=== PATIENT | male | born 1975 | race American Indian/Alaskan Native ===

== ENCOUNTER 2017-01-15 12:15 | Inpatient (IN) | payer MEDICARE, MEDICAID, OTHER ==
--- NOTE | 2017-01-15 12:17 | ED PDOC ---
Arrival/HPI - General Time Seen by Provider: 01/15/17 12:17 Historian: Patient, EMS - History of Present Illness Narrative History of Present Illness (Text): 01/15/17 12:17 41 y/o male, pmh including chronic brain lesion for over 10 years/seizure, nkda , psychiatric history including suicidal ideation/attempt, c/o depression with suicidal and homicidal pain Plus chest pain started 6am today. Pt. stated that he was at [place] [facility] [place] ago for the suicidal ideation which he stated that he was hospitalize for 4 days. Pt. stated that he has been feeling very depressed this week, stated that he was picking up the cup of a antifreeze and was planning to drink it, antifreeze touch the outer lips but didn't swallow or put it inside the oral cavity. Pt. stated that he woke up this morning around 6am with the chest pain, aggravated by touching the lt. sided chest region, no coughing or night sweat, no dizziness, no diarrhea, no shortness of breath, no palpitation, no other medical or psychological complaints. Past Medical History - Provider Review Nursing Documentation Reviewed: Yes Family/Social History - Physician Review Nursing Documentation Reviewed: Yes Family/Social History: Unknown Family HX Allergies/Home Meds Allergies/Adverse Reactions: Allergies No Known Allergies Allergy (Verified 01/15/17 12:37) Home Medications: Home Meds Medication Instructions Recorded Confirmed Citalopram Hydrobromide [Celexa] 20 mg PO DAILY 01/15/17 01/15/17 Divalproex [Depakote] 250 mg PO BID 01/15/17 01/15/17 traZODone [trazODONE HYDROCHLORIDE] 50 mg PO DAILY 01/15/17 01/15/17 Review of Systems - Review of Systems Constitutional: absent: Fatigue, Fevers Eyes: absent: Vision Changes ENT: absent: Hearing Changes Respiratory: absent: SOB, Cough Cardiovascular: Chest Pain Gastrointestinal: absent: Abdominal Pain, Nausea, Vomiting Skin: absent: Rash, Pruritis, Skin Lesions, Ulcer Neurological: absent: Headache, Dizziness Physical Exam Vital Signs Temp Pulse Resp BP Pulse Ox 01/15/17 19:14 99.1 F 53 L 14 98/55 L 99 01/15/17 18:15 58 L 18 100/65 98 01/15/17 17:43 64 18 110/74 100 01/15/17 16:36 97.8 F 64 18 101/56 L 99 01/15/17 15:18 60 18 100/62 99 01/15/17 14:42 97.8 F 61 17 110/68 100 01/15/17 12:25 97.8 F 64 18 100/63 100 Temperature: Afebrile Blood Pressure: Normal Pulse: Regular Respiratory Rate: Normal Appearance: Positive for: Well-Appearing, Non-Toxic, Comfortable Pain Distress: Moderate Mental Status: Positive for: Alert and Oriented X 3 - Systems Exam Head: Present: Atraumatic, Normocephalic Pupils: Present: PERRL Extroacular Muscles: Present: EOMI Conjunctiva: Present: Normal Mouth: Present: Moist Mucous Membranes, Normal Lips. No: Drooling, Trismus Pharnyx: No: ERYTHEMA, EXUDATE, TONSILS ENLARGED, Uvular Deviation, Muffled/ Hoarse Voice, Strider, Soft Palate/Uvular Edema Neck: Present: Normal Range of Motion Respiratory/Chest: Present: Clear to Auscultation, Good Air Exchange, Tender to Palpation (Chest pain is 100% reproducible by palpating on the lt. pectoralis major muscle region with no rib bony tenderness. ). No: Respiratory Distress, Accessory Muscle Use, Wheezes, Decreased Breath Sounds, Rales, Retracting, Rhonchi, Tachypneic Cardiovascular: Present: Regular Rate and Rhythm, Normal S1, S2. No: Murmurs Abdomen: Present: Normal Bowel Sounds. No: Tenderness, Distention, Peritoneal Signs, Rebound, Guarding Back: Present: Normal Inspection. No: Midline Tenderness, Paraspinal Tenderness Upper Extremity: Present: Normal Inspection. No: Cyanosis, Edema Lower Extremity: Present: Normal Inspection. No: Edema Neurological: Present: GCS=15, Speech Normal, Motor Func Grossly Intact, Gait Normal, Memory Normal Skin: Present: Warm, Dry, Normal Color. No: Rashes Psychiatric: Present: Alert, Oriented x 3, Normal Insight, Normal Concentration Medical Decision Making ED Course and Treatment: 01/15/17 12:35 -labs/ua/uds -ekg -cxr -IVF/toradol -Poison control -one to one -HEART score is LOW with score is 3. -observe and reassess 01/15/17 13:03 -Poison control notified: impression is this is not consider as ingestion, suggest to ensure the blood PH is within normal limit. ABG ordered. 01/15/17 14:19 -EKG: NSR @ 60 BPM, early repolarizations noted on the anterior lateral leads from V3-V6, no T wave inversion, no previous ekg available for comparison. -Chest xray show: no active disease -Labs are non-significant -ABG PH: 7.42 (within normal limit) -1st set of the troponin is negative. Will repeat the 2nd troponin 16:00 01/15/17 14:29 -Poison control called back and no further testing or emergent indicated. -IVF ordered for the patient. 01/15/17 18:03 -2nd set of the troponin is negative. -Pt. is medically clear and stable for the psychiatric evaluation at this moment. -UA show no UTI -UDS show no acute findings. -NATALIE Abrams contacted and awared. -Chest pain resolved with the IV toradol, pt. is sleeping well and had sandwich in the ER. -Case discussed with Dr. Dominguez, he agreed that the patient can be medically clear and evaluated by the PES. 01/15/17 19:46 -NATALIE Abrams evaluated the patient, request to admit the patient for major depression. - Lab Interpretations Lab Results: 01/15/17 13:30 01/15/17 13:30 Lab Results 01/15/17 17:30: Urine Opiates Screen Negative, Urine Methadone Screen Negative, Ur Barbiturates Screen Negative, Ur Phencyclidine Scrn Negative, Ur Amphetamines Screen Negative, U Benzodiazepines Scrn Negative, U Oth Cocaine Metabols Positive H, U Cannabinoids Screen Negative 01/15/17 17:30: Urine Color Yellow, Urine Appearance Clear, Urine pH 6.5, Ur Specific [place] 1.025, Urine Protein 30 H, Urine Glucose (UA) Negative, Urine Ketones Negative, Urine Blood Negative, Urine Nitrate Negative, Urine Bilirubin Negative, Urine Urobilinogen 1.0 H, Ur Leukocyte Esterase Negative, Urine RBC 0 - 2, Urine WBC 0 - 2, Ur Epithelial Cells 0 - 2, Urine Bacteria Few 01/15/17 16:28: Lactate Dehydrogenase 262 L, Total Creatine Kinase 76, Troponin I < 0.01 01/15/17 14:05: pCO2 46 H, pO2 96.0, HCO3 29.8 H, ABG pH 7.42, ABG Total CO2 31.2 H, ABG O2 Saturation 98.9 H, ABG Base Excess 4.5 H, ABG Potassium 3.5 L, Glucose 131 H, Lactate 0.6 L, FiO2 21.0, Sodium 138.0, Chloride 106.0, Arterial Blood Potassium 3.5 L 01/15/17 13:30: WBC 4.6, RBC 4.62, Hgb 15.4, Hct 42.9, MCV 92.9, MCH 33.3, MCHC 35.9, RDW 13.3, Plt Count 188, MPV 9.9, Gran % 30.3 L, Lymph % (Auto) 51.4 H, [place] % (Auto) 11.5 H, Eos % (Auto) 6.1 H, Baso % (Auto) 0.7, Gran # 1.40, Lymph # 2.4, [place] # 0.5, Eos # 0.3, Baso # 0.03 01/15/17 13:30: Alcohol, Quantitative < 10 01/15/17 13:30: Salicylates < 1 L, Acetaminophen < 10.0 L 01/15/17 13:30: Sodium 142, Potassium 4.2, Chloride 103, Carbon Dioxide 30, Anion Gap 13, BUN 12, Creatinine 0.9, Est GFR ( Amer) > 60, Est GFR (Non- Af Amer) > 60, Random Glucose 92, Calcium 9.4, Total Bilirubin 1.0, AST 24, ALT 28, Alkaline Phosphatase 70, Lactate Dehydrogenase 289 L, Total Creatine Kinase 91, Troponin I < 0.01, Total Protein 7.2, Albumin 4.2, Globulin 3.0, Albumin/ Globulin Ratio 1.4 I have reviewed the lab results: Yes Interpretation: Abnormal lab values (+cocaine) - RAD Interpretation Radiology Orders: 01/15/17 12:39 CHEST PORTABLE [RAD] Stat Chest x-ray: HISTORY: medical clearance COMPARISON: No prior. FINDINGS: LUNGS: No active pulmonary disease. PLEURA: No significant pleural effusion identified, no pneumothorax apparent. CARDIOVASCULAR: Normal. OSSEOUS STRUCTURES: No significant abnormalities. VISUALIZED UPPER ABDOMEN: Normal. OTHER FINDINGS: None. IMPRESSION: No active disease. Assistant In Nursing: Radiologist - Medication Orders Current Medication Orders: Sodium Chloride (Sodium Chloride 0.9%) 1,000 mls @ 250 mls/hr IV .Q4H HUGO Last Admin: 01/15/17 16:02 Dose: 250 mls/hr eMAR Start Stop Document 01/15/17 16:02 IT (Rec: 01/15/17 16:02 IT [facility] [id number]) Intravenous Solution Start Date 01/15/17 Start Time 16:02 End Date 01/15/17 End time 17:02 Total Infusion Time 60 Discontinued Medications Sodium Chloride (Sodium Chloride 0.9%) 1,000 mls @ 999 mls/hr IV .Q1H1M STA Stop: 01/15/17 15:28 Last Admin: 01/15/17 14:45 Dose: 999 mls/hr eMAR Start Stop Document 01/15/17 14:45 IT (Rec: 01/15/17 14:45 IT [id number] Intravenous Solution Start Date 01/15/17 Start Time 14:45 End Date 01/15/17 End time 15:45 Total Infusion Time 60 Ketorolac Tromethamine (Toradol) 30 mg IVP STAT STA Stop: 01/15/17 12:40 Last Admin: 01/15/17 13:21 Dose: 30 mg MAR Pain Assessment Document 01/15/17 13:21 IT (Rec: 01/15/17 13:25 IT [facility] [id number]) Pain Reassessment Is this a pain reassessment? No Sleep Is patient sleeping during reassessment? No Presence of Pain Presence of Pain Yes Pain Scale Used Pain Scale Used Numeric Location Left, Right or Bilateral Left Pain Location Body Site Chest IVP Administration Document 01/15/17 13:21 IT (Rec: 01/15/17 13:25 IT [facility] [id number]) Charges for Administration # of IVP Administrations 1 Re-Assess: MAR Pain Assessment Document 01/15/17 14:21 IT (Rec: 01/15/17 14:46 IT [facility] [id number]) Pain Reassessment Is this a pain reassessment? Yes Sleep Is patient sleeping during reassessment? No Presence of Pain Presence of Pain No - PA / BUSINESS LIBRARIAN / Resident Statement MD/DO has reviewed & agrees with the documentation as recorded. Disposition/Present on Arrival - Present on Arrival Any Indicators Present on Arrival: No History of DVT/PE: No History of Uncontrolled Diabetes: No Urinary Catheter: No History of Decub. Ulcer: No - Disposition Have Diagnosis and Disposition been Completed?: Yes Diagnosis: Suicide attempt, Chest pain, Drug abuse, Major depression Disposition: HOSPITALIZED Disposition Time: 18:29 Patient Plan: Admission Patient Problems: Current Active Problems Problem Status Onset Suicide attempt Acute Chest pain Acute Drug abuse Acute Condition: STABLE Discharge Instructions (ExitCare): Chest Pain (ED)
[2017-01-15 12:37] VITALS: BMI 16.2
--- NOTE | 2017-01-15 13:15 | RAD ---
HISTORY: medical clearance COMPARISON: No prior. FINDINGS: LUNGS: No active pulmonary disease. PLEURA: No significant pleural effusion identified, no pneumothorax apparent. CARDIOVASCULAR: Normal. OSSEOUS STRUCTURES: No significant abnormalities. VISUALIZED UPPER ABDOMEN: Normal. OTHER FINDINGS: None. IMPRESSION: No active disease.
[2017-01-15 13:42] LABS: BASO # 0.03 K/mm3 (0.0-2.0); BASO % 0.7 % (0.0-3.0); EOS # 0.3 (0.0-0.7); EOS % 6.1 % (1.5-5.0); GRAN # 1.4 (1.4-6.5); GRAN % 30.3 % (50.0-68.0); HEMATOCRIT 42.9 % (42.0-52.0); LYMPH # 2.4 (1.2-3.4); LYMPH % 51.4 % (22.0-35.0); MEAN CELL VOLUME 92.9 fl (80.0-105.0); MEAN CORPUSCULAR HEMOGLOBIN 33.3 pg (25.0-35.0); MEAN CORPUSCULAR HGB CONC 35.9 g/dl (31.0-37.0); MEAN PLATELET VOLUME 9.9 fl (7.0-11.0); MONO # 0.5 (0.1-0.6); MONO % 11.5 % (1.0-6.0); RED CELL DISTRIBUTION WIDTH 13.3 % (11.5-14.5); WHITE BLOOD COUNT 4.6 10^3/ul (4.5-11.0)
[2017-01-15 13:50] LABS: ALB/GLOB RATIO 1.4 (1.1-1.8); ALKALINE PHOSPHATASE 70 U/L (38-126); ALT/SGPT 28 U/L (7-56); AST/SGOT 24 U/L (17-59); BLOOD UREA NITROGEN 12 mg/dL (7-21); CALCIUM 9.4 mg/dL (8.4-10.5); CARBON DIOXIDE 30 mmol/L (21-33); CHLORIDE 103 mmol/L (98-107); GFR AFRICAN-AMERICAN > 60; GLUCOSE,RANDOM 92 mg/dL (70-110); POTASSIUM 4.2 mmol/L (3.6-5.0); SODIUM 142 mmol/L (132-148); TOTAL PROTEIN 7.2 g/dL (5.8-8.3)
[2017-01-15 14:11] LABS: ARTERIAL BLOOD GAS HCO3 29.8 mmol/L (21-28); ARTERIAL BLOOD GAS PH 7.42 (7.35-7.45)
[2017-01-15 14:13] LABS: TROPONIN I < 0.01 ng/mL
[2017-01-15] MEDS ORDERED: Sodium Chloride 0.9% 1,000 ML IV STA (14:28)
--- NOTE | 2017-01-15 14:51 | CARD ---
APPROVED REPORT EKG Measurement Heart [id number] <Conclusion> Normal sinus rhythm Early repolarization Normal ECG
[2017-01-15] MEDS: Sodium Chloride 0.9% 1,000 ML IV SCH (16:02)
[2017-01-15 17:26] LABS: TROPONIN I < 0.01 ng/mL
[2017-01-15 17:49] LABS: PH,URINE 6.5 (4.7-8.0); URINE BILIRUBIN NEGATIVE (NEGATIVE); URINE BLOOD NEGATIVE (NEGATIVE); URINE GLUCOSE (UA) NEGATIVE (NEGATIVE); URINE KETONE NEGATIVE (NEGATIVE); URINE LEUKOCYTE ESTERASE NEGATIVE Leu/uL (NEGATIVE); URINE PROTEIN 30 mg/dL (<30 mg/dL)
[2017-01-15 18:09] LABS: URINE APPEARANCE CLEAR (CLEAR); URINE COLOR YELLOW (YELLOW)
[2017-01-15 18:26] LABS: URINE BACTERIA FEW (NEG); URINE EPITHELIAL CELLS 0 - 2 /hpf (0-5); URINE RBC 0 - 2 /hpf (0-2); URINE WBC 0 - 2 /hpf (0-6)
[2017-01-15 19:14] VITALS: O2SAT 99
[2017-01-15] MEDS ORDERED: Divalproex 250 mg DR (BID formulation) PO SCH (22:00)
[2017-01-15] MEDS ORDERED: Magnesium Hydroxide Susp 30 ml UD PO PRN (23:14)
[2017-01-15] MEDS ORDERED: Alum-Mag Hydrox-Simethicone Susp (30 mL) PO PRN (23:14)
--- NOTE | 2017-01-16 01:51 | PCM.BM ---
<Re Nava - Last Filed: 01/16/17 01:48> Treatment Plan Problems - Problems identified on initial assessmt Depression Date Initiated: 01/15/17 Time Initiated: 20:35 Assessment reference: NA Status: Active medication non-compliance Date Initiated: 01/15/17 Time Initiated: 20:35 Assessment reference: NA Status: Active suicidal ideation Date Initiated: 01/15/17 Time Initiated: 20:35 Assessment reference: NA Status: Referred Treatment assets and liabiliti Patient Assests: self-reliant, ADL independent, negotiates basic needs Patient Liabilities: financial problems, poor support system, relationship conflicts, substance abuse - Milieu Protocol Maintain good personal hygiene: daily Encourage regular showers, daily Remind patient to perform daily oral care, daily Assist patient to perform ADL's Conduct patient checks and document Observation sheet: Q15 minutes Maintain personal safety: every shift Educate patient to report safety concerns to staff, every shift Monitor environment for contraband/sharps Medication safety: Monitor for expected outcome, potential side effects: every shift, Assess barriers to learning: every shift, Assess readiness for medication education: every shift Discharge/Continuing Care - Education Needs Education Needs: Patient Medication, Patient Diagnosis/Disease Process, Patient Coping Skills, Patient Anger Management skills, Patient Community resources, Patient Health Practices/Safety - Discharge Discharge Criteria: Tolerates medication w/o severe side effects, Free of Suicidal thoughts, Free of Homicidal thoughts, Free of agitation <Hafsa Swift - Last Filed: 01/16/17 14:42> - Diagnosis (1) Bipolar disorder Status: Acute Interventions: 01/16/17 14:42 Psychoeducation Psychopharmacology/adjustment of medications as needed/ monitoring possible side effects Monitor blood level of mood stabilizers Evaluate pt on daily basis Compliance with medications and follow up appointments Suicide and homicide risk assessment and prevention, coping strategies, safety plan Relapse prevention Reduction of symptoms Improve functional status Family involvement As outpatient: cognitive behavioral therapy (2) Cocaine abuse Status: Acute Interventions: 01/16/17 14:42 Maintaining sobriety Relapse prevention Possible rehabilitation Motivational interviewing 12-step programs: AA meetings <Angel Shukla - Last Filed: 01/17/17 11:13> Treatment assets and liabiliti Patient Liabilities: other (angry, non compliant) - Milieu Protocol Maintain good personal hygiene: daily Encourage regular showers, daily Remind patient to perform daily oral care, daily Assist patient to perform ADL's Maintain personal safety: daily Educate patient to report safety concerns to staff, daily Monitor environment for contraband/sharps Medication safety: Monitor for expected outcome, potential side effects: daily, Assess barriers to learning: daily, Assess readiness for medication education: daily Discharge/Continuing Care - Education Needs Education Needs: Patient Medication, Patient Diagnosis/Disease Process, Patient Coping Skills, Patient Anger Management skills, Patient Placement options, Patient Community resources, Patient Activities of Daily Living, Patient Uses of Medical Equipment, Patient Health Practices/Safety, Patient Personal Hygiene/ Grooming, Patient Aftercare Safety Plan <Yary Atwood - Last Filed: 01/17/17 14:48>
[2017-01-16 07:57] LABS: CHOLESTEROL 113 mg/dL (130-200); GLUCOSE,FASTING 92 mg/dL (65-110)
[2017-01-16] MEDS: Sodium Chloride 0.9% 1,000 ML IV SCH (09:22)
[2017-01-16] MEDS ORDERED: Divalproex 250 mg DR (BID formulation) PO SCH (10:00)
--- NOTE | 2017-01-16 13:21 | CP.PCM.CON ---
<Sejal Hunter - Last Filed: 01/16/17 13:41> History of Present Illness - History of Present Illness History of Present Illness: Neurology Consult Note for Som Mejia PGY2 Reason for consult: Seizures This is a 41Y AA M with PMH substance abuse, depression, brain tumor and possible seizures who was admitted to [facility] for suicidal ideation. Neurology was consulted for history of seizures. Upon interview, patient reports he has never had a seizure before but does take Depakote. He denies having any recent seizure activity such as tongue biting, sudden loss of bowel/bladder incontinence, tonic-clonic movements, or lip smacking. Patient does state he has a brain tumor which was evaluated in [place]. He reports that is was growing a size and was supposed to have it removed "through his nose", but did not follow up with the neurosurgeon. He did have a biopsy and does not remember the results. Today he denies having any vision changes or weakness, but does complain of intermittent headaches and neck pain. The headaches are no associated with aura. He denies CP, SOB, n/v/d, fever or chills. PMH: substance abuse, depression, brain tumor, seizure? PSH: Denies Home meds: As per MAR All: NKDA SH: + snort cocaine, drinks alcohol "socially", + tobacco abuse FH: Mom- seizures, Sister- lung cancer Review of Systems - Review of Systems All systems: reviewed and no additional remarkable complaints except Review of Systems: + headache, neck pain Past Patient History - Infectious Disease Hx of Infectious Diseases: None - Past Social History Smoking Status: Current Some Days Smoker - CARDIAC Hx Cardiac Disorders: No Hx Hypertension: No - PULMONARY Hx Tuberculosis: No - NEUROLOGICAL HX Cerebrovascular Accident: No Hx Seizures: No - HEMATOLOGICAL/ONCOLOGICAL Hx Cancer: No Hx Human Immunodeficiency Virus (HIV): No - GENITOURINARY/GYNECOLOGICAL Hx Sexually Transmitted Disorders: No - PSYCHIATRIC Hx Depression: Yes Hx Substance Use: Yes - ANESTHESIA Hx Anesthesia Reactions: No Meds Allergies/Adverse Reactions: Allergies Allergy/AdvReac Type Severity Reaction Status Date / Time No Known Allergies Allergy Verified 01/16/17 00:19 - Medications Medications: Current Medications Acetaminophen (Tylenol 325mg Tab) 650 mg PO Q4 PRN PRN Reason: Pain, moderate (4-7) Al Hydrox/Mg Hydrox/Simethicone (Maalox Plus 30 Ml) 30 ml PO DAILY PRN PRN Reason: Upset Stomach Bupropion HCl (Wellbutrin) 75 mg PO BID [facility] Divalproex Sodium (Depakote Dr (*Bid*)) 250 mg PO TID [facility] PRN Reason: Protocol Magnesium Hydroxide (Milk Of Magnesia) 30 ml PO DAILY PRN PRN Reason: Constipation Trazodone HCl (Desyrel) 50 mg PO HS [facility] Physical Exam - Constitutional Appears: No Acute Distress - Head Exam Head Exam: ATRAUMATIC, NORMAL INSPECTION, NORMOCEPHALIC - Eye Exam Eye Exam: Normal appearance, PERRL Pupil Exam: NORMAL ACCOMODATION - ENT Exam ENT Exam: Mucous Membranes Moist - Respiratory Exam Respiratory Exam: Clear to Auscultation Bilateral, NORMAL BREATHING PATTERN. absent: Rales, Rhonchi - Cardiovascular Exam Cardiovascular Exam: REGULAR RHYTHM, +S1, +S2. absent: Gallop, Rubs, Systolic Murmur - GI/Abdominal Exam GI & Abdominal Exam: Normal Bowel Sounds, Soft. absent: Rebound, Rigid, Tenderness - Extremities Exam Extremities exam: Positive for: normal inspection. Negative for: calf tenderness, pedal edema - Neurological Exam Neurological exam: Alert, CN II-XII Intact, Normal Gait, Oriented x3 - Psychiatric Exam Psychiatric exam: Normal Affect, Normal Mood - Skin Skin Exam: Dry, Intact, Normal Color, Warm Results - Vital Signs Recent Vital Signs: Last Vital Signs Temp 98.3 F 01/16/17 06:58 Pulse 49 L 01/16/17 06:58 Resp 18 01/16/17 06:58 BP 85/54 L 01/16/17 06:58 Pulse Ox 99 01/15/17 20:35 - Labs Result Diagrams: 01/15/17 13:30 01/15/17 13:30 Labs: Laboratory Results - last 24 hr 01/16/17 01/16/17 01/16/17 07:30 07:36 07:36 Fasting Glucose 92 Triglycerides 63 Cholesterol 113 L LDL Cholesterol Direct 49 HDL Cholesterol 48 Free T4 0.88 TSH 3rd Generation 0.25 L Assessment & Plan - Assessment and Plan (Free Text) Assessment: This is a 41Y AA M with PMH substance abuse, depression, chronic brain tumor and possible seizures who was admitted to psych for suicidal ideation. Patient denies any seizure like activity or vision changes. 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 Will sign off. Thank you for this consultation. Please re-consult if needed. Case seen, discussed and reviewed with Dr. Huang. Som Hunter PGY2 - Date & Time Date: 01/16/17 Time: 13:45 <Lito Huang - Last Filed: 01/16/17 16:16> Meds - Medications Medications: Current Medications Acetaminophen (Tylenol 325mg Tab) 650 mg PO Q4 PRN PRN Reason: Pain, moderate (4-7) Al Hydrox/Mg Hydrox/Simethicone (Maalox Plus 30 Ml) 30 ml PO DAILY PRN PRN Reason: Upset Stomach Bupropion HCl (Wellbutrin) 75 mg PO BID [facility] Last Admin: 01/16/17 15:33 Dose: 75 mg Divalproex Sodium (Depakote Dr (*Bid*)) 250 mg PO TID HUGO PRN Reason: Protocol Last Admin: 01/16/17 15:32 Dose: 250 mg Magnesium Hydroxide (Milk Of Magnesia) 30 ml PO DAILY PRN PRN Reason: Constipation Nicotine (Nicoderm Cq) 1 patch TD DAILY [facility] Last Admin: 01/16/17 15:32 Dose: 1 patch Zaleplon (Sonata) 5 mg PO HS PRN PRN Reason: Insomnia Results - Vital Signs Recent Vital Signs: Last Vital Signs Temp 98.3 F 01/16/17 06:58 Pulse 49 L 01/16/17 06:58 Resp 18 01/16/17 06:58 BP 85/54 L 01/16/17 06:58 Pulse Ox 99 01/15/17 20:35 - Labs Result Diagrams: 01/15/17 13:30 01/15/17 13:30 Labs: Laboratory Results - last 24 hr 01/16/17 01/16/17 01/16/17 07:30 07:36 07:36 Fasting Glucose 92 Triglycerides 63 Cholesterol 113 L LDL Cholesterol Direct 49 HDL Cholesterol 48 Free T4 0.88 TSH 3rd Generation 0.25 L Attending/Attestation - Attestation I have personally seen and examined this patient.: Yes I have fully participated in the care of the patient.: Yes I have reviewed all pertinent clinical information: Yes
--- NOTE | 2017-01-16 14:34 | CP.PCM.CON ---
<Abiodun Brand - Last Filed: 01/16/17 14:40> History of Present Illness - History of Present Illness History of Present Illness: Medicine Note 41M with pmhx substance abuse, depression, brain tumor and possible seizures who was admitted to psych for suicidal ideation. Upon admission patient stated he was having chest pain. Cardiac Enzymes were taken during that time. During encounter pt states no chest pain, and he never had seizures before but has a brain mass that was evaluated in [place]. States that he has headaches however not currently. He was prescribed Depakote and stated he did not take his medicine frequently. Denies having recent seizure activity such as tongue biting, sudden loss of bowel/bladder incontinence, tonic-clonic movements, or lip smacking. Denies Fevers, chills, chest pain, SOB, nausea, vomiting, diarrhea. complaining of intermittent OWUSU w/ no aura. PMH: substance abuse + cocaine, depression, brain tumor, seizure? PSH: none All: NKDA SocialHx: + snort cocaine, drinks alcohol "socially", + tobacco abuse FH: Mom- seizures, Sister- lung cancer Review of Systems - Review of Systems All systems: reviewed and no additional remarkable complaints except - Constitutional Constitutional: As Per HPI Past Patient History - Infectious Disease Hx of Infectious Diseases: None - Past Social History Smoking Status: Current Some Days Smoker - CARDIAC Hx Cardiac Disorders: No Hx Hypertension: No - PULMONARY Hx Tuberculosis: No - NEUROLOGICAL HX Cerebrovascular Accident: No Hx Seizures: No - HEMATOLOGICAL/ONCOLOGICAL Hx Cancer: No Hx Human Immunodeficiency Virus (HIV): No - GENITOURINARY/GYNECOLOGICAL Hx Sexually Transmitted Disorders: No - PSYCHIATRIC Hx Depression: Yes Hx Substance Use: Yes - ANESTHESIA Hx Anesthesia Reactions: No Meds Allergies/Adverse Reactions: Allergies Allergy/AdvReac Type Severity Reaction Status Date / Time No Known Allergies Allergy Verified 01/16/17 00:19 - Medications Medications: Current Medications Acetaminophen (Tylenol 325mg Tab) 650 mg PO Q4 PRN PRN Reason: Pain, moderate (4-7) Al Hydrox/Mg Hydrox/Simethicone (Maalox Plus 30 Ml) 30 ml PO DAILY PRN PRN Reason: Upset Stomach Bupropion HCl (Wellbutrin) 75 mg PO BID HUGO Divalproex Sodium (Depakote Dr (*Bid*)) 250 mg PO TID [facility] PRN Reason: Protocol Magnesium Hydroxide (Milk Of Magnesia) 30 ml PO DAILY PRN PRN Reason: Constipation Trazodone HCl (Desyrel) 50 mg PO HS [facility] Physical Exam - Constitutional Appears: Non-toxic, No Acute Distress - Head Exam Head Exam: ATRAUMATIC - Eye Exam Eye Exam: EOMI. absent: Nystagmus - ENT Exam ENT Exam: Mucous Membranes Moist - Respiratory Exam Respiratory Exam: NORMAL BREATHING PATTERN. absent: Accessory Muscle Use, Respiratory Distress - Cardiovascular Exam Cardiovascular Exam: +S1, +S2. absent: Bradycardia, Tachycardia - GI/Abdominal Exam GI & Abdominal Exam: Normal Bowel Sounds, Soft. absent: Tenderness - Extremities Exam Extremities exam: Positive for: normal inspection. Negative for: calf tenderness - Back Exam Back exam: absent: CVA tenderness (L), CVA tenderness (R) - Neurological Exam Neurological exam: Alert, Oriented x3 - Skin Skin Exam: Normal Color, Warm Results - Vital Signs Recent Vital Signs: Last Vital Signs Temp 98.3 F 01/16/17 06:58 Pulse 49 L 01/16/17 06:58 Resp 18 01/16/17 06:58 BP 85/54 L 01/16/17 06:58 Pulse Ox 99 01/15/17 20:35 - Labs Result Diagrams: 01/15/17 13:30 01/15/17 13:30 Labs: Laboratory Results - last 24 hr 01/16/17 01/16/17 01/16/17 07:30 07:36 07:36 Fasting Glucose 92 Triglycerides 63 Cholesterol 113 L LDL Cholesterol Direct 49 HDL Cholesterol 48 Free T4 0.88 TSH 3rd Generation 0.25 L Assessment & Plan - Assessment and Plan (Free Text) Assessment: 41M w/ pmh substance abuse, depression, chronic brain tumor and possible seizures admitted for suicidal ideation. Pt initally complaining of chest pain, however Asx Chest Pain Cardiac enzymes negative x2. Pending 3rd enzyme level Hyperthyroidism based on TSH Low TSH, Normal T4 No additional Management at this time Depression Management per Primary Psych team H/O Brain Mass Neurology on board. CT head to evaluate mass Will follow for now. Abiodun Brand PGY1 <Francine Villeda - Last Filed: 01/16/17 16:00> Meds - Medications Medications: Current Medications Acetaminophen (Tylenol 325mg Tab) 650 mg PO Q4 PRN PRN Reason: Pain, moderate (4-7) Al Hydrox/Mg Hydrox/Simethicone (Maalox Plus 30 Ml) 30 ml PO DAILY PRN PRN Reason: Upset Stomach Bupropion HCl (Wellbutrin) 75 mg PO BID [facility] Last Admin: 01/16/17 15:33 Dose: 75 mg Divalproex Sodium (Depakote Dr (*Bid*)) 250 mg PO TID HUGO PRN Reason: Protocol Last Admin: 01/16/17 15:32 Dose: 250 mg Magnesium Hydroxide (Milk Of Magnesia) 30 ml PO DAILY PRN PRN Reason: Constipation Nicotine (Nicoderm Cq) 1 patch TD DAILY HUGO Last Admin: 01/16/17 15:32 Dose: 1 patch Zaleplon (Sonata) 5 mg PO HS PRN PRN Reason: Insomnia Results - Vital Signs Recent Vital Signs: Last Vital Signs Temp 98.3 F 01/16/17 06:58 Pulse 49 L 01/16/17 06:58 Resp 18 01/16/17 06:58 BP 85/54 L 01/16/17 06:58 Pulse Ox 99 01/15/17 20:35 - Labs Result Diagrams: 01/15/17 13:30 01/15/17 13:30 Labs: Laboratory Results - last 24 hr 01/16/17 01/16/17 01/16/17 07:30 07:36 07:36 Fasting Glucose 92 Triglycerides 63 Cholesterol 113 L LDL Cholesterol Direct 49 HDL Cholesterol 48 Free T4 0.88 TSH 3rd Generation 0.25 L Attending/Attestation - Attestation I have personally seen and examined this patient.: Yes I have fully participated in the care of the patient.: Yes I have reviewed all pertinent clinical information: Yes Notes (Text): 01/16/17 15:56 MEDICAL CONSULTATION 41 year old male with past medical history of depression, substance abuse, ? brain tumor/lesion and possible seizure disorder who presented with depressed mood and suicidal ideation. Continue with management as per psychiatrist. He initially complained of chest pain which has resolved. Cardiac enzymes x2 were negative with 3rd enzyme pending today. EKG showed NSR with early repolarization. Urine drug screen was positive for cocaine. He was counselled on risks of continued substance abuse. Neurology evaluation was appreciated for ?brain tumor/lesion and possible seizure disorder as per history. CT head was ordered. Low TSH with normal Free T4 noted. Recommended to repeat TFTs in 6-8 weeks. Francine Villeda MD Hospitalist.
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
[2017-01-16] MEDS: Divalproex 250 mg DR (BID formulation) PO SCH ×2 (15:32→21:22)
--- NOTE | 2017-01-16 16:33 | CT ---
PROCEDURE: CT HEAD WITHOUT CONTRAST. HISTORY: hx of brain tumor COMPARISON: None available. TECHNIQUE: Axial computed tomography images were obtained through the head/brain without intravenous contrast. Radiation dose: Total exam DLP = 736.81 MGy-cm. This CT exam was performed using one or more of the following dose reduction techniques: Automated exposure control, adjustment of the mA and/or kV according to patient size, and/or use of iterative reconstruction technique. FINDINGS: HEMORRHAGE: No intracranial hemorrhage. BRAIN: There is a 2.1 x 2.1 cm isodense mass at the left skullbase involving the left clivus and petrous apex in close proximity to the left carotid canal. There is no territorial infarction or extra-axial fluid collection. VENTRICLES: The ventricles are normal in size, shape and configuration. CALVARIUM: The calvarium is normal. PARANASAL SINUSES: There are aerosolized secretions in the left maxillary sinus. The remaining included paranasal sinuses are clear. MASTOID AIR CELLS: Predominantly clear. OTHER FINDINGS: None. IMPRESSION: 2.1 x 2.1 cm mass in the left skullbase in the region of the clivus and left petrous apex in close proximity to the left carotid canal. A dedicated MRI of the brain with skullbase protocol without and with intravenous contrast is recommended for further characterization.
--- NOTE | 2017-01-17 10:21 | CP.PCM.PCO ---
<Sejal Hunter - Last Filed: 01/17/17 10:20> Physician Communication Note - Physician Communication Note Physician Communication Note: ct head reviewed. Neuro surg eval. C/w meds. <Lito Huang - Last Filed: 01/17/17 12:31> Attending/Attestation - Attestation I have personally seen and examined this patient.: Yes I have fully participated in the care of the patient.: Yes I have reviewed all pertinent clinical information: Yes
[2017-01-17] MEDS: Divalproex 250 mg DR (BID formulation) PO SCH ×2 (11:18→21:15)
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
--- NOTE | 2017-01-17 14:01 | CP.PCM.PN ---
<Jd Matias - Last Filed: 01/17/17 13:54> Subjective - Date & Time of Evaluation Date of Evaluation: 01/17/17 Time of Evaluation: 13:54 - Subjective Subjective: Pt seen and examined. Pt with no acute events overnight. Pt states he is stressed out because he cannot speak with his daughter. Denies CP, SOB, N/V/D, fever, chills, changes in vision. Objective - Vital Signs/Intake and Output Vital Signs (last 24 hours): Temp Pulse Resp BP Pulse Ox 97.7 F 53 L 20 100/60 99 01/17/17 07:19 01/17/17 07:19 01/17/17 07:19 01/17/17 07:19 01/15/17 20:35 - Medications Medications: Current Medications Acetaminophen (Tylenol 325mg Tab) 650 mg PO Q4 PRN PRN Reason: Pain, moderate (4-7) Al Hydrox/Mg Hydrox/Simethicone (Maalox Plus 30 Ml) 30 ml PO DAILY PRN PRN Reason: Upset Stomach Bupropion HCl (Wellbutrin) 75 mg PO BID [facility] Last Admin: 01/17/17 11:19 Dose: Not Given Divalproex Sodium (Depakote Dr (*Bid*)) 250 mg PO TID [facility] PRN Reason: Protocol Last Admin: 01/17/17 11:18 Dose: Not Given Lorazepam (Ativan) 2 mg IM Q6H PRN; Protocol PRN Reason: agitation/anxiety Magnesium Hydroxide (Milk Of Magnesia) 30 ml PO DAILY PRN PRN Reason: Constipation Nicotine (Nicoderm Cq) 1 patch TD DAILY [facility] Last Admin: 01/17/17 11:18 Dose: Not Given Zaleplon (Sonata) 5 mg PO HS PRN PRN Reason: Insomnia Last Admin: 01/16/17 21:20 Dose: 5 mg Ziprasidone (Geodon Inj) 20 mg IM Q6H PRN; Protocol PRN Reason: Agitation - Constitutional Appears: Non-toxic, No Acute Distress - Head Exam Head Exam: ATRAUMATIC, NORMAL INSPECTION, NORMOCEPHALIC - Respiratory Exam Respiratory Exam: Clear to Ausculation Bilateral, NORMAL BREATHING PATTERN - Cardiovascular Exam Cardiovascular Exam: RRR, +S1, +S2 - GI/Abdominal Exam GI & Abdominal Exam: Soft, Normal Bowel Sounds. absent: Tenderness - Extremities Exam Extremities Exam: Normal Inspection. absent: Calf Tenderness, Pedal Edema - Neurological Exam Neurological Exam: Alert, Awake, Oriented x3 - Psychiatric Exam Psychiatric exam: Normal Affect, Normal Mood - Skin Skin Exam: Intact, Normal Color, Warm Assessment and Plan - Assessment and Plan (Free Text) Plan: 41 y/o M with PMH of substance abuse, depression,chronic brain tumor and possible seizures initially admitted for Suciadal ideation. Pt stable in psychiatry unit. CT head demonstrates 2.1 cm x 2.1 cm mass at left skull base. Neurosurgery will be consulted for further recs. Neurology recommends continuation of antiseizure medications. 1. Depression/SI Management as per psych 2. Brain mass Head CT shows 2.1 cm x 2.1 cm mass at left skull base (Please see full report) Neurosurgery consulted, Dr. Harris Neurology signed off, continue antiseizure meds 3. Subclinical hyperthyroidism Recheck TSH in 4-6 weeks 4. PPX No DVT prophylaxis needed, pt is ambulatory Polly, PGY-2 <Francine Villeda - Last Filed: 01/17/17 15:26> Objective - Vital Signs/Intake and Output Vital Signs (last 24 hours): Temp Pulse Resp BP Pulse Ox 97.7 F 53 L 20 100/60 99 01/17/17 07:19 01/17/17 07:19 01/17/17 07:19 01/17/17 07:19 01/15/17 20:35 - Medications Medications: Current Medications Acetaminophen (Tylenol 325mg Tab) 650 mg PO Q4 PRN PRN Reason: Pain, moderate (4-7) Al Hydrox/Mg Hydrox/Simethicone (Maalox Plus 30 Ml) 30 ml PO DAILY PRN PRN Reason: Upset Stomach Bupropion HCl (Wellbutrin) 75 mg PO BID [facility] Last Admin: 01/17/17 11:19 Dose: Not Given Divalproex Sodium (Depakote Dr (*Bid*)) 250 mg PO TID [facility] PRN Reason: Protocol Last Admin: 01/17/17 11:18 Dose: Not Given Lorazepam (Ativan) 2 mg IM Q6H PRN; Protocol PRN Reason: agitation/anxiety Magnesium Hydroxide (Milk Of Magnesia) 30 ml PO DAILY PRN PRN Reason: Constipation Nicotine (Nicoderm Cq) 1 patch TD DAILY [facility] Last Admin: 01/17/17 11:18 Dose: Not Given Zaleplon (Sonata) 5 mg PO HS PRN PRN Reason: Insomnia Last Admin: 01/16/17 21:20 Dose: 5 mg Ziprasidone (Geodon Inj) 20 mg IM Q6H PRN; Protocol PRN Reason: Agitation Attending/Attestation - Attestation I have personally seen and examined this patient.: Yes I have fully participated in the care of the patient.: Yes I have reviewed all pertinent clinical information, including history, physical exam and plan: Yes Notes (Text): 01/17/17 15:16 41 year old male with past medical history of depression, substance abuse, brain tumor/lesion and possible seizure disorder who presented with depressed mood and suicidal ideation. Continue with management as per psychiatry. CT head was reviewed as above. Case was discussed with neurology who recommended MRI brain and neurosurgery evaluation. His chest pain has resolved. Serial cardiac enzymes were negative. He was counselled on risks of continued substance abuse. Recommended to repeat TFTs in 6-8 weeks for low TSH / normal free T4 levels. Francine Villeda MD Hospitalist.
[2017-01-17] MEDS ORDERED: Gadodiamide 287 MG/ML VIAL (15ML) IV ONE (18:08)
--- NOTE | 2017-01-17 19:41 | MRI ---
PROCEDURE: MRI BRAIN WITH AND WITHOUT CONTRAST HISTORY: Brain mass COMPARISON: Head CT without contrast 01/16/2017. TECHNIQUE: Multiplanar, multisequence MR images of the brain were obtained with and without intravenous contrast enhancement. FINDINGS: HEMORRHAGE: None DWI: No evidence of an acute or early subacute infarction. BRAIN PARENCHYMA: Intrinsic signal throughout the phillips and white matter structures above below the tentorium includes appears within normal limits including the brainstem. There is no mass effect, parenchymal edema or loss of the corticomedullary differentiation. Midline brain anatomy appears within normal limits including the corpus callosum, brainstem and craniocervical junction. There is no suspicious extra-axial fluid collection identified. ENHANCEMENT: No abnormal intracranial enhancement. VENTRICLES: Unremarkable. No hydrocephalus. CRANIUM: The calvarium is diffusely unremarkable in overall signal however there is a left skull base mass, corresponding to the finding on prior CT 01/16/2017, which measures 3.4 x 1.7 x 2.6 cm (transverse by anteroposterior by superoinferior dimensions). It appears well-circumscribed and is inhomogeneous in signal but is predominantly increased in signal in all 3 sequences. Portions of the lesion suppresses on FLAIR imaging suggesting some water containing components. No definitive enhancing components are appreciated following gadolinium. The lesion is abutted laterally by the left carotid canal and trigeminal ganglion, anteriorly by the bilateral sphenoid sinus posterior urbina and the clivus, medially by the clivus and posteriorly by the medial Tai wrist ridge. It has somewhat of a polylobular shape. Consider possible cholesterol granuloma, mucous retention cyst, or possibly schwannoma with metastasis not completely excluded. Thrombosed aneurysm related to the left ICA is possible if thrombosis has occurred of subacute basis. A primary bone tumor is not excluded though most would be isointense on T1 or hypo intense rather than hyperintense. ORBITS: Grossly unremarkable. PARANASAL SINUSES/MASTOIDS: Clear VASCULAR SYSTEM: Skull base flow voids intact. OTHER FINDINGS: None . IMPRESSION: A 3.4 cm lesion bright on all sequences with no apparent enhancement is seen at the left skullbase medially potentially representing a cholesterol granuloma and other etiologies as discussed above. Please see differential diagnosis listed in cranium section above. The remainder of the examination is unremarkable.
--- NOTE | 2017-01-18 10:13 | CP.PCM.CON ---
History of Present Illness - History of Present Illness History of Present Illness: suicidal [id number] y o b male adm to psych Had routine CT of head which showed mass on left base of skull MRI with contrast done showing a bright on all sequences no enhancing mass on Left at base of skull medial to carotid aetery Could be cholesteoma, or less likly thromboses giant aneurysm amoung others Pt is awake alert neuro intact no EOM findings no visual findings Past Patient History - Infectious Disease Hx of Infectious Diseases: None - Past Social History Smoking Status: Current Some Days Smoker - CARDIAC Hx Cardiac Disorders: No Hx Hypertension: No - PULMONARY Hx Tuberculosis: No - NEUROLOGICAL HX Cerebrovascular Accident: No Hx Seizures: No - HEMATOLOGICAL/ONCOLOGICAL Hx Cancer: No Hx Human Immunodeficiency Virus (HIV): No - GENITOURINARY/GYNECOLOGICAL Hx Sexually Transmitted Disorders: No - PSYCHIATRIC Hx Depression: Yes Hx Substance Use: Yes - ANESTHESIA Hx Anesthesia Reactions: No Meds Allergies/Adverse Reactions: Allergies Allergy/AdvReac Type Severity Reaction Status Date / Time No Known Allergies Allergy Verified 01/16/17 00:19 - Medications Medications: Current Medications Acetaminophen (Tylenol 325mg Tab) 650 mg PO Q4 PRN PRN Reason: Pain, moderate (4-7) Al Hydrox/Mg Hydrox/Simethicone (Maalox Plus 30 Ml) 30 ml PO DAILY PRN PRN Reason: Upset Stomach Bupropion HCl (Wellbutrin) 75 mg PO BID [facility] Last Admin: 01/17/17 11:19 Dose: Not Given Divalproex Sodium (Depakote Dr (*Bid*)) 250 mg PO TID [facility] PRN Reason: Protocol Last Admin: 01/17/17 21:15 Dose: 250 mg Lorazepam (Ativan) 2 mg IM Q6H PRN; Protocol PRN Reason: agitation/anxiety Magnesium Hydroxide (Milk Of Magnesia) 30 ml PO DAILY PRN PRN Reason: Constipation Nicotine (Nicoderm Cq) 1 patch TD DAILY [facility] Last Admin: 01/17/17 11:18 Dose: Not Given Zaleplon (Sonata) 5 mg PO HS PRN PRN Reason: Insomnia Last Admin: 01/17/17 21:15 Dose: 5 mg Ziprasidone (Geodon Inj) 20 mg IM Q6H PRN; Protocol PRN Reason: Agitation Results - Vital Signs Recent Vital Signs: Last Vital Signs Temp 98.4 F 01/18/17 07:29 Pulse 57 L 01/18/17 07:29 Resp 21 01/18/17 07:29 BP 102/77 01/18/17 07:29 Pulse Ox 99 01/15/17 20:35 - Labs Result Diagrams: 01/15/17 13:30 01/15/17 13:30 Labs: Laboratory Results - last 24 hr 01/17/17 21:51 POC Glucose (mg/dL) 110 Assessment & Plan - Assessment and Plan (Free Text) Assessment: This is most likly benign mass There is no indication it is not the cause of his psychiatric illness He can be transfered to non-voluntary psych unit Suggest REpeat MRI in 6 months and have follow up with base of skull neurosurgeon
--- NOTE | 2017-01-18 10:44 | CP.PCM.PCO ---
<Sejal Hunter - Last Filed: 01/18/17 10:44> Physician Communication Note - Physician Communication Note Physician Communication Note: Patient is cleared as per Neurology <Lito Huang - Last Filed: 01/18/17 11:16> Attending/Attestation - Attestation I have personally seen and examined this patient.: Yes I have fully participated in the care of the patient.: Yes I have reviewed all pertinent clinical information: Yes
--- NOTE | 2017-01-18 11:12 | CARD ---
APPROVED REPORT EKG Measurement Heart [id number] <Conclusion> Sinus bradycardia Early repolarization Otherwise normal ECG
[2017-01-18] MEDS: Divalproex 250 mg DR (BID formulation) PO SCH ×4 (13:02→17:34)
--- NOTE | 2017-01-18 14:02 | CP.PCM.PN ---
<Jd Matias - Last Filed: 01/18/17 13:58> Subjective - Date & Time of Evaluation Date of Evaluation: 01/18/17 Time of Evaluation: 13:58 - Subjective Subjective: Pt seen and examined at bedside. Pt agitated last night and complained of chest pain. EKG at that time showed sinus bradycardia, same as previous EKG. Denies CP , SOB, N/V/D. Objective - Vital Signs/Intake and Output Vital Signs (last 24 hours): Temp Pulse Resp BP Pulse Ox 98.4 F 57 L 21 102/77 99 01/18/17 07:29 01/18/17 07:29 01/18/17 07:29 01/18/17 07:29 01/15/17 20:35 - Medications Medications: Current Medications Acetaminophen (Tylenol 325mg Tab) 650 mg PO Q4 PRN PRN Reason: Pain, moderate (4-7) Al Hydrox/Mg Hydrox/Simethicone (Maalox Plus 30 Ml) 30 ml PO DAILY PRN PRN Reason: Upset Stomach Bupropion HCl (Wellbutrin) 75 mg PO BID [facility] Last Admin: 01/18/17 13:02 Dose: 75 mg Divalproex Sodium (Depakote Dr (*Bid*)) 250 mg PO TID [facility] PRN Reason: Protocol Last Admin: 01/18/17 13:35 Dose: 250 mg Lorazepam (Ativan) 2 mg IM Q6H PRN; Protocol PRN Reason: agitation/anxiety Magnesium Hydroxide (Milk Of Magnesia) 30 ml PO DAILY PRN PRN Reason: Constipation Nicotine (Nicoderm Cq) 1 patch TD DAILY [facility] Last Admin: 01/18/17 13:02 Dose: 1 patch Zaleplon (Sonata) 5 mg PO HS PRN PRN Reason: Insomnia Last Admin: 01/17/17 21:15 Dose: 5 mg Ziprasidone (Geodon Inj) 20 mg IM Q6H PRN; Protocol PRN Reason: Agitation - Constitutional Appears: Non-toxic, No Acute Distress - Head Exam Head Exam: ATRAUMATIC, NORMAL INSPECTION, NORMOCEPHALIC - ENT Exam ENT Exam: Mucous Membranes Moist - Respiratory Exam Respiratory Exam: Clear to Ausculation Bilateral, NORMAL BREATHING PATTERN. absent: Rales, Rhonchi, Wheezes - Cardiovascular Exam Cardiovascular Exam: RRR, +S1, +S2 - GI/Abdominal Exam GI & Abdominal Exam: Soft, Normal Bowel Sounds. absent: Tenderness - Extremities Exam Extremities Exam: Normal Inspection. absent: Calf Tenderness, Pedal Edema - Neurological Exam Neurological Exam: Alert, Awake, Oriented x3 - Psychiatric Exam Psychiatric exam: Normal Affect, Normal Mood - Skin Skin Exam: Intact, Normal Color, Warm Assessment and Plan - Assessment and Plan (Free Text) Plan: 41 y/o M with PMH of substance abuse, depression,chronic brain tumor and possible seizures initially admitted for Suciadal ideation. Pt stable in psychiatry unit. CT head demonstrates 2.1 cm x 2.1 cm mass at left skull base. Follow up Brain MRI displayed a 3.4 cm lesion at left skull base. Neurosurgery states pt is stable and should follow up with skull base neurosurgeon and have repeat brain MRI in 6 months. Neurology has also cleared pt. 1. Depression/SI Management as per psych 2. Brain mass Head CT shows 2.1 cm x 2.1 cm mass at left skull base (Please see full report) Brain MRI shows 3.4 cm lesion at left skull base Repeat Brain MRI in 6 months Follow up with skull base neurosurgeon 3. Subclinical hyperthyroidism Recheck TSH in 4-6 weeks 4. PPX No DVT prophylaxis needed, pt is ambulatory Polly, PGY-2 <Francine Villeda - Last Filed: 01/18/17 15:49> Objective - Vital Signs/Intake and Output Vital Signs (last 24 hours): Temp Pulse Resp BP Pulse Ox 98.4 F 57 L 21 102/77 99 01/18/17 07:29 01/18/17 07:29 01/18/17 07:29 01/18/17 07:29 01/15/17 20:35 - Medications Medications: Current Medications Acetaminophen (Tylenol 325mg Tab) 650 mg PO Q4 PRN PRN Reason: Pain, moderate (4-7) Al Hydrox/Mg Hydrox/Simethicone (Maalox Plus 30 Ml) 30 ml PO DAILY PRN PRN Reason: Upset Stomach Bupropion HCl (Wellbutrin) 75 mg PO BID [facility] Last Admin: 01/18/17 13:02 Dose: 75 mg Divalproex Sodium (Depakote Dr (*Bid*)) 250 mg PO TID [facility] PRN Reason: Protocol Last Admin: 01/18/17 13:35 Dose: 250 mg Lorazepam (Ativan) 2 mg IM Q6H PRN; Protocol PRN Reason: agitation/anxiety Magnesium Hydroxide (Milk Of Magnesia) 30 ml PO DAILY PRN PRN Reason: Constipation Nicotine (Nicoderm Cq) 1 patch TD DAILY [facility] Last Admin: 01/18/17 13:02 Dose: 1 patch Zaleplon (Sonata) 5 mg PO HS PRN PRN Reason: Insomnia Last Admin: 01/17/17 21:15 Dose: 5 mg Ziprasidone (Geodon Inj) 20 mg IM Q6H PRN; Protocol PRN Reason: Agitation Attending/Attestation - Attestation I have personally seen and examined this patient.: Yes I have fully participated in the care of the patient.: Yes I have reviewed all pertinent clinical information, including history, physical exam and plan: Yes Notes (Text): 01/18/17 15:47 41 year old male with past medical history of depression, substance abuse, brain tumor/lesion and possible seizure disorder who presented with depressed mood and suicidal ideation. Continue with management as per psychiatry. CT head and MRI brain were reviewed as above. Neurology and neurosurgery evaluations were appreciated; recommended close outpatient follow up and repeat MRI in 6 months. He denies any chest pain today. Serial cardiac enzymes were negative. Repeat EKG as well showed no acute changes. He was counselled on risks of continued substance abuse. Recommended to repeat TFTs in 6-8 weeks for low TSH / normal free T4 levels. Francine Villeda MD Hospitalist.
--- NOTE | 2017-01-18 16:27 | PCM.PYCHPN ---
Psychiatric Progress Note - Psychiatric Progress Note Patient seen today, length of contact: 30min Patient Chief Complaint: "I need to go, I am fine, if I said I am fine, you need to let me go..." Medical Problems: brain tumor (chronic) DSM 5 Symptoms Update: shortly patient is 41 year old -Surinamese male, self reported history of bipolar disorder, (correction to my previous note, instead of "more than 20 psychiatric hospitalizations" should be ore than 20 hospitalizations in to the psychiatric inpatient unit, history of suicidal attempts, history of chronic noncompliance with the medications and follow-up appointments, history of cocaine medication as well as alcohol abuse, was brought in by ambulance for evaluation and stabilization of angry feelings, depressive symptoms, suicidal and homicidal ideation. Pt had suicidal ideation with the plan to overdose on antifreeze, and angry feelings towards of his ex-girlfriend and possible homicidal ideation, pt also said he hears his daughter's voices. Due to the severity of patients symptoms and aggressive/disorganized behavior, pt could not be maintained as outpatient setting, needed further evaluation and stabilization in acute psychiatric unit. patient was seen and examined today in his room, superficially cooperative. pt has episodes of aggressive, agitated behavior, was threatening to harm people on the floor. yesterday pt submitted 48 hr notice yesterday, "I'm done, i'm non-compliant...I want to get out of here. I know what I need to do." "I'm not the ordinary patient in this [facility]...y'all will call the lathe set up person. I will get stupid. That 's why I stay in my room. I don't care if it's male or female. I'm good...just let me go!" Pt presented angry, irritable, impulses unpredictable. Patient reported that he was stressed out with his ex-girlfriend who will not allow patient to see his daughter. Is the emergency room patient said that he wanted to overdose on antifreeze, also patient verbalized thoughts of killing his ex-girlfriend, ex-girlfriend was contacted by PES worker. Review of Systems: see Medical consult, pt was seen by neurology and neurosurgery. MSE: Pt deemed to be unreliable historian, poor personal hygiene, poor ADLs, patient is very thin build, looks stated age, psychomotor agitation alternating with superficial compliance, speech was overproductive, loud, pressured, eye contact intermittent, mood described " I am fine, I will hurt anyone in this unit, I don 't care, let me go", affect was labile, thought process circumstantial and tangential, thought content patient denied thoughts of harming himself or others denied intent or plans, patient denied visual or distorted tactile hallucinations during the interview but in the emergency room reported hearing voices, denied being paranoid, patient to be irrational, disorganized, insight and judgment poor, impulses are unpredictable. Impression: as per history patient have bipolar disorder type I Rule out substance induced disorder Cocaine abuse As per history ADHD As per history learning disabilities and neurocognitive deficit Treatment plan: pt submitted 48 hr notice pt in in acute distress pt will be screened by [facility] Milieu/structure/supportive therapy Medical consult appreciated, see medical team note for more detailed info SW consultation for discharge plan and social issues Med management Wellbutrin will be started for depression as well as ADHD Depakote will be increased to 250mg po 3 times a day for mood stabilization and headaches sonata 5mg po hs prn for insomnia medical consult neurology consult h/o brain tumor, appreciated neurosurgery consult appreciated pt was cleared by medical/neurology/neurosurgery Family involvement Follow up on labs Will monitor closely evaluation for d/c planning Pt was educated about risk/benefits and alternatives of medications, coping strategies (safety plan, suicide prevention), relapse prevention, importance of follow up with psychiatrist and therapist, stay away from drugs/alcohol/smoking Medication Change: Yes Medical Record Reviewed: Yes Consults ordered or reviewed: medical consult appreciated neurology consult appreciated neurosurgery consult appreciated pt is medically and neurologically stable Goal/Treatment Plan - Goal/Treatment Plan Need for Continued Stay: Remain at risks for inpatient hospitalization, Severe depression anxiety, Discharge may exacerbated symptoms, Severe functional impairment
[2017-01-19 07:10] VITALS: BP 91/62; PULSE 55; RESP 20; TEMP 97.8
[2017-01-19] MEDS: Divalproex 250 mg DR (BID formulation) PO SCH (09:33)
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
== END 2017-01-19 13:21 | disposition left against medical advice (07) | DRG 885 ==
LOC: ED 12:15 → ERH 19:45 → PSYC 20:46
PROVIDERS: ADMIT Psychiatry & Neurology Psychiatry; ATTEND Psychiatry & Neurology Psychiatry
DX: F31.9 Bipolar disorder, unspecified (principal); F14.10 Cocaine abuse, uncomplicated; D49.6 Neoplasm of unspecified behavior of brain; G40.909 Epilepsy, unspecified, not intractable, without status epilepticus; R07.9 Chest pain, unspecified; F17.210 Nicotine dependence, cigarettes, uncomplicated; F90.9 Attention-deficit hyperactivity disorder, unspecified type; E05.90 Thyrotoxicosis, unspecified without thyrotoxic crisis or storm; F10.10 Alcohol abuse, uncomplicated; Y90.0 Blood alcohol level of less than 20 mg/100 ml; Z91.19 Patient's noncompliance with other medical treatment and regimen; Z91.14 Patient's other noncompliance with medication regimen

== ENCOUNTER 2017-03-09 07:16 | Inpatient (IN) | payer MEDICARE, MEDICAID, OTHER ==
[2017-03-09 07:17] VITALS: BMI 16.2
--- NOTE | 2017-03-09 07:54 | ED PDOC ---
Arrival/HPI - History of Present Illness Time/Duration: Prior to Arrival Symptom Onset: Gradual Symptom Course: Unchanged <Antonio Aguilar - Last Filed: 03/09/17 10:19> - General Historian: Patient <Brijesh Dominguez - Last Filed: 03/09/17 12:12> - General Chief Complaint: Psychiatric Evaluation Time Seen by Provider: 03/09/17 07:18 - History of Present Illness Narrative History of Present Illness (Text): Patient is a 41 year old male with PMHx of depression w/ suicidal ideation and coccaine abuse who presents to the E.R with complaints of depression w/ suicidal ideation. Patient stated that due recent life stressors, he got depressed which led him to hold a cup of antifreeze and consider drinking it. Patient does admit to taking about $30 worth of cocaine last night. He complains of mild sharp non-radiating reproducible chest pain, headache, and generalized weakness. He denies any blurry vision, dizziness, SOB, abdominal pain, n/v/d, constipation, or any urinary symptoms. ROS POSITIVES: Depression, mild reproducible chest pain, headache, NEGATIVES: blurry vision, dizziness, SOB, abdominal pain, n/v/d, constipation , or any urinary symptoms. PMHx: Depression, cocaine abuse PSHx: None. Patient mentioned he was supposed to have surgery of brain lesion Allergies: NKDA Social: 1PPD for 18 years. Denies Alcohol Abuse. Admits to Cocaine Abuse FamHx: Denies Meds: Denies 03/09/17 07:41 (Antonio Aguilar) Past Medical History - Provider Review Nursing Documentation Reviewed: Yes - Infectious Disease Hx of Infectious Diseases: None - Cardiac Hx Cardiac Disorders: No - Pulmonary Hx Respiratory Disorders: No - Neurological Hx Neurological Disorder: No Hx Seizures: No - HEENT Hx HEENT Disorder: No - Renal Hx Renal Disorder: No - Endocrine/Metabolic Hx Endocrine Disorders: No - Hematological/Oncological Hx Blood Disorders: No - Integumentary Hx Dermatological Disorder: No - Musculoskeletal/Rheumatological Hx Musculoskeletal Disorders: No - Gastrointestinal Hx Gastrointestinal Disorders: No - Genitourinary/Gynecological Hx Genitourinary Disorders: No - Psychiatric Hx Depression: Yes Hx Substance Use: Yes - Anesthesia Hx Anesthesia Reactions: No <Antonio Aguilar - Last Filed: 03/09/17 10:19> Family/Social History - Physician Review Nursing Documentation Reviewed: Yes Family/Social History: No Known Family HX Smoking Status: Heavy Smoker > 10 Cigarettes Daily Hx Alcohol Use: Yes Frequency of alcohol use: Few days per week Hx Substance Use: Yes Substance used: Cocaine <Antonio Aguilar - Last Filed: 03/09/17 10:19> Allergies/Home Meds <Antonio Aguilar - Last Filed: 03/09/17 10:19> <Brijesh Dominguez - Last Filed: 03/09/17 12:12> Allergies/Adverse Reactions: Allergies No Known Allergies Allergy (Verified 03/09/17 07:31) Home Medications: Home Meds Medication Instructions Recorded Confirmed Citalopram Hydrobromide [Celexa] 30 mg PO BID 03/09/17 03/09/17 Divalproex [Depakote ER] 250 mg PO AMHS 03/09/17 03/09/17 Review of Systems - Physician Review All systems were reviewed & negative as marked: Yes (ROS as per HPI) - Review of Systems Respiratory: Normal. absent: SOB Cardiovascular: Chest Pain Gastrointestinal: Normal. absent: Abdominal Pain <Antonio Aguilar - Last Filed: 03/09/17 10:19> Physical Exam Vital Signs Reviewed: Yes Temperature: Afebrile Blood Pressure: Normal Pulse: Regular Respiratory Rate: Normal Appearance: Positive for: Uncomfortable Pain Distress: Mild - Systems Exam Head: Present: Atraumatic, Normocephalic Extroacular Muscles: Present: EOMI Conjunctiva: Present: Normal Mouth: Present: Moist Mucous Membranes Respiratory/Chest: Present: Clear to Auscultation, Tender to Palpation (Left Ant. Chest Wall.). No: Wheezes, Rhonchi Cardiovascular: Present: Regular Rate and Rhythm, Normal S1, S2. No: Murmurs Abdomen: Present: Normal Bowel Sounds. No: Tenderness, Distention, Rebound, Guarding Upper Extremity: Present: Capillary Refill < 2s Lower Extremity: No: Edema Neurological: Present: GCS=15, Speech Normal, Motor Func Grossly Intact Psychiatric: Present: Alert, Oriented x 3, Depressed Mood <SteveAntonio fernandes - Last Filed: 03/09/17 10:19> Vital Signs Temp Pulse Resp BP Pulse Ox 03/09/17 09:06 75 16 114/73 98 03/09/17 08:00 98.3 F 90 18 115/81 98 Medical Decision Making <Antonio Aguilar - Last Filed: 03/09/17 10:19> - Lab Interpretations I have reviewed the lab results: Yes - EKG Interpretation Interpreted by ED Physician: Yes Type: 12 lead EKG <Brijesh Dominguez - Last Filed: 03/09/17 12:12> ED Course and Treatment: 41 year old male with PMHx of Depression and cocaine abuse presents with depression w/ suicidal ideation and mild reproducible chest pain. --Acetaminophen level --Serum Alcohol Level --Cardiac Enzymes --CMP/CBC --UDS --Serum Osmalility --Salicylate lvl --VBG --Portable CXR --UA --Reassess and disposition. Reassesment --EKG: NSR, and negative for any ST or T wave changes --Troponin - NEGATIVE --CXR NEGATIVE for any active pulmonary disease --Patient is not acedemic --Salicylates and Acetaminophen levls NEGATIVE --Patient medically stable for inpatient psych admission for evaluation and treatment of BiPolar disorder. 03/09/17 10:23 (Antonio Aguilar) 03/09/17 11:57 Mahamed Dewey is a 41 year old male who presents to the with a complaint of depression, suicidal ideation, and chest pain. In agreement with resident note, which includes further HPI details. Patient was seen and evaluated with resident , came up with plan and treatment together. (Brijesh Dominguez) - Lab Interpretations Lab Results: 03/09/17 08:00 03/09/17 08:00 Lab Results 03/09/17 10:00: Valproic Acid < 10 L 03/09/17 09:35: Urine Opiates Screen Negative, Urine Methadone Screen Negative, Ur Barbiturates Screen Negative, Ur Phencyclidine Scrn Negative, Ur Amphetamines Screen Negative, U Benzodiazepines Scrn Negative, U Oth Cocaine Metabols Positive H, U Cannabinoids Screen Negative 03/09/17 09:35: Urine Color Yellow, Urine Appearance Sl cloudy, Urine pH 7.0, Ur Specific [place] 1.010, Urine Protein 30 H, Urine Glucose (UA) Negative, Urine Ketones Negative, Urine Blood Negative, Urine Nitrate Negative, Urine Bilirubin Negative, Urine Urobilinogen 0.2, Ur Leukocyte Esterase Negative, Urine RBC Negative, Urine WBC Negative, Amorphous Sediment Many 03/09/17 08:00: pO2 143 H, VBG pH 7.43, VBG pCO2 43.0, VBG HCO3 28.5 H, VBG O2 Sat (Calc) 99.1 H, VBG Base Excess 3.7 H 03/09/17 08:00: Serum Osmolality Pending, Alcohol, Quantitative < 10 03/09/17 08:00: Salicylates < 1 L, Acetaminophen < 10.0 L 03/09/17 08:00: Sodium 140, Potassium 3.6, Chloride 104, Carbon Dioxide 29, Anion Gap 11, BUN 11, Creatinine 0.8, Est GFR ( Amer) > 60, Est GFR (Non- Af Amer) > 60, Random Glucose 96, Calcium 9.1, Total Bilirubin 0.7, AST 28, ALT 27, Alkaline Phosphatase 71, Lactate Dehydrogenase 321 L, Total Creatine Kinase 124, Troponin I < 0.01, Total Protein 7.4, Albumin 4.3, Globulin 3.2, Albumin/ Globulin Ratio 1.4 03/09/17 08:00: WBC 6.6 D, RBC 4.37, Hgb 14.2, Hct 40.5 L, MCV 92.7, MCH 32.5, MCHC 35.1, RDW 13.9, Plt Count 196, MPV 9.5, Gran % 61.8, Lymph % (Auto) 29.2, [place] % (Auto) 7.9 H, Eos % (Auto) 0.6 L, Baso % (Auto) 0.5, Gran # 4.08, Lymph # 1.9, [place] # 0.5, Eos # 0.0, Baso # 0.03 - RAD Interpretation Radiology Orders: 03/09/17 07:42 CHEST PORTABLE [RAD] Stat Wells Criteria for PE - Wells Criteria for Pulmonary Embolism Clinical Signs and Symptoms of DVT: No P.E is #1 Diagnosis, or Equally Likely: No Heart Rate >100: No Immobilization at least 3 days;Surgery previous 4 weeks: No Previous, objectively diagnosed PE or DVT: No Hemoptysis: No Malignancy w/treatment within 6 months, or palliative: Yes (Brain Tumor ( Unknown if Malignant or Benign() Total Score: 1 <Antonio Aguilar - Last Filed: 03/09/17 10:19> Disposition/Present on Arrival - Present on Arrival Any Indicators Present on Arrival: No History of DVT/PE: No History of Uncontrolled Diabetes: No Urinary Catheter: No History of Decub. Ulcer: No History Surgical Site Infection Following: None - Disposition Have Diagnosis and Disposition been Completed?: Yes Disposition Time: 10:20 <Antonio Aguilar - Last Filed: 03/09/17 10:19> <Brijesh Dominguez - Last Filed: 03/09/17 12:12> - Disposition Diagnosis: Bipolar 1 disorder Disposition: HOSPITALIZED Patient Problems: Current Active Problems Problem Status Onset Bipolar 1 disorder Acute Condition: STABLE
[2017-03-09 08:02] VITALS: O2SAT 98
[2017-03-09 08:12] LABS: BASO # 0.03 K/mm3 (0.0-2.0); BASO % 0.5 % (0.0-3.0); EOS % 0.6 % (1.5-5.0); GRAN # 4.08 (1.4-6.5); GRAN % 61.8 % (50.0-68.0); HEMATOCRIT 40.5 % (42.0-52.0); LYMPH # 1.9 (1.2-3.4); LYMPH % 29.2 % (22.0-35.0); MEAN CELL VOLUME 92.7 fl (80.0-105.0); MEAN CORPUSCULAR HEMOGLOBIN 32.5 pg (25.0-35.0); MEAN CORPUSCULAR HGB CONC 35.1 g/dl (31.0-37.0); MEAN PLATELET VOLUME 9.5 fl (7.0-11.0); MONO # 0.5 (0.1-0.6); MONO % 7.9 % (1.0-6.0); RED CELL DISTRIBUTION WIDTH 13.9 % (11.5-14.5); WHITE BLOOD COUNT 6.6 10^3/ul (4.5-11.0)
[2017-03-09 08:27] LABS: ALCOHOL SERUM < 10 mg/dL (0-10)
[2017-03-09 08:29] LABS: ALB/GLOB RATIO 1.4 (1.1-1.8); ALKALINE PHOSPHATASE 71 U/L (38-126); ALT/SGPT 27 U/L (7-56); AST/SGOT 28 U/L (17-59); BILIRUBIN,TOTAL 0.7 mg/dL (0.2-1.3); BLOOD UREA NITROGEN 11 mg/dL (7-21); CALCIUM 9.1 mg/dL (8.4-10.5); CARBON DIOXIDE 29 mmol/L (21-33); CHLORIDE 104 mmol/L (98-107); GFR AFRICAN-AMERICAN > 60; GLUCOSE,RANDOM 96 mg/dL (70-110); POTASSIUM 3.6 mmol/L (3.6-5.0); SODIUM 140 mmol/L (132-148); TOTAL PROTEIN 7.4 g/dL (5.8-8.3)
[2017-03-09 08:32] LABS: VENOUS BLOOD GAS BASE EXCESS 3.7 mmol/L (0.0-2.0); VENOUS BLOOD PH 7.43 (7.32-7.43)
[2017-03-09 08:40] LABS: TROPONIN I < 0.01 ng/mL
--- NOTE | 2017-03-09 09:05 | RAD ---
HISTORY: pysch COMPARISON: 01/15/2017 FINDINGS: LUNGS: The lungs are hyperinflated and there is peribronchial thickening with chronic changes in both lungs. No focal consolidation. PLEURA: No significant pleural effusion identified, no pneumothorax apparent. CARDIOVASCULAR: Normal. OSSEOUS STRUCTURES: No significant abnormalities. VISUALIZED UPPER ABDOMEN: Normal. OTHER FINDINGS: None. IMPRESSION: No active pulmonary disease. COPD.
[2017-03-09 09:48] LABS: URINE BILIRUBIN NEGATIVE (NEGATIVE); URINE BLOOD NEGATIVE (NEGATIVE); URINE GLUCOSE (UA) NEGATIVE (NEGATIVE); URINE KETONE NEGATIVE (NEGATIVE); URINE LEUKOCYTE ESTERASE NEGATIVE Leu/uL (NEGATIVE); URINE PROTEIN 30 mg/dL (<30 mg/dL); URINE UROBILINOGEN 0.2 E.U./dL (<1 E.U./dL)
[2017-03-09 09:54] LABS: URINE APPEARANCE SL CLOUDY (CLEAR); URINE COLOR YELLOW (YELLOW)
[2017-03-09 10:05] LABS: URINE AMORPHOUS SEDIMENT MANY; URINE RBC NEGATIVE /hpf (0-2); URINE WBC NEGATIVE /hpf (0-6)
[2017-03-09 12:31] LABS: OSMOLALITY,SERUM 283 mosm/kg (272-300)
[2017-03-09] MEDS ORDERED: Alum-Mag Hydrox-Simethicone Susp (30 mL) PO PRN (13:57)
[2017-03-09] MEDS ORDERED: Magnesium Hydroxide Susp 30 ml UD PO PRN (13:58)
--- NOTE | 2017-03-09 16:06 | PCM.BM ---
<Angel Shukla - Last Filed: 03/09/17 16:03> Treatment Plan Problems - Problems identified on initial assessmt medication nonadherence Date Initiated: 03/09/17 Time Initiated: 16:03 Assessment reference: NA Status: Active social isolation Date Initiated: 03/09/17 Time Initiated: 16:07 Assessment reference: HP, NA ineffective coping Date Initiated: 03/09/17 Time Initiated: 16:19 Assessment reference: HP, NA Treatment assets and liabiliti Patient Assests: adapts well, self-reliant, ADL independent, negotiates basic needs Patient Liabilities: substance abuse, medical problems - Milieu Protocol Maintain good personal hygiene: daily Encourage regular showers, daily Remind patient to perform daily oral care, daily Assist patient to perform ADL's Maintain personal safety: daily Educate patient to report safety concerns to staff, daily Monitor environment for contraband/sharps Medication safety: Monitor for expected outcome, potential side effects: daily, Assess barriers to learning: daily, Assess readiness for medication education: daily Discharge/Continuing Care - Education Needs Education Needs: Patient Medication, Patient Diagnosis/Disease Process, Patient Coping Skills, Patient Anger Management skills, Patient Placement options, Patient Community resources, Patient Uses of Medical Equipment, Patient Health Practices/Safety, Patient Personal Hygiene/Grooming, Patient Aftercare Safety Plan - Discharge Discharge Criteria: Tolerates medication w/o severe side effects, Free of Suicidal thoughts, Free of Homicidal thoughts, Normal sleep pattern, Reduction of target symptoms <Hafsa Swift - Last Filed: 03/12/17 14:56> - Diagnosis (1) Antisocial personality disorder Status: Acute Interventions: 03/12/17 10:44 Psychoeducation Psychopharmacology/adjustment of medications as needed/ monitoring possible side effects Compliance with medications and follow up appointments Suicide and homicide risk assessment and prevention, coping strategies, safety plan Relapse prevention Family involvement As outpatient: Transference-focused psychotherapy/dialectical behavioral therapy /schema therapy Mindfulness skills 03/12/17 14:54 (2) Polysubstance abuse Status: Acute Interventions: 03/12/17 10:44 pt relapsed on cocaine Maintaining sobriety Relapse prevention Possible rehabilitation, pt expressed no interest to go to rehab, but wants to go to [facility] program Motivational interviewing 12-step programs: AA meetings 03/12/17 14:55 (3) Bipolar 1 disorder Status: Acute Interventions: 03/12/17 10:45 Psychoeducation Psychopharmacology/adjustment of medications as needed/ monitoring possible side effects Monitor blood level of mood stabilizers Evaluate pt on daily basis Compliance with medications and follow up appointments, discussed Suicide and homicide risk assessment and prevention, coping strategies, safety plan Relapse prevention Reduction of symptoms Improve functional status Family involvement As outpatient: cognitive behavioral therapy 03/12/17 14:55
[2017-03-09] MEDS: Divalproex 500 mg DR(BID formulation) PO SCH (17:00)
--- NOTE | 2017-03-09 17:35 | CARD ---
APPROVED REPORT EKG Measurement Heart [id number] <Conclusion> Normal sinus rhythm Minimal voltage criteria for LVH, may be normal variant Borderline ECG
[2017-03-10 07:53] LABS: CHOLESTEROL 152 mg/dL (130-200); GLUCOSE,FASTING 87 mg/dL (65-110)
[2017-03-10 08:10] LABS: FREE T4 1.15 ng/dL (0.78-2.19)
[2017-03-10 08:23] LABS: THYROID STIMULATING HORMONE 0.33 mIU/mL (0.46-4.68)
[2017-03-10] MEDS: Divalproex 500 mg DR(BID formulation) PO SCH ×2 (08:40→16:30)
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
--- NOTE | 2017-03-10 23:24 | CON ---
DATE: HISTORY OF PRESENT ILLNESS: I saw Mahamed in the Psychiatric floor. I was consulted to see him. He is resting in bed. He does not want to be bother too much. He is a 41-year-old man, who comes in with depression, suicidal ideation, cocaine abuse. He is demanding a dietary consult and multivitamin, he wants more food, he got depressed. He had a cup of antifreeze and he was thinking about drinking it. He took $30 worth of cocaine the night before. He had reproducible chest pain also, headaches, weakness, and he was put up in the psychiatric floor for suicidal ideation and depression. He is not feeling well, does feel out of thoughts. PAST MEDICAL HISTORY: He has a history of depression and cocaine abuse, some kind of surgery on his brain, he was supposed to have, but he would not elaborate. SOCIAL HISTORY: He smoked cigarettes. No alcohol. Admits to cocaine. ALLERGIES: NO KNOWN DRUG ALLERGIES. FAMILY HISTORY: Does not know about family history. MEDICATIONS: He does not take any medications. REVIEW OF SYSTEMS: No acute vision or hearing changes. He does have headache. There is chest pain, which is reproducible. No shortness of breath. No abdominal pain. Very little appetite. No leg pains. Now, he tells me does drink some alcohol few times a week. Now, he tells me that he is on Celexa and Depakote. PHYSICAL EXAMINATION VITAL SIGNS: He has 98.3 temperature, 90 pulse, 18 respiratory rate, 115/81 blood pressure, and 90% O2 sat on room air. HEENT: Head is atraumatic and normocephalic. Extraocular muscles intact. Pupils equally reactive to light. Throat is moist. NECK: Supple. HEART: Regular rate. Normal S1 and S2. LUNGS: Decreased breath sounds, poor inspiration, but clear to auscultation. ABDOMEN: Soft and nontender. Positive bowel sounds. No guarding. No rebound. No CVA tenderness. He does have left chest anterior wall tender to palpation reproducible. EXTREMITIES: Have no edema. NEUROLOGIC: GCS is 15. Normal speech. Sticks out his tongue midline. He could smile, close his eyes tight. He raises his arm above his head. He is alert and oriented x3. He has strange depressed mood. He had lots of tests. LYMPH NODE: Thyroid midline. No palpable appreciable lymphadenopathy. LABORATORY DATA: He has a urine drug screen positive for cocaine. Urine is negative. Sodium 140, potassium is 3.6, BUN 11, creatinine 0.8, GFR is greater than 60, sugars 96, calcium 9.1, total bilirubin is 0.7, AST is 28, ALT is 27, alkaline phosphatase 71, lactate dehydrogenase is 321, troponin is less than 0.01, total protein is 7.4, albumin is 4.3, triglycerides 41, cholesterol is 152, LDL is 67, TSH is 0.33, I will repeat it tomorrow could be reactionary. He has a 6.6 white count, 14.2 hemoglobin, 40.5 hematocrit, and 196 platelets. He has a chest x-ray, which shows no acute active pulmonary disease. EKG showed normal sinus rhythm, possible LVH. We will check his labs tomorrow. Encouragement to take the medications. He had a dietary consult and multivitamins he requested. I ordered some iron studies. ASSESSMENT: Continue with aggressive treatment and care. He is here for suicidal ideation, cocaine abuse, depression, questionable anemia, thin and frail, and poor appetite. Thank you very much for letting me to participate in the care. I will see him tomorrow. Roman Banks DO
[2017-03-11 07:24] VITALS: RESP 20
[2017-03-11 07:34] LABS: HEMATOCRIT 43.1 % (42.0-52.0); MEAN CELL VOLUME 93.9 fl (80.0-105.0); MEAN CORPUSCULAR HEMOGLOBIN 31.8 pg (25.0-35.0); MEAN CORPUSCULAR HGB CONC 33.9 g/dl (31.0-37.0); MEAN PLATELET VOLUME 9.5 fl (7.0-11.0); WHITE BLOOD COUNT 4.1 10^3/ul (4.5-11.0)
[2017-03-11 07:50] LABS: ALB/GLOB RATIO 1.2 (1.1-1.8); ALKALINE PHOSPHATASE 67 U/L (38-126); ALT/SGPT 24 U/L (7-56); AST/SGOT 23 U/L (17-59); BILIRUBIN,TOTAL 0.9 mg/dL (0.2-1.3); BLOOD UREA NITROGEN 15 mg/dL (7-21); CARBON DIOXIDE 28 mmol/L (21-33); CHLORIDE 105 mmol/L (98-107); GFR AFRICAN-AMERICAN > 60; GLUCOSE,RANDOM 89 mg/dL (70-110); POTASSIUM 4.2 mmol/L (3.6-5.0); SODIUM 142 mmol/L (132-148); TOTAL PROTEIN 7.2 g/dL (5.8-8.3)
[2017-03-11] MEDS: Multivitamin With Minerals Tab PO SCH (09:07)
[2017-03-11] MEDS: Divalproex 500 mg DR(BID formulation) PO SCH ×2 (09:07→17:03)
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
[2017-03-11 10:44] LABS: IRON 70 ug/dL (45-180)
--- NOTE | 2017-03-11 15:15 | PN ---
DATE: SUBJECTIVE: I saw Mahamed after he ate breakfast. He is back in bed, taking a little rest. He tells me he feels well, he signed a 48 and he will be going home tomorrow. He is on Ativan, Depakote, Geodon, Maalox, milk of magnesia, NicoDerm, Sonata, Thera-Tabs vitamin, Tylenol, Wellbutrin and he also did speak to the account executive key accounts to go over his diet. He had multiple questions about his labs. PHYSICAL EXAMINATION: VITAL SIGNS: He has 97.5 temperature, 65 pulse, 99/78 blood pressure and 80/50 blood pressure, 20 respiratory rate, 97% O2 sat on room air. He is not lightheaded. He He is not a short of breath or chest pain. LABORATORY DATA: He has 4.1 white count, 14.6 hemoglobin, 43.1 hematocrit with 191 platelets. He had 7.43 pH. He has 142 sodium, potassium 4.2, BUN is 15, creatinine is 0.9, GFR is greater than 60, sugar is 89, calcium is 9, total bilirubin is 0.9, AST is 23, ALT is 24, alkaline phosphatase is 67, and total protein is 7.2. His troponin I was less than 0.01. His TSH was still low at 0.44 but got better than 0.33. He has a cholesterol of 152. His urine with many amorphous sediment, otherwise, no infection. He had positive cocaine. Negative RPR. Chest x-ray, no active pulmonary disease. ASSESSMENT AND PLAN: I did order iron and iron binding studies, they are not back yet. I am also going to consult with Endocrinology for his hyperthyroid with two labs in a row with very low TSH. We will continue with aggressive treatment and care while we can, while he is in the hospital. Mahamed Dewey, who has bipolar and anemia, but he is not anemic, anxiety. He is a smoker, cocaine abuse. It appears he is hyperthyroid at this time. Roman Banks DO LUL[facility]
--- NOTE | 2017-03-12 02:10 | CON ---
DATE: ENDOCRINOLOGY CONSULTATION LOCATION: In room 516 Psychiatry. HISTORY OF PRESENT ILLNESS: This is a 41-year-old male with a known history of chronic schizoaffective disorder and major depression, presenting here with suicidal ideation and is now undergoing closer psychiatric evaluation and management and is also being referred now for endocrine evaluation and management. PAST MEDICAL HISTORY: As mentioned above. He has had multiple admissions for major depression, polysubstance abuse especially cocaine abuse was noted. He has some kind of craniotomies for a brain lesion, the exact etiology not known at this time. FAMILY HISTORY: Positive for hypertension and heart disease. SOCIAL HISTORY: Admits to chronic cocaine abuse with nicotine dependence as noted. REVIEW OF SYSTEMS: Admits to generalized body weakness with easy fatigability and tiredness and suboptimal energy level. Also, admits to dizziness and lightheadedness with bifrontal headaches as noted. Also, admits to precordial chest pain and occasional shortness of breath especially on exertion. His oral intake is variable with nausea, dyspepsia, and chronic constipation. PHYSICAL EXAMINATION: GENERAL: This is an average-built male, in no apparent distress. VITAL SIGNS: Blood pressure 140/85; pulse of 70 beats per minute, regular; temperature 98, and respirations 20. Height is 5 feet 4 inches, weight is 130 pounds. HEENT: Head normocephalic. Eyes anicteric with pink conjunctivae. Funduscopy not possible at this time. Ears, nose, and throat otherwise normal. NECK: Supple. Thyroid gland is normal in size. No carotid bruits or cervical adenopathy. CARDIOPULMONARY: Has an adynamic precordium. S1, S2 is rapid and regular. LUNGS: Clear to auscultation. ABDOMEN: Flat, soft with positive bowel sounds. EXTREMITIES: No peripheral edema. Pulses are +2 bilaterally. LABORATORY DATA: His thyroid study showed a TSH of 0.33 initially and a repeat level of 0.44, and free T4 of 1.15. His chemistry showed a BUN of 15, sodium 142, potassium 4.2, chloride 105, CO2 28, glucose 89, and creatinine 0.9. ASSESSMENT: This is a 41-year-old male admitted with major depression and associated with suicidal ideation and currently undergoing psychiatric evaluation and management, and is now being referred for evaluation of abnormal thyroid studies, which is most likely related to the so called acute sick euthyroid syndrome, and he remains clinically and biochemically euthyroid at this time. There is no overt thyromegaly or palpable thyroid nodules noted at this time. PLAN OF MANAGEMENT: We will repeat comprehensive thyroid hormonal profile with total and free T4 and TSH with a thyroid stimulating immunoglobulin to confirm and/or indicate the presence of underlying thyroid autoimmunity. We will also obtain a serum cortisol level especially in the light of major depression as noted. There is no indication at this time for any kind of thyroid pharmacotherapy. We will follow and advise accordingly. Jacqueline Smith MD
[2017-03-12 07:42] LABS: T4 6.6 ug/dL (5.5-11.0)
[2017-03-12 07:52] VITALS: BP 90/60; PULSE 59; TEMP 98
[2017-03-12 07:56] LABS: THYROID STIMULATING HORMONE 0.38 mIU/mL (0.46-4.68)
[2017-03-12] MEDS: Divalproex 500 mg DR(BID formulation) PO SCH (08:40)
[2017-03-12] MEDS: Multivitamin With Minerals Tab PO SCH (08:40)
--- NOTE | 2017-03-12 10:25 | PN ---
DATE: SUBJECTIVE: I seen him on the Psychiatric floor, resting comfortably in bed. He tells me he slept well and he is going home today, he signed a 48-hour. Today this 48 hours are up, and he planned to going home, he states he feels better. I have discussed with him, no more cocaine, marijuana and to take his medications correctly to stay out of hospital bipolar, anemia, anxiety, he is a smoker cocaine and marijuana abuse and now hyperthyroidism. PHYSICAL EXAMINATION: VITAL SIGNS: 97.5 temperature, 65 pulse, 99/70 blood pressure, 20 respiratory rate, and 97% O2 saturation on room air. HEENT: Head is atraumatic and normocephalic. HEART: Regular rate. LUNGS: Decreased breath sounds, but clear. ABDOMEN: Soft. EXTREMITIES: No edema. LABORATORY DATA: He has a 4.1 white count, 14.6 hemoglobin, 42.1 hematocrit, and 191 platelets. Sodium is 142, potassium is 4.2, BUN is 16, and creatinine is 0.9. GFR is greater than 60, sugar is 89, and calcium is 9. Iron is 70 and total iron binding capacity to 71% and saturation 26%. Total bilirubin is 0.9, AST is 23, ALT is 24, and alkaline phosphatase is 57. His TSH was low at 0.33 and repeat it was low at 0.44. Urine; for the most part was clear. It was positive for cocaine. His RPR was negative. IMPRESSION AND PLAN: There was a consult with Jacqueline Smith, the general merchandise salesperson for his hyperthyroid picture. More laboratory tests were ordered on him by Endocrinology. Does not want to give many medications for his change in thyroid numbers. He might be leaving today, I asked him to please quit to cocaine, take his medications correctly and follow up on the outpatient. Roman Banks DO [facility]
--- NOTE | 2017-03-12 14:49 | PN ---
DATE: ENDOCRINOLOGY FOLLOWUP NOTE LOCATION: In room 516, Psychiatry. SUBJECTIVE: This is a 41-year-old male admitted with major depression and suicidal ideation and is now being referred for evaluation of abnormal thyroid function studies with slightly suppressed TSH values as noted. He remains clinically euthyroid at this time. LABORATORY STUDIES: The repeat chemistry showed a BUN of 15, sodium 142, potassium 4.2, chloride 105, CO2 of 28, glucose 89, and creatinine 0.9. His thyroid studies showed a T4 of 6.6 mcg/dL with TSH of 0.38 indicative of . He remains clinically and biochemically euthyroid otherwise. There is no indication at this time to any kind of thyroid pharmacotherapy. We are awaiting the results of thyroid antibodies, which will confirm an presence of thyroid . Jacqueline Smith MD
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
== END 2017-03-12 16:30 | disposition left against medical advice (07) | DRG 885 ==
LOC: ED 07:16 → ERH 10:14 → PSYC 11:33
PROVIDERS: ADMIT Psychiatry & Neurology Psychiatry; ATTEND Psychiatry & Neurology Psychiatry
DX: F31.9 Bipolar disorder, unspecified (principal); R45.851 Suicidal ideations; F60.2 Antisocial personality disorder; F14.10 Cocaine abuse, uncomplicated; F10.10 Alcohol abuse, uncomplicated; F17.210 Nicotine dependence, cigarettes, uncomplicated; D64.9 Anemia, unspecified; E05.90 Thyrotoxicosis, unspecified without thyrotoxic crisis or storm; Y90.0 Blood alcohol level of less than 20 mg/100 ml; Z91.14 Patient's other noncompliance with medication regimen

== ENCOUNTER 2017-05-19 16:11 | Emergency (ER) | payer MEDICARE, OTHER ==
[2017-05-19 16:13] VITALS: BMI 16.2
[2017-05-19] MEDS ORDERED: Sodium Chloride 0.9% 1,000 ML IV STA (16:33)
[2017-05-19] MEDS ORDERED: Famotidine 20mg/50ml 20 MG/50 ML BAG IVPB STA (16:33)
--- NOTE | 2017-05-19 16:37 | ED PDOC ---
Arrival/HPI - General Time Seen by Provider: 05/19/17 16:23 Historian: Patient - History of Present Illness Narrative History of Present Illness (Text): 05/19/17 16:34 41 yo male h/o Depression, Cocaine/Substance Abuse, presents to the ED c/o nausea, vomiting, nasal congestion, cough and bodyaches x 2 days. Patient states the cough is phelgmy with posttussive chest pain. No shortness of breathe. Epigastric burning sensation. He vomited x 2 with no blood or bilious. No diarrhea. His whole bodyaches and he thinks he has a fever. His urine feels very warm. No drug or alcohol use today or yesterday. He states he doesn't drink daily. PMD: None Past Medical History - Provider Review Nursing Documentation Reviewed: Yes - Infectious Disease Hx of Infectious Diseases: None - Cardiac Hx Cardiac Disorders: No - Pulmonary Hx Respiratory Disorders: No - Neurological Hx Neurological Disorder: No Hx Seizures: No - HEENT Hx HEENT Disorder: No - Renal Hx Renal Disorder: No - Endocrine/Metabolic Hx Endocrine Disorders: No - Hematological/Oncological Hx Blood Disorders: No - Integumentary Hx Dermatological Disorder: No - Musculoskeletal/Rheumatological Hx Musculoskeletal Disorders: No - Gastrointestinal Hx Gastrointestinal Disorders: No - Genitourinary/Gynecological Hx Genitourinary Disorders: No - Psychiatric Hx Bipolar Disorder: Yes Hx Depression: Yes Hx Emotional Abuse: No Hx Physical Abuse: No Hx Sexual Abuse: No Hx Substance Use: Yes (cocain) - Anesthesia Hx Anesthesia Reactions: No Family/Social History - Physician Review Nursing Documentation Reviewed: Yes Family/Social History: No Known Family HX Smoking Status: Heavy Smoker > 10 Cigarettes Daily Hx Alcohol Use: No Hx Substance Use: Yes (cocain) Substance used: Cocaine Allergies/Home Meds Allergies/Adverse Reactions: Allergies mushroom Allergy (Verified 03/10/17 12:42) SHORTNESS OF BREATH Review of Systems - Review of Systems Constitutional: Fatigue, Fevers Eyes: Normal. absent: Vision Changes, Photophobia ENT: Normal Respiratory: Cough, Sputum. absent: Wheezing Cardiovascular: Chest Pain (posttussive) Gastrointestinal: Nausea, Vomiting. absent: Abdominal Pain, Constipation, Diarrhea Genitourinary Male: Normal Musculoskeletal: Myalgias Skin: Normal Neurological: Normal Endocrine: Normal Hemo/Lymphatic: Normal Psychiatric: Normal Physical Exam Vital Signs Reviewed: Yes Vital Signs Temp Pulse Resp BP Pulse Ox 05/19/17 16:30 102.5 F H 92 H 26 H 100/66 98 Temperature: Afebrile Blood Pressure: Normal Pulse: Regular Respiratory Rate: Normal Appearance: Positive for: Non-Toxic, Ill-Appearing, Uncomfortable Pain Distress: None Mental Status: Positive for: Alert and Oriented X 3 - Systems Exam Head: Present: Atraumatic, Normocephalic Pupils: Present: PERRL Extroacular Muscles: Present: EOMI Conjunctiva: Present: Normal Mouth: Present: Dry Pharnyx: Present: Normal. No: ERYTHEMA, EXUDATE Nose (Internal): Present: Normal Inspection Neck: Present: Normal Range of Motion Respiratory/Chest: Present: Clear to Auscultation, Good Air Exchange. No: Respiratory Distress, Accessory Muscle Use Cardiovascular: Present: Regular Rate and Rhythm, Normal S1, S2. No: Murmurs Abdomen: Present: Normal Bowel Sounds. No: Tenderness, Distention, Peritoneal Signs Back: Present: Normal Inspection Upper Extremity: Present: Normal Inspection. No: Cyanosis, Edema Lower Extremity: Present: Normal Inspection. No: Edema Neurological: Present: GCS=15, CN II-XII Intact, Speech Normal Skin: Present: Warm, Dry, Normal Color. No: Rashes Psychiatric: Present: Alert, Oriented x 3, Normal Insight, Normal Concentration Medical Decision Making ED Course and Treatment: 05/19/17 16:38 41 yo male with nasal congestion, cough, bodyaches fever r/o Influenza vs PNA with dehydration -- Labs -- IVF -- CXR -- Pepcid IV, Zofran 05/19/17 17:57 Patient signed out to Dr. Contreras to follow up labs, CXR, reevaluate and disposition. - RAD Interpretation Radiology Orders: 05/19/17 16:34 CXR [CHEST TWO VIEWS (PA/LAT)] [RAD] Stat - Medication Orders Current Medication Orders: Acetaminophen (Tylenol 325mg Tab) 975 mg PO STAT STA Stop: 05/19/17 17:58 Discontinued Medications Famotidine (Pepcid 20mg/50ml Premix) 20 mg in 50 mls @ 100 mls/hr IVPB STAT STA Stop: 05/19/17 17:02 Sodium Chloride (Sodium Chloride 0.9%) 1,000 mls @ 999 mls/hr IV .Q1H1M STA Stop: 05/19/17 17:33 Ondansetron HCl (Zofran Inj) 4 mg IVP STAT STA Stop: 05/19/17 16:34 Disposition/Present on Arrival - Present on Arrival Any Indicators Present on Arrival: No History of DVT/PE: No History of Uncontrolled Diabetes: No Urinary Catheter: No History Surgical Site Infection Following: None - Disposition Have Diagnosis and Disposition been Completed?: No Diagnosis: Viral syndrome Disposition Time: 17:58 Condition: FAIR
[2017-05-19 18:49] LABS: BASO # 0.02 K/mm3 (0.0-2.0); BASO % 0.4 % (0.0-3.0); EOS % 0.4 % (1.5-5.0); GRAN # 3.41 (1.4-6.5); GRAN % 63.3 % (50.0-68.0); HEMOGLOBIN 15.1 g/dL (14.0-18.0); LYMPH # 1.2 (1.2-3.4); LYMPH % 22.7 % (22.0-35.0); MEAN CELL VOLUME 94.8 fl (80.0-105.0); MEAN CORPUSCULAR HEMOGLOBIN 32.6 pg (25.0-35.0); MEAN CORPUSCULAR HGB CONC 34.4 g/dl (31.0-37.0); MEAN PLATELET VOLUME 9.9 fl (7.0-11.0); MONO # 0.7 (0.1-0.6); MONO % 13.2 % (1.0-6.0); RBC 4.63 10^6/uL (3.5-6.1); RED CELL DISTRIBUTION WIDTH 13.6 % (11.5-14.5); WHITE BLOOD COUNT 5.4 10^3/ul (4.5-11.0)
[2017-05-19 18:55] LABS: ALB/GLOB RATIO 1.2 (1.1-1.8); ALBUMIN 4.2 g/dL (3.0-4.8); ALT/SGPT 25 U/L (7-56); AST/SGOT 31 U/L (17-59); BLOOD UREA NITROGEN 12 mg/dL (7-21); CALCIUM 9.3 mg/dL (8.4-10.5); GFR AFRICAN-AMERICAN > 60; GFR NON-AFRICAN AMERICAN > 60; LIPASE 36 U/L (23-300)
[2017-05-20 01:23] VITALS: RESP 18
--- NOTE | 2017-05-20 02:43 | ED PDOC ---
Physical Exam - Physical Exam Narrative Physical Exam (Text): you were treated in the ED today for phlegm type cough with discomfort after the coughing, with fever/bodyaches, and you were otherwise without any nausea/ vomiting/headache/dizziness/difficulty breathing/chest pain/abdomen pain/ numbness/tingling/loss of limb function/thoughts to harm yourself or others or hallucinations. 05/20/17 03:21 Vital Signs Reviewed: Yes Vital Signs Temp Pulse Resp BP Pulse Ox 05/20/17 03:30 97.6 F 63 18 93/66 L 99 05/20/17 01:21 59 L 18 99/64 L 97 05/19/17 23:24 67 16 103/67 96 05/19/17 19:10 68 12 110/70 95 05/19/17 16:30 102.5 F H 92 H 26 H 100/66 98 Temperature: Febrile Blood Pressure: Normal Pulse: Tachycardic Respiratory Rate: Tachypneic Appearance: Positive for: Well-Appearing, Non-Toxic, Comfortable Pain Distress: None Mental Status: Positive for: Alert and Oriented X 3 - Systems Exam Head: Present: Atraumatic, Normocephalic Pupils: Present: PERRL Extroacular Muscles: Present: EOMI Conjunctiva: Present: Normal Ears: Present: Normal Mouth: Present: Moist Mucous Membranes Pharnyx: Present: Normal Nose (External): Present: Atraumatic Nose (Internal): Present: Boggy Neck: Present: Normal Range of Motion Respiratory/Chest: Present: Clear to Auscultation, Good Air Exchange Cardiovascular: Present: Regular Rate and Rhythm Abdomen: No: Tenderness, Distention, Normal Bowel Sounds, Peritoneal Signs, Rebound, Guarding, McBurney's Point Tender, Rovsing's Sign Present, Hernias, Feeding Tubes, Ostomy Tubes, Mass/Organomegaly, Scars, Other Back: Present: Normal Inspection Upper Extremity: Present: Normal Inspection Lower Extremity: Present: Normal Inspection Neurological: Present: GCS=15, CN II-XII Intact, Speech Normal, Motor Func Grossly Intact Skin: Present: Warm, Normal Color Psychiatric: Present: Alert, Oriented x 3, Normal Insight, Normal Concentration Medical Decision Making ED Course and Treatment: 05/20/17 02:42 Patient signed out to me by Dr. Contreras. Pending chest xray. 05/20/17 03:23 you were treated in the ED today for phlegm type cough with discomfort after the coughing, with fever/bodyaches, and you were otherwise without any nausea/ vomiting/headache/dizziness/difficulty breathing/chest pain/abdomen pain/ numbness/tingling/loss of limb function/thoughts to harm yourself or others or hallucinations/denies recent drug or alcohol use. you were sitting up, comfortable, alert/oriented, good strength/sensation, no abdomen tenderness, pink skin, mild fever temp 102.5 and repeat 97.6, stable heart rate 59, stable breathing rate 18, excellent oxygen level 97% room air, stable blood pressure 99 /64, no infection count on blood tests 5.4, stable blood levels hemaglobin/ platelet 15/184, stable chemistry, radiology chest xray initial mild markings/ bronchitis, tylenol, food/hydration/observation done in the ED with improvement , counselled to drink lots of fluids, and discharged home. 1. recommend followup primary care 1-2 days to determine further care. 2. if persistent cough 24-48hrs then start azithromycin as directed for infection control. 3. if any worsening pain, fever, chills, nausea, vomiting, any medical condition then return to the ED. 05/20/17 03:26 05/20/17 03:51 Reassessment Condition: Improved - Lab Interpretations Lab Results: 05/19/17 18:00 05/19/17 18:00 Lab Results 05/19/17 18:00: Sodium 137, Potassium 3.9, Chloride 101, Carbon Dioxide 25, Anion Gap 15, BUN 12, Creatinine 1.1, Est GFR ( Amer) > 60, Est GFR (Non- Af Amer) > 60, Random Glucose 114 H, Calcium 9.3, Total Bilirubin 0.7, AST 31, ALT 25, Alkaline Phosphatase 78, Total Protein 7.7, Albumin 4.2, Globulin 3.4, Albumin/Globulin Ratio 1.2, Lipase 36 05/19/17 18:00: Influenza Typ A,B (EIA) Negative for flu a/b 05/19/17 18:00: WBC 5.4 D, RBC 4.63, Hgb 15.1, Hct 43.9, MCV 94.8, MCH 32.6, MCHC 34.4, RDW 13.6, Plt Count 184, MPV 9.9, Gran % 63.3, Lymph % (Auto) 22.7, [place] % (Auto) 13.2 H, Eos % (Auto) 0.4 L, Baso % (Auto) 0.4, Gran # 3.41, Lymph # (Auto) 1.2, [place] # (Auto) 0.7 H, Eos # (Auto) 0.0, Baso # (Auto) 0.02 I have reviewed the lab results: Yes - RAD Interpretation Radiology Orders: 05/19/17 16:34 CXR [CHEST TWO VIEWS (PA/LAT)] [RAD] Stat Hospice Administrator: ED Physician (cxr mild vascular markings) - Medication Orders Current Medication Orders: Discontinued Medications Acetaminophen (Tylenol 325mg Tab) 975 mg PO STAT STA Stop: 05/19/17 17:58 Last Admin: 05/19/17 18:23 Dose: 975 mg Famotidine (Pepcid 20mg/50ml Premix) 20 mg in 50 mls @ 100 mls/hr IVPB STAT STA Stop: 05/19/17 17:02 Last Admin: 05/19/17 18:24 Dose: 100 mls/hr eMAR Start Stop Document 05/19/17 18:24 EWO (Rec: 05/19/17 18:25 EWO [id number]) Intravenous Solution Start Date 05/19/17 Start Time 18:24 End Date 05/19/17 End time 18:54 Total Infusion Time 30 Sodium Chloride (Sodium Chloride 0.9%) 1,000 mls @ 999 mls/hr IV .Q1H1M STA Stop: 05/19/17 17:33 Last Admin: 05/19/17 18:24 Dose: 999 mls/hr eMAR Start Stop Document 05/19/17 18:24 EWO (Rec: 05/19/17 18:24 EWO [id number]) Intravenous Solution Start Date 05/19/17 Start Time 18:24 End Date 05/19/17 End time 19:24 Total Infusion Time 60 Ketorolac Tromethamine (Toradol) 60 mg IM STAT STA Stop: 05/19/17 20:16 Last Admin: 05/19/17 22:15 Dose: 60 mg MAR Pain Assessment Document 05/19/17 22:15 CNR (Rec: 05/19/17 22:15 CNR [id number]) Pain Reassessment Is this a pain reassessment? Yes Location Upper or Lower Lower Pain Location Body Site Back IM Administration Charges Document 05/19/17 22:15 CNR (Rec: 05/19/17 22:15 CNR [id number]) Charges for Administration # of IM Administrations 1 Ondansetron HCl (Zofran Inj) 4 mg IVP STAT STA Stop: 05/19/17 16:34 Last Admin: 05/19/17 18:25 Dose: 4 mg IVP Administration Document 05/19/17 18:25 EWO (Rec: 05/19/17 18:25 EWO [id number]) Charges for Administration # of IVP Administrations 1 - Scribe Statement The provider has reviewed the documentation as recorded by the Kelsey Isidro Provider Scribe Attestation: All medical record entries made by the Scribe were at my direction and personally dictated by me. I have reviewed the chart and agree that the record accurately reflects my personal performance of the history, physical exam, medical decision making, and the department course for this patient. I have also personally directed, reviewed, and agree with the discharge instructions and disposition. Disposition/Present on Arrival - Present on Arrival Any Indicators Present on Arrival: No History of DVT/PE: No History of Uncontrolled Diabetes: No Urinary Catheter: No History of Decub. Ulcer: No History Surgical Site Infection Following: None - Disposition Have Diagnosis and Disposition been Completed?: Yes Diagnosis: Viral syndrome, Bronchitis Disposition: HOME/ ROUTINE Disposition Time: 03:52 Patient Plan: Discharge Patient Problems: Current Active Problems Problem Status Onset Viral syndrome Acute Condition: IMPROVED Additional Instructions: you were treated in the ED today for phlegm type cough with discomfort after the coughing, with fever/bodyaches, and you were otherwise without any nausea/ vomiting/headache/dizziness/difficulty breathing/chest pain/abdomen pain/ numbness/tingling/loss of limb function/thoughts to harm yourself or others or hallucinations/denies recent drug or alcohol use. you were sitting up, comfortable, alert/oriented, good strength/sensation, no abdomen tenderness, pink skin, mild fever temp 102.5 and repeat 97.6, stable heart rate 59, stable breathing rate 18, excellent oxygen level 97% room air, stable blood pressure 99 /64, no infection count on blood tests 5.4, stable blood levels hemaglobin/ platelet 15/184, stable chemistry, radiology chest xray initial mild markings/ bronchitis, tylenol, food/hydration/observation done in the ED with improvement , counselled to drink lots of fluids, and discharged home. 1. recommend followup primary care 1-2 days to determine further care. 2. if persistent cough 24-48hrs then start azithromycin as directed for infection control. 3. if any worsening pain, fever, chills, nausea, vomiting, any medical condition then return to the ED. Prescriptions: Azithromycin [Z-Fly] 250 mg PO DAILY 5 Days #6 tab Forms: [employer] (Greek)
[2017-05-20 03:31] VITALS: BP 93/66; PULSE 63; TEMP 97.6; O2SAT 99
--- NOTE | 2017-05-20 10:23 | RAD ---
HISTORY: cough r/o pna COMPARISON: 03/09/2017 TECHNIQUE: Chest PA and lateral FINDINGS: LUNGS: Hyperinflation, manifestations of COPD. No active pulmonary disease. PLEURA: No significant pleural effusion identified. No pneumothorax apparent. CARDIOVASCULAR: No radiographic findings to suggest acute or significant cardiovascular disease. OSSEOUS STRUCTURES: No significant abnormalities. VISUALIZED UPPER ABDOMEN: Normal. OTHER FINDINGS: None. IMPRESSION: No active disease. No significant interval change compared to the prior examination(s).
== END 2017-05-20 07:21 | disposition home or self-care (01) ==
LOC: ED 16:11
DX: B34.9 Viral infection, unspecified (principal)
CPT/HCPCS: 71046; 80053; 83690; 85025; 87804; 96365; 96372; 96375; 99285; J1885; J2405; J7040

== ENCOUNTER 2017-07-28 05:34 | Emergency (ER) | payer MEDICARE, OTHER ==
[2017-07-28 05:41] VITALS: BMI 17.6
[2017-07-28 06:22] VITALS: TEMP 98.2
--- NOTE | 2017-07-28 07:17 | ED PDOC ---
Physical Exam Vital Signs Reviewed: Yes Vital Signs Temp Pulse Resp BP Pulse Ox 07/28/17 05:50 98.2 F 74 18 109/56 L 100 Temperature: Afebrile Blood Pressure: Hypotensive Pulse: Regular Respiratory Rate: Normal Appearance: Positive for: Well-Appearing, Non-Toxic, Comfortable Pain Distress: None Mental Status: Positive for: Alert and Oriented X 3 Medical Decision Making ED Course and Treatment: 07/28/17 07:00 The patient is endorsed over to me by Dr. Winters. Patient is currently on psych hold waiting for crisis [place] [facility]. Patient will be disposition accordingly. - Scribe Statement The provider has reviewed the documentation as recorded by the Scribe Gilda Travis Provider Scribe Attestation: All medical record entries made by the Scribe were at my direction and personally dictated by me. I have reviewed the chart and agree that the record accurately reflects my personal performance of the history, physical exam, medical decision making, and the department course for this patient. I have also personally directed, reviewed, and agree with the discharge instructions and disposition. Disposition/Present on Arrival - Present on Arrival History of DVT/PE: No History of Uncontrolled Diabetes: No Urinary Catheter: No History of Decub. Ulcer: No History Surgical Site Infection Following: None - Disposition Referrals: Barbara Toro, [Primary Care Provider] - Follow up with primary
--- NOTE | 2017-07-28 07:39 | ED PDOC ---
Arrival/HPI - General Chief Complaint: Psychiatric Evaluation Time Seen by Provider: 07/28/17 07:11 Historian: Patient - History of Present Illness Narrative History of Present Illness (Text): 07/28/17 07:30 A 41 year old male, questionably homeless, whose past medical history includes prior left sided brain tumor, suicide attempt, drug abuse, depression, bipolar disorder, and antisocial personality disorder, presents to the emergency department for severe depression. The patient reports last night, he and his sister in law got into a verbal altercation about keeping his daughters belongings. The patient contemplated drinking anti-freeze in order to kill himself. The patient notes that he was seen 1 year ago in [facility] for a suicidal attempt, drinking anti-freeze. The patient began to feel concerned and decided to be further evaluated in the emergency department. He states that he gets care for his left sided brain tumor in [place], [place], but he admits to not keeping up with his medical recommendations. The patient states he has not been taking his medications for a couple of months. He admits to snorting cocaine and his last use was a "night or two ago." The patient denies any complaints of new homicidal ideation, hallucinations-auditory/visual/tactile, headaches, LOC, chest pain, shortness of breath, vision changes, urinary/bowel changes, nausea, vomiting, diarrhea, fevers, or any other complaints at this time. pt is here for further eval PCP is none. Time/Duration: 24 hours Symptom Course: Unchanged Quality: Other Severity Level: Mild Activities at Onset: Emotional Upset Context: Home Past Medical History - Provider Review Nursing Documentation Reviewed: Yes - Travel History Have you recently traveled outside [place] w/in the past 3 mons?: No - Past History Past History: No Previous - Infectious Disease Hx of Infectious Diseases: None - Cardiac Hx Cardiac Disorders: No - Pulmonary Hx Respiratory Disorders: No - Neurological Hx Neurological Disorder: No Hx Seizures: No - HEENT Hx HEENT Disorder: No - Renal Hx Renal Disorder: No - Endocrine/Metabolic Hx Endocrine Disorders: No - Hematological/Oncological Hx Blood Disorders: No - Integumentary Hx Dermatological Disorder: No - Musculoskeletal/Rheumatological Hx Musculoskeletal Disorders: No - Gastrointestinal Hx Gastrointestinal Disorders: No - Genitourinary/Gynecological Hx Genitourinary Disorders: No - Psychiatric Hx Bipolar Disorder: Yes Hx Depression: Yes Hx Emotional Abuse: No Hx Physical Abuse: No Hx Sexual Abuse: No Hx Substance Use: Yes (cocain) - Anesthesia Hx Anesthesia Reactions: No Family/Social History - Physician Review Nursing Documentation Reviewed: Yes Family/Social History: No Known Family HX Smoking Status: Heavy Smoker > 10 Cigarettes Daily Hx Alcohol Use: No Hx Substance Use: Yes (cocain) Substance used: Cocaine Route: Other (Snorting) Allergies/Home Meds Allergies/Adverse Reactions: Allergies mushroom Allergy (Verified 05/19/17 19:21) SHORTNESS OF BREATH Review of Systems - Physician Review All systems were reviewed & negative as marked: Yes - Review of Systems Constitutional: absent: Fevers Eyes: absent: Vision Changes ENT: absent: Hearing Changes Respiratory: absent: SOB Cardiovascular: absent: Chest Pain Gastrointestinal: absent: Stool Changes, Diarrhea, Nausea, Vomiting Genitourinary Male: absent: Dysuria, Urinary Output Changes Musculoskeletal: Normal Skin: Normal Neurological: Headache (chronic). absent: Dizziness Endocrine: Normal Hemo/Lymphatic: Normal Psychiatric: Depression, Suicidal Ideation Physical Exam Vital Signs Reviewed: Yes Vital Signs Temp Pulse Resp BP Pulse Ox 07/28/17 05:50 98.2 F 74 18 109/56 L 100 Temperature: Afebrile Blood Pressure: Normal Pulse: Regular Respiratory Rate: Normal Appearance: Positive for: Non-Toxic, Comfortable, Cachectic, Other (Frail, resting in bed, cooperative, NAD, alert/awake, GCS = 15, oriented x 3) Pain Distress: None Mental Status: Positive for: Alert and Oriented X 3, other (flat affect ) - Systems Exam Head: Present: Atraumatic, Normocephalic, Other (mild bi-temporal wasting) Pupils: Present: PERRL, Other (no nystagmus, no photophobia, sclera anicteric, visual field intact b/l) Extroacular Muscles: Present: EOMI Conjunctiva: Present: Normal Ears: Present: Normal Mouth: Present: Moist Mucous Membranes, Other (fair dentitions, no drooling/ stridor, no exudate/lesions) Pharnyx: Present: Normal Nose (External): Present: Atraumatic Nose (Internal): Present: Normal Inspection Neck: Present: Normal Range of Motion, Trachea Midline. No: Meningeal Signs, MIDLINE TENDERNESS Respiratory/Chest: Present: Clear to Auscultation, Good Air Exchange, Other ( CTA b/l, no w/r/r, no accessory muscle use, no tachypenia). No: Respiratory Distress, Accessory Muscle Use Cardiovascular: Present: Regular Rate and Rhythm, Normal S1, S2. No: Murmurs Abdomen: Present: Normal Bowel Sounds, Other (thin male, no focal tenderness, no cruz's sign, no mcburney's point tenderness, no masses/rebound/guarding/ rigidity). No: Tenderness, Distention, Peritoneal Signs Back: Present: Normal Inspection. No: CVA Tenderness, Midline Tenderness Upper Extremity: Present: Normal Inspection, Normal ROM, NORMAL PULSES, Neurovascularly Intact. No: Cyanosis, Edema Lower Extremity: Present: Normal Inspection, NORMAL PULSES, Normal ROM, Neurovascularly Intact. No: Edema Neurological: Present: GCS=15, CN II-XII Intact, Speech Normal Skin: Present: Warm, Dry, Normal Color. No: Rashes Psychiatric: Present: Alert, Oriented x 3, Normal Insight, Normal Concentration , Other (cooperative; FLAT AFFECT). No: Normal Affect Medical Decision Making ED Course and Treatment: 07/28/17 07:47 Impression: A 41 year old male with depression, contemplating suicide Differential Diagnosis included but are not limited to: suicidal ideation; severe depression, drug use Plan: -- Head CT -- EKG -- Labs -- Chest X-ray -- AES Crisis Evaluation -- Urinalysis -- Reassess and disposition Progress Notes: 07/28/17 09:09 pt is currently comfortable, resting in bed, awaiting lab results and PES evaluation 1030 pt is medically cleared for psych eval PES/crisis counselor is at bedside, evaluated patient, pt is cleared from psych , and patient can be released home 07/28/17 11:55 pt remained comfortable pt denied other complaints pt is made aware of his medical results pt is encouraged to take his medications pt is encouraged not to smoke, no drug use, no alcohol pt will f/u as directed pt will be discharged home Re-evaluation Time: 11:45 Reassessment Condition: Unchanged - Lab Interpretations Lab Results: 07/28/17 06:50 07/28/17 06:50 Lab Results 07/28/17 06:50: Alcohol, Quantitative < 10 07/28/17 06:50: Salicylates < 1 L, Acetaminophen < 10.0 L 07/28/17 06:50: Sodium 137, Potassium 3.3 L, Chloride 99, Carbon Dioxide 29, Anion Gap 12, BUN 8, Creatinine 0.6 L, Est GFR ( Amer) > 60, Est GFR (Non -Af Amer) > 60, Random Glucose 101, Calcium 9.0, Total Bilirubin 0.5, AST 24, ALT 25, Alkaline Phosphatase 67, Total Protein 7.1, Albumin 4.0, Globulin 3.1, Albumin/Globulin Ratio 1.3 07/28/17 06:50: WBC 6.7 D, RBC 4.51, Hgb 14.5, Hct 41.3 L, MCV 91.6 D, MCH 32.2, MCHC 35.1, RDW 13.2, Plt Count 237, MPV 9.4, Gran % 62.8, Lymph % (Auto) 26.3, [place] % (Auto) 9.9 H, Eos % (Auto) 0.6 L, Baso % (Auto) 0.4, Gran # 4.20, Lymph # (Auto) 1.8, [place] # (Auto) 0.7 H, Eos # (Auto) 0.0, Baso # (Auto) 0.03 I have reviewed the lab results: Yes Interpretation: All labs normal - RAD Interpretation Narrative RAD Interpretations (Text): 07/28/17 11:49 PROCEDURE: CT HEAD WITHOUT CONTRAST. HISTORY: History of left brain lesion, r/o new pathology COMPARISON: Comparison made with prior CT scan an MRI of the brain dated 01/16/2017 and 02/2017 respectively. TECHNIQUE: Axial computed tomography images were obtained through the head/brain without intravenous contrast. Radiation dose: Total exam DLP = 779.66 mGy-cm. This CT exam was performed using one or more of the following dose reduction techniques: Automated exposure control, adjustment of the mA and/or kV according to patient size, and/or use of iterative reconstruction technique. FINDINGS: HEMORRHAGE: No acute parenchymal, subarachnoid or extra-axial hemorrhage. 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 The lesion appears appears to involve the left Kim cavernous canal with anterior displacement of the left proximal cavernous carotid artery. This lesion is of uncertain etiology though demonstrate no discernible contrast enhancement on prior MRI. 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 Findings are not felt to represent schwannoma or paraganglioma due to the lack of enhancement. . Clinical correlation recommended. No evidence of large acute infarct so far as can be seen. VENTRICLES: No obstructive hydrocephalus. CALVARIUM: As above. No acute calvarial fractures. PARANASAL SINUSES: Mild to moderate mucosal thickening floor left maxillary sinus Mild mucosal thickening noted within the ethmoid air complex extending slightly into the inferior margin of the frontal sinus. Minor mucosal thickening right chamber sphenoid sinus MASTOID AIR CELLS: Unremarkable as visualized. No inflammatory changes. OTHER FINDINGS: None. IMPRESSION: No acute intracranial hemorrhage. Stable appearing large heterogeneous lesion, epicenter of which appears to be located in the left anterolateral margin of the clivus and left petrous apex with surrounding expansile changes an mass- effect. Rule out cholesterol granuloma. Findings are not felt to represent schwannoma or paraganglioma due to the lack of lack of enhancement. HISTORY: depression COMPARISON: No prior. FINDINGS: LUNGS: Lungs appear hyperinflated. Mild biapical pleural thickening. No acute infiltrates. PLEURA: As above. No significant pleural effusion identified, no pneumothorax apparent. CARDIOVASCULAR: Heart size normal. OSSEOUS STRUCTURES: No significant abnormalities. VISUALIZED UPPER ABDOMEN: Normal. OTHER FINDINGS: None. IMPRESSION: Mild hyperinflation. No acute infiltrates. Radiology Orders: 07/28/17 07:31 CHEST PORTABLE [RAD] Stat 07/28/17 08:43 HEAD W/O CONTRAST [CT] Stat Business Editor: Radiologist - EKG Interpretation EKG Interpretation (Text): 07/28/17 09:10 NSR at 70 bpm, normal axis, no ectopy, early repolarization, no st-t changes, NORMAL EKG; no gross changes compare with old ekg 03/2017 Interpreted by ED Physician: Yes Type: 12 lead EKG Comparison: Similar to previous EKG - Medication Orders Current Medication Orders: Discontinued Medications Potassium Chloride (K-Dur 20 Meq Er Tab) 20 meq PO STAT STA Stop: 07/28/17 09:14 - Scribe Statement The provider has reviewed the documentation as recorded by the Kelsey Travis Provider Scribe Attestation: All medical record entries made by the Scribe were at my direction and personally dictated by me. I have reviewed the chart and agree that the record accurately reflects my personal performance of the history, physical exam, medical decision making, and the department course for this patient. I have also personally directed, reviewed, and agree with the discharge instructions and disposition. Disposition/Present on Arrival - Present on Arrival Any Indicators Present on Arrival: No History of DVT/PE: No History of Uncontrolled Diabetes: No Urinary Catheter: No History of Decub. Ulcer: No History Surgical Site Infection Following: None - Disposition Have Diagnosis and Disposition been Completed?: Yes Diagnosis: Depression, Drug abuse Disposition: HOME/ ROUTINE Disposition Time: 11:49 Patient Plan: Discharge Patient Problems: Current Active Problems Problem Status Onset Depression Acute Drug abuse Acute Condition: STABLE Discharge Instructions (ExitCare): Depression, Drug Abuse and Drug Addiction ( [place]), Drug Abuse Treatment, Suicide Prevention Print Language: [place] Additional Instructions: Make sure to see your doctor in 1-2 days DRINK PLENTY OF FLUIDS take your medications as prescribed DONT DO DRUGS; DONT SMOKE; dont drink alcohol RETURN TO ED IF worse pain, cant breath, persistent vomiting, high fever >101- 102 for hours, altered behavior, suicidal/homicidal thoughts, hallucinations, slurr speech, facial changes, focal weakness (arm/leg or both), unable to urinate, heavy/persistent bleeding, passing out, chest pain, or other medical emergencies Referrals: Xooker Traci Revianney, [Primary Care Provider] - Follow up with primary [facility] [Outside] - Follow up with primary [facility] [Outside] - Follow up with primary Forms: [employer] (Ghanaian)
[2017-07-28 08:12] LABS: BASO # 0.03 K/mm3 (0.0-2.0); BASO % 0.4 % (0.0-3.0); EOS % 0.6 % (1.5-5.0); GRAN # 4.2 (1.4-6.5); GRAN % 62.8 % (50.0-68.0); HEMOGLOBIN 14.5 g/dL (14.0-18.0); LYMPH # 1.8 (1.2-3.4); LYMPH % 26.3 % (22.0-35.0); MEAN CELL VOLUME 91.6 fl (80.0-105.0); MEAN CORPUSCULAR HEMOGLOBIN 32.2 pg (25.0-35.0); MEAN CORPUSCULAR HGB CONC 35.1 g/dl (31.0-37.0); MEAN PLATELET VOLUME 9.4 fl (7.0-11.0); MONO # 0.7 (0.1-0.6); MONO % 9.9 % (1.0-6.0); RBC 4.51 10^6/uL (3.5-6.1); RED CELL DISTRIBUTION WIDTH 13.2 % (11.5-14.5); WHITE BLOOD COUNT 6.7 10^3/ul (4.5-11.0)
[2017-07-28 08:15] LABS: ACETAMINOPHEN < 10.0 ug/ml (10.0-20.0); SALICYLATE < 1 mg/dL (2.0-20.0)
[2017-07-28 08:16] LABS: ALB/GLOB RATIO 1.3 (1.1-1.8); ALT/SGPT 25 U/L (7-56); AST/SGOT 24 U/L (17-59); BLOOD UREA NITROGEN 8 mg/dL (7-21); GFR AFRICAN-AMERICAN > 60; GFR NON-AFRICAN AMERICAN > 60
[2017-07-28] MEDS ORDERED: Potassium Chloride 20 mEq ER Tab PO STA (09:13)
--- NOTE | 2017-07-28 09:56 | RAD ---
HISTORY: depression COMPARISON: No prior. FINDINGS: LUNGS: Lungs appear hyperinflated. Mild biapical pleural thickening. No acute infiltrates. PLEURA: As above. No significant pleural effusion identified, no pneumothorax apparent. CARDIOVASCULAR: Heart size normal. OSSEOUS STRUCTURES: No significant abnormalities. VISUALIZED UPPER ABDOMEN: Normal. OTHER FINDINGS: None. IMPRESSION: Mild hyperinflation. No acute infiltrates.
--- NOTE | 2017-07-28 10:22 | CT ---
PROCEDURE: CT HEAD WITHOUT CONTRAST. HISTORY: History of left brain lesion, r/o new pathology COMPARISON: Comparison made with prior CT scan an MRI of the brain dated 01/16/2017 and 01/17/2017 respectively. TECHNIQUE: Axial computed tomography images were obtained through the head/brain without intravenous contrast. Radiation dose: Total exam DLP = 779.66 mGy-cm. This CT exam was performed using one or more of the following dose reduction techniques: Automated exposure control, adjustment of the mA and/or kV according to patient size, and/or use of iterative reconstruction technique. FINDINGS: HEMORRHAGE: No acute parenchymal, subarachnoid or extra-axial hemorrhage. 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 The lesion appears appears to involve the left Kim cavernous canal with anterior displacement of the left proximal cavernous carotid artery. This lesion is of uncertain etiology though demonstrate no discernible contrast enhancement on prior MRI. 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 Findings are not felt to represent schwannoma or paraganglioma due to the lack of enhancement. . Clinical correlation recommended. No evidence of large acute infarct so far as can be seen. VENTRICLES: No obstructive hydrocephalus. CALVARIUM: As above. No acute calvarial fractures. PARANASAL SINUSES: Mild to moderate mucosal thickening floor left maxillary sinus Mild mucosal thickening noted within the ethmoid air complex extending slightly into the inferior margin of the frontal sinus. Minor mucosal thickening right chamber sphenoid sinus MASTOID AIR CELLS: Unremarkable as visualized. No inflammatory changes. OTHER FINDINGS: None. IMPRESSION: No acute intracranial hemorrhage. Stable appearing large heterogeneous lesion, epicenter of which appears to be located in the left anterolateral margin of the clivus and left petrous apex with surrounding expansile changes an mass-effect. Rule out cholesterol granuloma. Findings are not felt to represent schwannoma or paraganglioma due to the lack of lack of enhancement.
[2017-07-28 12:13] VITALS: O2SAT 99
[2017-07-28 12:14] VITALS: BP 118/76; PULSE 80; RESP 18
--- NOTE | 2017-07-28 23:43 | CARD ---
APPROVED REPORT EKG Measurement Heart [id number] <Conclusion> Normal sinus rhythm Early repolarization Normal ECG
== END 2017-07-28 12:14 | disposition home or self-care (01) ==
LOC: ED 05:34
DX: F32.9 Major depressive disorder, single episode, unspecified (principal); F19.10 Other psychoactive substance abuse, uncomplicated
CPT/HCPCS: 70450; 71045; 80053; 85025; 90791; 93005; 99284; G0480

== ENCOUNTER 2017-11-24 09:14 | Inpatient (IN) | payer MEDICARE, OTHER ==
--- NOTE | 2017-11-24 09:25 | ED PDOC ---
Arrival/HPI - General Time Seen by Provider: 11/24/17 09:16 Historian: Patient, EMS - History of Present Illness Narrative History of Present Illness (Text): 11/24/17 09:27 42 year old male, pmh including left sided brain tumor (following by specialist in [place]), psychiatric history including depression/bipolar/drug abuse, nkda, biba complaining of chest pain x 3 hours. Pt. stated that he has on and off lt. sided chest pain radiating down to the left arm causing numbness started about 6 days ago, started again this morning while walking on the street , admits using cocaine about 2 days ago and none for the past 24 hours, admits had 2 cans of beer around 2am today, no slurred speech, no vision changes, no difficulty walking, no palpitation, no other medical or psychological complaints. Past Medical History - Provider Review Nursing Documentation Reviewed: Yes - Past History Past History: No Previous - Infectious Disease Hx of Infectious Diseases: None - Cardiac Hx Cardiac Disorders: No - Pulmonary Hx Respiratory Disorders: No - Neurological Hx Neurological Disorder: No Hx Seizures: No - HEENT Hx HEENT Disorder: No - Renal Hx Renal Disorder: No - Endocrine/Metabolic Hx Endocrine Disorders: No - Hematological/Oncological Hx Blood Disorders: No - Integumentary Hx Dermatological Disorder: No - Musculoskeletal/Rheumatological Hx Musculoskeletal Disorders: No - Gastrointestinal Hx Gastrointestinal Disorders: No - Genitourinary/Gynecological Hx Genitourinary Disorders: No - Psychiatric Hx Bipolar Disorder: Yes Hx Depression: Yes Hx Emotional Abuse: No Hx Physical Abuse: No Hx Sexual Abuse: No Hx Substance Use: Yes (cocain) - Anesthesia Hx Anesthesia Reactions: No Family/Social History - Physician Review Nursing Documentation Reviewed: Yes Family/Social History: Unknown Family HX Smoking Status: Heavy Smoker > 10 Cigarettes Daily Hx Alcohol Use: No Hx Substance Use: Yes (cocain) Substance used: Cocaine Allergies/Home Meds Allergies/Adverse Reactions: Allergies mushroom Allergy (Verified 11/24/17 09:22) SHORTNESS OF BREATH Home Medications: Home Meds Medication Instructions Recorded Confirmed Aspirin [Aspirin Chewable] 81 mg PO DAILY 11/24/17 11/24/17 Citalopram [celEXA] 20 mg PO DAILY 11/24/17 11/24/17 traZODone [Desyrel] 50 mg PO HS 11/24/17 11/24/17 Review of Systems - Review of Systems Constitutional: absent: Fatigue, Fevers Eyes: absent: Vision Changes ENT: absent: Hearing Changes Respiratory: absent: SOB, Cough Cardiovascular: Chest Pain Gastrointestinal: absent: Abdominal Pain, Nausea, Vomiting Musculoskeletal: absent: Arthralgias, Back Pain Skin: absent: Rash, Pruritis Neurological: Other (lt. arm numbness). absent: Headache, Dizziness Psychiatric: absent: Anxiety, Depression, Suicidal Ideation Physical Exam Vital Signs Reviewed: Yes Vital Signs Temp Pulse Resp BP Pulse Ox 11/24/17 12:17 98 F 61 19 119/59 L 100 11/24/17 11:09 119/56 L 11/24/17 10:14 87 19 100/49 L 100 11/24/17 09:24 98.5 F 79 18 109/70 96 11/24/17 09:23 98.5 F 79 18 109/70 96 Temperature: Afebrile Blood Pressure: Normal Pulse: Regular Respiratory Rate: Normal Appearance: Positive for: Well-Appearing, Non-Toxic, Comfortable Pain Distress: Moderate Mental Status: Positive for: Alert and Oriented X 3 - Systems Exam Head: Present: Atraumatic, Normocephalic Pupils: Present: PERRL Extroacular Muscles: Present: EOMI Conjunctiva: Present: Normal Mouth: Present: Moist Mucous Membranes Neck: Present: Normal Range of Motion Respiratory/Chest: Present: Clear to Auscultation, Good Air Exchange. No: Respiratory Distress, Accessory Muscle Use Cardiovascular: Present: Regular Rate and Rhythm, Normal S1, S2. No: Murmurs Abdomen: No: Tenderness, Distention, Peritoneal Signs Back: Present: Normal Inspection Upper Extremity: Present: Normal Inspection, Normal ROM, NORMAL PULSES, Neurovascularly Intact, Capillary Refill < 2s. No: Cyanosis, Edema, Deformity Lower Extremity: Present: Normal Inspection, NORMAL PULSES, Normal ROM, Neurovascularly Intact, Capillary Refill < 2 s. No: Edema, Tenderness, Swelling , Deformity Neurological: Present: GCS=15, CN II-XII Intact, Speech Normal, Motor Func Grossly Intact, Gait Normal, Memory Normal, Other (no drift, bilateral upper and lower extremities full sensation intact, motor 5/5. ) Skin: Present: Warm, Dry, Normal Color. No: Rashes Psychiatric: Present: Alert, Oriented x 3, Normal Insight, Normal Concentration Medical Decision Making ED Course and Treatment: 11/24/17 09:35 Differential: ACS vs. Rhabdomylosis vs. CVA vs. Dehydration vs. Electrolyte imbalance -Labs/troponin/bnp/uds -EKG -Chest X-Ray -IVF/morphine/aspirin (will order when the CT head resulted) -cardiac monitor -Observe and reassess 11/24/17 12:05 -NIHSS is zero -HEART SCORE: 4 -EKG: NSR @ 79 BPM, chronic V2-V5 early repolarization on the ST waves, no acute ST or T wave changes, compared with previous ekg. -CT head: No acute intracranial hemorrhage. 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 No evidence of large acute infarct so far as can be seen. -Chest xray show no active disease -Labs show no acute findings -BNP is negative -Troponin is negative -UDS show +opiate and +cocaine -Aspirin 325mg po ordered -All labs/radiology results discussed with the patient, clinically concerning about all differential including r/o ACS, agreed to be admitted. -Paging medicine transportation security screener, Dr. Castillo 11/24/17 12:22 -I spoke to Dr. Castillo, discussed about the case/labs/radiology result, agreed to admit to her service and she will call for the consult, request admission as the patient will need cardiac and psychiatric work up including his brain tumor history. - Lab Interpretations Lab Results: 11/24/17 09:30 11/24/17 09:30 Lab Results 11/24/17 11:00: Urine Opiates Screen Positive H, Urine Methadone Screen Negative , Ur Barbiturates Screen Negative, Ur Phencyclidine Scrn Negative, Ur Amphetamines Screen Negative, U Benzodiazepines Scrn Negative, U Oth Cocaine Metabols Positive H, U Cannabinoids Screen Negative 11/24/17 09:30: Sodium 141, Potassium 3.8, Chloride 104, Carbon Dioxide 26, Anion Gap 15, BUN 13, Creatinine 0.8, Est GFR ( Amer) > 60, Est GFR (Non- Af Amer) > 60, Random Glucose 100, Calcium 9.0, Magnesium 2.0, Total Bilirubin 1.0, AST 31, ALT 23, Alkaline Phosphatase 81, Lactate Dehydrogenase 348, Total Creatine Kinase 163, Troponin I < 0.01, NT-Pro-B Natriuret Pep 34.3, Total Protein 7.6, Albumin 4.4, Globulin 3.3, Albumin/Globulin Ratio 1.4 11/24/17 09:30: WBC 7.6, RBC 4.49, Hgb 14.5, Hct 40.7 L, MCV 90.6, MCH 32.3, MCHC 35.6, RDW 13.6, Plt Count 223, MPV 9.5, Gran % 62.2, Lymph % (Auto) 27.8, [place] % (Auto) 8.8 H, Eos % (Auto) 0.7 L, Baso % (Auto) 0.5, Gran # 4.73, Lymph # (Auto) 2.1, [place] # (Auto) 0.7 H, Eos # (Auto) 0.1, Baso # (Auto) 0.04 - RAD Interpretation Radiology Orders: 11/24/17 09:29 CHEST PORTABLE [RAD] Stat 11/24/17 09:33 HEAD W/O CONTRAST [CT] Stat Chest xray: CT Head: 11/24/2017 PROCEDURE: CT HEAD WITHOUT CONTRAST. HISTORY: arm numbness x 1 week COMPARISON: Comparison made with prior CT scan brain 07/28/2017 and MRI of the brain dated 01/17/2017. TECHNIQUE: Axial computed tomography images were obtained through the head/brain without intravenous contrast. Radiation dose: Total exam DLP = 954.76 mGy-cm. This CT exam was performed using one or more of the following dose reduction techniques: Automated exposure control, adjustment of the mA and/or kV according to patient size, and/or use of iterative reconstruction technique. FINDINGS: HEMORRHAGE: No acute parenchymal, subarachnoid nor extra-axial hemorrhage. BRAIN: Re- demonstrated is a relatively large expansile heterogeneous skullbase lesion appears to involve the left clivus and left petrous apex. The surrounding bone is exhibits containing an gross of/expansile changes . 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 Note that this lesion not is seen to much better advantage on prior MRI. No evidence of large acute infarct. VENTRICLES: No obstructive hydrocephalus. CALVARIUM: Remaining calvarium otherwise intact PARANASAL SINUSES: Unremarkable as visualized. No significant inflammatory changes. MASTOID AIR CELLS: Unremarkable as visualized. No inflammatory changes. OTHER FINDINGS: None. IMPRESSION: No acute intracranial hemorrhage. 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 No evidence of large acute infarct so far as can be seen. Shank Taper: Radiologist - Medication Orders Current Medication Orders: Sodium Chloride (Sodium Chloride 0.9%) 1,000 mls @ 100 mls/hr IV .Q10H HUGO Discontinued Medications Aspirin (Aspirin) 325 mg PO STAT STA Stop: 11/24/17 11:51 Morphine Sulfate (Morphine) 2 mg IVP STAT STA Stop: 11/24/17 09:31 Last Admin: 11/24/17 09:41 Dose: 2 mg [facility] Pain Assessment Document 11/24/17 09:41 GMI (Rec: 11/24/17 09:42 GMI [id number]) Pain Reassessment Is this a pain reassessment? Yes Sleep Is patient sleeping during reassessment? No Presence of Pain Presence of Pain Yes Pain Scale Used Pain Scale Used Numeric Location Left, Right or Bilateral Left Pain Location Body Site Chest Description Description Pressure Intensity of Pain at present 9 Pain Behavior Facial Grimacing Alleviating Factors/Management Position Change Techniques Relaxation Techniques Alleviating Factors Medication IVP Administration Document 11/24/17 09:41 GMI (Rec: 11/24/17 09:42 GMI [id number]) Charges for Administration # of IVP Administrations 1 Re-Assess: [facility] Pain Assessment Document 11/24/17 10:41 GMI (Rec: 11/24/17 12:20 GMI [id number]) Pain Reassessment Is this a pain reassessment? Yes Sleep Is patient sleeping during reassessment? Yes NIHSS Scale ([place]) Time Performed: 09:37 - How Severe is the Stoke Baseline Level of Consciousness: 0=Alert LOC to Questions: 0=Both comments correct LOC to commands: 0=Obeys both correctly Best Gaze: 0=Normal Visual: 0=No visual loss Facial: 0=Normal Motor Arm - Left: 0=No drift Motor Arm - Right: 0=No drift Motor Leg - Left: 0=No drift Motor Leg - Right: 0=No drift Limb Ataxia: 0=Absent Sensory: 0=Normal Best Language: 0=No aphasia Dysarthia: 0=Normal articulation Extinction & Inattention (Neglect): 0=Normal, no object Score: 0 Risk Level: No Stroke Risk - PA / WORKERS COMPENSATION MANAGER / Resident Statement MD/DO has reviewed & agrees with the documentation as recorded. Disposition/Present on Arrival - Present on Arrival Any Indicators Present on Arrival: No History of DVT/PE: No History of Uncontrolled Diabetes: No Urinary Catheter: No History of Decub. Ulcer: No History Surgical Site Infection Following: None - Disposition Have Diagnosis and Disposition been Completed?: Yes Diagnosis: Chest pain, Drug abuse Disposition: HOSPITALIZED Disposition Time: 12:11 Patient Plan: Admission, Observation, Telemetry Patient Problems: Current Active Problems Problem Status Onset Chest pain Acute Drug abuse Acute Condition: STABLE Discharge Instructions (ExitCare): Chest Pain (ED)
[2017-11-24] MEDS ORDERED: Morphine 2 mg/ml ISec IVP STA (09:30)
[2017-11-24 09:58] LABS: BASO # 0.04 K/mm3 (0.0-2.0); BASO % 0.5 % (0.0-3.0); EOS # 0.1 (0.0-0.7); EOS % 0.7 % (1.5-5.0); GRAN # 4.73 (1.4-6.5); GRAN % 62.2 % (50.0-68.0); HEMOGLOBIN 14.5 g/dL (14.0-18.0); LYMPH # 2.1 (1.2-3.4); LYMPH % 27.8 % (22.0-35.0); MEAN CELL VOLUME 90.6 fl (80.0-105.0); MEAN CORPUSCULAR HEMOGLOBIN 32.3 pg (25.0-35.0); MEAN CORPUSCULAR HGB CONC 35.6 g/dl (31.0-37.0); MEAN PLATELET VOLUME 9.5 fl (7.0-11.0); MONO # 0.7 (0.1-0.6); MONO % 8.8 % (1.0-6.0); RBC 4.49 10^6/uL (3.5-6.1); RED CELL DISTRIBUTION WIDTH 13.6 % (11.5-14.5); WHITE BLOOD COUNT 7.6 10^3/ul (4.5-11.0)
[2017-11-24 10:09] LABS: ALB/GLOB RATIO 1.4 (1.1-1.8); ALBUMIN 4.4 g/dL (3.0-4.8); ALT/SGPT 23 U/L (7-56); AST/SGOT 31 U/L (17-59); BLOOD UREA NITROGEN 13 mg/dL (7-21); GFR AFRICAN-AMERICAN > 60; GFR NON-AFRICAN AMERICAN > 60
[2017-11-24 10:21] LABS: B-TYPE NATRIURETIC PEPTIDE 34.3 pg/mL (0-450); TROPONIN I < 0.01 ng/mL
--- NOTE | 2017-11-24 11:43 | CT ---
Date of service: 11/24/2017 PROCEDURE: CT HEAD WITHOUT CONTRAST. HISTORY: arm numbness x 1 week COMPARISON: Comparison made with prior CT scan brain 07/28/2017 and MRI of the brain dated 01/17/2017. TECHNIQUE: Axial computed tomography images were obtained through the head/brain without intravenous contrast. Radiation dose: Total exam DLP = 954.76 mGy-cm. This CT exam was performed using one or more of the following dose reduction techniques: Automated exposure control, adjustment of the mA and/or kV according to patient size, and/or use of iterative reconstruction technique. FINDINGS: HEMORRHAGE: No acute parenchymal, subarachnoid nor extra-axial hemorrhage. BRAIN: Re- demonstrated is a relatively large expansile heterogeneous skullbase lesion appears to involve the left clivus and left petrous apex. The surrounding bone is exhibits containing an gross of/expansile changes . 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 Note that this lesion not is seen to much better advantage on prior MRI. No evidence of large acute infarct. VENTRICLES: No obstructive hydrocephalus. CALVARIUM: Remaining calvarium otherwise intact PARANASAL SINUSES: Unremarkable as visualized. No significant inflammatory changes. MASTOID AIR CELLS: Unremarkable as visualized. No inflammatory changes. OTHER FINDINGS: None. IMPRESSION: No acute intracranial hemorrhage. 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 No evidence of large acute infarct so far as can be seen.
[2017-11-24 11:48] LABS: BARBITURATES, UR NEGATIVE (NEGATIVE)
[2017-11-24 11:53] LABS: BENZODIAZEPINES, UR NEGATIVE (NEGATIVE); OPIATES, UR POSITIVE (NEGATIVE); PHENCYCLIDINE, UR NEGATIVE (NEGATIVE)
[2017-11-24] MEDS: Sodium Chloride 0.9% 1,000 ML IV SCH ×2 (12:32→21:30)
[2017-11-24 14:25] LABS: TROPONIN I < 0.01 ng/mL
[2017-11-24] MEDS ORDERED: Pneumococcal 23-Valent Vaccine IM ONE (14:58)
[2017-11-24 14:59] VITALS: BMI 18.8
--- NOTE | 2017-11-24 15:02 | CARD ---
APPROVED REPORT Date of service: 11/24/2017 EKG Measurement Heart [id number] <Conclusion> Normal sinus rhythm ST elevation, probably due to early repolarization Borderline ECG
--- NOTE | 2017-11-24 15:31 | RAD ---
Date of service: 11/24/2017 HISTORY: chest pain COMPARISON: Comparison chest 07/28/2017 FINDINGS: LUNGS: Hyperinflation; rule out COPD or emphysema. Minor biapical pleural thickening. Minimal linear scarring left medial lung base PLEURA: As above. No significant pleural effusion identified, no pneumothorax apparent. CARDIOVASCULAR: Normal. OSSEOUS STRUCTURES: No significant abnormalities. VISUALIZED UPPER ABDOMEN: Normal. OTHER FINDINGS: None. IMPRESSION: Hyperinflation; rule out COPD or emphysema. No focal consolidation. Minimal linear scarring left medial lung base
[2017-11-24] MEDS: Divalproex 250 mg DR (BID formulation) PO SCH (17:24)
[2017-11-24 21:10] LABS: TROPONIN I < 0.01 ng/mL
--- NOTE | 2017-11-24 23:01 | CARD ---
APPROVED REPORT Date of service: 11/24/2017 EXAM: Two-dimensional and M-mode echocardiogram with Doppler and color Doppler. INDICATION CP 2D DIMENSIONS IVSd1.0 (0.7-1.1cm)LVDd4.5 (3.9-5.9cm) PWd0.9 (0.7-1.1cm)LVDs3.1 (2.5-4.0cm) FS (%) 31.1 %LVEF (%)59.0 (>50%) M-Mode DIMENSIONS Left Atrium (MM)3.30 (2.5-4.0cm)Aortic Root3.10 (2.2-3.7cm) Aortic Cusp Exc.2.20 (1.5-2.0cm) Aortic Valve AoV Peak Ybkuhmmq863.0cm/Padmini Peak GR.6mmHg Mitral Valve MV E Hfvhbica82.1cm/sMV A Cvgdhavx28.9cm/sE/A ratio1.5 TDI Lateral E' Peak V17.30cm/sMedial E' Peak V12.80cm/sE/Lateral E'4.1 E/Medial E'5.6 Tricuspid Valve TR Peak [id number]/sRAP [id number] Peak Gr.21mmHg NLYK34tzCf LEFT VENTRICLE The left ventricle is normal size. There is normal left ventricular wall thickness. The left ventricular function is normal.EF-55-60% There is normal LV segmental wall motion. The left ventricular diastolic function is normal. No left ventricle thrombus noted on this study. There is no ventricular septal defect visualized. There is no left ventricular aneurysm. There is no mass noted in the left ventricle. RIGHT VENTRICLE The right ventricle is normal size. There is normal right ventricular wall thickness. The right ventricular systolic function is normal. ATRIA The left atrium size is normal. The right atrium size is normal. The interatrial septum is intact with no evidence for an atrial septal defect. AORTIC VALVE The aortic valve is normal in structure. Trivial AR There is no aortic valvular stenosis. There is no aortic valvular vegetation. MITRAL VALVE The mitral valve is thickened but opens well. Mitral regurgitation is trace. There is no mitral valve stenosis. There is no evidence of mitral valve prolapse. TRICUSPID VALVE The tricuspid valve leaflets are thickened , but open well. There is trace to mild tricuspid regurgitation.RVSP-35 mmofHg. There is no tricuspid valve stenosis. There is no tricuspid valve prolapse or vegetation. PULMONIC VALVE The pulmonary valve is normal in structure. TrivialL PI There is no pulmonic valvular stenosis. GREAT VESSELS The aortic root is normal in size. The ascending aorta is normal in size. The pulmonary artery is normal. The IVC is normal in size and collapses >50% with inspiration. PERICARDIAL EFFUSION There is no pleural effusion. There is no pericardial effusion. <Conclusion> Normal chamber Size.EF-55-60% Trivial AR/PI Trace MR Trace to mild TR, RVSP-35 mmof Hg. There is no pericardial effusion. No vegetation or thrombus noted.
[2017-11-25] MEDS: Sodium Chloride 0.9% 1,000 ML IV SCH ×2 (07:30→18:00)
[2017-11-25] MEDS: Divalproex 250 mg DR (BID formulation) PO SCH ×2 (09:41→17:36)
--- NOTE | 2017-11-25 14:31 | PN ---
Copied To: Tatum Castillo MD Attending MD: Tatum Castillo MD DATE: 11/25/2017 SUBJECTIVE: This 42-year-old male remains hospitalized, awaiting neurological evaluation by Dr. Lito Huang from Neurology. He did present with substernal chest pain as well as left arm numbness. The patient has multiple medical problems including chronic depression, chronic bipolar psychosis, history of smoking abuse and misuse as well as admission drug screen positive for opioids and cocaine. The patient has evidence of chronic obstructive pulmonary disease on chest x-ray and a longstanding left-sided skull base lesion on CT of the head. The patient has had 3 sets of negative cardiac isoenzymes and will be scheduled for a Lexiscan stress test in the a.m. for completeness sake. He denies any active fever, chills, chest pain or shortness of breath. PHYSICAL EXAMINATION: VITAL SIGNS: On physical exam at present has a temperature of 97.8, respirations 18, pulse 52 and blood pressure 90/59 with pulse ox 96% on room air. HEENT: Head: Normocephalic, atraumatic. Eyes: No icterus. Ears: Clear. Throat: Noninjected. NECK: Supple. HEART: Regular S1, S2. No pathological rubs, murmurs or gallops. LUNGS: Clear. ABDOMEN: Soft. EXTREMITIES: No edema. SKIN: Without rash. NEUROLOGICAL: Intact. PSYCHOLOGICAL: Alert. VASCULAR: Legs warm to touch. A 2-D echocardiography was reviewed. He has no vegetation or thrombus noted. There is no pericardial effusion. He has no significant valvular pathology and the left ventricular ejection fraction is approximately 60% with normal chamber size. 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 PLAN: The plan is to await neurological evaluation. Continue medications including Ecotrin, Celexa, Depakote, Desyrel, Nitrostat sublingual p.r.n. chest pain, Pepcid, IV fluid, 0.9 saline at 100 an hour, p.r.n. Tylenol, p.r.n. Zofran. He continues on heart-healthy diet. He is ordered to have physical therapy for reconditioning and gait training and the patient will be readied for discharge when medically stable and cleared by Neurology and stress testing. Greater than 35 minutes were spent in the care and management, review of labs, orders and x-rays with the patient and nursing. All questions were answered. Tatum Castillo MD MTDD
--- NOTE | 2017-11-25 20:11 | HP ---
Copied To: Tatum Castillo MD Attending MD: Tatum Castillo MD DATE OF EXAM: 11/24/2017 SUMMARY: This 42-year-old male was examined at his bedside and his case was reviewed in detail with his nurse, Sarah Nguyen. The patient is a 42-year-old male who presented to the [facility] ER earlier this morning complaining of substernal chest pain radiating to his left shoulder and arm. He has a past medical history of bipolar psychosis, recurrent depression, cocaine misuse and abuse, chronic obstructive pulmonary disease, and a left skull base brain tumor for which he follows with a neurology specialist in the [facility]. 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 He resides in the [facility] and follows with physicians there for his medical illnesses as listed above. 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 There, he admitted to the misuse of cocaine 2 days prior, none within the past 24 hours and also drinking 2 cans of beer prior to his arrival. He also is a cigarette smoker and marijuana misuser, and denies any knowledge of chest pain or myocardial infarction in his past. HOME MEDICATIONS: Include Desyrel, Depakote, Celexa, and Ecotrin. ALLERGIES: HE STATES HE HAS ALLERGIES ONLY TO MUSHROOMS. FAMILY HISTORY: Noncontributory. SOCIAL HISTORY: He does smoke, does drink, and does have history of cocaine misuse and abuse as well as marijuana. REVIEW OF SYSTEMS: CONSTITUTIONAL: Denied fever or chills. HEAD: Denied headache or seizure. EYES: No change in visual acuity. EARS: No hearing loss. THROAT: No swallowing difficulty. NECK: No stiffness. CARDIAC: As per HPI. No knowledge of hypertension. PULMONARY: No cough. No hemoptysis. GI: No hematemesis. No melena. : No dysuria. SKIN: No rash. VASCULAR: No claudication. PSYCHOLOGIC: He has chronic recurrent depression and bipolar psychosis. NEUROLOGIC: History of left skull base tumor longstanding. ENDOCRINOLOGIC: No knowledge of hyperlipidemia or diabetes mellitus. MUSCULOSKELETAL: Chronic degenerative arthritis. PHYSICAL EXAMINATION: VITAL SIGNS: He was in a normal sinus rhythm on the panel monitor with a temperature of 97.7, respirations 18, pulse 54, blood pressure 119/53, and pulse ox 100% room air. HEENT: Head: Normocephalic, atraumatic. Eyes: No icterus. Ears: Clear. Throat: Noninjected. NECK: Supple. HEART: Regular, S1 and S2. No pathological rubs, murmurs, or gallops. LUNGS: Clear. ABDOMEN: Soft. EXTREMITIES: No edema. SKIN: Without rash. NEUROLOGIC: Intact. VASCULAR: Legs warm to touch. PSYCHOLOGIC: Alert and oriented x3. LABORATORY DATA: White count 7600, hemoglobin 14.5, hematocrit 40.7, and platelets 223,000. Sodium 141, K 3.8, chloride 104, bicarb 26. BUN 13, creatinine 0.8. Random blood sugar 100. Calcium 9, magnesium 2. Bilirubin 1, AST 31, ALT 23, alk phos 81. CPK normal 163 with troponin less than 0.01. Drug screen was positive for opiates and cocaine. Chest x-ray was reviewed and was consistent with COPD, no obvious infiltrate, no congestive heart failure, no pneumonia, no pneumothorax. EKG was reviewed. It was consistent with normal sinus rhythm with nonspecific ST-T wave changes. Head CT was reviewed and this report was compared with the prior CT of the brain dated 07/28/2017, an MRI of the brain dated 01/17/2017. There was no acute intracranial hemorrhage. 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 No evidence of an infarct was noted at this time. IMPRESSION: A 42-year-old male with longstanding history of skull base brain tumor of unclear pathology with history of chronic recurrent depression, bipolar psychosis, longstanding smoking, alcohol, and illicit drug misuse and abuse, now presenting with substernal chest pain and left arm pain and numbness. PLAN: Continue psychotropic medications as outlined including Desyrel, Depakote, and Celexa. He continues on baby Ecotrin. I have ordered Pepcid 40 mg at bedtime, 0.9 saline at 100 mL/hour, Tylenol 650 p.o. every 6 hours p.r.n. pain or temperature greater than 101, and Zofran 4 mg IV every 6 hours p.r.n. nausea and vomiting. I have requested a 2D echocardiogram to evaluate valvular status as well as left ventricular wall motion. He will have serial CPK isoenzymes every 8 hours x3. I have placed a consultation with Dr. Lito Huang from Neurology to further evaluate his left arm numbness and skull base lesion with concerns of cervical radiculopathy. He will be placed on a heart-healthy diet and be scheduled for a Lexiscan stress test within the next 48 hours. Greater than 75 minutes was spent in the care management, review of labs, orders, x-rays, and discussion of this patient with himself and Nursing. All questions were answered. Tatum Castillo MD MTDD
[2017-11-26] MEDS: Sodium Chloride 0.9% 1,000 ML IV SCH ×2 (04:51→15:14)
--- NOTE | 2017-11-26 08:48 | CON ---
Copied To: Joe Huang MD Attending MD: Joe Huang MD DATE: 11/25/2017 HISTORY OF PRESENT ILLNESS: A 42-year-old black male with past medical history of left-sided brain tumor from last 8 months, being seen in [place] and also has a history of bipolar and drug abuse, was complaining of chest pain for 2-3 hours and radiating to the left upper extremity. Also, has been complaining of numbness for 5 days in the left upper extremity. The patient also used cocaine 2 days ago and with 2 cans of beer. Called to evaluate the patient. PAST MEDICAL HISTORY: As above. PHYSICAL EXAMINATION: VITAL SIGNS: Blood pressure 109/70. HEENT: Normocephalic, atraumatic. NECK: Supple. NEUROLOGIC: Alert, awake, orientated x3. No aphasia. Cranial nerves II through XII were tested. Pupils reactive. EOM intact. Visual field full. No facial asymmetry. Tongue midline. Motor examination: Moves all the extremities equally. Tone normal. Deep tendon reflexes 1+. Both plantars downgoing. Sensory appears intact. Cerebellar gait deferred. IMPRESSION: The patient with numbness, tingling on the left upper extremity. CAT scan of the head was done, which shows petrous bone cholesterol granuloma and called the neurosurgeon for consultation. LABORATORY DATA: WBC 11.6, hemoglobin 14.5, hematocrit 40.7, platelet 223. Sodium 141, potassium 3.8, chloride 104, CO2 of 26, glucose 100, BUN 13 and creatinine 0.8. CAT scan showed left-sided skull base lesion of the petrous apex cholesterol granuloma. Continue present management. Workup in progress. We will follow up. Joe Huang MD
[2017-11-26] MEDS: Divalproex 250 mg DR (BID formulation) PO SCH ×3 (09:10→17:15)
--- NOTE | 2017-11-26 20:32 | PN ---
Copied To: Tatum Castillo MD Attending MD: Tatum Castillo MD DATE: 11/26/2017 SUBJECTIVE: This 42-year-old man remains hospitalized on the cardiac mckeon at the [facility] where he has ruled out for acute myocardial infarction. He presented with substernal chest pressure radiating to his left shoulder and arm. He has multiple comorbidities including longstanding base of the skull, brain tumor with chronic anxiety, recurrent depression and history of degenerative arthritis, peptic ulcer disease with GERD and now evidence of orthostatic hypotension and deconditioning. He is awaiting neurological evaluation and workup by Dr. Lito Huang for findings of an abnormal mass at the base of his left skull, which he states he is aware has been present since the year 2005. He follows with a neurologist in [place], [place], but cannot identify his name or hospital location. At present, he remains in a sinus rhythm on the seo executive and orthostatic blood pressure was noted to have a supine blood pressure of 84/47, a sitting blood pressure of 85/61 and a standing blood pressure of 73/58 despite IV fluid hydration. PHYSICAL EXAMINATION: VITAL SIGNS: His temperature is 98.1, respirations 18, pulse 57 and blood pressure currently 95/60. HEENT: Head is normocephalic, atraumatic. Eyes: No icterus. Ears: Clear. Throat: Noninjected. NECK: Supple. HEART: S1 and S2. No pathological rubs, murmurs or gallops. LUNGS: Clear. ABDOMEN: Soft. EXTREMITIES: No edema. SKIN: Without rash. NEUROLOGICAL: Intact. PSYCHOLOGICAL: Alert. VASCULAR: Legs warm to touch. LABORATORY DATA: White count 7600, hemoglobin 14.5, hematocrit 40.7, platelets 223,000. Troponin was less than 0.01 x3, BUN 13, creatinine 0.8. All liver function testing within normal limits and admission labs positive for opioids and cocaine. IMPRESSION AND PLAN: The patient was seen in consultation by Dr. Joe Huang from Neurology who feels his radiographic findings are consistent with petrous bone cholesterol granuloma and he has called a neurosurgical consultation. The patient's 2-D echocardiogram was reviewed and shows no significant valvular pathology and a normal left ventricular wall motion and ejection fraction. The plan as discussed with the patient, nurse practitioner Yudelka Mobley, registered nurse will be to schedule the patient for a Lexiscan stress test for completeness sake and evaluation of his admission complaints while continuing on him on a heart-healthy diet. He has been started on ProAmatine 5 mg p.o. t.i.d. for recently noted orthostasis and continues on Celexa 20 mg p.o. daily, Depakote 250 mg p.o. b.i.d., Desyrel 50 mg p.o. at bedtime, Ecotrin 81 mg daily, Flexeril 5 mg p.o. at bedtime p.r.n. muscle spasm, Lyrica 50 mg p.o. b.i.d., nitroglycerin is ordered 0.4 mg sublingual p.r.n. chest pain, Pepcid 40 mg p.o. at bedtime, 0.9 saline at 100 mL/hour and Zofran 4 mg IV every 6 hours p.r.n. nausea and vomiting. Once stress testing is completed and the patient is cleared by Neurology and Neurosurgery, he will be readied for further intervention or discharge to home for follow up with his PMD and neurologist in the [place], [place] area. Greater than 35 minutes was spent in the care management, review of labs, orders, x-rays, outlining of medication and testing for this patient today and discussion of his case with co-consultants, nursing and case management. All questions were answered. Tatum Castillo MD : 11/26/2017 19:41:12 [facility]
[2017-11-27] MEDS: Sodium Chloride 0.9% 1,000 ML IV SCH ×2 (01:24→12:27)
[2017-11-27] MEDS: Divalproex 250 mg DR (BID formulation) PO SCH ×2 (12:04→18:24)
[2017-11-27 18:44] VITALS: BP 95/58; PULSE 69; RESP 18; TEMP 97; O2SAT 99
--- NOTE | 2017-11-27 20:45 | CARD ---
APPROVED REPORT Date of service: 11/27/2017 Protocol: LEXISCAN Test Type: Lexiscan Sestamibi Stress Test Attending Physician: Dr. Tesfaye Sanchez Referring Physician: Dr. Tatum Castillo Test Indications: Chest Pain. Height:5 ft 11 in Weight:125lbs Medications: Aspirin, Celexa, Flexeril, Depakote, Pepcid, Proamatine, Lyrica, Desyrel Medical History: 42 y/o male with chest pain, h/o cocaine use, skull tumor and psychiatric disorder. Target HR: 177 bpm Resting ECG: RSR Resting Heart Rate: 51 bpm Resting Blood Pressure: 90/66mmHg Submaximum (85%): 150 bpm PROCEDURE Pharmacologic stress testing was performed using 0.4mg per 5ml of regadenoson given intravenously over 7-10 seconds. POST EXERCISE Reason for Termination: Protocol completed Target HR: No Max HR: 78 bpm 50% of Maximum Predicted HR: 177 bpm Exercise duration: 05:17 min:sec, 0 Stage Exercise capacity: 1.0METs Max Blood Pressure: 90/66mmHg Blood Pressure response to exercise: Normal Heart Rate response to exercise: Normal Chest Pain: No, None Angina index: 0 Arrhythmia: No, None ST Change: No, None Deviation: 0 mm TEST SUMMARY [id number]/66.1. INFUSIONDOSE 101:000.00.01.064/.0.00:26 Mildred inj over 10 sec., Romel inj at 25 secs. INFUSIONDOSE 201:000.00.01.089/.0. INFUSIONDOSE 301:000.00.01.079/.0. INFUSIONDOSE 401:000.00.01.085/.0. INFUSIONDOSE 501:000.00.01.077/.0. INFUSIONDOSE 600:160.00.01.078/.0. INTERPRETATION Stress EKG Conclusion: Lexiscan nuclear stress test which was negative for chest pain, ischemia and arrhythmia. Nuclear scans pending. Signed by Tesfaye Sanchez Electronically Approved: 11/27/2017 11:36:26 EXAM: Myocardial Perfusion REST/STRESS Stress Test Type: Pharmacologic Imaging Protocol Rest Spect myocardial perfusion imaging was performed in supine position 45 minutes following the injection of 10.3 mCi of Tc-99 Myoview. At peak stress, the patient was injected intravenously with 30.2mCi of Tc-99 tetrofosmin after an infusion time of 0 minutes and 10 seconds. Gated Stress Spect was performed 65 minutes after intravenous Tc-99 Myoview injection. The images were gated to evaluate regional wall motion and calculate ventricular ejection fraction.Images were reconstructed using backfilter projection method in short horizontal and verticle long axis. Spect slices were generated. LV Perfusion The quality of the study is good. The left ventricle is mildly enlarged in size. The right ventricle is unremarkable. The lung uptake is normal. The distribution of tracer reveals mildly and diffusely decreased perfusion in the inferior wall on the stress study. The remainder of the LV myocardium is unremarkable. The rest myocardial perfusion study shows no significant change. Wall Motion Wall motion study shows good contractility of the left ventricle except for paradoxical septal wall motion. LVEF = 55%. Conclusion 1. Essentially normal SPECT myocardial perfusion study. 2. Fixed, inferior defect is most likely due to diaphragmatic attenuation. 3. Normal overall LV function despite paradoxical septal wall motion.
--- NOTE | 2017-11-28 08:00 | DS ---
DATE OF EVALUATION; 11/27/2017. Copied To: Tatum Castillo MD Attending MD: Tatum Castillo MD FINAL DIAGNOSES: 1. Atypical chest pain, resolved. 2. Chronic left base of the brain, brain tumor. 3. Recurrent depression. 4. Chronic anxiety. 5. Peripheral neuropathy. 6. Orthostatic hypotension. 7. Degenerative arthritis. DISPOSITION: Home. DISCHARGE MEDICATIONS: Desyrel 50 mg p.o. at bedtime, Lyrica 50 mg p.o. b.i.d., ProAmatine 5 mg p.o. t.i.d., Depakote 250 mg b.i.d., Celexa 20 mg p.o. daily, Ecotrin 81 mg daily. The patient was given instructions to follow up with his PMD in [place], [place] within 48 hours and the patient was given instructions to follow up with neurosurgeon, Dr. Harris for further evaluation of abnormal CT findings and probable referral to a [facility] division for further evaluation of possible resection of said tumor. SUMMARY: This is a 42-year-old male who currently resides in the [facility] and while ambulating to work, experienced substernal chest pressure and was admitted to [facility] for further evaluation of the above. 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 The patient was seen in consultation by Neurology and Neurosurgery and cleared for discharge with instructions to follow up with Dr. Harris's office as an outpatient for further evaluation and management of these findings. The patient did complete a myocardial stress test on the date of discharge which was unremarkable for atherosclerotic heart disease and showed a normal SPECT myocardial perfusion study with fixed inferior defect, most likely due to diaphragmatic attenuation and normal overall left ventricular function despite paradoxical septal wall motion. At the time of discharge, the patient's vital signs were temperature 97, respirations 18, pulse 69 and blood pressure 95/58 with a pulse ox of 99% on room air. His laboratory showed white count 7600, hemoglobin of 14.5, hematocrit of 40.7, platelets 223,000. Sodium 141, K 3.8, chloride 104, bicarb 26, BUN 13, creatinine 0.8, random blood sugar 100, calcium 9. Magnesium 2. Bilirubin 1, AST 31, ALT 23, alk phos 81 and his admission urine drug screen was positive for both opiates and cocaine. The patient was counseled regarding smoking, alcohol and illegal illicit drug misuse and abuse. He was instructed on the use of his medications. He was advised to follow up with his PMD within 48 hours and the neurosurgical practice of Dr. Harris as outlined. All of the above results were reviewed with him in detail and this was also discussed with nursing and nurse practitioner and Case Management. Greater than 35 minutes were spent in the care management, review of labs, orders, x-rays, outlining of medication and discussion of this patient's case with himself and neurosurgeon. All questions were answered. Tatum Castillo MD LUUL
== END 2017-11-27 22:08 | disposition home or self-care (01) | DRG 313 ==
LOC: ED 09:14 → ERH 12:21 → 2RSO 13:20
PROVIDERS: ADMIT Internal Medicine; ATTEND Internal Medicine
DX: R07.89 Other chest pain (principal); F33.9 Major depressive disorder, recurrent, unspecified; D49.6 Neoplasm of unspecified behavior of brain; G62.9 Polyneuropathy, unspecified; I95.1 Orthostatic hypotension; J44.9 Chronic obstructive pulmonary disease, unspecified; F17.210 Nicotine dependence, cigarettes, uncomplicated; F14.10 Cocaine abuse, uncomplicated; K21.9 Gastro-esophageal reflux disease without esophagitis; F41.9 Anxiety disorder, unspecified

== ENCOUNTER 2018-02-23 19:48 | Inpatient (IN) | payer MEDICARE, OTHER ==
[2018-02-22 12:02] VITALS: BMI 20.3
[2018-02-23] MEDS ORDERED: Magnesium Hydroxide Susp 30 ml UD PO PRN (20:48)
[2018-02-23] MEDS ORDERED: Alum-Mag Hydrox-Simethicone Susp (30 mL) PO PRN (20:48)
[2018-02-24 06:41] LABS: GLUCOSE,FASTING 96 mg/dL (65-110); HDL CHOLESTEROL 53 mg/dL (29-60)
--- NOTE | 2018-02-24 06:42 | PCM.BM ---
<Blaine Mueller O - Last Filed: 02/24/18 06:38> Treatment Plan Problems - Problems identified on initial assessmt Anxiety related to substance abuse Date Initiated: 02/23/18 Time Initiated: 22:30 Assessment reference: NA Status: Active Denial Date Initiated: 02/23/18 Time Initiated: 22:30 Assessment reference: NA Status: Active Ineffective coping Date Initiated: 02/23/18 Time Initiated: 22:35 Assessment reference: NA Status: Active Treatment assets and liabiliti Patient Assests: adapts well, self-reliant, ADL independent, negotiates basic needs Patient Liabilities: poor support system, dietary restrictions, substance abuse - Milieu Protocol Maintain good personal hygiene: daily Encourage regular showers, daily Remind patient to perform daily oral care, daily Assist patient to perform ADL's Maintain personal safety: daily Educate patient to report safety concerns to staff, daily Monitor environment for contraband/sharps Medication safety: Monitor for expected outcome, potential side effects: daily, Assess barriers to learning: daily, Assess readiness for medication education: daily Milieu Narrative: * group, milieu and supportive tx * Wellbutrin 75 mg po bid for depression * Depakote 500 mg po bid for mood control, VPA=39 on 03/10/17, VPA<10 on 03/09/17 * Sonata 5 mg HS prn: insomnia * Nicotine patch 21 mg/24 hour ordered * Awaiting medical consult * Vitals reviewed and noted below: Selected Entries 02/23/18 02/23/18 02/23/18 12:00 14:00 18:00 Temperature 97.5 F L 98.1 F Pulse Rate 66 76 66 Pulse Rate [ Radial] Respiratory 20 20 Rate Blood Pressure 98/63 L 103/61 02/24/18 03:29 Temperature Pulse Rate Pulse Rate [ 74 Radial] Respiratory 22 Rate Blood Pressure Please refer to results of ROS and physical exams from ER report and patient's medical admission dated 02/23/18 Family Contact Family involvement: Patient does not wish Family/SO involvement Family contact: Patient agrees to contact - Goals for Treatment Patient goals for treatment: I want to get clean and get my act together Discharge/Continuing Care - Education Needs Education Needs: Patient Medication, Patient Coping Skills, Patient Anger Management skills - Discharge Discharge Criteria: Free of agitation, No longer exhibiting s/s of withdrawal Discharge to:: Home - Treatment Team Participation Patient/Family/SO Statement: * group, milieu and supportive tx * Wellbutrin 75 mg po bid for depression * Depakote 500 mg po bid for mood control, VPA=39 on 03/10/17, VPA<10 on 03/09/17 * Sonata 5 mg HS prn: insomnia * Nicotine patch 21 mg/24 hour ordered * Awaiting medical consult * Vitals reviewed and noted below: Selected Entries 02/23/18 02/23/18 02/23/18 12:00 14:00 18:00 Temperature 97.5 F L 98.1 F Pulse Rate 66 76 66 Pulse Rate [ Radial] Respiratory 20 20 Rate Blood Pressure 98/63 L 103/61 02/24/18 03:29 Temperature Pulse Rate Pulse Rate [ 74 Radial] Respiratory 22 Rate Blood Pressure Please refer to results of ROS and physical exams from ER report and patient's medical admission dated 02/23/18 <Maximo Rubio - Last Filed: 02/24/18 11:14> - Diagnosis (1) Bipolar disorder Status: Chronic Interventions: 02/24/18 11:14 group, milieu and supportive tx * Wellbutrin 75 mg po bid for depression * Patient will not restart Depakote due to side effects. Patient is agreeable to c/w Seroquel 50 mg po HS for mood control, hx of hallucinations * Sonata 10 mg HS prn: insomnia * Nicotine patch 21 mg/24 hour for nicotine cravings (2) Cocaine abuse Status: Chronic Interventions: 02/24/18 11:14 group, milieu and supportive tx * Wellbutrin 75 mg po bid for depression * Patient will not restart Depakote due to side effects. Patient is agreeable to c/w Seroquel 50 mg po HS for mood control, hx of hallucinations * Sonata 10 mg HS prn: insomnia * Nicotine patch 21 mg/24 hour for nicotine cravings <Georgette Jarrett - Last Filed: 02/25/18 13:48> Family Contact Family involvement: Famliy/SO not involved <Yary Atwood - Last Filed: 02/26/18 12:11>
[2018-02-24 06:52] LABS: LDL CHOLESTEROL 62 mg/dL (0-129)
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
--- NOTE | 2018-02-25 01:34 | CON ---
DATE OF CONSULTATION: 02/24/2018 CHIEF COMPLAINT: Anxiety, chest pain. HISTORY OF PRESENT ILLNESS: Mr. Mahamed Dewey is a 42 years old male with past medical history of bipolar disorder; cocaine use disorder; alcohol abuse and numerous psychiatric admissions, most recently was at [facility] in 03/2017; history of suicidal attempts; history of chronic noncompliance with the medications and followup appointments. Actually, he was admitted on medical floor with chest pain, started 7 hours after cocaine use. We admitted the patient on the electronic device monitor. Cardiac consult called. [facility] cleared the patient. According to him, pain was musculoskeletal, but because of the patient's drug abuse and psych issues, we called a psych consult. The patient agrees to come on the Psych and the patient was transferred to Psych under care of psychiatrist for stabilization of the patient for depression, cocaine use, and noncompliance with the medications. PAST MEDICAL HISTORY: As above, bipolar, antisocial personality disorder, polysubstance abuse. FAMILY HISTORY: Father and mother, noncontributory. HABITS: Smoking, yes. Alcohol, yes. Substance abuse, yes, especially cocaine, actually polysubstance abuse. ALLERGIES: THE PATIENT IS ALLERGIC TO MUSHROOM. HOME MEDICATIONS: Maalox, milk of magnesia, Seroquel, Tylenol, Wellbutrin. REVIEW OF SYSTEMS: The patient was seen and examined at bedside, looking comfortable, a little bit feeling fatigue, tired, and anxious. No fever. No chills. No headache. No dizziness. No chest pain, no palpitation. No hematuria. No hematochezia. PHYSICAL EXAMINATION VITAL SIGNS: Temperature 98, pulse 55, blood pressure 97/53, respiratory rate 20, radial pulse rate 74. HEENT: Head, normocephalic, atraumatic. Eyes, PERRLA. Extraocular muscles intact. Conjunctivae clear. Nose patent. Mucous membranes moist. NECK: Supple. No carotid bruit, JVD, or thyromegaly. CHEST: Bilaterally symmetrical. HEART: S1, S2 positive. LUNGS: Clear to auscultation. ABDOMEN: Soft. Bowel sounds present. No organomegaly. EXTREMITIES: No edema. No cyanosis. NEUROLOGIC: The patient awake, alert. Moving all 4 extremities. No focal deficit. LABORATORY DATA: Fasting glucose 96, triglyceride 60, cholesterol 126, LDL 62, HDL 53. TSH 0.25. RPR nonreactive. ASSESSMENT AND PLAN: Mr. Maco Irby is a 42 years old male with history of multiple psych problems and has multiple psych admissions; history of substance abuse, especially cocaine, alcohol; bipolar; antisocial personality, came in [facility] Room with left-sided chest pain 7 hours after the use of cocaine. Cardiology consult called, seen by Dr. Gillis. According to that, the patient has musculoskeletal pain. They cleared the patient cardiology marlow. They discontinued telemetry. Because of substance abuse, we called the psych consult, the psychiatrist saw the patient, accepted, then transferred the patient to the Psych for stability of the patient's anxiety, cocaine use. Because the patient is noncompliant, he will start drinking alcohol and cocaine and will never go back to his psychiatrist or primary care physician. We will observe the patient in the hospital a couple of days, and after stabilizing, we will discharge. Psych is on the case. Out of bed, physical therapy. Gastrointestinal and deep venous thrombosis prophylaxes. We will follow up. Kait Echavarria MD <> LULU
[2018-02-25 07:09] LABS: HEMOGLOBIN 13.1 g/dL (14.0-18.0); MEAN CELL VOLUME 93.5 fl (80.0-105.0); MEAN CORPUSCULAR HEMOGLOBIN 31.5 pg (25.0-35.0); MEAN CORPUSCULAR HGB CONC 33.7 g/dl (31.0-37.0); MEAN PLATELET VOLUME 9.2 fl (7.0-11.0); RBC 4.16 10^6/uL (3.5-6.1); WHITE BLOOD COUNT 4.4 10^3/uL (4.5-11.0)
[2018-02-25 07:31] LABS: BLOOD UREA NITROGEN 16 mg/dL (7-21); CALCIUM 8.7 mg/dL (8.4-10.5); GFR NON-AFRICAN AMERICAN > 60
--- NOTE | 2018-02-25 15:15 | PCM.PYCHPN ---
Psychiatric Progress Note - Psychiatric Progress Note Patient seen today, length of contact: 30 minutes Patient Chief Complaint: "my disability needs to be renewed" Problems Identified/Issues Discussed: Suicide/ homicide prevention, past psychiatric h/o, current psychiatric symptoms, medical problems, risk/benefits and alternatives of medications, medications compliance, coping strategies, substance abuse h/o, relapse prevention, importance of follow up with psychiatrist and therapist, discharge plan. 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 Diagnostic Results: 02/25/18 06:40 02/25/18 06:40 Lab Results 02/25/18 06:40: Sodium 138, Potassium 4.0, Chloride 105, Carbon Dioxide 29, Anion Gap 8 L, BUN 16, Creatinine 0.8, Est GFR ( Amer) > 60, Est GFR (Non-Af Amer) > 60, Random Glucose 92, Calcium 8.7 02/25/18 06:40: WBC 4.4 L D, RBC 4.16, Hgb 13.1 L, Hct 38.9 L, MCV 93.5, MCH 31.5, MCHC 33.7, RDW 13.0, Plt Count 175, MPV 9.2 02/24/18 06:00: RPR Nonreactive 02/24/18 06:00: TSH 3rd Generation 0.25 L 02/24/18 06:00: Hemoglobin A1c 5.7 02/24/18 06:00: Fasting Glucose 96, Triglycerides 60, Cholesterol 126 L, LDL Cholesterol Direct 62, HDL Cholesterol 53 Vital Signs Temp Pulse Pulse Resp BP 02/25/18 07:26 97.5 F L 53 L 20 101/65 02/24/18 07:45 98.0 F 55 L 20 97/63 L 02/24/18 03:29 74 22 DSM 5 Symptoms Update: Patient is a 41 year old single male with history of bipolar disorder, cocaine use disorder, alcohol abuse, numerous psychiatric admissions-most recently at [facility] 03/2017, history of suicidal attempts, history of chronic noncompliance with the medications and follow-up appointments who was transferred from the medical floor after ruled out for myocardial infarction s/p patient presenting to our ER with left-sided chest pain in context of cocaine use x7 hours prior. consulted with patient on the medical floor on 02/23/18 and recommended transfer to the psychiatric unit for stabilization after he admitted to symptoms of depression, cocaine use and noncompliance with medications. patient is very familiar to this unit from the multiple admissions to the psychiatric inpatient unit and chronic noncompliance with the medications and follow-up appointment as well as substance abuse. Patient was seen at the treatment team meeting, patient presented with poor personal hygiene, superficial. pt said he came to the hospital for chest pain, now he feels "much better". Patient was asking this rfp writer to feel paperwork during U his disability. Patient reported that he was feeling depressed and stressed out, but denied any thoughts of harming himself or others. Patient was happy about his new medications, patient reported that Seroquel and Wellbutrin "fit well with me". patient has history of Bipolar I Disorder, Antisocial personality disorder and Polysubtance abuse. Apparently patient reported that he was officially diagnosed with bipolar disorder, ADHD, learning disabilities and neurocognitive problems. 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 History of seizure disorder, neurology consult will be called because patient was recommended to be followed up with neurosurgeon but patient was noncompliant. So far patient tolerates medications well, no side effects observed or reported, aims 0, no EPS. Impression: Bipolar I Disorder as per h/o Antisocial personality disorder polysubtance abuse. Medication Change: Yes (Seroquel, Wellbutrin were started ) Medical Record Reviewed: Yes Consults ordered or reviewed: medical consult appreciated Neurology consult will be called. Mental Status Examination - Cognitive Function Orientation: Person, Place, Situation, Time Memory: Intact Attention: Poor Concentration: Poor Association: Loose Fund of Knowledge: Poor - Mood Mood: Depressed - Affect Affect: Constricted (bbut reactive, mood congruent) - Speech Speech: Appropriate - Formal Thought Process Formal Thought Process: No Impairment - Suicidal Ideation Suicidal Ideation: No - Homicidal Ideation Homicidal Ideation: No Goal/Treatment Plan - Goal/Treatment Plan Need for Continued Stay: Remain at risks for inpatient hospitalization, Severe depression anxiety, Discharge may exacerbated symptoms, Severe functional impairment Progress Toward Problem(s) and Goals/Treatment Plan: group, milieu and supportive tx Wellbutrin 75 mg po bid for depression Patient will not restart Depakote due to side effects. Patient is agreeable to c/w Seroquel 50 mg po HS for mood control, hx of hallucinations Sonata 10 mg HS prn: insomnia Nicotine patch 21 mg/24 hour for nicotine cravings Awaiting medical consult awaiting neurology consult SW consultation for discharge plan and social issues Family involvement Follow up on labs Will monitor closely Pt was educated about risk/benefits and alternatives of medications, coping strategies (safety plan, suicide prevention), relapse prevention, importance of follow up with psychiatrist and therapist, stay away from drugs/alcohol/smoking Estimated Date of D/C: 03/01/18
--- NOTE | 2018-02-26 05:11 | PN ---
DATE: 02/25/2018 SUBJECTIVE: The patient was seen and examined at bedside on 02/25/2018. Looking comfortable. No nausea, vomiting or diarrhea. No hematuria or hematochezia. No swelling of the legs. No chest pain. No palpitation. PHYSICAL EXAMINATION: VITAL SIGNS: Temperature 97.5, pulse 67, respiratory rate 16, blood pressure 100/64. HEENT: Head, normocephalic, atraumatic. Eyes, PERRLA. Extraocular muscles intact. Conjunctivae clear. Nose patent. Mucous membrane moist. NECK: Supple. No carotid bruit, JVD or thyromegaly. CHEST: Bilaterally symmetrical. HEART: S1 and S2 positive. LUNGS: Clear to auscultation. ABDOMEN: Soft. Bowel sounds present. No organomegaly. EXTREMITIES: No edema. No cyanosis. MEDICATIONS: Maalox, milk of magnesia, Seroquel, Sonata, multivitamins, Tylenol, Wellbutrin. LABORATORY DATA: White blood cells 4.4, hemoglobin 13.1, hematocrit 38.9, platelets 175,000. Sodium 138, potassium 4, BUN 15, creatinine 0.5, TSH 0.25. ASSESSMENT AND PLAN: Mr. 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 The patient has history of bipolar, cocaine and alcohol abuse, numerous psych admissions, history of suicide attempt. Gastrointestinal and deep venous thrombosis prophylaxes given. Repeat labs. We will follow up. Kait Echavarria MD
[2018-02-26 06:57] VITALS: BP 97/52; PULSE 59; RESP 18; TEMP 98.3
[2018-02-26] MEDS ORDERED: Multivitamin Therapeutic Tab PO SCH (08:00)
--- NOTE | 2018-02-26 16:10 | PCM.PYCHDC ---
Mental Status Examination - Mental Status Examination Orientation: Person, Place, Situation, Time Memory: Intact Mood: Neutral Affect: Broad Speech: Appropriate (aand congruent) Attention: WNL Concentration: WNL Association: WNL Fund of Knowledge: WNL Formal Thought Process: No Impairment Description of patient's judgement and insight: Pt has improved insight into mental and medical illness, pt was compliant with medications and unit rules and regulations, pt was going to groups, was calm, cooperative, socially appropriate, no behavioral incidents, no agitation, no aggression. Psychotic Thoughts and Behaviors: Pt denied v/a/t hallucinations, denied paranoid ideations, pt does not appear to be psychotic, and thought process is goal directed. Suicidal Ideation: No Current Homicidal Ideation?: No Plan: pt adamantly denied thoughts of harming self or others denied intent or plan. Discharge Summary - Discharge Note Reason for Hospitalization: depression, see 's admission note for more detailed info Psychiatric History (includes Medical, Family, Personal Hx): h/o mood disorder Laboratory Data: 02/25/18 06:40 02/25/18 06:40 Lab Results 02/25/18 06:40: Sodium 138, Potassium 4.0, Chloride 105, Carbon Dioxide 29, Anion Gap 8 L, BUN 16, Creatinine 0.8, Est GFR ( Amer) > 60, Est GFR (Non-Af Amer) > 60, Random Glucose 92, Calcium 8.7 02/25/18 06:40: WBC 4.4 L D, RBC 4.16, Hgb 13.1 L, Hct 38.9 L, MCV 93.5, MCH 31.5, MCHC 33.7, RDW 13.0, Plt Count 175, MPV 9.2 02/24/18 06:00: RPR Nonreactive 02/24/18 06:00: TSH 3rd Generation 0.25 L 02/24/18 06:00: Hemoglobin A1c 5.7 02/24/18 06:00: Fasting Glucose 96, Triglycerides 60, Cholesterol 126 L, LDL Cholesterol Direct 62, HDL Cholesterol 53 Vital Signs Temp Pulse Pulse Resp BP 02/26/18 06:56 98.3 F 59 L 18 97/52 L 02/25/18 16:00 57 L 100/64 02/25/18 07:26 97.5 F L 53 L 20 101/65 02/24/18 07:45 98.0 F 55 L 20 97/63 L 02/24/18 03:29 74 22 Consultations:: List each consultation separately and include: 1. Reason for request. 2. Findings. 3. Follow-up Consultations: medical consult appreciated Neurology consult was called, discussed with pt sees pt as outpatient, last visit was November 2017 there is no acute issues, patient couldn't be seen as outpatient, phone number for Dr. González fletcher was provided to the patient patient was appreciated [phone] Summary of Hospital Course include:: 1. Description of specific treatment plan utilized for patients during their course of treatmen. 2. Summarize the time- course for resolution of acute symptoms and/or regressed behaviors. 3. Describe issues identified and worked on during hospitalization. 4. Describe medication utilized. 5. Describe medical problems identified and treated. 6. Reassessment of suicide risk Summary of Hospital Course: Patient is a 41 year old single male with history of bipolar disorder, cocaine use disorder, alcohol abuse, numerous psychiatric admissions-[place] [facility] [place], history of suicidal attempts, history of chronic noncompliance with the medications and follow-up appointments who was transferred from the medical floor after ruled out for myocardial infarction s/p patient presenting to our ER with left-sided chest pain in context of cocaine use x7 hours prior. consulted with patient on the medical floor on 02/23/18 and recommended transfer to the psychiatric unit for stabilization after he admitted to symptoms of depression, cocaine use and noncompliance with medications. patient is very familiar to this unit from the multiple admissions to the psychiatric inpatient unit and chronic noncompliance with the medications and follow-up appointment as well as substance abuse. initially patient was seen at the treatment team meeting, patient presented with poor personal hygiene, superficial. pt said he came to the hospital for chest pain, now he feels "much better". Patient was asking this speech writer to feel paperwork for his disability. Patient reported that he was feeling depressed and stressed out, but denied any thoughts of harming himself or others. Patient was happy about his new medications, patient reported that Seroquel and Wellbutrin "fit well with me". patient has history of Bipolar I Disorder, Antisocial personality disorder and Polysubtance abuse. Apparently patient reported that he was officially diagnosed with bipolar disorder, ADHD, learning disabilities and neurocognitive problems. 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 History of seizure disorder, neurology consult was called, as per , pt could be seen as outpatient, pt willing to f/u, phone number provided. So far patient tolerates medications well, no side effects observed or reported, aims 0, no EPS. pt requested to be d/c today, submitted 48hr notice, pt said he needs to be d/c because "I need to go to the place where I am staying, otherwise they will lock the door and I will be on the streets..." patient was stabilized on the following medications: Wellbutrin 75 mg po bid for depression Patient will not restart Depakote due to side effects. Patient is agreeable to c/w Seroquel 50 mg po HS for mood control, hx of hallucinations Sonata 10 mg HS prn: insomnia Nicotine patch 21 mg/24 hour for nicotine cravings patient tolerated medications well, no side effects observed or reported, aims 0, no EPS. Patient does not have any agitation or aggression, compliant with medication and treatment plan, overall pleasant and corporative. Over the course of this hospitalization pt was attending groups, pt also had medication management, had therapeutic milieu. Overall pt improved significantly, pt's affect became brighter, pt was less depressed, has realistic future oriented plans, pt also does not appear to be psychotic, or anxious, pt was socially appropriate, no behavioral issues, pts insight improved as well and soon pt deemed to be ready for discharge. At the time of the discharge pt denied been depressed, denied thoughts of harming self or others, denied psychotic symptoms, and pt does not appeared to be psychotic, denied been anxious, pt is not in imminent danger to self or others, pt was referred to dual diagnosis outpatient program, information about follow up appointment, time and address provided to the pt, it is patient responsibility to follow up with outpatient clinic, PMD as well as specialists (see SW note for more detailed information). In case pt will need to obtain results of studies pending at discharge pt was provided with contact information of Psychiatric Inpatient unit [phone] as well as Medical Record Department [phone]. Naltrexone treatment not indicated at this time, pt is not an alcoholic or opioid addict Counseling about smoking and alcohol cessation provided AA meetings as well as smoking cessation treatment program information was provided by the pt was provided with prescriptions for all of medications (please see medication reconciliation form) Pt was educated about safety plan in case of worsening of symptoms or in case of suicidal or homicidal ideation call 911 or go to the nearest ER, also was educated to take meds as prescribed and stay away from drugs, pt verbalized understanding. - Diagnosis (1) Bipolar 1 disorder Status: Chronic Priority: Medium (2) Cocaine abuse Status: Chronic Priority: Medium - Final Diagnosis (DSM 5) Condition upon Discharge: GOOD DSM 5: history of antisocial personality traits Disposition: HOME/ ROUTINE Follow-up Treatment Plan: At the time of the discharge pt denied been depressed, denied thoughts of harming self or others, denied psychotic symptoms, and pt does not appeared to be psychotic, denied been anxious, pt is not in imminent danger to self or others, pt was referred to dual diagnosis outpatient program, information about follow up appointment, time and address provided to the pt, it is patient responsibility to follow up with outpatient clinic, PMD as well as specialists (see note for more detailed information). In case pt will need to obtain results of studies pending at discharge pt was provided with contact information of Psychiatric Inpatient unit [phone] as well as Medical Record Department [phone]. Naltrexone treatment not indicated at this time, pt is not an alcoholic or opioid addict Counseling about smoking and alcohol cessation provided AA meetings as well as smoking cessation treatment program information was provided by the pt was provided with prescriptions for all of medications (please see medication reconciliation form) Pt was educated about safety plan in case of worsening of symptoms or in case of suicidal or homicidal ideation call 911 or go to the nearest ER, also was educated to take meds as prescribed and stay away from drugs, pt verbalized understanding. Prescriptions/Medication Reconciliation: buPROPion [Wellbutrin] 75 mg PO BID #30 tab Multivitamin Therapeutic Tab [Thera Tab] 1 tab PO 0800 #14 tab Quetiapine Fumarate [Seroquel] 50 mg PO 14 #14 tablet - Smoking Cessation Smoking Cessation Medication prescribed: No Reason for not providing: patient refused - Antipsychotic Medications Pt discharged on 2 or more routine antipsychotic medications: No
--- NOTE | 2018-02-27 03:56 | PN ---
DATE: 02/26/2018 SUBJECTIVE: The patient is a 42-year-old male. The patient was seen and examined early in the morning on the 5th floor, looking comfortable. No fever. No chills. No nausea, vomiting, or diarrhea. No hematuria or hematochezia. No swelling of the legs. No chest pain. No palpitation. No headache. No dizziness. PHYSICAL EXAMINATION: VITAL SIGNS: Temperature 97.5, pulse 67, respiratory rate 16, blood pressure 100/64. HEENT: Head: Normocephalic, atraumatic. Eyes: PERRLA. Extraocular muscles are intact. Conjunctivae clear. Nose patent. Mucous membranes moist. NECK: Supple. No carotid bruit. No JVD, thyromegaly. CHEST: Bilaterally symmetrical. HEART: S1 and S2 positive. LUNGS: Clear to auscultation. ABDOMEN: Soft. Bowel sounds positive. No organomegaly. EXTREMITIES: No edema. No cyanosis. NEUROLOGIC: The patient is awake and alert, moving all 4 extremities. No focal deficits. MEDICATIONS: Milk of Magnesia, Seroquel, Sonata, multivitamin, Tylenol. LABORATORY DATA: White blood cells 5.4, hemoglobin 13.1, hematocrit 38.9, platelets 175,000. Sodium 138, potassium 4, BUN 15, creatinine is 0.5. TSH 0.25. ASSESSMENT AND PLAN: Mr. Mahamed Dewey is a 42 years old male with history of hyperthyroidism, leukopenia, anemia, RPR nonreactive, was admitted in the hospital for chest pain. Electric Switch Repairer saw the patient and cleared him for chest pain. According to him, patient has musculoskeletal pain. The patient was admitted in the medical floor because of his cocaine, anxiety, and alcohol. We put Psychiatry consult, psychiatrist brought patient to the psych floor. Patient was kept, became cool and calm; promised not to drink anything habit forming. Out of bed, physical therapy. Repeat labs. The patient went home. Follow up as outpatient. Kait Echavarria MD
== END 2018-02-26 15:16 | disposition home or self-care (01) | DRG 885 ==
LOC: PSYC 19:48
PROVIDERS: ADMIT Psychiatry & Neurology Psychiatry; ATTEND Psychiatry & Neurology Psychiatry
DX: F31.9 Bipolar disorder, unspecified (principal); F14.10 Cocaine abuse, uncomplicated; F17.210 Nicotine dependence, cigarettes, uncomplicated; F41.9 Anxiety disorder, unspecified; F60.2 Antisocial personality disorder; F90.9 Attention-deficit hyperactivity disorder, unspecified type; G40.909 Epilepsy, unspecified, not intractable, without status epilepticus; Z91.14 Patient's other noncompliance with medication regimen; Z91.19 Patient's noncompliance with other medical treatment and regimen

== ENCOUNTER 2018-04-20 11:24 | Observation (INO) | payer MEDICARE, OTHER ==
[2018-04-20] MEDS ORDERED: Sodium Chloride 0.9% 1,000 ML IV STA (11:58)
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
[2018-04-20] MEDS ORDERED: WATER IV STA ×3 (12:24→12:38)
[2018-04-20] MEDS ORDERED: DEXTROSE 5% IV STA ×3 (12:24→12:38)
[2018-04-20] MEDS ORDERED: FOMEPIZOLE IV STA ×3 (12:24→12:38)
[2018-04-20 12:36] LABS: ARTERIAL BLOOD GAS HCO3 24.2 mmol/L (21-28); ARTERIAL BLOOD GAS O2 SAT 99.9 % (95-98); ARTERIAL BLOOD GAS PCO2 29 mm/Hg (35-45); ARTERIAL BLOOD GAS PH 7.53 (7.35-7.45); ARTERIAL BLOOD GAS TCO2 25.1 mmol.L (22-28)
[2018-04-20 12:48] LABS: BASO # 0.02 K/mm3 (0.0-2.0); BASO % 0.2 % (0.0-3.0); EOS % 0.1 % (1.5-5.0); GRAN # 5.55 (1.4-6.5); GRAN % 65.2 % (50.0-68.0); HEMOGLOBIN 14.6 g/dL (14.0-18.0); LYMPH # 2.1 (1.2-3.4); LYMPH % 25.1 % (22.0-35.0); MEAN CELL VOLUME 93.3 fl (80.0-105.0); MEAN CORPUSCULAR HEMOGLOBIN 32.4 pg (25.0-35.0); MEAN CORPUSCULAR HGB CONC 34.8 g/dl (31.0-37.0); MEAN PLATELET VOLUME 9.9 fl (7.0-11.0); MONO # 0.8 (0.1-0.6); MONO % 9.4 % (1.0-6.0); RBC 4.5 10^6/uL (3.5-6.1); RED CELL DISTRIBUTION WIDTH 13.6 % (11.5-14.5); WHITE BLOOD COUNT 8.5 10^3/uL (4.5-11.0)
[2018-04-20 12:51] LABS: ACETAMINOPHEN < 10.0 ug/ml (10.0-20.0); SALICYLATE < 1 mg/dL (2.0-20.0)
--- NOTE | 2018-04-20 12:55 | RAD ---
Date of service: 04/20/2018 HISTORY: chest pain/suicide COMPARISON: No prior. FINDINGS: LUNGS: No active pulmonary disease. PLEURA: No significant pleural effusion identified, no pneumothorax apparent. CARDIOVASCULAR: No atherosclerotic calcification present Normal. OSSEOUS STRUCTURES: No significant abnormalities. VISUALIZED UPPER ABDOMEN: Normal. OTHER FINDINGS: None. IMPRESSION: No active disease.
[2018-04-20 12:59] LABS: ALB/GLOB RATIO 1.4 (1.1-1.8); ALBUMIN 4.8 g/dL (3.0-4.8); ALT/SGPT 31 U/L (7-56); AST/SGOT 40 U/L (17-59); BLOOD UREA NITROGEN 15 mg/dL (7-21); CALCIUM 9.3 mg/dL (8.4-10.5); GFR NON-AFRICAN AMERICAN > 60
[2018-04-20 13:01] LABS: TROPONIN I < 0.01 ng/mL
[2018-04-20 13:12] LABS: CK-MB 2.2 ng/mL (0.0-3.6)
[2018-04-20 13:33] LABS: OSMOLALITY,SERUM 287 mosm/kg (272-300)
[2018-04-20 13:54] LABS: FREE T4 0.75 ng/dL (0.78-2.19)
[2018-04-20 19:22] VITALS: BMI 15.7
[2018-04-20] MEDS ORDERED: Influenza Vaccine 60 mcg/0.5 mL SYR (4YR UP) IM ONE (19:22)
[2018-04-20] MEDS ORDERED: Pneumococcal 23-Valent Vaccine IM ONE (19:22)
--- NOTE | 2018-04-20 20:27 | CARD ---
APPROVED REPORT Date of service: 04/20/2018 EKG Measurement Heart [id number] <Conclusion> Sinus tachycardia Otherwise normal ECG
--- NOTE | 2018-04-20 23:19 | HP ---
DATE OF EXAM: 04/20/2018 The patient is a 42-year-old male. The patient was seen and examined at the bedside on 04/20/2018. CHIEF COMPLAINT: Chest pain. HISTORY OF PRESENT ILLNESS: Mr. Mahamed Dewey is a 42-year-old male with past medical history of thyroid disease, anemia, cocaine abuse, poor historian, came with chest pain, suicidal ideation . The patient states that he used cocaine last night as he feels depressed, woke up this morning, still feeling depressed, so he took a sip of antifreeze coolant, but it taste bad, so he spit it out, complaining about burning throat pain and chest pain from the antifreeze and possibly swallowed it with nauseous. No abdominal pain. No diarrhea. No fever. No chills. No vision changes. Discussion done with ER physician. The patient is on one-to-one. PAST MEDICAL HISTORY: As above. Hypothyroidism, anemia, cocaine abuse, history of left-sided brain tumor in 2005, was under the care of specialist in [place], history of hiatal hernia, anxiety, bipolar, substance abuse, and cocaine abuse. HABITS: Heavy smoker more than 10 cigarettes per day. Alcohol, no. Substance abuse, yes, cocaine as per patient. ALLERGIES: HE IS ALLERGIC WITH MUSHROOM. REVIEW OF SYSTEMS: The patient was seen and examined at the bedside in ER. He is on one-to-one. Feeling chest pain, tightness. No headache. No dizziness. No fever. No chills. No hematuria or hematochezia. Having burning sensation in his throat. PHYSICAL EXAMINATION VITAL SIGNS: Temperature 98.1, pulse 66, blood pressure 103/50, respiratory rate is 18. HEENT: Head; normocephalic and atraumatic. Eyes; PERRLA. Extraocular muscles are intact. Conjunctivae are clear. Nose patent. Mucous membranes moist. NECK: Supple. No carotid bruits. No JVD or thyromegaly. CHEST: Bilaterally symmetrical. HEART: S1 and S2 positive. LUNGS: Clear to auscultation. ABDOMEN: Soft. Bowel sounds present. No organomegaly. EXTREMITIES: No edema. No cyanosis. NEUROLOGIC: The patient is awake and alert. Moving all 4 extremities. No focal deficits. LABORATORY DATA: White blood cells 8.5, hemoglobin 14.6, hematocrit 42, and platelets 269. Sodium 140, potassium 4.1, BUN 15, creatinine 0.8, glucose 287, creatine kinase 313. TSH 0.56. ASSESSMENT AND PLAN: Mr. Mahamed Dewey is a 42-year-old male with history of hypothyroidism, anemia, cocaine abuse, came with chest pain, suicidal ideation, took antifreeze coolant and as per patient, he spit it. Department of Poison and Drug Control was contacted by ER, history of hiatal hernia, history of antisocial ethanol abuse, smokes, polysubstance abuse, anxiety, bipolar, depression. Cardiology consult called. Troponin done. We admitted the patient for chest pain, major depression, suicide attempt, was on one-to-one. Cardiology consult called with Dr. Gillis and Psych with Dr. Hafsa Swift. Given fomepizole/Antizol with dextrose water. Aspirin was given. Normal saline given. Continue patient on one-to-one. Repeat labs. We will followup. Kait Echavarria MD
[2018-04-21] MEDS ORDERED: WATER IV STA ×2 (04:07→04:26)
[2018-04-21] MEDS ORDERED: FOMEPIZOLE IV STA ×2 (04:07→04:26)
[2018-04-21] MEDS ORDERED: DEXTROSE 5% IV STA ×2 (04:07→04:26)
[2018-04-21 07:18] LABS: HEMOGLOBIN 13.4 g/dL (14.0-18.0); MEAN CORPUSCULAR HEMOGLOBIN 31.8 pg (25.0-35.0); MEAN CORPUSCULAR HGB CONC 33.5 g/dl (31.0-37.0); MEAN PLATELET VOLUME 9.3 fl (7.0-11.0); RBC 4.21 10^6/uL (3.5-6.1); RED CELL DISTRIBUTION WIDTH 13.8 % (11.5-14.5); WHITE BLOOD COUNT 5.1 10^3/uL (4.5-11.0)
[2018-04-21 07:36] LABS: BLOOD UREA NITROGEN 16 mg/dL (7-21); CALCIUM 8.6 mg/dL (8.4-10.5); GFR NON-AFRICAN AMERICAN > 60; HDL CHOLESTEROL 52 mg/dL (29-60)
[2018-04-21 07:37] LABS: IRON 204 ug/dL (45-180)
[2018-04-21 07:47] LABS: % IRON SATURATION 81 % (20-55); LDL CHOLESTEROL 52 mg/dL (0-129); TOTAL IRON BINDING CAPACITY 253 ug/dL (261-462)
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
[2018-04-21] MEDS: Naproxen 550 mg Tab PO SCH ×2 (12:17→17:44)
[2018-04-21] MEDS: Sodium Chloride 0.9% 1,000 ML IV SCH ×2 (12:17→22:16)
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
--- NOTE | 2018-04-21 16:40 | CON ---
DATE: 04/21/2018 ADDITIONAL CONSULTATION NOTE LOCATION: The patient is in room 270, bed 1. Detailed consult has been already written by Alethea Landrum. This is an additional note. REASON FOR CONSULTATION: Chest pain. HISTORY OF PRESENT ILLNESS: The patient is a 42-year-old male, complained of sharp chest pain and throat pain after taking antifreeze coolant. He felt depressed and took cocaine a day prior to admission to make himself feel better and he woke up the following morning, still feeling depressed and he tried to take antifreeze coolant, but he did not like the taste and he spit it out and then he took cocaine again. The patient has localized tenderness on the area of the chest pain. The patient previously had a stress test on 11/27/2017 which was negative for ischemia with normal LV ejection fraction of 55%. The patient also had echo on 11/24/2017. It showed normal size LV, normal LV function with ejection fraction of 55-60%, trace mitral regurgitation, trace to mild tricuspid regurgitation, RVSP 35 mmHg. The patient also has history of thyroid disease, anemia, hiatal hernia, left-sided brain tumor in the year 2005, cocaine abuse, sniffing, anxiety, bipolar disorder, depression, antisocial, and also alcohol abuse. PHYSICAL EXAMINATION MUSCULOSKELETAL: The patient's examination is negative with subtle tenderness on the area of the pain on the chest. LABORATORY DATA: Troponin x2 is negative. DIAGNOSTIC DATA: EKG showed regular sinus rhythm. Chest x-ray, no active disease. ASSESSMENT AND PLAN: So, the patient's chest pain is musculoskeletal. So, we will discontinue the telemetry. We will give Naprosyn with Protonix for chest pain. The patient on suicidal watch, on one-on-one on the bedside, Psychiatry consult, and we will continue present medication. Garcia Gillis MD
[2018-04-21 17:42] LABS: FOLATE 13.1 ng/mL
--- NOTE | 2018-04-22 02:10 | PN ---
DATE: 04/21/2018 SUBJECTIVE: The patient is a 42-year-old male. The patient was seen and examined at bedside on 04/21/2018. Looking comfortable. Sleepy, arousable. Still complaining about headache. No fever. No chills. No hematuria. No hematochezia. No swelling of the legs. Chest pain is getting better. Reviewed server service assistant notes. REVIEW OF SYSTEM: . PHYSICAL EXAMINATION VITAL SIGNS: Temperature 97.7, pulse 62, respiratory rate 20, blood pressure 85/47, and pulse oximetry 96. HEENT: Head; normocephalic and atraumatic. Eyes; PERRLA. Extraocular muscles are intact. Conjunctivae clear. Nose patent. Mucous membranes are moist. NECK: Supple. No carotid bruits. No JVD or thyromegaly. CHEST: Bilaterally symmetrical. HEART: S1 and S2 positive. LUNGS: Clear to auscultation. ABDOMEN: Soft. Bowel sounds present. No organomegaly. EXTREMITIES: No edema. No cyanosis. NEUROLOGIC: The patient is awake, alert. Moving all 4 extremities. No focal deficits. LABORATORY DATA: White blood cells 5.1, hemoglobin 13.4, hematocrit 40, and platelets 235. Sodium 138, potassium 4, BUN 16, creatinine 0.8, glucose 92. ASSESSMENT AND PLAN: Mr. Mahamed Dewey is a 42-year-old male, has anemia, came to the emergency room with chest pain, throat pain of burning after drinking antifreeze coolant, he was feeling depressed and took cocaine prior to the admission to make himself feel better, wake up with it in the morning, still feeling depressed. No fevers. No chills. No hematuria or hematochezia. We admitted the patient for Cardiology consult, Neurology consult and Psychiatric consult. Everybody saw the patient, the patient improved. Child Welfare Social Worker actually discontinued the telemetry. Denies shortness of breath or chest pain. Started on naproxen suicidal ideation. Repeat labs and we will follow up. Kait Echavarria MD
[2018-04-22] MEDS ORDERED: Pantoprazole 20 mg EC Tab PO SCH (06:00)
--- NOTE | 2018-04-22 06:45 | CP.PCM.PN ---
Subjective - Date & Time of Evaluation Date of Evaluation: 04/22/18 Time of Evaluation: 06:15 - Subjective Subjective: Awake, no distress Reason for consultation: Cardiac evaluation of chest pain, rule out myocardial infarction, current cocaine use,thyroid disease, anemia, hiatal hernia, left sided brain tumor 2005, cocaine abuse (sniff),anxiety,bipolar disorder,depression,antisocial, alcohol abuse, Seen and examined by me and Dr. Santacruz Objective - Vital Signs/Intake and Output Vital Signs (last 24 hours): Temp Pulse Resp BP Pulse Ox 98.3 F 63 16 101/70 99 04/21/18 23:07 04/21/18 23:07 04/21/18 23:07 04/21/18 23:07 04/21/18 23:07 Intake and Output: 04/21/18 04/22/18 18:59 06:59 Intake Total 200 2100 Balance 200 2100 - Medications Medications: Current Medications Acetaminophen (Tylenol 325mg Tab) 650 mg PO Q6H PRN PRN Reason: Pain, Mild (1-3) Bupropion HCl (Wellbutrin Xl) 150 mg PO DAILY HUGO Sodium Chloride (Sodium Chloride 0.9%) 1,000 mls @ 100 mls/hr IV .Q10H HUGO Last Admin: 04/21/18 22:16 Dose: 100 mls/hr Lorazepam (Ativan) 1 mg IVP Q6H PRN; Protocol PRN Reason: Symptoms of alcohol withdrawl Naproxen (Anaprox Ds) 550 mg PO BID HUGO Stop: 04/23/18 23:59 Last Admin: 04/21/18 17:44 Dose: 550 mg Pantoprazole Sodium (Protonix Ec Tab) 20 mg PO 0600 HUGO Quetiapine Fumarate (Seroquel) 50 mg PO HS HUGO; Protocol Last Admin: 04/21/18 21:18 Dose: 50 mg Zaleplon (Sonata) 5 mg PO HS PRN PRN Reason: Insomnia Last Admin: 04/21/18 22:15 Dose: 5 mg - Labs Labs: 04/21/18 07:00 04/21/18 07:00 - Constitutional Appears: Non-toxic, No Acute Distress - Head Exam Head Exam: NORMAL INSPECTION, NORMOCEPHALIC - Eye Exam Eye Exam: Normal appearance Pupil Exam: NORMAL ACCOMODATION - ENT Exam ENT Exam: Mucous Membranes Moist, Normal Exam - Respiratory Exam Respiratory Exam: Clear to Ausculation Bilateral, NORMAL BREATHING PATTERN - Cardiovascular Exam Cardiovascular Exam: +S1, +S2 - GI/Abdominal Exam GI & Abdominal Exam: Soft, Normal Bowel Sounds - Extremities Exam Extremities Exam: Full ROM, Normal Capillary Refill - Neurological Exam Neurological Exam: Alert, Awake, Oriented x3 - Psychiatric Exam Psychiatric exam: Normal Affect, Normal Mood - Skin Skin Exam: Dry, Normal Color, Warm Assessment and Plan - Assessment and Plan (Free Text) Assessment: A 42 year old male who came in to the ER due to chest pain and throat pain after drinking antifreeze coolant. He was feeling depress and took cocaine a day prior to admission to make himself feel better. Waking up the following morning still feeling depressed and took antifreeze coolant but sput it out due to bad taste. He is complaining of throat pain maybe due to swallowed antifreeze coolant. Chest pain is localized on left chest with some tenderness. Denies falling. History of thyroid disease, anemia, hiatal hernia, left sided brain tumor 2005, cocaine abuse (sniff),anxiety,bipolar disorder,depression,antisocial, alcohol abuse. Troponin 0.01 x 3, normal troponin, EKG- normal sinus rhythm, no ischemia. Chest tender to touch and reproducible. Chest pain more on muskuloskeletal. Rule out acute coronary syndrome. 11/27/17- Normal stress test 11/24/17-Echo- LVEF 55-60%, Trivial AR/PI, Trace MR, Mild TR RVSP 35 mmHg, No vegetation or thrombus. Cardiac status stable. Off telemetry. Evaluated by Psych and off 1:1 sitter for suicidal precaution. Possible transfer to Psych unit for in patient intake. Plan: Cardiac status stable Heart rate stable Blood pressure stable No distress Denies shortness of breath, denies chest pain Psych on consult Off 1:1 sitter For possible in patient Psych admission May discharge from cardiac standpoint Continue current treatment Continue current medications Counseling on coccaine abuse Will follow up Plan and treatment discussed with Dr. Santacruz
[2018-04-22 09:03] VITALS: RESP 18
--- NOTE | 2018-04-22 09:05 | CON ---
DATE: 04/20/2018 HISTORY OF PRESENT ILLNESS: Patient is 42-year-old -[place]aced[place] male with a history of bipolar disorder, antisocial personality disorder, polysubstance abuse including cocaine who is being seen by Psychiatry while he is being treated on the medical unit after he took a sip of antifreeze, which he spit up. Patient is being evaluated for burning throat pain and chest pain from the antifreeze. I met with patient at bedside again today. Patient continues to be depressed, thought process little scattered; however, he is not hallucinating at this time, has been cooperative with staff and there has been no major behavioral issues. He is still denying any acute suicidal thoughts or thoughts to harm others at this time and he is still agrees to sign involuntarily to psychiatric unit once he is medical cleared. Of note, patient is tolerating the medications that were started for him yesterday and denies any side effects. Labs and vitals were reviewed. RELEVANT PSYCHIATRIC MEDICATIONS: Includes Wellbutrin XL 150 daily, Ativan 1 mg IV every 6 hours p.r.n., Seroquel 50 mg at bedtime, and Sonata 5 mg at bedtime p.r.n. IMPRESSION: Bipolar disorder, by history; antisocial personality disorder; polysubstance abuse including recent cocaine abuse; and substance-induced mood disorder. We will continue with current medications as prescribed. Patient to be transferred to the Psychiatric Unit once he is medically cleared. Psychiatry will continue to follow up. Maximo Rubio MD
[2018-04-22] MEDS: Naproxen 550 mg Tab PO SCH ×2 (09:38→17:54)
[2018-04-22] MEDS ORDERED: buPROPion 150 mg/24 Hours XL Tab PO SCH (10:00)
--- NOTE | 2018-04-22 12:06 | CP.PCM.PCO ---
Physician Communication Note - Physician Communication Note Physician Communication Note: Per Dr. Echavarria, pt medically cleared to transfer to if bed available
[2018-04-22 14:12] VITALS: BP 94/62; PULSE 66; TEMP 98.1; O2SAT 88
--- NOTE | 2018-04-22 19:30 | PN ---
DATE: 04/22/2018 REASON FOR CONSULTATION: Cardiac evaluation, chest pain, atypical rule out MD, history of cocaine and substance use. This is additional note in addition to dictated by the nurse practitioner, Alethea Landrum. SUBJECTIVE: The patient is lying flat in the bed. Denies any chest pain, shortness of breath, or any palpitation. The patient did an echo 11/14/2017 and 55% to 60% trivial AR, trivial PI, trace MR, mild TR, 37. No vegetation or thrombus. Cardiac stent is stable. So far no evidence of acute MD, atypical chest pain, history of substance abuse, history of alcohol abuse, anxiety disorder, bipolar disorder. RECOMMENDATION: Recommend to continue psych consult and we will discontinue telemetry. We will continue Naprosyn 500 mg p.o. twice a day. We will sign off and glad to follow p.r.n. Thank you Dr. Echavarria for providing us the opportunity in taking care of the patient, Mahamed Dewey. Garcia Santacruz MD
== END 2018-04-22 19:02 ==
LOC: ED 11:24 → ERH 14:34 → 2RSO 16:50 → 5RNO 04-21 13:48 → OBSVTOIN 04-22 09:09 → INTOOBSV 04-22 09:09
PROVIDERS: ADMIT Internal Medicine; ATTEND Internal Medicine
DX: R07.89 Other chest pain (principal); T65.92XA Toxic effect of unspecified substance, intentional self-harm, initial encounter; R07.0 Pain in throat; F31.9 Bipolar disorder, unspecified; F60.2 Antisocial personality disorder; F14.10 Cocaine abuse, uncomplicated; E03.9 Hypothyroidism, unspecified; Z91.5 Personal history of self-harm; Z91.14 Patient's other noncompliance with medication regimen; F17.210 Nicotine dependence, cigarettes, uncomplicated; D64.9 Anemia, unspecified
CPT/HCPCS: 36415; 71045; 80048; 80053; 80061; 82550; 82553; 82607; 82746; 82803; 83036; 83540; 83550; 83615; 83735; 83930; 84439; 84443; 84484; 84600; 85025; 85027; 85378; 93005; 96360; 99285; G0378; G0480; J1451; J7030

== ENCOUNTER 2018-04-22 19:01 | Inpatient (IN) | payer MEDICARE, OTHER ==
[2018-04-22] MEDS ORDERED: Magnesium Hydroxide Susp 30 ml UD PO PRN (20:14)
[2018-04-22] MEDS ORDERED: Alum-Mag Hydrox-Simethicone Susp (30 mL) PO PRN (20:14)
--- NOTE | 2018-04-22 23:36 | PCM.BM ---
<Timi Ballard - Last Filed: 04/22/18 23:33> Treatment Plan Problems - Problems identified on initial assessmt INEFFECTIVE COPING Date Initiated: 04/22/18 Time Initiated: 19:00 Assessment reference: NA Status: Active Priority: 1 SELF HARM Date Initiated: 04/22/18 Time Initiated: 19:00 Assessment reference: NA Status: Active Priority: 2 MEDICATION NON ADHERENCE Date Initiated: 04/22/18 Time Initiated: 19:00 Assessment reference: NA Status: Active Priority: 3 Treatment assets and liabiliti Patient Assests: adapts well, cooperative, educated, motivated, resourceful, self-reliant, ADL independent, negotiates basic needs, cognitively intact Patient Liabilities: live alone, substance abuse, medical problems - Milieu Protocol Maintain good personal hygiene: every other day Encourage regular showers, every shift Remind patient to perform daily oral care, every shift Assist patient to perform ADL's Maintain personal safety: every shift Educate patient to report safety concerns to staff, every shift Monitor environment for contraband/sharps Medication safety: Monitor for expected outcome, potential side effects: every shift, Assess barriers to learning: every shift, Assess readiness for medication education: every shift Family Contact Family involvement: Family/SO is involved Family contact: Patient agrees to contact Discharge/Continuing Care - Education Needs Education Needs: Patient Medication, Patient Diagnosis/Disease Process, Patient Coping Skills, Patient Anger Management skills, Patient Health Practices/Safety - Discharge Discharge Criteria: Tolerates medication w/o severe side effects, Free of Suicidal thoughts, Free of agitation, Ability to care for self <Hafsa Swift A - Last Filed: 04/23/18 14:27> - Diagnosis (1) Bipolar 1 disorder Status: Chronic Interventions: 04/23/18 14:27 Psychoeducation/psychotherapy Psychopharmacology/adjustment of medications as needed/ monitoring possible side effects Evaluate pt on daily basis Compliance with medications and follow up appointments Mood stabilizer, follow up on blood level of mood stabilizer Suicide and homicide risk assessment and prevention, coping strategies, safety plan Relapse prevention Reduction of symptoms Improve functional status Cognitive behavioral therapy Family involvement Possible social skill training as outpatient (2) Cocaine abuse Status: Chronic Interventions: Maintaining sobriety Relapse prevention Possible rehabilitation Motivational interviewing 12-step programs: AA meetings <Georgette Jarrett - Last Filed: 04/24/18 11:48> Family Contact Family involvement: Famliy/SO not involved - Goals for Treatment Patient goals for treatment: "I want to have a case conference call to get my money back." <Yary Atwood - Last Filed: 04/24/18 16:06>
[2018-04-23 08:35] LABS: GLUCOSE,FASTING 95 mg/dL (65-110); HDL CHOLESTEROL 48 mg/dL (29-60)
[2018-04-23 08:45] LABS: LDL CHOLESTEROL 58 mg/dL (0-129)
[2018-04-23] MEDS: buPROPion 150 mg/24 Hours XL Tab PO SCH (09:53)
[2018-04-23] MEDS: Multivitamin Therapeutic Tab PO SCH (09:53)
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
[2018-04-23] MEDS: Pantoprazole 20 mg EC Tab PO SCH (17:13)
[2018-04-24] MEDS: Pantoprazole 20 mg EC Tab PO SCH (06:45)
[2018-04-24 07:42] VITALS: RESP 18
--- NOTE | 2018-04-24 08:16 | CON ---
DATE: 04/23/2018 The patient was seen and examined at the bedside on 04/23/2018. CHIEF COMPLAINT: Chest pain, irritation of the throat, depression. HISTORY OF PRESENT ILLNESS: Mr. Mahamed Dewey is a 42-year-old male with history of bipolar disorder, cocaine abuse, alcohol abuse, numerous psychiatric admissions, was recently at [facility] in 02/2018 with history of suicidal attempts, history of chronic noncompliance with medications and followup appointments, who was transferred to the [facility] from the medical floor. He was admitted on the medical floor to rule out myocardial infarction. Actually, the patient was re-sent to our ER with left-sided chest pain, context of cocaine use as well as antifreeze, coolant. The patient drank to kill himself. The Drug and Poison Control Department was contacted by ER and orders were made. Now, the patient improved, seen by GI, and sent to [facility] for depression. REVIEW OF SYSTEMS: The patient was seen and examined at the bedside, looking comfortable. No fever. No chills. No hematuria or hematochezia. No headache or dizziness. No chest pain. No palpitation. Was sitting with the social workers and making some plans. PHYSICAL EXAMINATION: VITAL SIGNS: Temperature 98.5, pulse 66, blood pressure 100/64, respiratory rate 20. HEENT: Head is normocephalic, atraumatic. Eyes: PERRLA. Extraocular muscles are intact. Conjunctivae clear. Nose patent. NECK: Supple. No carotid bruit. No JVD or thyromegaly. CHEST: Bilaterally symmetrical. HEART: S1 and S2, positive. LUNGS: Clear to auscultation. ABDOMEN: Soft. Bowel sounds present. No organomegaly. EXTREMITIES: No edema. No cyanosis. NEUROLOGICAL: The patient is awake and alert. Moving all 4 extremities. No focal deficit. MEDICATIONS: Maalox, milk of magnesia, Protonix, Seroquel, Sonata, vitamins, Tylenol, Wellbutrin. LABORATORY DATA: Chemistry: Glucose 95, triglyceride 65, cholesterol 120, LDL 58, TSH 0.97, RPR negative. ASSESSMENT AND PLAN: Mr. Mahamed Dewey is a 42-year-old male, was admitted on the medical floor for suicidal attempts, so he took antifreeze. Otherwise, the patient has history of bipolar, cocaine abuse, alcohol abuse, numerous psychiatric admissions, numerous times he left from emergency room. This time, we admitted the patient under the psychiatric condition, should be seen by the psychiatrist and Dr. Hafsa Swift. Discussion done with the patient and the patient's nursing staff. Repeat labs. We will follow up. Kait Echavarria MD MTDD
[2018-04-24 08:32] LABS: HEMOGLOBIN 13.6 g/dL (14.0-18.0); MEAN CELL VOLUME 93.6 fl (80.0-105.0); MEAN CORPUSCULAR HEMOGLOBIN 32.1 pg (25.0-35.0); MEAN CORPUSCULAR HGB CONC 34.3 g/dl (31.0-37.0); MEAN PLATELET VOLUME 9.4 fl (7.0-11.0); RBC 4.24 10^6/uL (3.5-6.1); RED CELL DISTRIBUTION WIDTH 13.5 % (11.5-14.5); WHITE BLOOD COUNT 4.2 10^3/uL (4.5-11.0)
[2018-04-24] MEDS ORDERED: DiphenhydrAMINE 50 mg/ml Inj ONE (08:34)
[2018-04-24 08:40] LABS: IRON 64 ug/dL (45-180)
[2018-04-24 08:42] LABS: BLOOD UREA NITROGEN 13 mg/dL (7-21); CALCIUM 9.2 mg/dL (8.4-10.5); GFR NON-AFRICAN AMERICAN > 60
[2018-04-24] MEDS ORDERED: DiphenhydrAMINE 50 mg/ml Inj IM PRN (08:42)
[2018-04-24 08:51] LABS: % IRON SATURATION 23 % (20-55); TOTAL IRON BINDING CAPACITY 279 ug/dL (261-462)
[2018-04-24] MEDS: buPROPion 150 mg/24 Hours XL Tab PO SCH (08:54)
[2018-04-24] MEDS: Multivitamin Therapeutic Tab PO SCH (08:54)
[2018-04-24 09:00] LABS: ALB/GLOB RATIO 1.3 (1.1-1.8); ALBUMIN 3.8 g/dL (3.0-4.8); BILIRUBIN,DIRECT 0.2 mg/dL (0.0-0.4)
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
--- NOTE | 2018-04-24 11:18 | RAD ---
Date of service: 04/23/2018 PROCEDURE: Right Knee Radiographs. HISTORY: POSSIBLE FLUID COMPARISON: None. FINDINGS: BONES: Normal. No fracture. JOINTS: Normal. No osteoarthritis. JOINT EFFUSION: None. OTHER FINDINGS: None. IMPRESSION: Normal radiographs of the right knee.
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
[2018-04-25] MEDS: Pantoprazole 20 mg EC Tab PO SCH (06:35)
[2018-04-25 07:49] LABS: HEMOGLOBIN 13.8 g/dL (14.0-18.0); MEAN CELL VOLUME 94.1 fl (80.0-105.0); MEAN CORPUSCULAR HEMOGLOBIN 31.4 pg (25.0-35.0); MEAN CORPUSCULAR HGB CONC 33.3 g/dl (31.0-37.0); MEAN PLATELET VOLUME 9.5 fl (7.0-11.0); RBC 4.4 10^6/uL (3.5-6.1); RED CELL DISTRIBUTION WIDTH 13.6 % (11.5-14.5); WHITE BLOOD COUNT 4.3 10^3/uL (4.5-11.0)
[2018-04-25 08:02] LABS: BLOOD UREA NITROGEN 15 mg/dL (7-21); CALCIUM 9.1 mg/dL (8.4-10.5); GFR NON-AFRICAN AMERICAN > 60
[2018-04-25] MEDS: Multivitamin Therapeutic Tab PO SCH (09:24)
[2018-04-25] MEDS: buPROPion 150 mg/24 Hours XL Tab PO SCH (09:24)
--- NOTE | 2018-04-25 15:01 | PCM.PYCHPN ---
Psychiatric Progress Note - Psychiatric Progress Note Patient seen today, length of contact: 30 minutes Patient Chief Complaint: "I feel little better" Problems Identified/Issues Discussed: This senior writer attempted to speak to the patient about risk, benefits, alternatives of the medications, suicide prevention, compliance with the medications, but patient status post IM of Haldol/Benadryl/Ativan, deeply sleeping, please see notes for more detailed information. Medical Problems: Please see HPI Diagnostic Results: 04/24/18 08:26 04/24/18 08:26 Lab Results 04/24/18 08:26: Sodium 140, Potassium 4.2, Chloride 104, Carbon Dioxide 29, Anion Gap 11, BUN 13, Creatinine 0.7 L, Est GFR ( Amer) > 60, Est GFR (Non-Af Amer) > 60, Random Glucose 95, Calcium 9.2 04/24/18 08:26: WBC 4.2 L, RBC 4.24, Hgb 13.6 L, Hct 39.7 L, MCV 93.6, MCH 32.1, MCHC 34.3, RDW 13.5, Plt Count 210, MPV 9.4 04/24/18 08:26: Iron 64, TIBC 279, % Saturation 23 04/24/18 08:26: Total Bilirubin 0.3, Direct Bilirubin 0.2, AST 22, ALT 29, Alkaline Phosphatase 63, Total Protein 6.9, Albumin 3.8, Globulin 3.0, Albumin/Globulin Ratio 1.3, Triglycerides 99, Cholesterol 139, LDL Cholesterol Direct 60, HDL Cholesterol 53, Vitamin B12 775 04/24/18 05:00: Hemoglobin A1c 5.7 04/23/18 08:10: RPR Nonreactive 04/23/18 08:10: TSH 3rd Generation 0.97 04/23/18 08:10: Fasting Glucose 95, Triglycerides 65, Cholesterol 120 L, LDL Cholesterol Direct 58, HDL Cholesterol 48 Vital Signs Temp Pulse Resp BP 04/24/18 07:41 97.7 F 54 L 18 98/59 L 04/23/18 16:00 66 100/64 04/23/18 07:00 98.5 F 54 L 20 96/58 L 04/22/18 20:55 20 04/22/18 20:50 98.8 F 64 20 111/70 DSM 5 Symptoms Update: Patient is a 42 year old single male with history of bipolar disorder, cocaine use disorder, alcohol abuse, numerous psychiatric admissions-most recently at [facility] 02/2018, history of suicidal attempts, history of chronic noncompliance with the medications and follow-up appointments who was transferred from the medical floor after ruled out for myocardial infarction s/p patient presenting to our ER with left-sided chest pain in context of cocaine use as well as ? antifreeze coolant "sip", as well as nausea, pt was medically stable for transfer, patient was admitted to the psychiatric inpatient unit on April 22, 2018. Patient was seen next to the nursing station, pt presented much calmer, seems to be less irritable and no agitation since yesterday Code Cox. pt reported that he was annoyed and aggravated, pt seems to be apologetic. pt still has unpredictable impulses, but more pleasant today. pt had good night sleep. good appetite. So far patient tolerates medications well, no side effects observed or reported, aims 0, no EPS. Impression: Most likely patient suffered from bipolar disorder versus impulse control disorder Cocaine abuse Rule out antisocial personality disorder Medication Change: Yes Medical Record Reviewed: Yes Consults ordered or reviewed: med consult was called yesterday Mental Status Examination - Cognitive Function Orientation: Person, Place, Situation, Time Attention: Poor Concentration: Poor Association: Loose Fund of Knowledge: Poor - Mood Mood: Depressed (And irritable) - Affect Affect: Constricted, Flat - Formal Thought Process Formal Thought Process: No Impairment - Suicidal Ideation Suicidal Ideation: No - Homicidal Ideation Homicidal Ideation: No Goal/Treatment Plan - Goal/Treatment Plan Need for Continued Stay: Remain at risks for inpatient hospitalization, Severe depression anxiety, Discharge may exacerbated symptoms, Severe functional impairment Progress Toward Problem(s) and Goals/Treatment Plan: Milieu/structure/supportive therapy Medical consult was called SW consultation for discharge plan and social issues Med management Wellbutrin was resumed Seroquel was increased to 100 mg at the nighttime for mood stabilization As needed medication Haldol plus Benadryl plus Ativan PRN meds Follow up on labs Will monitor closely Pt was educated about risk/benefits and alternatives of medications, coping st rategies (safety plan, suicide prevention), relapse prevention, importance of follow up with psychiatrist and therapist, stay away from drugs/alcohol/smoking Estimated Date of D/C: 04/29/18
--- NOTE | 2018-04-25 20:24 | PN ---
DATE: 04/24/2018 SUBJECTIVE: The patient was seen and examined on 04/24/2018 at beside, looking comfortable, sleepy, arousable. Moving all four extremities. Following simple orders. No fever. No chills. No nausea. No vomiting. No diarrhea. No hematuria. No hematochezia. No swelling of the legs. No chest pain. No palpitation. No headache. No dizziness. PHYSICAL EXAMINATION VITAL SIGNS: Temperature 97.7, pulse 54, blood pressure 98/59, respiratory rate 18. HEENT: Head, normocephalic and atraumatic. Eyes, PERRLA. Extraocular muscles are intact. Conjunctivae clear. Nose patent. Mucous membranes are moist. NECK: Supple. No carotid bruits. No JVD or thyromegaly. CHEST: Bilaterally symmetrical. HEART: S1 and S2 positive. LUNGS: Clear to auscultation. ABDOMEN: Soft. Bowel sounds present. No organomegaly. EXTREMITIES: No edema. No cyanosis. NEUROLOGIC: The patient is awake and alert. Moving all four extremities. No focal deficit. MEDICATIONS: Ativan, Benadryl, Haldol, Maalox, milk of magnesia, Protonix, Seroquel, Sonata, Thera, Tylenol and Wellbutrin. LABORATORY DATA: White blood cells 4.2, hemoglobin 13.6, hematocrit 39.7, platelets 210. Sodium 140, potassium 4.2, BUN 13, creatinine 0.7, calcium 9.2. ASSESSMENT AND PLAN: Mr. Mahamed Dewey is a 42-year-old male with leukopenia and anemia, RPR nonreactive, was admitted on the medical floor after drinking antifreeze; seen by Gastroenterology, cleared, transferred to Psychiatry for depression. The patient is getting Haldol, Benadryl and Ativan, and he is sleeping most of the time. History of depression and anxiety, bipolar, cocaine abuser, alcohol abuser, numerous psychiatric admissions and the most recent was in [facility] [place]. He had suicidal attempts, chronic noncompliance with medications and followup appointments. Complaining about pain in the knee. Gastroesophageal reflux disease and dyspepsia. X-ray of the right knee was done . Maybe we will order MRI because he is complaining about pain and we will follow up. Gastrointestinal and deep venous thrombosis prophylaxis. Kait Echavarria MD [facility] # [id number] LULU
[2018-04-26] MEDS: Pantoprazole 20 mg EC Tab PO SCH (06:44)
[2018-04-26] MEDS: buPROPion 150 mg/24 Hours XL Tab PO SCH (10:12)
[2018-04-26] MEDS: Multivitamin Therapeutic Tab PO SCH (10:12)
--- NOTE | 2018-04-26 15:41 | PCM.PYCHPN ---
Psychiatric Progress Note - Psychiatric Progress Note Patient seen today, length of contact: 30 minutes Patient Chief Complaint: "I feel little better, my head is more clear, now I want to go to rehab, or if no beds I will keep working on it.." Problems Identified/Issues Discussed: This lead technical writer attempted to speak to the patient about risk, benefits, alternatives of the medications, suicide prevention, compliance with the medications, but patient status post IM of Haldol/Benadryl/Ativan, deeply sleeping, please see notes for more detailed information. Medical Problems: Please see HPI Diagnostic Results: 04/24/18 08:26 04/24/18 08:26 Lab Results 04/24/18 08:26: Sodium 140, Potassium 4.2, Chloride 104, Carbon Dioxide 29, Anion Gap 11, BUN 13, Creatinine 0.7 L, Est GFR ( Amer) > 60, Est GFR (Non-Af Amer) > 60, Random Glucose 95, Calcium 9.2 04/24/18 08:26: WBC 4.2 L, RBC 4.24, Hgb 13.6 L, Hct 39.7 L, MCV 93.6, MCH 32.1, MCHC 34.3, RDW 13.5, Plt Count 210, MPV 9.4 04/24/18 08:26: Iron 64, TIBC 279, % Saturation 23 04/24/18 08:26: Total Bilirubin 0.3, Direct Bilirubin 0.2, AST 22, ALT 29, Alkaline Phosphatase 63, Total Protein 6.9, Albumin 3.8, Globulin 3.0, Albumin/Globulin Ratio 1.3, Triglycerides 99, Cholesterol 139, LDL Cholesterol Direct 60, HDL Cholesterol 53, Vitamin B12 775 04/24/18 05:00: Hemoglobin A1c 5.7 04/23/18 08:10: RPR Nonreactive 04/23/18 08:10: TSH 3rd Generation 0.97 04/23/18 08:10: Fasting Glucose 95, Triglycerides 65, Cholesterol 120 L, LDL Cholesterol Direct 58, HDL Cholesterol 48 Vital Signs Temp Pulse Resp BP 04/24/18 07:41 97.7 F 54 L 18 98/59 L 04/23/18 16:00 66 100/64 04/23/18 07:00 98.5 F 54 L 20 96/58 L 04/22/18 20:55 20 04/22/18 20:50 98.8 F 64 20 111/70 DSM 5 Symptoms Update: Patient is a 42 year old single male with history of bipolar disorder, cocaine use disorder, alcohol abuse, numerous psychiatric admissions[place] [facility] [place], history of suicidal attempts, history of chronic noncompliance with the medications and follow-up appointments who was transferred from the medical floor after ruled out for myocardial infarction s/p patient presenting to our ER with left-sided chest pain in context of cocaine use as well as ? antifreeze coolant "sip", as well as nausea, pt was medically stable for transfer, patient was admitted to the psychiatric inpatient unit on April 22, 2018. Patient was seen at the treatment team meeting room, patient presented much calmer, seems to be less irritable and no agitation since April 24 code Cox. Patient seems to be more rational, patient was not agitated, now patient wants to go to inpatient rehab. Patient denied any thoughts of harming himself or others, denied hearing voices, denied seeing things, denied paranoid ideations. pt still has unpredictable impulses, but more pleasant today. pt had good night sleep. good appetite. So far patient tolerates medications well, no side effects observed or reported, aims 0, no EPS. Impression: Most likely patient suffered from bipolar disorder versus impulse control disorder Cocaine abuse Rule out antisocial personality disorder Medication Change: Yes (Increased April 25, 2018) Medical Record Reviewed: Yes Consults ordered or reviewed: med consult was called yesterday Mental Status Examination - Cognitive Function Orientation: Person, Place, Situation, Time Attention: Poor (Some improvement) Concentration: Poor (Some improvement) Association: Loose Fund of Knowledge: Poor - Mood Mood: Depressed ("I feel little better") - Affect Affect: Constricted (More reactive, mood congruent) - Speech Speech: Appropriate - Formal Thought Process Formal Thought Process: No Impairment - Suicidal Ideation Suicidal Ideation: No - Homicidal Ideation Homicidal Ideation: No Goal/Treatment Plan - Goal/Treatment Plan Need for Continued Stay: Remain at risks for inpatient hospitalization, Severe depression anxiety, Discharge may exacerbated symptoms, Severe functional impairment Progress Toward Problem(s) and Goals/Treatment Plan: Milieu/structure/supportive therapy Medical consult was called SW consultation for discharge plan and social issues Med management Wellbutrin was resumed Seroquel was increased to 100 mg at the nighttime for mood stabilization As needed medication Haldol plus Benadryl plus Ativan PRN meds Follow up on labs Will monitor closely Pt was educated about risk/benefits and alternatives of medications, coping strategies (safety plan, suicide prevention), relapse prevention, importance of follow up with psychiatrist and therapist, stay away from drugs/alcohol/smoking Estimated Date of D/C: 04/29/18
[2018-04-27 07:29] VITALS: TEMP 97.7
[2018-04-27] MEDS: Pantoprazole 20 mg EC Tab PO SCH (09:57)
[2018-04-27] MEDS: Multivitamin Therapeutic Tab PO SCH (09:57)
[2018-04-27] MEDS: buPROPion 150 mg/24 Hours XL Tab PO SCH (09:57)
--- NOTE | 2018-04-27 10:59 | PCM.PYCHPN ---
Psychiatric Progress Note - Psychiatric Progress Note Patient seen today, length of contact: 30 minutes Problems Identified/Issues Discussed: I reviewed assessment and met with patient at bedside. Patient is tired and a little disengaged. Mood is reported as "okay", affect is constricted. Tole rating his medications and denies any new discomfort or pain. Patient denies hallucinations or suicidal thoughts. Delusions were not elicited. Thus far he is tolerating his medications and denies discomfort or pain. Staff have noted that patient has been calmer and more predictable since sky barajas on 04/24/18. He can be friendly with patients and staff. There were no behavioral issues overnight Diagnostic Results: Most likely patient suffered from bipolar disorder versus impulse control disorder Cocaine abuse Rule out antisocial personality disorder Medication Change: Yes (Seroquel increased) Medical Record Reviewed: Yes Mental Status Examination - Cognitive Function Orientation: Person, Place, Situation, Time Attention: WNL (Some improvement) Concentration: Poor (Some improvement) Association: Loose Fund of Knowledge: Poor - Mood Mood: Depressed ("I feel little better") - Affect Affect: Constricted (More reactive, mood congruent) - Speech Speech: Appropriate - Formal Thought Process Formal Thought Process: No Impairment - Suicidal Ideation Suicidal Ideation: No - Homicidal Ideation Homicidal Ideation: No Goal/Treatment Plan - Goal/Treatment Plan Need for Continued Stay: Remain at risks for inpatient hospitalization, Severe depression anxiety, Discharge may exacerbated symptoms, Severe functional impairment Progress Toward Problem(s) and Goals/Treatment Plan: * c/w current tx and plan * Vitals reviewed and noted below: 04/27/18 04/27/18 07:28 15:43 Temperature 97.7 F Pulse Rate 62 72 Respiratory 18 Rate Blood Pressure 92/60 L 109/68 * No new lab results thus far this weekend Estimated Date of D/C: 04/29/18
--- NOTE | 2018-04-28 05:28 | PN ---
DATE: 04/27/2018 SUBJECTIVE: The patient is 42-year-old male. The patient was seen and examined at bedside on 04/27/2018, looking comfortable. No fever. No chills. No hematuria. No hematochezia. No swelling of the legs. No headache. No dizziness. According to the patient, he is feeling alright and doing better since the admission. PHYSICAL EXAMINATION: VITAL SIGNS: Temperature 97.8, pulse 54, respiratory rate 18, and blood pressure 80/47. HEENT: Head, normocephalic and atraumatic. Eyes, PERRLA. Extraocular muscles are intact. Conjunctivae clear. Nose patent. Mucous membranes are moist. NECK: Supple. No carotid bruits. No JVD or thyromegaly. CHEST: Bilaterally symmetrical. HEART: S1 and S2 positive. LUNGS: Clear to auscultation. ABDOMEN: Soft. Bowel sounds present. No organomegaly. EXTREMITIES: No edema. No cyanosis. NEUROLOGIC: The patient is awake and alert. Moving all four extremities. No focal deficit. MEDICATIONS: Ativan, Haldol, Maalox, milk of magnesia, Protonix, Seroquel, Sonata, Tylenol, Wellbutrin, and multivitamins. LABORATORY DATA: White blood cells 7.3, hemoglobin 13.8, hematocrit 41.4, and platelets 210. Sodium 138, potassium 4.2, BUN 15, creatinine 0.7, and glucose 89. ASSESSMENT AND PLAN: Mr. Mahamed Dewey is a 42-year-old male with leukopenia, anemia, RPR negative, pain in the knee, MRI done results are pending. X-ray done and reviewed by me, history of suicidal ideations and drank antifreeze, was admitted on the medical side. Cleared by Gastroenterology, no dysphagia, now getting treatment in the psychiatric department, seen by Dr. Maximo Rubio today. Repeat labs. History of drug abuse. We will follow up. Kait Echavarria MD
[2018-04-28] MEDS: Multivitamin Therapeutic Tab PO SCH (09:02)
[2018-04-28] MEDS: Pantoprazole 20 mg EC Tab PO SCH (09:02)
[2018-04-28] MEDS: buPROPion 150 mg/24 Hours XL Tab PO SCH (09:02)
--- NOTE | 2018-04-28 10:32 | PCM.PYCHPN ---
Psychiatric Progress Note - Psychiatric Progress Note Patient seen today, length of contact: 30 minutes Problems Identified/Issues Discussed: I reviewed recent notes and met with patient at bedside. Patient is more alert and engaged today. Appears more focused, forthcoming and clear with his re sponses. He reports that he is improving and feels ready to be discharged tomorrow. Affect is friendly and congruent to reported mood. Tolerating his medications though sleep was a little restless last night. He requests small increase in seroquel since this has helped in the past. Patient denies hallucinations or suicidal thoughts. Delusions were not elicited. Thus far he is tolerating his medications and denies discomfort or pain. Staff have noted that patient has been calmer and more predictable since sky barajas on 04/24/18. He can be friendly with patients and staff. There were no behavioral issues over the weekend. Diagnostic Results: Most likely patient suffered from bipolar disorder versus impulse control disorder Cocaine abuse Rule out antisocial personality disorder Medication Change: Yes (Seroquel increased) Medical Record Reviewed: Yes Mental Status Examination - Cognitive Function Orientation: Person, Place, Situation, Time Attention: WNL (Some improvement) Concentration: Poor (Some improvement) Association: Loose Fund of Knowledge: Poor - Mood Mood: Depressed ("I feel little better") - Affect Affect: Constricted (More reactive, mood congruent) - Speech Speech: Appropriate - Formal Thought Process Formal Thought Process: No Impairment - Suicidal Ideation Suicidal Ideation: No - Homicidal Ideation Homicidal Ideation: No Goal/Treatment Plan - Goal/Treatment Plan Need for Continued Stay: Remain at risks for inpatient hospitalization, Severe depression anxiety, Discharge may exacerbated symptoms, Severe functional impairment Progress Toward Problem(s) and Goals/Treatment Plan: * c/w current tx and plan * Increased Seroquel to 125 mg po HS, patient recalled that he was on a higher dose which was beneficial in the past * Appreciate f/u by Dr. Echavarria on 04/27/18~results of knee MRI pending * Vitals reviewed and noted below: 04/27/18 04/27/18 07:28 15:43 Temperature 97.7 F Pulse Rate 62 72 Respiratory 18 Rate Blood Pressure 92/60 L 109/68 * No new lab results thus far this weekend Estimated Date of D/C: 04/29/18
[2018-04-28 17:22] VITALS: BP 110/75; PULSE 77
[2018-04-29] MEDS: Pantoprazole 20 mg EC Tab PO SCH (07:21)
--- NOTE | 2018-04-29 08:45 | PN ---
DATE: 04/26/2018 SUBJECTIVE: The patient was seen and examined at the bedside on 04/26/2018, looking comfortable. No fever. No chills. No hematuria. No hematochezia. Complaining of pain in the knee. No headache. No dizziness. No shortness of breath. PHYSICAL EXAMINATION: VITAL SIGNS: Temperature 97.8, pulse 54, blood pressure 80/47, respiratory rate 18. HEENT: Head is normocephalic, atraumatic. Eyes PERRLA. Extraocular muscles intact. Conjunctivae clear. Nose patent. Mucous membrane moist. NECK: Supple. No carotid bruit. No JVD or thyromegaly. CHEST: Bilaterally symmetrical. HEART: S1 and S2 positive. LUNGS: Clear to auscultation ABDOMEN: Soft. Bowel sounds positive. No organomegaly. EXTREMITIES: No edema. No cyanosis. NEUROLOGIC: The patient is awake and alert. Moving all four extremities. No focal deficits. MEDICATIONS: Ativan, Benadryl, Haldol, Maalox, milk of magnesia, Protonix, Seroquel, Zometa, Tylenol, Wellbutrin. LABORATORY DATA: We do not have recent labs today, but reviewed old labs. White blood cells 4.3, hemoglobin 7.8, hematocrit 41.4, and platelets 210. ASSESSMENT AND PLAN: The patient is a 42-year-old male with leukopenia and anemia. Blood chemistry is within normal limits. RPR negative. He has multiple psych problems. Episode happened on 04/24/2018 noted by me. He was admitted on the medical floor after drinking antifreeze. Seen by inspector assembly. Cleared by inspector assembly and medical team. Transferred to the psych for depression, anxiety, and bipolar. Yesterday, the patient had episode of outburst of anger, was handled by me and rapid response team. After that, the patient controlled. No suicidal and homicidal ideation. The patient's x-ray is not very clear, sending for MRI. Repeat labs. We will follow up. Kait Echavarria MD [facility] # [id number]
[2018-04-29] MEDS: Multivitamin Therapeutic Tab PO SCH (09:11)
[2018-04-29] MEDS: buPROPion 150 mg/24 Hours XL Tab PO SCH (09:11)
--- NOTE | 2018-04-29 12:37 | PCM.PYCHDC ---
Mental Status Examination - Mental Status Examination Orientation: Person, Place, Situation, Time Memory: Intact Mood: Neutral Affect: Constricted (But reactive and mood congruent) Speech: Appropriate Attention: WNL Concentration: WNL Association: WNL Fund of Knowledge: WNL Formal Thought Process: No Impairment Description of patient's judgement and insight: Pt has improved insight into mental and medical illness, pt was compliant with medications and unit rules and regulations, pt was attending groups, pt had one episode of agitated behavior, but for the past 4ays pt was calm, cooperative, socially appropriate, no aggression. Psychotic Thoughts and Behaviors: Pt denied v/a/t hallucinations, denied paranoid ideations, pt does not appear to be psychotic, and thought process is goal directed. Suicidal Ideation: No Current Homicidal Ideation?: No Plan: pt adamantly denied thoughts of harming self or others denied intent or plan. Discharge Summary - Discharge Note Reason for Hospitalization: Patient was transferred from the medical side for evaluation of depressive symptoms, possible suicidal ideation, worsening of depression and anxiety. Please see admission note for more detailed information. Psychiatric History (includes Medical, Family, Personal Hx): As per HPI Laboratory Data: 04/25/18 07:30 04/25/18 07:30 Lab Results 04/25/18 07:30: TSH 3rd Generation 0.93 04/25/18 07:30: Sodium 138, Potassium 4.2, Chloride 103, Carbon Dioxide 28, Anion Gap 11, BUN 15, Creatinine 0.7 L, Est GFR ( Amer) > 60, Est GFR (Non-Af Amer) > 60, Random Glucose 89, Calcium 9.1 04/25/18 07:30: WBC 4.3 L, RBC 4.40, Hgb 13.8 L, Hct 41.4 L, MCV 94.1, MCH 31.4, MCHC 33.3, RDW 13.6, Plt Count 210, MPV 9.5 04/24/18 08:26: Sodium 140, Potassium 4.2, Chloride 104, Carbon Dioxide 29, Anion Gap 11, BUN 13, Creatinine 0.7 L, Est GFR ( Amer) > 60, Est GFR (Non-Af Amer) > 60, Random Glucose 95, Calcium 9.2 04/24/18 08:26: WBC 4.2 L, RBC 4.24, Hgb 13.6 L, Hct 39.7 L, MCV 93.6, MCH 32.1, MCHC 34.3, RDW 13.5, Plt Count 210, MPV 9.4 04/24/18 08:26: Iron 64, TIBC 279, % Saturation 23 04/24/18 08:26: Total Bilirubin 0.3, Direct Bilirubin 0.2, AST 22, ALT 29, Alkaline Phosphatase 63, Total Protein 6.9, Albumin 3.8, Globulin 3.0, Albumin/Globulin Ratio 1.3, Triglycerides 99, Cholesterol 139, LDL Cholesterol Direct 60, HDL Cholesterol 53, Vitamin B12 775 04/24/18 05:00: Hemoglobin A1c 5.7 04/23/18 08:10: RPR Nonreactive 04/23/18 08:10: TSH 3rd Generation 0.97 04/23/18 08:10: Fasting Glucose 95, Triglycerides 65, Cholesterol 120 L, LDL Cholesterol Direct 58, HDL Cholesterol 48 Vital Signs Temp Pulse Resp BP 04/28/18 16:00 77 110/75 04/27/18 15:43 72 109/68 04/27/18 07:28 97.7 F 62 18 92/60 L 04/26/18 07:21 97.8 F 54 L 18 80/47 L 04/25/18 15:00 64 98/64 L 04/25/18 07:10 98.1 F 57 L 18 89/56 L 04/24/18 16:00 64 90/57 L 04/24/18 07:41 97.7 F 54 L 18 98/59 L 04/23/18 16:00 66 100/64 04/23/18 07:00 98.5 F 54 L 20 96/58 L 04/22/18 20:55 20 04/22/18 20:50 98.8 F 64 20 111/70 Consultations:: List each consultation separately and include: 1. Reason for request. 2. Findings. 3. Follow-up Consultations: med consult appreciated, please see Dr. Echavarria's notes for more detailed information. Summary of Hospital Course include:: 1. Description of specific treatment plan utilized for patients during their course of treatmen. 2. Summarize the time- course for resolution of acute symptoms and/or regressed behaviors. 3. Describe issues identified and worked on during hospitalization. 4. Describe medication utilized. 5. Describe medical problems identified and treated. 6. Reassessment of suicide risk Summary of Hospital Course: Patient is a 42 year old single male with history of bipolar disorder, cocaine use disorder, alcohol abuse, numerous psychiatric admissions-most recently at [facility] 02/2018, history of suicidal attempts, history of chronic noncompliance with the medications and follow-up appointments who was transferred from the medical floor after ruled out for myocardial infarction s/p patient presenting to our ER with left-sided chest pain in context of cocaine use as well as ? antifreeze coolant "sip", as well as nausea, pt was medically stable for transfer, patient was admitted to the psychiatric inpatient unit on April 22, 2018. Please see admission note for more detailed information. Lab Results 04/23/18 08:10: TSH 3rd Generation 0.97 04/23/18 08:10: Fasting Glucose 95, Triglycerides 65, Cholesterol 120 L, LDL Cholesterol Direct 58, HDL Cholesterol 48 Vital Signs Temp Pulse Resp BP 04/23/18 07:00 98.5 F 54 L 20 96/58 L 04/22/18 20:55 20 04/22/18 20:50 98.8 F 64 20 111/70 Patient was stabilized on the following medications: Wellbutrin 150 mg daily for depression multivitamins daily Seroquel 100 mg at the nighttime for mood stabilization Sonata 5 mg at the nighttime for insomnia Patient tolerated medications well, no side effects observed or reported, aims 0, no EPS. Overall patient improved, patient has better impulse control, patient adamantly denied thoughts of harming himself or others, insight into his addiction to cocaine and improved, patient was willing to go to inpatient rehab, patient was accepted to [facility]. Over the course of this hospitalization pt was attending groups, pt also had medication management, had therapeutic milieu. Overall pt improved significantly, pt's affect became brighter, pt was less depressed, has realistic future oriented plans, pt also does not appear to be psychotic, or anxious, pt was socially appropriate, no behavioral issues, pts insight improved and soon pt deemed to be ready for discharge. At the time of the discharge patient pose no imminent danger to self or others, will be discharged to inpatient rehab [facility], information about follow up appointment, time and address provided to the pt, (see SW note for more detailed information). It is a patient responsibility to follow up with outpatient clinic, PMD as well as specialists In case patient will need to obtain results of studies pending at discharge, patient was provided with contact information of Psychiatric Inpatient unit [phone] as well as Medical Record Department [phone], [facility] [phone]. Nicotine patch was provided Naltrexone is not the treatment of choice for cocaine addiction Counseling about smoking and alcohol cessation provided AA meetings as well [place] [facility] [place] information was provided by the pt was provided with prescriptions for 1 month supply and no refills for all of his medications (see medication reconciliation form). Pt was educated about safety plan in case of worsening of symptoms or in case of suicidal or homicidal ideation call 911 or go to the nearest ER, also was educated to take meds as prescribed and stay away from drugs, pt verbalized understanding. - Diagnosis (1) Bipolar 1 disorder Status: Chronic Priority: Medium (2) Cocaine abuse Status: Chronic Priority: High - Final Diagnosis (DSM 5) Condition upon Discharge: IMPROVED Disposition: HOME/ ROUTINE Follow-up Treatment Plan: At the time of the discharge patient pose no imminent danger to self or others, will be discharged to inpatient rehab [facility], information about follow up appointment, time and address provided to the pt, (see note for more detailed information). It is a patient responsibility to follow up with outpatient clinic, PMD as well as specialists In case patient will need to obtain results of studies pending at discharge, patient was provided with contact information of Psychiatric Inpatient unit [phone] as well as Medical Record Department [phone], as well as [facility] [place] [phone]. Nicotine patch was provided Naltrexone is not the treatment of choice for cocaine addiction Counseling about smoking and alcohol cessation provided AA meetings as well as [facility] [place] information was provided by the pt was provided with prescriptions for 1 month supply and no refills for all of his medications (see medication reconciliation form). Pt was educated about safety plan in case of worsening of symptoms or in case of suicidal or homicidal ideation call 911 or go to the nearest ER, also was educated to take meds as prescribed and stay away from drugs, pt verbalized understanding. Prescriptions/Medication Reconciliation: buPROPion XL [Wellbutrin XL] 150 mg PO DAILY #30 t24 Multivitamin Therapeutic Tab [Thera Tab] 1 tab PO 0800 #30 tab Pantoprazole [Protonix EC Tab] 20 mg PO 0600 #30 ect QUEtiapine [Seroquel] 100 mg PO HS #30 tab Zaleplon [Sonata] 5 mg PO HS PRN #30 cap PRN Reason: Insomnia - Smoking Cessation Smoking Cessation Medication prescribed: No Reason for not providing: Patient refused - Antipsychotic Medications Pt discharged on 2 or more routine antipsychotic medications: No
--- NOTE | 2018-04-29 13:02 | MRI ---
Date of service: 04/27/2018 PROCEDURE: MRI Right Knee HISTORY: Pain. COMPARISON: None available. TECHNIQUE: Multiecho multiplanar sequences were performed through the right knee. FINDINGS: ANTERIOR CRUCIATE LIGAMENT:: Intact. POSTERIOR CRUCIATE LIGAMENT:: Intact. MEDIAL MENISCUS:: Intact. LATERAL MENISCUS:: Intact. MEDIAL COLLATERAL LIGAMENT:: Intact. LATERAL COLLATERAL LIGAMENT COMPLEX:: Intact. QUADRICEPS TENDON:: Intact. PATELLAR TENDON:: There is fluid in the prepatellar bursa. The patellar tendon is intact. CARTILAGE:: Intact. JOINT FLUID:: There is a multiloculated Whitney cyst adjacent to the lateral head of the gastrocnemius muscle. This measures 5.6 cm in length and 2.2 cm diameter. OSSEOUS STRUCTURES:: Intact. OTHER FINDINGS: None. IMPRESSION: There is a multiloculated Whitney cyst adjacent to the lateral head of the gastrocnemius muscle. This measures 5.6 cm in length and 2.2 cm diameter. There is fluid in the prepatellar bursa. The patellar tendon is intact.
== END 2018-04-29 11:52 | disposition home or self-care (01) | DRG 885 ==
LOC: PSYC 19:01
PROVIDERS: ADMIT Psychiatry & Neurology Psychiatry; ATTEND Psychiatry & Neurology Psychiatry
DX: F31.9 Bipolar disorder, unspecified (principal); F14.10 Cocaine abuse, uncomplicated; F10.10 Alcohol abuse, uncomplicated; D64.9 Anemia, unspecified; D72.819 Decreased white blood cell count, unspecified; F17.210 Nicotine dependence, cigarettes, uncomplicated; F41.9 Anxiety disorder, unspecified; F60.2 Antisocial personality disorder; F90.9 Attention-deficit hyperactivity disorder, unspecified type; K21.9 Gastro-esophageal reflux disease without esophagitis; Z91.14 Patient's other noncompliance with medication regimen; F63.9 Impulse disorder, unspecified; M25.561 Pain in right knee

== ENCOUNTER 2018-07-21 13:37 | Inpatient (IN) | payer MEDICARE, OTHER ==
--- NOTE | 2018-07-21 14:10 | ED PDOC ---
Arrival/HPI - General Chief Complaint: Chest Pain Time Seen by Provider: 07/21/18 13:42 Historian: Patient - History of Present Illness Narrative History of Present Illness (Text): 07/21/18 14:07 A 42 year old male, whose past medical history includes thyroid disease, anemia, and cocaine abuse (snorting, last time was 2 weeks ago as per patient), presents to the emergency department complaining of chest pain since yesterday afternoon. Patient reports he went to [facility] yesterday for similar complaint and was told there were no issues, so was later discharged. However patient continued to feel pain. Today, the pain has worsened, with severity of 8/10, describing pain as "someone sticking their hand into his chest and twisting it inside." States pain worsens with deep breaths. Also, patient notes experiencing dizziness, some shortness of breath and had 2 episodes of vomiting. Patient denies any other complaints at this time. Patient mentions also having catheterization performed 1.5 months ago. Denies syncope or any recent travel. PMD: Dr. Echavarria 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 [place]) Hx Seizures: No - HEENT Hx HEENT Disorder: No - Renal Hx Renal Disorder: No - Endocrine/Metabolic Hx Endocrine Disorders: No - Hematological/Oncological Hx Blood Disorders: No - Integumentary Hx Dermatological Disorder: No - Musculoskeletal/Rheumatological Hx Musculoskeletal Disorders: No Hx Falls: Yes - Gastrointestinal Hx Gastrointestinal Disorders: Yes (HIATAL HERNIA) - Genitourinary/Gynecological Hx Genitourinary Disorders: No - Psychiatric Hx Depression: Yes Hx Substance Use: Yes - Anesthesia Hx Anesthesia: No Hx Anesthesia Reactions: No Hx Malignant Hyperthermia: No Family/Social History - Physician Review Nursing Documentation Reviewed: Yes Family/Social History: No Known Family HX Smoking Status: Heavy Smoker > 10 Cigarettes Daily Hx Alcohol Use: No Hx Substance Use: Yes Substance used: Cocaine Allergies/Home Meds Allergies/Adverse Reactions: Allergies mushroom Allergy (Verified 07/21/18 13:44) SHORTNESS OF BREATH Review of Systems - Physician Review All systems were reviewed & negative as marked: Yes - Review of Systems Constitutional: absent: Fevers, Night Sweats Respiratory: SOB (slightly). absent: Cough Cardiovascular: Chest Pain (8/10 severity, describing pain as "someone sticking their hand into his chest and twisting it inside;" worsens with deep breaths.). absent: Palpitations, ALLEN, Syncope Gastrointestinal: Vomiting (2 episodes). absent: Abdominal Pain Musculoskeletal: absent: Back Pain Neurological: Dizziness Physical Exam - Physical Exam Narrative Physical Exam (Text): Gen: NAD, cooperative, well appearing, non-toxic. Head: NCAT. HEENT: EYES: PERRL, EOMI, conjunctiva clear, MOUTH: moist MM, posterior pharynx without erythema or exudate, uvula midline. CV: (+) S1S2, RRR, no M/G/R, left sternal chest wall tenderness. LUNGS: CTA B/L, No W/R/R, good air movement Abd: Soft, NTTP, no guarding, rebound or rigidity. Neuro: AAO x 3, GCS 15, CN 2-12 intact, motor and sensory grossly intact, 5/5 muscle strength B/L UE's and LE's. ext: no cyanosis or edema Vital Signs Reviewed: Yes Blood Pressure: Normal Pulse: Regular Respiratory Rate: Normal Appearance: Positive for: Well-Appearing Pain Distress: None Mental Status: Positive for: Alert and Oriented X 3 Medical Decision Making ED Course and Treatment: 07/21/18 14:10 Impression: 42 year old male with chest pain. Plan: -- EKG -- Labs -- Nitroglycerin -- Urinalysis -- Aspirin -- Reassess and disposition Progress Notes: 07/21/18 14:[address] Echavarria, who accepts patient for admission. Also, Dr. Echavarria requests Dr. Gillis for consult. 07/21/18 15:10 Patien't blood pressure currently at 79/50. Looked at past chart from 04/2018, stating he had low blood pressure at the time time. IVF ordered. 07/21/18 15:20 Patient's blood pressure at this time is 101/75 after 300 CCs. - Lab Interpretations I have reviewed the lab results: Yes - RAD Interpretation Radiology Orders: 07/21/18 14:01 CHEST TWO VIEWS (PA/LAT) [RAD] Stat - Medication Orders Current Medication Orders: Discontinued Medications Aspirin (Aspirin) 325 mg PO STAT STA Stop: 07/21/18 14:02 Nitroglycerin (Nitrostat Sl Tab) 0.4 mg SL STAT STA Stop: 07/21/18 14:02 - Scribe Statement The provider has reviewed the documentation as recorded by the Scribe Redd Pereira Provider Scribe Attestation: All medical record entries made by the Scribe were at my direction and personally dictated by me. I have reviewed the chart and agree that the record accurately reflects my personal performance of the history, physical exam, medical decision making, and the department course for this patient. I have also personally directed, reviewed, and agree with the discharge instructions and disposition. Disposition/Present on Arrival - Present on Arrival Any Indicators Present on Arrival: No History of DVT/PE: No History of Uncontrolled Diabetes: No Urinary Catheter: No History of Decub. Ulcer: No History Surgical Site Infection Following: None - Disposition Have Diagnosis and Disposition been Completed?: Yes Diagnosis: Chest pain, Cocaine abuse, Polysubstance abuse Disposition Time: 15:23 Patient Plan: Admission Patient Problems: Current Active Problems Problem Status Onset Chest pain Acute Cocaine abuse Chronic Polysubstance abuse Chronic Condition: STABLE
[2018-07-21 14:44] LABS: BASO # 0.03 K/mm3 (0.0-2.0); BASO % 0.8 % (0.0-3.0); EOS # 0.2 (0.0-0.7); EOS % 5.9 % (1.5-5.0); HEMOGLOBIN 15.2 g/dL (14.0-18.0); LYMPH % 53.4 % (22.0-35.0); MEAN CELL VOLUME 93.3 fl (80.0-105.0); MEAN CORPUSCULAR HEMOGLOBIN 31.9 pg (25.0-35.0); MEAN CORPUSCULAR HGB CONC 34.2 g/dl (31.0-37.0); MEAN PLATELET VOLUME 9.3 fl (7.0-11.0); MONO # 0.4 (0.1-0.6); MONO % 10.8 % (1.0-6.0); RBC 4.76 10^6/uL (3.5-6.1); RED CELL DISTRIBUTION WIDTH 13.8 % (11.5-14.5); WHITE BLOOD COUNT 3.7 10^3/uL (4.5-11.0)
[2018-07-21 14:50] LABS: URINE BILIRUBIN NEGATIVE (NEGATIVE); URINE BLOOD NEGATIVE (NEGATIVE); URINE GLUCOSE (UA) NEGATIVE (NEGATIVE); URINE LEUKOCYTE ESTERASE NEGATIVE Leu/uL (NEGATIVE); URINE PROTEIN TRACE mg/dL (<30 mg/dL); URINE UROBILINOGEN 0.2 E.U./dL (<1 E.U./dL)
[2018-07-21 14:51] LABS: ALB/GLOB RATIO 1.2 (1.1-1.8); ALBUMIN 4.3 g/dL (3.0-4.8); ALT/SGPT 12 U/L (7-56); AST/SGOT 22 U/L (17-59); BLOOD UREA NITROGEN 15 mg/dL (7-21); GFR NON-AFRICAN AMERICAN > 60
[2018-07-21 14:52] LABS: URINE APPEARANCE CLEAR (CLEAR); URINE COLOR YELLOW (YELLOW)
[2018-07-21 15:03] LABS: BARBITURATES, UR NEGATIVE (NEGATIVE); TROPONIN I < 0.01 ng/mL
[2018-07-21 15:04] LABS: BENZODIAZEPINES, UR NEGATIVE (NEGATIVE); OPIATES, UR POSITIVE (NEGATIVE); PHENCYCLIDINE, UR NEGATIVE (NEGATIVE)
[2018-07-21] MEDS ORDERED: Sodium Chloride 0.9% 1,000 ML IV STA ×2 (15:05→17:18)
[2018-07-21 15:25] LABS: URINE BACTERIA TRACE /hpf; URINE RBC 0 - 2 /hpf (0-2)
[2018-07-21 17:11] VITALS: BMI 20.9
--- NOTE | 2018-07-21 17:40 | RAD ---
Date of service: 07/21/2018 HISTORY: chest pain COMPARISON: Comparison chest dated 04/20/2018 TECHNIQUE: 1 view obtained. FINDINGS: LUNGS: Lung connors are slightly overinflated possibly due to exuberant inspiration however underlying COPD not excluded. PLEURA: No no significant pleural effusion identified, no pneumothorax apparent. CARDIOVASCULAR: No aortic atherosclerotic calcification present. Normal cardiac size. No pulmonary vascular congestion. OSSEOUS STRUCTURES: No significant abnormalities. VISUALIZED UPPER ABDOMEN: Normal. OTHER FINDINGS: None. IMPRESSION: Lungs appear slightly overinflated possibly due to large breath hold however underlying mild COPD not excluded. No acute consolidation.
[2018-07-21] MEDS: Sodium Chloride 0.9% 1,000 ML IV SCH (19:45)
--- NOTE | 2018-07-22 02:27 | HP ---
DATE OF EXAM: 07/21/2018 The patient was seen and examined at the bedside on 07/21/2018. CHIEF COMPLAINT: Chest pain and shortness of breath. HISTORY OF PRESENT ILLNESS: Mr. Mahamed Dewey is a 42-year-old male with past medical history of thyroid disease, anemia, cocaine abuse, snoring last time was two weeks ago as per the patient, came to the emergency department complaining of chest pain since yesterday. The patient reports he went to [facility] yesterday for a similar complaints and he was told that there was no issue, so he was later discharge; however, the patient continued to feel pain. Today, the pain was worsened with severity of 8/10 describing pain as someone sticking their hand into the chest and twisting it inside. He states the pain worsened with deep breathing, also the patient noted , dizziness with shortness of breath and 2 episodes of vomiting, and according to the patient, he was in [facility] 1 month ago, they did his stress test, told him that his stress test is positive, but never went for followup as per the patient and according to another statement, he said that he has catheterization done, but we will work on that. PAST MEDICAL HISTORY: As above, history of left-sided brain tumor in 2006, taken care by specialist in [place], history of hiatal hernia, and depression. FAMILY HISTORY: Father and mother, noncontributory. HABITS: Heavy smoker more than 10 cigarette per day. Alcohol, no; as per the patient substance abuse, yes cocaine. ALLERGIES: THE PATIENT IS ALLERGIC WITH MUSHROOM. REVIEW OF SYSTEMS: The patient was seen and examined at the bedside in the emergency room, still having chest pain and shortness of breath. He is getting someone is sticking their hands into the chest and twisting it inside, worsened with the breathing, 2 episodes of vomiting. No headache. No dizziness at this moment. No hematuria. No hematochezia. PHYSICAL EXAMINATION: VITAL SIGNS: Temperature 97.8, pulse 60, blood pressure 102/73, and respiratory rate 17. HEENT: Head; normocephalic and atraumatic. Eyes; PERRLA. Extraocular muscles are intact. Conjunctivae clear. Nose patent. Mucous membranes moist. NECK: Supple. No carotid bruit, JVD or thyromegaly. CHEST: Bilaterally symmetrical. HEART: S1 and S2 positive. LUNGS: Clear to auscultation. ABDOMEN: Soft. Bowel sounds present. No organomegaly. EXTREMITIES: No edema. No cyanosis. NEUROLOGIC: The patient is awake and alert. Moving all four extremities. No focal deficits. MEDICATIONS: Reviewed by me. LABORATORY DATA: White blood cell 3.7, hemoglobin 15.2, hematocrit 44.4, and platelet 232. Sodium 138, potassium 4.5, BUN 15, creatinine 0.9, and glucose 79. ASSESSMENT AND PLAN: Mr. Mahamed Dewey is a 42-year-old male with leukopenia, troponin x1 is negative, proteinuria, opioids positive, cocaine positive, came with chest pain with shortness of breath. Chest x-ray done. Lungs appear slightly overinflated possibly due to large breath hold, have underlying mild chronic obstructive pulmonary disease not excluded. No acute consolidation. We will call petroleum supply specialist, especially the patient has history of shortness of breath. The patient has a history of thyroid disease, as per the patient has history of anemia, as per the patient cocaine abuser, history of depression, and has history of psych admission. We will call consult with Dr. Hafsa Swift, psychiatrist and tank car loader. Repeat labs. We will follow up. Kait Echavarria MD MTDD
[2018-07-22] MEDS: Sodium Chloride 0.9% 1,000 ML IV SCH ×2 (05:54→17:27)
[2018-07-22] MEDS: Pantoprazole 20 mg EC Tab PO SCH (05:54)
[2018-07-22 06:12] VITALS: O2SAT 97
[2018-07-22 06:54] LABS: MEAN CELL VOLUME 93.5 fl (80.0-105.0); MEAN CORPUSCULAR HEMOGLOBIN 31.5 pg (25.0-35.0); MEAN CORPUSCULAR HGB CONC 33.7 g/dl (31.0-37.0); MEAN PLATELET VOLUME 9.6 fl (7.0-11.0); RBC 4.13 10^6/uL (3.5-6.1)
[2018-07-22 06:58] LABS: IRON 68 ug/dL (45-180)
[2018-07-22 07:08] LABS: % IRON SATURATION 28 % (20-55); TOTAL IRON BINDING CAPACITY 244 ug/dL (261-462)
[2018-07-22 07:44] LABS: BLOOD UREA NITROGEN 11 mg/dL (7-21); CALCIUM 8.1 mg/dL (8.4-10.5); GFR NON-AFRICAN AMERICAN > 60
[2018-07-22 07:48] LABS: TROPONIN I < 0.01 ng/mL
[2018-07-22 08:36] LABS: HDL CHOLESTEROL 45 mg/dL (29-60)
[2018-07-22 08:47] LABS: LDL CHOLESTEROL 44 mg/dL (0-129)
[2018-07-22 08:48] LABS: TROPONIN I < 0.01 ng/mL
[2018-07-22] MEDS: buPROPion 150 mg/24 Hours XL Tab PO SCH (09:45)
[2018-07-22] MEDS: Multivitamin Therapeutic Tab PO SCH (09:45)
--- NOTE | 2018-07-22 14:08 | CP.PCM.PCO ---
Physician Communication Note - Physician Communication Note Physician Communication Note: echocardiogram pending, consult with psych pending
[2018-07-22 14:25] LABS: TROPONIN I < 0.01 ng/mL
--- NOTE | 2018-07-22 17:44 | CARD ---
APPROVED REPORT Date of service: 07/21/2018 EKG Measurement Heart [id number] <Conclusion> Normal sinus rhythm Normal ECG
--- NOTE | 2018-07-22 18:29 | PN ---
DATE: 07/22/2018 This case was discussed with Dr. Echavarria. She is in agreement with the case. SUBJECTIVE: A 42-year-old male. The patient came in over the weekend with complaints of chest pain, depression, anxiety, and palpitations. The patient has a history of polysubstance abuse, cocaine, depression, and anxiety. I examined the patient today. The patient was in the bed. The patient had no acute distress noted; appeared comfortable. Did complain of some chest pain with breathing and movement which is something chronic for the patient for the past week. The patient also was reported that he has been complaints after polysubstance use due to anxiety, depression of situation. No palpitation. No shortness of breath or cough. No calf pain or abdominal pain noted. OBJECTIVE: VITAL SIGNS: Temperature is 94, pulse rate is 58, blood pressure 94/52, and O2 saturation 97% on 2 liters. When the patient was assessed, he had no oxygen on. He was on room air. JORDAN , AWAKE , ALLERT . HEAD NC . AT , EYES ROSA ISELA EOMI , NOSE PATENT , MMM, NECK SUPPLE , HEART S1S2+ , LUNGS CTA , ABDOMEN SOFT , BS + , EXT NO EDEMA LABORATORY DATA: White blood cells 5, hemoglobin 13, and hematocrit 38.6. Sodium 138, potassium 3.9, chloride 109, carbon dioxide 24, BUN 11, and his GFR remains over 60. Random glucose was 78. Hemoglobin today was 5.8. Her lactate dehydrogenase was low at 253 and cholesterol was normal. MEDICATIONS: The patient continues on Wellbutrin 150 mg p.o. daily, Protonix 20 mg p.o. daily, Seroquel 100 mg p.o. at bedtime, sodium chloride 100 mL IV x1 day, Sonata 5 mg p.o. at bedtime p.r.n. for insomnia. ASSESSMENT AND PLAN: I spoke to the patient today about stressors and coping mechanism. The patient homeless, [facility], he can go there for treatment after discharge. He was a patient there, had a relapse, used again. Has some other personal problems with employment. Plan is for the patient to be clinically, medically stable before going to psychiatric admission at [facility]. We will follow up. PT IS S/E AT BED SIDE , AGREED ALL ABOVE , MICHAEL, IS ON THE CASE , [facility]JI TRANS [facility] PT TO PSY, AFTER MEDICLE CL Pierre Holden APN Kait Echavarria MD MTDRed
[2018-07-22] MEDS: Arformoterol 15 mcg/2 ml Inh Sol IH SCH (19:45)
[2018-07-22] MEDS: Budesonide 0.5 mg/2 ml Inhal Susp UD IH SCH (19:45)
--- NOTE | 2018-07-22 20:07 | CON ---
DATE OF CONSULTATION: 07/22/2018 HISTORY OF PRESENT ILLNESS: In short, the patient is a 42-year-old -Stateless male with multiple medical issues including thyroid disease and anemia. The patient also has a history of typical chest pain. Also, the patient has a history of antisocial personality traits, rule out bipolar disorder. The patient has numerous psychiatric admissions including into this facility. The patient was discharged in 04/2018 to [facility]. The patient stayed into the psychiatric inpatient unit for seven days. At this time, the patient came to the hospital complaining of chest pain, most likely it was related to the fact that he was using cocaine. The patient reported that after he left the hospital in 04/2018, he was doing well and the patient was happy to be in [facility]. The patient reported that he left [facility] in the past in order to see his daughter. The patient reported that he came back late and he was not accepted back there. The patient reported since that time he was calling daily to [facility] in order to be accepted back there again, but the patient was rejected. The patient tried his best to find a job and do well, but the patient relapsed on cocaine about two to three weeks ago. The patient reported that he was binged using cocaine over the weekends majority of the time and as a result the patient became depressed. The patient said that he was feeling edgy and angry. The patient verbalized that he had thoughts of harming himself by using carbon monoxide and gas. The patient reported feeling of hopeless and helpless. The patient reported that he was not taking any medications because he ran shortly on the medication. The patient denied hearing voices, but the patient reported to have negative thoughts, "I screwed up, I screwed up," this is the patient's statement. VITAL SIGNS: Reviewed. Temperature 97.8, pulse is 54, blood pressure 88/55, respirations 20, and oxygen saturation is 97. MEDICATIONS: Reviewed. The patient is on Wellbutrin 150 mg daily, multivitamins, Protonix, Seroquel at the nighttime, sodium chloride, and Sonata 5 mg as needed. LABORATORY DATA: Labs reviewed. Hematology reviewed. Chemistry reviewed. Urinalysis reviewed. Toxicology was positive for opioids and cocaine. MENTAL STATUS EXAMINATION: The patient presented to be alert, oriented, pleasant and superficially cooperative. Intermittent eye contact. Mood described as depressed. Affect was constricted, but reactive and mood congruent. Thought process seems to be circumstantial. Thought Content: The patient denied visual, auditory, or tactile hallucinations, but negative thoughts. The patient said that he had suicidal ideation with a plan to poison himself with carbon monoxide. Insight and judgment seems to be fair. Impulses are well controlled at present moment. The patient contracted for safety. There is no need of one-to-one observation. IMPRESSION: As per history, the patient has bipolar disorder. Also, the patient has a history of polysubstance abuse and dependence, rule out substance-induced mood disorder, cocaine abuse, opioid abuse. PLAN: The patient wants to sign himself into the psychiatric inpatient unit for further evaluation and stabilization and medication adjustment. The patient wants to go to inpatient rehab in order to sustain his sobriety. Wellbutrin was started by medical team as well as Seroquel. We will follow up and advise accordingly. Should you have any questions, give me a call back. Thank you very much for letting me participate in the care of your patient. Most likely, the patient would need psychiatric admission. The patient is not cleared from the psychiatric standpoint. Hafsa Swift MD
--- NOTE | 2018-07-22 21:31 | CON ---
DATE: 07/22/2018 CONSULT SERVICE: Cardiology. REASON FOR CONSULTATION: Cardiac evaluation, admitted with a chest pain, shortness of breath, history of substance abuse, and history of tobacco abuse. BRIEF CLINICAL HISTORY: This is a 42-year-old male, with a past medical history significant for thyroid disease, actively smokes tobacco as well as cocaine, came into the emergency room with complaint of a chest pain and weakness with tenderness at the left side of the chest. Denies any prior dyspnea with exertion or chest pain on exertion. History of cardiac catheterization two months ago after having abnormal stress test at [facility]; they told arteries are okay. Yesterday, the patient was admitted to the [facility] with the same complaint and was discharged and was told no significant blockage in the arteries, the pain is not coming from the heart and medical treatment recommended. The patient was discharged home. So the patient came back here to the ER again with the same complaint. PAST MEDICAL HISTORY: Significant for recurrent admissions with the chest pain here and at [facility] as well, history of hiatal hernia, history of depression, history of left-sided brain tumor in 2005. FAMILY HISTORY: Noncontributory. SOCIAL HISTORY: Active tobacco use, half a pack to one pack a day. Denies any history of alcohol abuse, but uses cocaine, which is also positive on tox screen. ALLERGIES: ALLERGY TO MUSHROOM. CURRENT MEDICATIONS: The patient at home was taking Wellbutrin XL 150 mg daily, Sonata 5 mg daily, Seroquel 100 mg at bedtime, Protonix 20 mg daily, and multivitamin 1 tablet daily. REVIEW OF SYSTEMS: As per HPI. RECENT CARDIAC WORKUP: As follows; the patient had a stress test two months ago at [facility], it was positive so following that the patient had a cardiac catheterization and was told it was okay. Also the patient had an echo at [facility]. PHYSICAL EXAMINATION: As follows; GENERAL: Height of the patient 5 feet 6 inches, weight of the patient 118 pounds, and body mass index 19.1 kg/m2. VITAL SIGNS: Temperature afebrile, heart rate 50, and blood pressure 100/80. HEENT: PERRLA. Extraocular muscles intact. NECK: Supple. No carotid bruits or thyromegaly. CHEST: Clear to auscultation. HEART: S1 and S2 regular. ABDOMEN: Soft. EXTREMITIES: Clubbing and cyanosis negative. LABORATORY DATA: EKG shows normal sinus with a heart rate of 77. Telemetry shows sinus bradycardia at rate of 55. Blood workup as follows; WBC 5, hemoglobin 13.0, hematocrit 38.6, and platelet count 214. Chemistry shows sodium 138, potassium 3.9, chloride 109, carbon dioxide 24, anion gap of 9, BUN 11, and creatinine 0.8. Troponin 0.01 x3 negative. Urine toxic screen is positive for opiates and cocaine. IMPRESSION: A 42-year-old male, active tobacco abuse and active cocaine abuse, who came in with a chest pain. Echocardiogram was pretty benign so far. No evidence of acute myocardial infarction. History of cardiac catheterization after having abnormal stress test at [facility] two months ago and was told negative. Also echocardiogram done. RECOMMENDATIONS: We will get lipid profile, TSH, and hemoglobin A1c. We will get the report from [facility] and if it is negative, we will discontinue telemetry. Discussed with the patient and asked the clerk secretary to get the release of information signed to get the cath report, stress test, and echo. Further recommendations depending upon reviewing these test results at [facility]. Thank you Dr. Echavarria for providing us the opportunity in taking care of Mr. Mahamed Dewey. Garcia Santacruz MD
--- NOTE | 2018-07-22 22:21 | CON ---
DATE: 07/22/2018 PULMONARY CONSULTATION REFERRING PHYSICIAN: Kait Echavarria MD REASON FOR CONSULTATION: Chronic lung disease, substance abuse, chest pain, short of breath. HISTORY OF PRESENT ILLNESS: This is a 42 years old gentleman with a past medical history significant for brain tumor in the remote past, hiatal hernia, depression, chronic lung disease, history of anemia, thyroid disease, who is a substance abuser, usually snorts the cocaine, recently discharged from [facility], comes in with chest pain radiating to the left arm, short of breath, presently lying in the bed, overall feels better, but still has some numbness of the left lower extremity. No nausea, vomiting, diarrhea. No leg pain or leg swelling. PAST MEDICAL HISTORY: As per history of present illness. ALLERGIES: TO MUSHROOMS. SOCIAL HISTORY: Heavy smoker, denying alcohol use, but uses cocaine. FAMILY HISTORY: Not significant. Father with pulmonary disease reported. MEDICATIONS: He is on Protonix 20 mg daily, Seroquel 100 mg daily, IV fluid normal saline 100 mL per hour, Sonata 5 mg at bedtime p.r.n., multivitamins daily and Wellbutrin 150 mg daily. REVIEW OF SYSTEMS: No headache, no rhinitis. Has some chest discomfort, which is better. No nausea, no vomiting, diarrhea. No leg pain or leg swelling. PHYSICAL EXAMINATION VITAL SIGNS: Temperature 98, heart rate is 58, respiratory rate is 18, blood pressure 94/52, pulse oxymetry 97% on 2 liters per nasal canula. HEENT: Moist mucous membranes. Crowded airway. Mallampati score is 4. NECK: Supple. No JVD. LUNGS: Diffuse scattered rhonchi and wheezing. HEART: S1 and S2. ABDOMEN: Soft and nontender. No organomegaly. EXTREMITIES: There is no edema. NEUROLOGICAL: Awake, alert, follows simple commands. LABORATORY DATA: Shows hemoglobin 13.0, hematocrit 38.6, WBC 5.0, platelets 214. Sodium 138, potassium 3.9, chloride 109, bicarbonate 24, BUN 11, creatinine 0.8, calcium is 8.1. Hemoglobin A1c 5.8, iron is 68, LDH is 263. Troponin less than 0.01. Cholesterol is 102, triglyceride is 55. Drug screen positive for opiates and cocaine. IMPRESSION: 1. Chronic obstructive lung disease. 2. Substance abuse. 3. History of brain tumor in the past. 4. Anemia. 5. Thyroid disease. PLAN: I agree with Dr. Echavarria with the present management. May add Lyrica 25 mg twice a day, also inhaled bronchodilators, gastric prophylaxis, sequential compression devices to lower extremity. The patient is urged and counseled about the substance abuse. He expressed understanding. We will get echocardiogram to assess left ventricle/right ventricle function. Garcia Marroquin MD
[2018-07-23] MEDS: Pantoprazole 20 mg EC Tab PO SCH (06:40)
[2018-07-23] MEDS: Sodium Chloride 0.9% 1,000 ML IV SCH ×2 (06:40→13:09)
[2018-07-23] MEDS: Budesonide 0.5 mg/2 ml Inhal Susp UD IH SCH (07:59)
[2018-07-23] MEDS: Arformoterol 15 mcg/2 ml Inh Sol IH SCH (07:59)
[2018-07-23] MEDS: Multivitamin Therapeutic Tab PO SCH (10:17)
[2018-07-23] MEDS: buPROPion 150 mg/24 Hours XL Tab PO SCH (10:17)
--- NOTE | 2018-07-23 11:47 | CARD ---
APPROVED REPORT Date of service: 07/23/2018 EXAM: Two-dimensional and M-mode echocardiogram with Doppler and color Doppler. INDICATION Chest Pain 2D DIMENSIONS Left Atrium (2D)3.5 (1.6-4.0cm)IVSd1.1 (0.7-1.1cm) LVDd4.4 (3.9-5.9cm)PWd1.2 (0.7-1.1cm) LVDs2.8 (2.5-4.0cm)FS (%) 35.4 % LVEF (%)65.1 (>50%) M-Mode DIMENSIONS Aortic Root2.40 (2.2-3.7cm)Aortic Cusp Exc.1.80 (1.5-2.0cm) Aortic Valve AoV Peak Tjahfygh796.0cm/Padmini Peak GR.10mmHg Mitral Valve E/A ratio0.0 TDI E/Lateral E'0.0E/Medial E'0.0 Tricuspid Valve TR Peak [id number]/sRAP [id number] Peak Gr.20mmHg [id number] LEFT VENTRICLE The left ventricle is normal size. There is normal left ventricular wall thickness. The left ventricular function is normal.EF-55-60% There is normal LV segmental wall motion. The left ventricular diastolic function is normal. No left ventricle thrombus noted on this study. There is no ventricular septal defect visualized. There is no left ventricular aneurysm. There is no mass noted in the left ventricle. RIGHT VENTRICLE The right ventricle is mildly dilated. There is normal right ventricular wall thickness. Systolic function of RV is mildly reduced. ATRIA The left atrium size is normal. The right atrium size is normal. The interatrial septum is intact with no evidence for an atrial septal defect. AORTIC VALVE The aortic valve is thickened but opens well. No aortic regurgitation is present. There is no aortic valvular stenosis. There is no aortic valvular vegetation. MITRAL VALVE The mitral valve is thickened but opens well. Mitral regurgitation is trace. There is no mitral valve stenosis. There is no evidence of mitral valve prolapse. TRICUSPID VALVE The tricuspid valve leaflets are thickened , but open well. There is mild tricuspid regurgitation.RVSP_30 mmof hg. There is no tricuspid valve stenosis. There is no tricuspid valve prolapse or vegetation. PULMONIC VALVE The pulmonary valve is normal in structure. There is trace pulmonic valvular regurgitation. There is no pulmonic valvular stenosis. GREAT VESSELS The aortic root is normal in size. The ascending aorta is normal in size. The pulmonary artery is normal. The IVC is normal in size and collapses >50% with inspiration. PERICARDIAL EFFUSION There is no pleural effusion. There is no pericardial effusion. <Conclusion> The left ventricle is normal size. There is normal left ventricular wall thickness. The left ventricular function is normal.EF-55-60% The right ventricle is mildly dilated. Systolic function of RV is mildly reduced. Mitral regurgitation is trace. There is mild tricuspid regurgitation.RVSP_30 mmof hg. The IVC is normal in size and collapses >50% with inspiration. There is no pericardial effusion. No vegetation or thrombus noted.
[2018-07-23 12:06] VITALS: BP 94/57; PULSE 62; RESP 18; TEMP 98.3
--- NOTE | 2018-07-23 13:32 | PN ---
DATE: 07/23/2018 REASON FOR CONSULTATION AND FOLLOWUP: Cardiac evaluation, admitted with the chest pain and shortness of breath, history of substance abuse, history of tobacco abuse. SUBJECTIVE: The patient denies any complaint of some pain in the left shoulder and pectoral muscles. Denies any shortness of breath. PHYSICAL EXAMINATION: GENERAL: Not in apparent distress, lying flat on the bed. VITAL SIGNS: Temperature afebrile, heart rate 56, and blood pressure 102/66. HEENT: PERRLA. Extraocular muscles intact. NECK: Supple. No carotid bruits or thyromegaly. CHEST: Clear to auscultation. HEART: S1 and S2 regular. ABDOMEN: Soft. EXTREMITIES: Clubbing and cyanosis negative. LABORATORY DATA: Blood workup as follows; WBC 5, hemoglobin 13, hematocrit 38.6, and platelet count 214. Chemistry shows sodium 130, potassium 3.9, chloride 109, carbon dioxide 24, anion gap of 9, BUN 11, and creatinine 0.8. Troponin is 0.0 x3 remains negative. Toxic screen is positive for opiates and also positive for cocaine. IMPRESSION: A 42-year-old male with active tobacco abuse, active substance abuse, cocaine positive toxic screen. Electrocardiogram was okay and no evidence of acute ST-T changes, so far troponin remains negative and no evidence of acute myocardial infarction. Length of discussion done yesterday after the patient agreed to signed informed consent from [facility]. The patient was admitted in 05/2018 after having cocaine and found to be an acute coronary syndrome. The patient subsequently underwent stress test that shows inferior lateral wall ischemia, ejection fraction 57%, subsequently the patient underwent cardiac catheterization that revealed no significant coronary artery disease and medical treatment recommended and subsequently the patient discharged on 05/31/2018 on Zoloft 50 mg daily, baby aspirin and atorvastatin. We are planned to followed up with Dr. Phillips, regional administrative assistant. The patient also history of bipolar depression and history of substance abuse as mentioned above, whole chart from [facility] reviewed 40 pages fax from the [facility] has been reviewed and in summary it is transcribed as the patient admitted to [facility] on 05/29/2018 with acute coronary syndrome after having cocaine on board. Troponin remains negative, but the patient underwent stress test that reveals inferior lateral wall ischemia, ejection fraction of 57% following this patient had a cardiac catheterization on 05/30/2018. No intervention was done, no significant lesion identified in coronaries as per the report and chest pain though to be cocaine induced and musculoskeletal pain. He is planned to followed up with Dr. Phillips and discharged on aspirin, Zoloft and atorvastatin. Could not find the echo report, they are under transmission. PLAN: We ordered echo to assess LV function, RV function, valvular dysfunction, discontinue telemetry the patient complete sedation smoking and complete abstinence of cocaine which is very dangerous to life made that the patient can with arrhythmia. The complications of cocaine not limited too, but can lead to arrhythmia and cardiac . We will follow with you. We will follow the echo which is done. We will discontinue telemetry once the echo is done and found to be okay. No further cardiac workup is planned or warranted. Thank you Dr. Echavarria for providing us the opportunity in taking care of the patient Mahamed Dewey. Garcia Santacruz MD
--- NOTE | 2018-07-23 20:49 | PN ---
DATE: 07/23/2018 SUBJECTIVE: The patient is a 42-year-old male with reported history of bipolar disorder, multiple medical comorbidities. Initially the patient was admitted on the medical side for chest pain. Psych consult was called for evaluation of mood symptoms and possible suicidal ideation. The patient also was using drugs. The patient was seen initially yesterday. Please see initial consultation for more information. During the initial evaluation, the patient verbalized that he was not doing well. The patient was noncompliant with the medications as well as had suicidal ideation with a plan to use carbon monoxide to poison himself. The patient was feeling hopeless and helpless and this principal technical writer offered the patient admission to the psychiatric inpatient unit. The patient agreed with that plan. VITAL SIGNS: Today is 98.3 temperature, pulse 62, blood pressure 94/57, respirations 18. MEDICATIONS: Reviewed. The patient was on Tylenol, Brovana, Pulmicort, Wellbutrin, multivitamins, Protonix, Lyrica 25 mg twice a day, Seroquel 100 mg at the nighttime, Sonata 5 mg at the nighttime as needed. LABORATORY DATA: Reviewed. Chemistry reviewed. Toxicology was positive for cocaine as well as opioids. MENTAL STATUS EXAM: The patient presented today to be depressed, flat affect. Mood described as hopeless and depressed. Affect was flat. Thought process seems to be concrete. Thought content. The patient denied visual, auditory tactile hallucinations. The patient reported that he was feeling hopeless and helpless and still has suicidal ideation with a plan for carbon monoxide poisoning. Insight and judgment seems to be limited. Impulses are unpredictable. IMPRESSION: As per history, bipolar disorder, rule out antisocial personality disorder. The patient also has polysubstance abuse dependence, chest pain most likely is related to the fact that the patient was abusing cocaine and chest pain is much better and improving. PLAN: After medical stabilization, the patient might be required to be transferred to the psychiatric inpatient unit, medication will be resumed. The patient expressed his highest interest to go to inpatient rehab, maintaining sobriety. Meanwhile the patient needs to be on the medical side up until the clearance and the patient will be transferred to the psychiatric inpatient unit for further evaluation and stabilization. Thank you very much for letting me participate in the care of your patient. Should you have any questions give me a call back. Hafsa Swift MD [facility] # [id number]
--- NOTE | 2018-07-24 02:32 | DS ---
The patient was seen and examined at the bedside on 07/23/2018. CHIEF COMPLAINT: Chest pain and shortness of breath. HISTORY OF PRESENT ILLNESS: Mr. Mahamed Dewey is a 42-year-old male with a past medical history of left-sided brain tumor in 2005, taken care in [place]; history of hiatal hernia, depression, history of drug abuse, psychiatric history came in [facility] with a chest pain. The patient was seen in [facility] as per the patient a couple of times. Now chest pain was so bad, he came to [facility]. His cocaine was positive. Seen by the hunting sales associate, echocardiography done. Behavior Management Specialist cleared the patient. The patient is still depressed, seen by Psychiatry, Psychiatry accepted the patient via transferring the patient to the Psychiatry. PAST MEDICAL HISTORY: History of cocaine abuse, hiatal hernia, depression, and brain tumor. FAMILY HISTORY: Father and mother noncontributory. HABITS: Heavy smoker, more than 10 cigarettes per day. Alcohol no as per the patient. Substance abuse yes. ALLERGIES: THE PATIENT IS ALLERGIC WITH MUSHROOMS. REVIEW OF SYSTEMS: The patient was seen and examined at the bedside, looking comfortable. No fever. No chills. No hematuria or hematochezia. No headache or dizziness. No chest pain. No palpitation. No shortness of breath. Chest discomfort is gone. PHYSICAL EXAMINATION: VITAL SIGNS: Temperature 98.3, pulse 62, blood pressure 94/67, and respiratory rate 18. HEENT: Head; normocephalic and atraumatic. Eyes; PERRLA. Extraocular muscles are intact. Conjunctivae clear. Nose patent. Mucous membranes moist. NECK: Supple. No carotid bruit, JVD, or thyromegaly. CHEST: Bilaterally symmetrical. HEART: S1 and S2 positive. LUNGS: Clear to auscultation. ABDOMEN: Soft. Bowel sounds present. No organomegaly. EXTREMITIES: No edema. No cyanosis. NEUROLOGIC: The patient is awake and alert. Moving all four extremities. No focal deficit. MEDICATIONS: Brovana, Lyrica, Protonix, Pulmicort, Seroquel, normal saline, Sonata, and Wellbutrin. LABORATORY DATA: White blood cells 5, hemoglobin 13, and hematocrit 38.6, and platelets 214. Sodium 138, potassium 3.9, BUN 11, creatinine 0.8, and calcium 8.1. ASSESSMENT AND PLAN: Mr. Mahamed Dewey is a 42-year-old male with anemia, hyperchloremia, hypocalcemia, iron deficiency, proteinuria. Drug screen positive for opiates and cocaine metabolites. Came with chest pain, seen by Dr. Santacruz hunting sales associate, went for echocardiography. Seen by molder feeder for shortness of breath and pain with breathing, chronic obstructive lung disease, history of brain tumor in the past, thyroid disease. Dr. Marroquin added Lyrica 25 mg twice a day. Inhaled bronchodilators, gastrointestinal and deep venous thrombosis prophylaxis, sequential compression devices to lower extremities. The patient is urged and counseled about substance abuse and smoking. The patient is cleared by the hunting sales associate, discharged to Psychiatry, Dr. Hafsa Swift knows this patient. We will follow up there. Kait Echavarria MD
== END 2018-07-23 14:00 | DRG 313 ==
LOC: ED 13:37 → ERH 15:20 → 2RNO 18:20 → OBSVTOIN 07-22 23:25
PROVIDERS: ADMIT Internal Medicine; ATTEND Internal Medicine
DX: R07.89 Other chest pain (principal); F14.20 Cocaine dependence, uncomplicated; F11.20 Opioid dependence, uncomplicated; R45.851 Suicidal ideations; J44.9 Chronic obstructive pulmonary disease, unspecified; D64.9 Anemia, unspecified; F31.9 Bipolar disorder, unspecified; K44.9 Diaphragmatic hernia without obstruction or gangrene; E83.51 Hypocalcemia; E07.9 Disorder of thyroid, unspecified; F41.9 Anxiety disorder, unspecified; F17.210 Nicotine dependence, cigarettes, uncomplicated; Z91.14 Patient's other noncompliance with medication regimen; Z59.0 Homelessness

== ENCOUNTER 2018-07-23 14:00 | Inpatient (IN) | payer MEDICARE, OTHER ==
[2018-07-23 15:01] VITALS: BMI 24.4
[2018-07-23] MEDS ORDERED: Magnesium Hydroxide Susp 30 ml UD PO PRN (16:12)
[2018-07-23] MEDS ORDERED: Alum-Mag Hydrox-Simethicone Susp (30 mL) PO PRN (16:12)
--- NOTE | 2018-07-23 18:48 | PCM.BM ---
<April Nuno - Last Filed: 07/23/18 18:45> Treatment Plan Problems - Problems identified on initial assessmt ANXIETYR/T SUBSTANCE ABUSE Date Initiated: 07/23/18 Time Initiated: 19:00 Assessment reference: NA Status: Active Priority: 1 DEFENSIVE COPING SKILLS Date Initiated: 07/23/18 Time Initiated: 19:00 Assessment reference: NA Status: Active Priority: 2 MEDICATION NON ADHERENCE Date Initiated: 07/23/18 Time Initiated: 19:00 Assessment reference: NA Status: Active Priority: 3 HIGH RISK VIOLENCE Date Initiated: 07/23/18 Time Initiated: 19:00 Assessment reference: NA Status: Active Priority: 4 Treatment assets and liabiliti Patient Assests: adapts well, cooperative, educated, motivated, resourceful, self-reliant, ADL independent, negotiates basic needs, cognitively intact Patient Liabilities: live alone, financial problems, poor support system, substance abuse - Milieu Protocol Maintain good personal hygiene: daily Encourage regular showers, daily Remind patient to perform daily oral care, daily Assist patient to perform ADL's Maintain personal safety: every shift Educate patient to report safety concerns to staff, every shift Monitor environment for contraband/sharps Medication safety: Monitor for expected outcome, potential side effects: every shift, Assess barriers to learning: every shift, Assess readiness for medication education: every shift Discharge/Continuing Care - Education Needs Education Needs: Patient Medication, Patient Diagnosis/Disease Process, Patient Coping Skills, Patient Anger Management skills, Patient Community resources, Patient Activities of Daily Living, Patient Nutrition, Patient Health Practices/Safety, Patient Personal Hygiene/Grooming, Patient Aftercare Safety Plan - Discharge Discharge Criteria: Tolerates medication w/o severe side effects, Free of Suicidal thoughts, Free of agitation, Normal sleep pattern, Ability to care for self, No longer exhibiting s/s of withdrawal, Reduction of target symptoms Discharge to:: Substance Abuse Rehab <Georgette Jarrett - Last Filed: 07/24/18 10:28> Family Contact Family involvement: Famliy/SO not involved Family contact: Patient declines to allow family contact at present <Hafsa Swift - Last Filed: 07/24/18 13:16> - Diagnosis (1) Bipolar 1 disorder Status: Chronic Interventions: 07/24/18 13:13 Psychoeducation Psychopharmacology/adjustment of medications as needed/ monitoring possible side effects Monitor blood level of mood stabilizers Evaluate pt on daily basis Compliance with medications and follow up appointments Suicide and homicide risk assessment and prevention, coping strategies, safety plan Relapse prevention Reduction of symptoms Improve functional status Family involvement As outpatient: cognitive behavioral therapy (2) Polysubstance abuse Status: Chronic Interventions: 07/24/18 13:13 UDS was positive for cocaine and opioids Maintaining sobriety Relapse prevention Possible rehabilitation Motivational interviewing 12-step programs: AA meetings inpatient rehab 07/24/18 13:15 (3) Known medical problems Status: Acute Interventions: 07/24/18 13:14 Pt will be seen by medical team as well as Grounds Person/ neurologist as needed Medications confirmed and resumed Additional consultation by specialists as needed Lab work as needed (CBC, CMP, TSH, free T4, UA, Urine test for females as needed) CXR as needed EKG Physical therapy evaluation as needed
[2018-07-23] MEDS ORDERED: Arformoterol 15 mcg/2 ml Inh Sol IH SCH (20:00)
[2018-07-23] MEDS: Budesonide 0.5 mg/2 ml Inhal Susp UD IH SCH (20:20)
[2018-07-23] MEDS: Arformoterol 15 mcg/2 ml Inh Sol IH SCH (20:20)
[2018-07-24] MEDS: Pantoprazole 20 mg EC Tab PO SCH (06:15)
[2018-07-24 06:54] LABS: HDL CHOLESTEROL 50 mg/dL (29-60)
[2018-07-24 07:13] LABS: LDL CHOLESTEROL 63 mg/dL (0-129)
[2018-07-24 07:27] LABS: FREE T4 0.73 ng/dL (0.78-2.19)
[2018-07-24] MEDS: buPROPion 150 mg/24 Hours XL Tab PO SCH (09:12)
[2018-07-24] MEDS: Multivitamin With Minerals Tab PO SCH (09:12)
[2018-07-24] MEDS: Arformoterol 15 mcg/2 ml Inh Sol IH SCH ×2 (09:36→20:32)
[2018-07-24] MEDS: Budesonide 0.5 mg/2 ml Inhal Susp UD IH SCH ×2 (09:36→20:32)
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
[2018-07-25] MEDS: Arformoterol 15 mcg/2 ml Inh Sol IH SCH ×2 (09:24→20:52)
[2018-07-25] MEDS: Budesonide 0.5 mg/2 ml Inhal Susp UD IH SCH ×2 (09:24→20:53)
[2018-07-25] MEDS: buPROPion 150 mg/24 Hours XL Tab PO SCH (09:36)
[2018-07-25] MEDS: Multivitamin With Minerals Tab PO SCH (09:42)
[2018-07-25] MEDS: Pantoprazole 20 mg EC Tab PO SCH (09:48)
--- NOTE | 2018-07-25 16:57 | PCM.PYCHPN ---
Psychiatric Progress Note - Psychiatric Progress Note Patient seen today, length of contact: 30 minutes Patient Chief Complaint: "I feel little better.." Problems Identified/Issues Discussed: Medications, risk/benefits/alternatives, suicide prevention, coping strategies, aftercare plan, possible inpatient rehab transfer. Medical Problems: See HPI Diagnostic Results: Lab Results 07/24/18 06:10: Triglycerides 133, Cholesterol 127 L, LDL Cholesterol Direct 63, HDL Cholesterol 50 07/24/18 06:10: Free T4 0.73 L, TSH 3rd Generation 0.60 Vital Signs Temp Pulse Resp BP 07/25/18 16:00 67 97/60 L 07/25/18 07:16 97.7 F 65 18 92/52 L 07/24/18 16:00 69 120/73 07/24/18 07:03 97.1 F L 67 17 88/57 L 07/23/18 16:42 61 102/62 07/23/18 16:00 90 95/48 L DSM 5 Symptoms Update: Patient is a 42 year old single male with history of bipolar disorder, cocaine use disorder, alcohol abuse, numerous psychiatric admissions-most recently was discharged from [facility] [place], history of suicidal attempts, history of chronic noncompliance with the medications and follow-up appointments who was transferred from the medical floor after ruled out for myocardial infarction, patient presenting to our ER with left-sided chest pain in context of cocaine us e, this sheet writer was involved as a leadership development consultant, pt verbalized thoughts of harming self with the plan to CO poisoning, pt was medically stable for transfer, patient was admitted to the psychiatric inpatient unit for further evaluation and stabilization. Patient was seen Nursing station, hygiene is improving. Patient reported that he had a good night sleep, patient still has transient feeling of hopelessness, patient started to participate in unit activities, started to go to group therapy, but observing, not participating, no agitation, no aggression. As per nursing report, patient is compliant with medications, he is not socializing with others. Patient denied hearing voices, denied seeing things, denied paranoid ideation. So far patient tolerates medications well, no side effects observed or reported, AIMS 0, no EPS. Impression: DSM 5 Diagnosis: bipolar disorder, most recent episode mixed, severe with no psychosis polysubstance abuse r/o substance induced mood disorder Medication Change: No (resumed) Medical Record Reviewed: Yes Consults ordered or reviewed: Medical follow-up as needed Cardiology follow-up as needed Mental Status Examination - Cognitive Function Orientation: Person, Place, Situation Memory: Intact Attention: Poor Concentration: Poor Association: WNL Fund of Knowledge: WNL - Mood Mood: Depressed, Anxious - Affect Affect: Constricted - Formal Thought Process Formal Thought Process: Circumstantial - Suicidal Ideation Suicidal Ideation: No - Homicidal Ideation Homicidal Ideation: No Goal/Treatment Plan - Goal/Treatment Plan Need for Continued Stay: Remain at risks for inpatient hospitalization, Severe depression anxiety, Discharge may exacerbated symptoms, Severe functional impairment Progress Toward Problem(s) and Goals/Treatment Plan: Milieu/structure/supportive therapy Medical consult was called SW consultation for discharge plan and social issues Med management Wellbutrin was resumed Seroquel was resumed PRN meds Follow up on labs Will monitor closely Pt was educated about risk/benefits and alternatives of medications, coping strategies (safety plan, suicide prevention), relapse prevention, importance of follow up with psychiatrist and therapist, stay away from drugs/alcohol/smoking Estimated Date of D/C: 07/29/18
[2018-07-26] MEDS: Pantoprazole 20 mg EC Tab PO SCH (06:57)
[2018-07-26 07:30] VITALS: RESP 20; TEMP 97.9
[2018-07-26 07:33] VITALS: BP 102/62; PULSE 69
[2018-07-26] MEDS: Budesonide 0.5 mg/2 ml Inhal Susp UD IH SCH (08:06)
[2018-07-26] MEDS: Arformoterol 15 mcg/2 ml Inh Sol IH SCH (08:06)
--- NOTE | 2018-07-26 08:16 | CON ---
DATE: 07/25/2018 CHIEF COMPLAINT: Chest pain, shortness of breath, deconditioning. HISTORY OF PRESENT ILLNESS: Mr. Mahamed Dewey is a 42-year-old male with past medical history of left-sided brain tumor in 2005, taken care in [place], history of hiatal hernia, depression, history of drug abuse, psychiatric problem, was admitted in [facility] with chest pain and then the patient has admission to [facility] also and according to him, in [place] he got a persantine stress test and catheterization was done in the medical floor. Psychiatry saw the patient clear for cardiac point of view. The patient has a history of depression and substance abuse. I put a consult with Dr. Hafsa Swift, she accepted the patient, transferred the patient to the Psychiatry. The patient is under care of Dr. Hafsa Swift in Psychiatry. PAST MEDICAL HISTORY: Cocaine abuse, hiatal hernia, depression, brain tumor. FAMILY HISTORY: Father and mother noncontributory. HABITS: Heavy smoker more than 10 cigarettes per day. Alcohol; no as per the patient. Substance abuse; yes. ALLERGIES: MUSHROOMS. REVIEW OF SYSTEMS: The patient was seen and examined at the bedside, looking comfortable. No fever. No chills. No hematuria. No hematochezia. No headache. No dizziness. No chest pain. No palpitations. Feeling depressed and sleepy. PHYSICAL EXAMINATION VITAL SIGNS: Temperature 97.7, pulse 67, blood pressure 97/60, respiratory rate 18. HEENT: Head; normocephalic, atraumatic. Eyes; PERRLA. Extraocular muscles intact. Conjunctivae clear. Nose patent. Mucous membranes moist. NECK: Supple. No carotid bruits. No JVD. No thyromegaly. CHEST: Bilateral symmetrical. HEART: S1, S2 positive. LUNGS: Clear to auscultation. ABDOMEN: Soft. Bowel sounds present. No organomegaly. EXTREMITIES: No edema. No cyanosis. NEUROLOGIC: The patient awake and alert. Moving all four extremities. No focal deficits. MEDICATIONS: Ativan, Brovana, Geodon, Lyrica, Maalox, milk of magnesia, Protonix, Pulmicort, Seroquel, Sonata, Tylenol, Wellbutrin. LABORATORY DATA: We do not have recent labs today, but I reviewed old labs. ASSESSMENT AND PLAN: Mr. Mahamed Dewey is a 42-year-old male with RPR negative. History of chest pain, cocaine abuse, having shortness of breath, improved. As per patient, he feels better. History of smoking, history of bipolar disorder, alcohol abuse, numerous psychiatric admissions and most recent was discharged from [facility] on 04/29/2018, history of suicide attempts, history of chronic noncompliant with medication and followup appointments, who was transferred from medical floor to Psychiatry by ruling out myocardial infarction. He came with left-sided chest pain in coexistence with cocaine use and had shortness of breath, improved. Gastrointestinal and deep venous thrombosis prophylaxis. Appreciated Dr. Hafsa Swift's input. We will follow up. Kait Echavarria MD
[2018-07-26 08:45] LABS: HEMOGLOBIN 13.5 g/dL (14.0-18.0); MEAN CELL VOLUME 93.5 fl (80.0-105.0); MEAN CORPUSCULAR HEMOGLOBIN 31.3 pg (25.0-35.0); MEAN CORPUSCULAR HGB CONC 33.4 g/dl (31.0-37.0); MEAN PLATELET VOLUME 9.9 fl (7.0-11.0); RBC 4.32 10^6/uL (3.5-6.1); RED CELL DISTRIBUTION WIDTH 14.3 % (11.5-14.5); WHITE BLOOD COUNT 5.4 10^3/uL (4.5-11.0)
[2018-07-26 09:00] LABS: BLOOD UREA NITROGEN 13 mg/dL (7-21); GFR NON-AFRICAN AMERICAN > 60
[2018-07-26] MEDS: buPROPion 150 mg/24 Hours XL Tab PO SCH (09:38)
[2018-07-26] MEDS: Multivitamin With Minerals Tab PO SCH (09:38)
--- NOTE | 2018-07-26 15:08 | PCM.PYCHDC ---
Mental Status Examination - Mental Status Examination Orientation: Person, Place, Situation, Time Memory: Intact Mood: Neutral Affect: Constricted (But reactive and mood congruent) Speech: Appropriate Attention: Poor (Some improvement, baseline) Concentration: Poor (Baseline) Association: WNL Fund of Knowledge: WNL Formal Thought Process: No Impairment Description of patient's judgement and insight: Patient has improved insight into his mental illness, substance abuse, was compliant with her medications and unit rules and regulations. Psychotic Thoughts and Behaviors: Patient denied hearing voices, denied seeing things, denied paranoid ideations, patient does not present to be psychotic. Suicidal Ideation: No Current Homicidal Ideation?: No Plan: Patient adamantly denies thoughts of harming himself or others, denied intent or plan. Discharge Summary - Discharge Note Reason for Hospitalization: pt was transferred from the medical floor for evaluation and stabilization of depressive symptoms and possible suicidal ideation. Psychiatric History (includes Medical, Family, Personal Hx): see HPI Laboratory Data: Abnormal Lab Results 07/24/18 07/26/18 07/26/18 06:10 08:00 08:00 WBC 5.4 RBC 4.32 Hgb 13.5 L Hct 40.4 L MCV 93.5 MCH 31.3 MCHC 33.4 RDW 14.3 Plt Count 207 MPV 9.9 Sodium 139 Potassium 4.1 Chloride 103 Carbon Dioxide 28 Anion Gap 12 BUN 13 Creatinine 0.7 L Est GFR ( Amer) > 60 Est GFR (Non-Af Amer) > 60 Random Glucose 84 Calcium 9.0 RPR Nonreactive 07/26/18 08:00 07/26/18 08:00 Lab Results 07/26/18 08:00: Sodium 139, Potassium 4.1, Chloride 103, Carbon Dioxide 28, Anion Gap 12, BUN 13, Creatinine 0.7 L, Est GFR ( Amer) > 60, Est GFR (Non-Af Amer) > 60, Random Glucose 84, Calcium 9.0 07/26/18 08:00: WBC 5.4, RBC 4.32, Hgb 13.5 L, Hct 40.4 L, MCV 93.5, MCH 31.3, MCHC 33.4, RDW 14.3, Plt Count 207, MPV 9.9 07/24/18 06:10: RPR Nonreactive 07/24/18 06:10: Triglycerides 133, Cholesterol 127 L, LDL Cholesterol Direct 63, HDL Cholesterol 50 07/24/18 06:10: Free T4 0.73 L, TSH 3rd Generation 0.60 Vital Signs Temp Pulse Resp BP 07/26/18 07:31 97.9 F 69 20 102/62 07/26/18 07:27 97.9 F 60 20 129/61 07/25/18 16:00 67 97/60 L 07/25/18 07:16 97.7 F 65 18 92/52 L 07/24/18 16:00 69 120/73 07/24/18 07:03 97.1 F L 67 17 88/57 L 07/23/18 16:42 61 102/62 07/23/18 16:00 90 95/48 L Consultations:: List each consultation separately and include: 1. Reason for request. 2. Findings. 3. Follow-up Consultations: Medical follow-up appreciated, patient is medically stable Summary of Hospital Course include:: 1. Description of specific treatment plan utilized for patients during their course of treatmen. 2. Summarize the time- course for resolution of acute symptoms and/or regressed behaviors. 3. Describe issues identified and worked on during hospitalization. 4. Describe medication utilized. 5. Describe medical problems identified and treated. 6. Reassessment of suicide risk Summary of Hospital Course: Patient is a 42 year old single male with history of bipolar disorder, cocaine use disorder, alcohol abuse, numerous psychiatric admissions-most recently was discharged from [facility] 04/29/18, history of suicidal attempts, history of chronic noncompliance with the medications and follow-up appointments who was transferred from the medical floor after ruled out for myocardial infarction, patient presenting to our ER with left-sided chest pain in context of cocaine use, this telegraphic typewriter repairer was involved as a analysis consultant, pt verbalized thoughts of harming self with the plan to CO poisoning, pt was medically stable for transfer, patient was admitted to the psychiatric inpatient unit for further evaluation and stabilization. At the time of initial evaluation patient presented to be in hypomanic stage, obviously has racing thoughts, had difficulty to stay concentrated and focused, patient had pressured/overproductive speech, patient obviously irritable and annoyed as well as impulsive. Patient has poor personal hygiene, has long/dirty fingernails, messy hair, acceptable ADLs. Please see admission note for more detailed information. Patient was relatively stable on the following medications: The Wellbutrin extended release 150 mg daily for depression and anxiety multivitamins daily Lyrica 25 mg twice a day Seroquel 100 mg at the nighttime for mood stabilization and psychosis Sonata 5 mg at the nighttime for insomnia Patient tolerated medications well, no side effects observed or reported, Jackson 0, no EPS. Patient requested to be discharged today during the treatment team meeting, patient reported that he wants to take his belongings from his friend, after that he wants to go to inpatient rehab at [facility]. This telegraphic typewriter repairer advised patient to be discharged from this inpatient unit directly to [facility], but patient declined the offer, patient signed 48-hour notice, requesting discharge as soon as possible, from this telegraphic typewriter repairer patient might benefit from staying in the hospital over the weekend but patient that option. Patient does not meet the criteria for involuntary commitment. Patient denied hearing voices, denied seeing things, denied paranoid ideations, patient denied thoughts of harming himself or others, has future oriented plans to stay sober. Over the course of this hospitalization patient was visible in the unit, no agitation, no aggression, patient has good appetite and sleep. At this point this telegraphic typewriter repairer has no other choice other than to discharge patient AGAINST MEDICAL ADVICE, patient has capacity to sign AGAINST MEDICAL ADVICE. At the time of the discharge patient pose no imminent danger to self or others, will be following up with psychiatrist at [facility], information about follow up appointment, time and address provided to the pt, (see SW note for more detailed information). It is a patient responsibility to follow up with outpatient clinic, PMD as well as specialists In case patient will need to obtain results of studies pending at discharge, patient was provided with contact information of Psychiatric Inpatient unit [phone] as well as Medical Record Department [phone], as well as [facility] team [phone]. treatment is not indicated at this time pt was provided with prescriptions (see medication reconciliation form) Pt was educated about safety plan in case of worsening of symptoms or in case of suicidal or homicidal ideation call 911 or go to the nearest ER, also was educated to take meds as prescribed and stay away from drugs, pt verbalized understanding. Lab Results 07/24/18 06:10: Triglycerides 133, Cholesterol 127 L, LDL Cholesterol Direct 63, HDL Cholesterol 50 07/24/18 06:10: Free T4 0.73 L, TSH 3rd Generation 0.60 Vital Signs Temp Pulse Resp BP 07/24/18 07:03 97.1 F L 67 17 88/57 L 07/23/18 16:42 61 102/62 07/23/18 16:00 90 95/48 L - Diagnosis (1) Bipolar 1 disorder Current Visit: Yes Status: Chronic Priority: High (2) Polysubstance abuse Current Visit: Yes Status: Chronic Priority: High (3) Known medical problems Current Visit: Yes Status: Acute Priority: High - Final Diagnosis (DSM 5) Condition upon Discharge: GOOD Disposition: AGAINST MEDICAL ADVICE Follow-up Treatment Plan: At the time of the discharge patient pose no imminent danger to self or others, will be following up with psychiatrist at [facility], information about follow up appointment, time and address provided to the pt, (see SW note for more detailed information). It is a patient responsibility to follow up with outpatient clinic, PMD as well as specialists In case patient will need to obtain results of studies pending at discharge, patient was provided with contact information of Psychiatric Inpatient unit [phone] as well as Medical Record Department [phone], as well as [facility] team [phone]. treatment is not indicated at this time pt was provided with prescriptions (see medication reconciliation form) Pt was educated about safety plan in case of worsening of symptoms or in case of suicidal or homicidal ideation call 911 or go to the nearest ER, also was educated to take meds as prescribed and stay away from drugs, pt verbalized understanding. Prescriptions/Medication Reconciliation: RX: Arformoterol [Brovana] 15 mcg IH [id number] #1 neb RX: Budesonide [Pulmicort Respules] 0.5 mg IH [id number] #1 neb RX: buPROPion XL [Wellbutrin XL] 150 mg PO DAILY #30 t24 RX: Multimineral/Multivitamin [Therapeutic-M Tab] 1 tab PO 0800 #30 tab RX: Pantoprazole [Protonix EC Tab] 20 mg PO 0600 #30 ect RX: Pregabalin [Lyrica] 25 mg PO BID #60 cap RX: QUEtiapine [Seroquel] 100 mg PO HS #30 tab RX: Zaleplon [Sonata] 5 mg PO HS PRN #30 cap PRN Reason: Insomnia - Smoking Cessation Smoking Cessation Medication prescribed: No Reason for not providing: pt refused - Antipsychotic Medications Pt discharged on 2 or more routine antipsychotic medications: No
--- NOTE | 2018-07-26 23:21 | PN ---
DATE: 07/26/2018 Case was discussed with Dr. Echavarria. SUBJECTIVE: The patient is a 42-year-old male, came in to the ER with depression, chest pain, cocaine abuse, bipolar. He has a past medical history of hypertension, bipolar disease, major depression, multiple opioids use. ALLERGIES: THE PATIENT HAS ALLERGIES TO MUSHROOM. REVIEW OF SYSTEMS: The patient denies acute distress, chest pain, palpitations, abdominal pain, constipation, hematuria, dysuria, fever, chills. PHYSICAL EXAMINATION: VITAL SIGNS: Temperature 97.9, pulse 59, blood pressure 102/52, pulse oximetry 75%, respiratory rate 20. GENERAL: The patient was seen today in psych unit. He was transferred to Psych a couple of days ago. 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 He was speaking with the vp digital marketing social media and crm. Denies suicidal ideation. HEENT: Normocephalic. PERRLA. Mucous membranes moist. RESPIRATORY: Respiration, clear to auscultation. No wheeze, rhonchi, adventitious breath sounds. HEART: S1 and S2. No murmur. No gallop. ABDOMEN: Soft, nontender. Positive bowel sounds. SKIN: Intact. No cyanosis. NEUROLOGIC: Alert and oriented. No cognitive deficits. ASSESSMENT AND PLAN: The patient is being seen by psychiatric unit for depression. Has hypertension, cocaine abuse, opioid abuse. The patient being treated inpatient psychiatry. We will follow up. pt is s/e at the bed side , d/d with pt . pediatric np , and staff , agreed with pediatric np plan ,will f/u Pierre Holden APN Kait Echavarria MD MTDD
--- NOTE | 2018-07-27 01:55 | CON ---
DATE: 07/26/2018 HISTORY OF PRESENT ILLNESS: This is a 42-year-old patient who came in with shortness of breath, chest pain, opioid abuse, depression. The patient was seen by Cardiology and Pulmonology on the medical unit, has some depression, suicidal ideation with no plan, was transferred to inpatient Psychiatric unit. As per the patient today, the patient seemed in a better mood, said he was feeling better, less shortness of breath. He denies chest pain, palpitations, abdominal pain, hematuria, constipation, fever, chills, nausea, or vomiting. Reports occasional cough. It seems that he would like to be discharged, once being discharged would like to use the inhalers that he was taking inpatient to be ordered for him at home. PAST MEDICAL HISTORY: Alcohol abuse, cocaine abuse, nicotine dependence, major depressive disorder, epilepsy, chest pain, suicidal ideations. PHYSICAL EXAMINATION VITAL SIGNS: Temperature 97.4, heart rate 69, blood pressure 102/62, respirations 20 on room air. GENERAL: The patient appears to be in no acute distress. HEENT: Normocephalic. PERRLA. Mucous membranes moist. NECK: Supple. Normal inspection. RESPIRATIONS: Clear to auscultation. No adventitious breath sounds. CARDIOVASCULAR: S1, S2. No murmur. No gallop. GASTROINTESTINAL: Abdomen is soft, nontender. No organomegaly. No guarding. No tenderness. SKIN: Intact. No edema noted. NEUROLOGIC: Alert and oriented x3. Cranial nerves II through XII intact. MEDICATIONS: The patient is on Brovana, Pulmicort, Wellbutrin, Ativan, Lyrica, Seroquel, Sonata, Geodon. LABORATORY DATA: White blood cells 5.4, hemoglobin 13.5, hematocrit 40. Sodium 139, potassium 4.1, BUN 13, creatinine 0.7. ASSESSMENT AND PLAN: Mr. Dewey is a 42-year-old male with polysubstance abuse disorder, depression, bipolar, nicotine dependence. The patient expressed that he feels better since on inhalers. Discussed the patient's smoking cessation, not ready to commit as of yet per patient. The patient says he feels better today. We will follow up. Pierre Holden APN Kait Echavarria MD [facility] # [id number]
--- NOTE | 2018-07-27 01:59 | PN ---
DATE: 07/26/2018 SUBJECTIVE: Patient is a 42-year-old male. Patient is seen and examined at the bedside, looking comfortable. No fever. No chills. No hematuria. No hematochezia. No headache. No dizziness. No chest pain. No palpitations. PHYSICAL EXAMINATION: VITAL SIGNS: Temperature 97.9, pulse 69, blood pressure 102/62, respiratory rate 20. HEENT: Head is normocephalic and atraumatic. Eyes: PERRLA, extraocular muscles intact, conjunctiva clear. Nose patent. Mucous membranes moist. NECK: Supple. No carotid bruits. No JVD or thyromegaly. CHEST: Bilaterally symmetrical. HEART: S1 and S2 positive. LUNGS: Clear to auscultation. ABDOMEN: Soft. Bowel sounds present. No organomegaly. EXTREMITIES: No edema. No cyanosis. NEUROLOGIC: The patient is awake and alert. Moving all four extremities. No focal deficits. MEDICATIONS: Ativan, Brovana, Geodon, Lyrica, Maalox, milk of magnesia, Protonix, Pulmicort, Seroquel, Sonata, Tylenol, Wellbutrin. LABORATORY DATA: White blood cell 5.4, hemoglobin 13.5, hematocrit 40.4, and platelets 207. Sodium 139, potassium 4.3, BUN 13, creatinine 0.7, blood sugar 127. ASSESSMENT AND PLAN: Mahamed Dewey is a 42-year-old male with anemia, cholesterolemia, history of chest pain, history of cocaine abuse, depression and bipolar, noncompliant, came with suicidal ideation, history of anemia. Gastrointestinal and deep vein thrombosis prophylaxis. Dr. Swift with the patient. Stabilized and discharged home. We will follow up with primary care physician and psychiatrist. Kait Echavarria MD
== END 2018-07-26 15:38 | disposition left against medical advice (07) | DRG 885 ==
LOC: PSYC 14:00
PROVIDERS: ADMIT Psychiatry & Neurology Psychiatry; ATTEND Psychiatry & Neurology Psychiatry
DX: F31.63 Bipolar disorder, current episode mixed, severe, without psychotic features (principal); R45.851 Suicidal ideations; F11.10 Opioid abuse, uncomplicated; F14.10 Cocaine abuse, uncomplicated; D64.9 Anemia, unspecified; F41.9 Anxiety disorder, unspecified; F17.200 Nicotine dependence, unspecified, uncomplicated; I10 Essential (primary) hypertension; F90.9 Attention-deficit hyperactivity disorder, unspecified type; F60.2 Antisocial personality disorder; G40.909 Epilepsy, unspecified, not intractable, without status epilepticus; Z91.14 Patient's other noncompliance with medication regimen; Z91.19 Patient's noncompliance with other medical treatment and regimen

== ENCOUNTER 2018-08-13 13:01 | Observation (INO) | payer MEDICARE, OTHER ==
[2018-08-13 13:01] VITALS: BMI 20.9
[2018-08-13 14:16] LABS: BASO # 0.04 K/mm3 (0.0-2.0); BASO % 0.6 % (0.0-3.0); EOS # 0.1 (0.0-0.7); EOS % 0.9 % (1.5-5.0); HEMOGLOBIN 14.6 g/dL (14.0-18.0); LYMPH # 2.1 (1.2-3.4); MEAN CELL VOLUME 92.3 fl (80.0-105.0); MEAN CORPUSCULAR HEMOGLOBIN 31.9 pg (25.0-35.0); MEAN CORPUSCULAR HGB CONC 34.6 g/dl (31.0-37.0); MEAN PLATELET VOLUME 9.6 fl (7.0-11.0); MONO # 0.7 (0.1-0.6); MONO % 10.3 % (1.0-6.0); RBC 4.57 10^6/uL (3.5-6.1); RED CELL DISTRIBUTION WIDTH 14.2 % (11.5-14.5); WHITE BLOOD COUNT 6.3 10^3/uL (4.5-11.0)
[2018-08-13 14:30] LABS: ACETAMINOPHEN < 10.0 ug/ml (10.0-20.0); ALB/GLOB RATIO 1.4 (1.1-1.8); ALBUMIN 4.6 g/dL (3.0-4.8); ALT/SGPT 15 U/L (7-56); AST/SGOT 24 U/L (17-59); BLOOD UREA NITROGEN 10 mg/dL (7-21); CALCIUM 9.3 mg/dL (8.4-10.5); GFR NON-AFRICAN AMERICAN > 60; SALICYLATE < 1 mg/dL (2.0-20.0)
--- NOTE | 2018-08-13 15:19 | RAD ---
Date of service: 08/13/2018 HISTORY: pes eval COMPARISON: 07/21/2018 TECHNIQUE: 1 view obtained. FINDINGS: LUNGS: No active pulmonary disease. PLEURA: No significant pleural effusion identified, no pneumothorax apparent. CARDIOVASCULAR: No aortic atherosclerotic calcification present. Normal cardiac size. No pulmonary vascular congestion. OSSEOUS STRUCTURES: No significant abnormalities. VISUALIZED UPPER ABDOMEN: Normal. OTHER FINDINGS: None. IMPRESSION: No active disease.
[2018-08-13 15:30] LABS: B-TYPE NATRIURETIC PEPTIDE 82.2 pg/mL (0-450); TROPONIN I < 0.01 ng/mL
--- NOTE | 2018-08-13 15:32 | CT ---
Date of service: 08/13/2018 PROCEDURE: CT HEAD WITHOUT CONTRAST. HISTORY: headache COMPARISON: MRI 01/17/2017 TECHNIQUE: Axial computed tomography images were obtained through the head/brain without intravenous contrast. Radiation dose: Total exam DLP = 941.67 mGy-cm. This CT exam was performed using one or more of the following dose reduction techniques: Automated exposure control, adjustment of the mA and/or kV according to patient size, and/or use of iterative reconstruction technique. FINDINGS: HEMORRHAGE: No intracranial hemorrhage. BRAIN: As noted previously there is an expansile lesion at the skull base adjacent to the sphenoid sinus measuring 20 x 23 mm. This is unchanged. No acute intracranial findings VENTRICLES: Unremarkable. No hydrocephalus. CALVARIUM: Unremarkable. PARANASAL SINUSES: Unremarkable as visualized. No significant inflammatory changes. MASTOID AIR CELLS: Unremarkable as visualized. No inflammatory changes. OTHER FINDINGS: None. IMPRESSION: No acute intracranial findings. As noted previously there is an expansile lesion at the skull base adjacent to the sphenoid sinus measuring 20 x 23 mm. This is unchanged.
[2018-08-13 16:22] LABS: URINE BILIRUBIN NEGATIVE (NEGATIVE); URINE BLOOD NEGATIVE (NEGATIVE); URINE GLUCOSE (UA) NEGATIVE (NEGATIVE); URINE LEUKOCYTE ESTERASE NEGATIVE Leu/uL (NEGATIVE); URINE UROBILINOGEN 0.2 E.U./dL (<1 E.U./dL)
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
[2018-08-13 16:33] LABS: URINE APPEARANCE CLEAR (CLEAR); URINE COLOR YELLOW (YELLOW); URINE PROTEIN NEGATIVE mg/dL (<30 mg/dL)
[2018-08-13 16:37] LABS: BARBITURATES, UR NEGATIVE (NEGATIVE)
[2018-08-13 16:45] LABS: BENZODIAZEPINES, UR NEGATIVE (NEGATIVE); OPIATES, UR NEGATIVE (NEGATIVE); PHENCYCLIDINE, UR NEGATIVE (NEGATIVE)
--- NOTE | 2018-08-13 17:50 | CARD ---
APPROVED REPORT Date of service: 08/13/2018 EKG Measurement Heart [id number] <Conclusion> Normal sinus rhythm Early repolarization Normal ECG
[2018-08-13 22:55] VITALS: RESP 18
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
[2018-08-14 06:49] VITALS: O2SAT 98
[2018-08-14 12:17] VITALS: BP 94/56; PULSE 57; TEMP 97.4
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
--- NOTE | 2018-08-14 22:41 | CON ---
DATE OF CONSULTATION: 08/14/2018 HISTORY OF PRESENT ILLNESS: In short, the patient is a 42-year-old -[place] male with history of mental illness and cocaine abuse and dependence. The patient has multiple admissions to the psychiatric inpatient unit here in [place] and also in other facilities. The patient was recently discharged from the psychiatric inpatient unit here in [place], less than a month ago with a plan for the patient to follow up at [facility], but the patient never followed up there, relapsed on drugs. The patient came to the hospital complaining of the chest pain. The patient verbalized thoughts of harming himself as well as depressive symptoms. During the admission, the patient was started on one-to-one and psychiatric consultation was called. This assembly instructions writer is very familiar with this patient from the previous admission to the psychiatric inpatient unit and multiple occasions on the medical side and consultation services. The patient reported that he was not able to go to inpatient rehab because he did not have clothing and after that, "bad things happened." The patient reported that he was arguing with the mother of his daughter about child life specialist. The patient reported that he relapsed on drugs, as a result he became very depressed. The patient reported that he had thoughts to kill himself by using carbon monoxide. The patient reported yesterday he tried to open the stove and inhaled the carbon monoxide, but he was stopped by his sister. The patient reported that he was using cocaine, crack, snorting. The patient denied hearing voices, denied seeing things, denied paranoid ideations. The patient presented to be disorganized, tangential, or circumstantial. Thought process is over-inclusive. PHYSICAL EXAMINATION: VITAL SIGNS: Reviewed. Temperature 97.4, pulse 57, blood pressure 94/56, respirations 18, oxygen saturation is 98. MEDICATIONS: Reviewed. The patient was on aspirin, Pepcid, Motrin, Ativan. LABORATORY DATA: Labs reviewed. Most recent was from today. Toxicology reviewed. Positive for cocaine. MENTAL STATUS EXAMINATION: The patient presented to be depressed. The patient is currently on one-to-one. Circumstantial and tangential, thought process. Thought content, the patient reported that he had suicidal ideations. The patient reported plan to poison himself with carbon monoxide. The patient has poor insight and judgment. Impulses are unpredictable. IMPRESSION: Most likely, the patient has history of psychotic spectrum disorder versus bipolar disorder. The patient has history of cocaine abuse and dependence. PLAN: This assembly instructions writer will admit the patient to the psychiatric inpatient unit for further evaluation and stabilization and indication and resumption. The patient will be resumed on Seroquel, Wellbutrin. The patient will be seen by medical team. Inpatient rehab will be recommended. Thank you very much for letting me to participate in care of your patient. The patient poses danger to self during this interview and requires further hospitalization to the psychiatric inpatient unit. Hafsa Swift MD
--- NOTE | 2018-08-15 08:29 | DS ---
HISTORY OF PRESENT ILLNESS: This is a 42-year-old male came in with chest pain, depression, and anxiety. The patient has a past medical history of alcohol abuse, cocaine abuse, nicotine dependence, major depressive disorder, epilepsy, suicidal ideation, and COPD. The patient is seen at bedside today. The patient was alert. Denies shortness of breath. Denies chest pain. Denies abdominal pain, hematuria, hematochezia, fevers, or chills. SOCIAL HISTORY: The patient has substance abuse history and nicotine dependence. The patient lives with family at the [facility]. HOME MEDICATIONS: Reviewed. FAMILY HISTORY: Noncontributory. PHYSICAL EXAMINATION: VITAL SIGNS: Temperature 98, pulse rate 68, blood pressure 101/66, respiratory rate 18, and saturating 99 on room air. GENERAL: The patient appears in no acute distress appears old than stated age, thin, and chronically ill. HEENT: Normocephalic and atraumatic. PERRLA. Mucous membranes moist. NECK: Supple. Normal inspection. RESPIRATORY: Clear to auscultation. Scattered wheeze. Clear with cough. CARDIOVASCULAR: S1 and S2. No JVD. ABDOMEN: Soft and nontender. No organomegaly. EXTREMITIES: Moving all extremities. No edema. No cyanosis. SKIN: Intact. NEUROLOGIC: The patient is alert and oriented x3. No cognitive deficit. MEDICATIONS: The patient remains on Tylenol, Brovana, Pulmicort, Sonata, Seroquel, Lyrica, and Protonix. LABORATORY DATA: Hematology on 08/13/2018; white blood cell 6.3, hemoglobin 14.6, hematocrit 42.2, and platelet count 224. Sodium 138, potassium 3.7, BUN 10, creatinine 0.7, GFR over 60, random glucose 95, and hemoglobin A1C 5.8. Urinalysis reviewed. ASSESSMENT AND PLAN: This is a 42-year-old male with history of substance abuse, cocaine abuse, nicotine dependence, depression, came in with chest pain, was evaluated by Cardiology, and was cleared by Cardiology. Psychiatric was consulted, agreed to take the patient to inpatient psychiatric care. The patient accepted IN PSYCHE ,discharge orders, pending discharged to telemetry. The patient will be discharged to Psychiatry. We will follow him there. Reviewed labs. Reviewed medications. We will follow up. AGREED ALL ABOVE , CHART , MEDS , LABS NOTED , SATISFY WITH [employer] TREATMENT PLAN . LABS ORDERED FOR TOMORROW , Pierre Holden APN Kait Echavarria MD [facility]
== END 2018-08-14 15:12 ==
LOC: ED 13:01 → ERH 17:07 → 2RSO 21:19 → PSYC 08-14 15:00 → 2RSO 08-14 15:11
PROVIDERS: ADMIT Internal Medicine; ATTEND Internal Medicine
DX: R07.89 Other chest pain (principal); F14.20 Cocaine dependence, uncomplicated; D49.6 Neoplasm of unspecified behavior of brain; F10.10 Alcohol abuse, uncomplicated; J44.9 Chronic obstructive pulmonary disease, unspecified; R45.851 Suicidal ideations; F31.9 Bipolar disorder, unspecified; F41.9 Anxiety disorder, unspecified; F17.210 Nicotine dependence, cigarettes, uncomplicated
CPT/HCPCS: 70450; 71045; 80053; 81003; 82550; 83615; 83880; 84484; 85025; 93005; 99285; G0378; G0480

== ENCOUNTER 2018-08-14 11:14 | Inpatient (IN) | payer MEDICARE, OTHER ==
[2018-08-14 15:50] VITALS: BMI 21.6
[2018-08-14] MEDS ORDERED: DiphenhydrAMINE 50 mg/ml Inj IM PRN (16:05)
[2018-08-14] MEDS ORDERED: Magnesium Hydroxide Susp 30 ml UD PO PRN (16:09)
[2018-08-14] MEDS ORDERED: Alum-Mag Hydrox-Simethicone Susp (30 mL) PO PRN (16:09)
[2018-08-14 17:15] VITALS: RESP 18
--- NOTE | 2018-08-14 18:24 | PCM.BM ---
<April Nuno - Last Filed: 08/14/18 18:21> Treatment Plan Problems - Problems identified on initial assessmt ANXIETY R/T SUBSTANCE USE Date Initiated: 08/14/18 Time Initiated: 18:30 Assessment reference: NA Status: Active Priority: 1 DEFENSIVE COPING SKILLS Date Initiated: 08/14/18 Time Initiated: 18:30 Assessment reference: NA Status: Active Priority: 2 DENIAL Date Initiated: 08/14/18 Time Initiated: 18:30 Assessment reference: NA Status: Active Priority: 3 MEDICATION NON ADHERENCE Date Initiated: 08/14/18 Time Initiated: 18:30 Assessment reference: NA Status: Active Priority: 4 HIGH RISK VIOLENCE Date Initiated: 08/14/18 Time Initiated: 18:30 Assessment reference: NA Status: Active Priority: 5 Treatment assets and liabiliti Patient Assests: adapts well, cooperative, educated, motivated, resourceful, self-reliant, ADL independent, negotiates basic needs, cognitively intact Patient Liabilities: live alone, poor support system, substance abuse - Milieu Protocol Maintain good personal hygiene: daily Encourage regular showers, daily Remind patient to perform daily oral care, daily Assist patient to perform ADL's Maintain personal safety: every shift Educate patient to report safety concerns to staff, every shift Monitor environment for contraband/sharps Medication safety: Monitor for expected outcome, potential side effects: every shift, Assess barriers to learning: every shift, Assess readiness for medication education: every shift Discharge/Continuing Care - Education Needs Education Needs: Patient Medication, Patient Diagnosis/Disease Process, Patient Coping Skills, Patient Anger Management skills, Patient Community resources, Patient Activities of Daily Living, Patient Pain, Patient Nutrition, Patient Health Practices/Safety, Patient Personal Hygiene/Grooming, Patient Aftercare Safety Plan - Discharge Discharge Criteria: Tolerates medication w/o severe side effects, Free of Suicidal thoughts, Free of paranoid thoughts, Free of agitation, Normal sleep pa ttern, Ability to care for self, No longer exhibiting s/s of withdrawal, Reduction of target symptoms Discharge to:: Other <Hafsa Swift - Last Filed: 08/15/18 09:06> - Diagnosis (1) Bipolar disorder Status: Chronic Interventions: 08/15/18 09:06 Psychoeducation Psychopharmacology/adjustment of medications as needed/ monitoring possible side effects Monitor blood level of mood stabilizers Evaluate pt on daily basis Compliance with medications and follow up appointments Suicide and homicide risk assessment and prevention, coping strategies, safety plan Relapse prevention Reduction of symptoms Improve functional status Family involvement As outpatient: cognitive behavioral therapy (2) Cocaine abuse Status: Chronic Interventions: 08/15/18 09:06 Maintaining sobriety Relapse prevention Possible rehabilitation Motivational interviewing 12-step programs: AA meetings <Georgette Jarrett Y - Last Filed: 08/16/18 16:35> Family Contact Family involvement: Famliy/SO not involved
[2018-08-14] MEDS ORDERED: Arformoterol 15 mcg/2 ml Inh Sol IH SCH (20:00)
[2018-08-14] MEDS: Arformoterol 15 mcg/2 ml Inh Sol IH SCH (23:39)
[2018-08-14] MEDS: Budesonide 0.5 mg/2 ml Inhal Susp UD IH SCH (23:40)
[2018-08-15] MEDS: Pantoprazole 20 mg EC Tab PO SCH (06:39)
[2018-08-15 08:30] LABS: HDL CHOLESTEROL 60 mg/dL (29-60)
[2018-08-15 08:41] LABS: LDL CHOLESTEROL 65 mg/dL (0-129)
[2018-08-15 08:47] LABS: FREE T4 0.8 ng/dL (0.78-2.19)
[2018-08-15] MEDS: Arformoterol 15 mcg/2 ml Inh Sol IH SCH ×2 (09:50→20:35)
[2018-08-15] MEDS: Budesonide 0.5 mg/2 ml Inhal Susp UD IH SCH ×2 (09:50→20:35)
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
[2018-08-15] MEDS: Multivitamin Therapeutic Tab PO SCH (10:45)
--- NOTE | 2018-08-16 02:01 | CON ---
This case was discussed with Dr. Stoll she is in agreement with treatment plan. DATE: 08/15/2018 HISTORY OF PRESENT ILLNESS: I was consulted to see the patient today. The patient is in inpatient Psychiatry. The patient has history of alcoholism, opioid dependence, major depression, chest pain, hypertension. The patient has epilepsy, gastroesophageal disease, COPD. I saw the patient today at the bedside. He is alert and oriented. Denying chest pain or cough. Denying shortness of breath, hematuria, hematochezia, fever, or chills. FH, NON CONT, , HABITS +S , +ETHNOL , + drugs , PHYSICAL EXAMINATION VITAL SIGNS: Temperature 97.2, pulse rate 52, blood pressure 94/64, respiratory rate 18. The patient is saturating 97% on room air. GENERAL: The patient appeared in no acute distress, appeared a little bit anxious.head NC , AT , EYES ROSA ISELA , EOMI NOSE PATENT , MMM , CHEST CTA , HEART S1S2+ , ABDOMEN SOFT . BS + . EXT NO EDEMA , MEDICATIONS: Tylenol, Maalox, Brovana, Pulmicort, Wellbutrin, Benadryl, Haldol, Ativan, milk of magnesia, multivitamin, Protonix, Lyrica, Seroquel, Sonata. LABORATORY DATA: Review of patient's labs from inpatient as mentioned. Reviewed the patient's LFTs today. ASSESSMENT AND PLAN: This is a 42-year-old male with history of hypertension, chronic obstructive pulmonary disease, nicotine dependence, alcohol abuse, opioid abuse. The patient has a lot of social issues, some psychiatric mental history as well. The patient is currently denying chest pain. Pulmonology is on the case. We will follow the patient. all above noted , d/d with inpatient nursing aide . agreed with all above , will cont. same treatment , psyche is on the case , will f/u Pierre Holden APN Kait Echavarria MD [facility] # [id number] LULU
[2018-08-16] MEDS: Pantoprazole 20 mg EC Tab PO SCH (07:47)
[2018-08-16] MEDS: Budesonide 0.5 mg/2 ml Inhal Susp UD IH SCH (09:45)
[2018-08-16] MEDS: Arformoterol 15 mcg/2 ml Inh Sol IH SCH (09:45)
[2018-08-16] MEDS: Multivitamin Therapeutic Tab PO SCH (10:04)
--- NOTE | 2018-08-16 16:17 | PCM.PYCHPN ---
Psychiatric Progress Note - Psychiatric Progress Note Patient seen today, length of contact: 30 minutes Patient Chief Complaint: "I am depressed, you know..." Problems Identified/Issues Discussed: Treatment plan, discharge planning, medication management, risk/benefit s/alternatives with the medication, suicide prevention, compliance with her medications and follow-up appointments, drug addiction, sobriety. Medical Problems: See HPI Diagnostic Results: Lab Results 08/15/18 08:00: Triglycerides 44, Cholesterol 144, LDL Cholesterol Direct 65, HDL Cholesterol 60 08/15/18 08:00: Free T4 0.80, TSH 3rd Generation 0.32 L 08/15/18 08:00: RPR Nonreactive Vital Signs Temp Pulse Resp BP 08/16/18 06:00 97.9 F 66 18 96/60 L 08/15/18 22:00 67 96/58 L 08/15/18 16:00 66 95/58 L 08/15/18 07:28 97.2 F L 52 L 18 94/64 L 08/14/18 16:00 98.0 F 68 18 101/66 DSM 5 Symptoms Update: Patient is a 42 year old single male with history of bipolar disorder, cocaine use disorder, alcohol abuse, numerous psychiatric admissions-most recently was discharged from [facility] 3weeks ago, pt was accepted to [facility] for inpatient rehab, but pt did not get to the place for unknown reason. Pt had history of suicidal attempts, history of chronic noncompliance with the medications and follow-up appointments who was transferred from the medical floor where he was admitted for the chest pain in context of cocaine use (the same case scenario last admission), this tag writer was involved as a building performance consultant, pt verbalized thoughts of harming self with the plan to CO poisoning, pt said that he attempted to turn the stove on and he was stopped, pt was medically stable for transfer, patient was admitted to the psychiatric inpatient unit for further evaluation and stabilization/observation. Patient was seen and examined today at the treatment team meeting, poor personal hygiene, as per report patient is self isolating, not socializing, no agitation, no aggression, medication compliant. Patient reported that he still feels depressed, and he is staying in his room because he does not want to socialize with others. Patient reported that he had hearing voices yesterday but not today. Patient reports that he wants to be referred to [facility], patient reported that he does not want to go to [place] any longer. Patient denies any psychotic symptoms, contracted for safety. So far patient tolerates medications well, no side effects observed or reported, aims 0, no EPS. DSM 5 Diagnosis: as per h/o bipolar disorder, most recent episode mixed, severe with no psychosis antisocial personality to r/o cocaine abuse r/o substance induced mood disorder Medication Change: Yes (Resumed) Medical Record Reviewed: Yes Consults ordered or reviewed: Medical follow-up appreciated Mental Status Examination - Cognitive Function Orientation: Person, Place, Situation, Time Memory: Impaired Attention: Poor Concentration: Poor Association: WNL Fund of Knowledge: WNL - Mood Mood: Depressed - Affect Affect: Other (labile) - Speech Speech: Appropriate - Formal Thought Process Formal Thought Process: Other (circumstantial and tangential) - Suicidal Ideation Suicidal Ideation: No - Homicidal Ideation Homicidal Ideation: No Goal/Treatment Plan - Goal/Treatment Plan Need for Continued Stay: Remain at risks for inpatient hospitalization, Severe depression anxiety, Discharge may exacerbated symptoms, Severe functional impairment Progress Toward Problem(s) and Goals/Treatment Plan: Milieu/structure/supportive therapy SW consultation for discharge plan and social issues, possible rehab Med management Wellbutrin 75 mg daily for depression multivitamins daily Protonix 20 mg daily Lyrica 25 mg twice a day Seroquel 50 mg in the morning time at the nighttime as mood stabilizer Sonata 5 mg at the nighttime as needed for insomnia Family involvement Follow up on labs Will monitor closely Pt was educated about risk/benefits and alternatives of medications, coping strategies (safety plan, suicide prevention), relapse prevention, importance of follow up with psychiatrist and therapist, stay away from drugs/alcohol/smoking Possible rehab Estimated Date of D/C: 08/20/18
[2018-08-17] MEDS: Pantoprazole 20 mg EC Tab PO SCH (08:28)
[2018-08-17] MEDS: Budesonide 0.5 mg/2 ml Inhal Susp UD IH SCH ×2 (08:55→21:55)
[2018-08-17] MEDS: Arformoterol 15 mcg/2 ml Inh Sol IH SCH ×2 (08:55→21:55)
[2018-08-17] MEDS: Multivitamin Therapeutic Tab PO SCH (09:00)
--- NOTE | 2018-08-17 10:46 | PCM.PYCHPN ---
Psychiatric Progress Note - Psychiatric Progress Note Patient seen today, length of contact: 30 minutes Problems Identified/Issues Discussed: I reviewed assessment and met with patient at bedside. Patient is tired and disengaged. Mood is reported as "okay", affect is constricted. Tolerating his medications and denies any new discomfort or pain. Indicates that he slept poorly last night and asks me to adjust his sleep medications. Patient denies hallucinations or suicidal thoughtS {though has endorsed intermittent hallucinations during this hospitalization}. Delusions were not elicited. Thus far he is tolerating his medications and denies new discomfort or pain. Patient has complaints of chronic back pain, unchanged. Staff have noted that patient has been self isolating and guarded. There have been no recent incidents of aggression or agitation and his behavior is becoming more pr edictable. ~Note: sky barajas needed to be called during prior admission on 04/24/18 due to agitated behaviors Diagnostic Results: as per h/o bipolar disorder, most recent episode mixed, severe with no psychosis antisocial personality to r/o cocaine abuse r/o substance induced mood disorder Medication Change: Yes (seroquel increased) Medical Record Reviewed: Yes Mental Status Examination - Cognitive Function Orientation: Person, Place, Situation, Time Memory: Impaired Attention: Poor Concentration: Poor Association: WNL Fund of Knowledge: WNL - Mood Mood: Depressed - Affect Affect: Other (labile) - Speech Speech: Appropriate - Formal Thought Process Formal Thought Process: Other (circumstantial and tangential) - Suicidal Ideation Suicidal Ideation: No - Homicidal Ideation Homicidal Ideation: No Goal/Treatment Plan - Goal/Treatment Plan Need for Continued Stay: Remain at risks for inpatient hospitalization, Severe depression anxiety, Discharge may exacerbated symptoms, Severe functional impairment Progress Toward Problem(s) and Goals/Treatment Plan: * c/w current tx and plan * Seroquel increased to 50 MG am, 25 MG pm AND 100 mg po HS on 08/17/18 for intermittent reports of hallucinations and off-label to help patient with sleep. * No new weekend lab results noted thus far * Vitals reviewed and noted below: Selected Entries 08/15/18 08/16/18 08/16/18 07:28 06:00 16:31 Temperature 97.2 F L 97.9 F Pulse Rate 52 L 66 69 Respiratory 18 18 Rate Blood Pressure 94/64 L 96/60 L 98/61 L Estimated Date of D/C: 08/20/18
--- NOTE | 2018-08-17 21:18 | PN ---
DATE: 08/17/2018 SUBJECTIVE: The patient is a 42-year-old male. The patient was seen and examined at the bedside on 08/17/2018. Looking comfortable. No fever. No chills. No hematuria or hematochezia. No headache or dizziness. No chest pain. No palpitation. PHYSICAL EXAMINATION: VITAL SIGNS: Temperature 97.6, pulse 91, blood pressure 95/56, respiratory rate 18. HEENT: Head: Normocephalic, atraumatic. Eyes: PERRLA. Extraocular muscles intact. Conjunctivae clear. Nose patent. Mucosal membranes moist. NECK: Supple. No carotid bruit. No JVD or thyromegaly. CHEST: Bilaterally symmetrical. HEART: S1 and S2 positive. LUNGS: Clear to auscultation. ABDOMEN: Soft. Bowel sounds present. No organomegaly. EXTREMITIES: No edema. No cyanosis. NEUROLOGICAL: The patient is awake and alert. Moving all four extremities. No focal deficits. MEDICATIONS: Ativan, Benadryl, Brovana, Haldol, Lyrica, Maalox, Protonix, Seroquel, Sonata, Wellbutrin. LABORATORY DATA: We do not have lab studies today, but I reviewed old labs. ASSESSMENT AND PLAN: Mr. Mahamed Dewey is a 42-year-old male with multiple medical problems. Has bipolar disorder, mostly episodes mixed, severe with no psychosis, antisocial personality , h/o of cocaine abuse, substance-induced mood disorder, history of chest pain. Workup done by the hadoop architect. The patient is noncompliant, urged to be compliant. Severe depression and anxiety. Had multiple admissions of suicidal ideation. Has lots of social issues and psychiatric illnesses. Today denying any chest pain and any shortness of breath. Psychiatrist is on the case. Continue present treatment. Repeat labs. We will follow up. Kait Echavarria MD [facility]
[2018-08-18] MEDS: Pantoprazole 20 mg EC Tab PO SCH (06:45)
[2018-08-18 07:27] VITALS: TEMP 97.7
[2018-08-18] MEDS: Multivitamin Therapeutic Tab PO SCH (09:07)
[2018-08-18] MEDS: Arformoterol 15 mcg/2 ml Inh Sol IH SCH (09:15)
[2018-08-18] MEDS: Budesonide 0.5 mg/2 ml Inhal Susp UD IH SCH (09:15)
--- NOTE | 2018-08-18 09:40 | PCM.PYCHPN ---
Psychiatric Progress Note - Psychiatric Progress Note Patient seen today, length of contact: 30 minutes Problems Identified/Issues Discussed: I reviewed recent notes and met with patient at bedside again today. Patient is still tired but appears more responsive and focused today. He feels like he is getting better and reports his mood as "okay", affect is constricted. Tolerating his medications and denies any new discomfort or pain. He slept a little better last night. Patient denies hallucinations or suicidal thoughtS {though has endorsed intermittent hallucinations during this hospitalization}. Delusions were not elicited. Staff have noted that patient was initially self isolating and guarded but recently interacting more with patients and attending groups over the weekend. There have been no recent incidents of aggression or agitation and his behavior is becoming more predictable. ~Note: sky barajas needed to be called during prior admission on 04/24/18 due to agitated behaviors Diagnostic Results: as per h/o bipolar disorder, most recent episode mixed, severe with no psychosis antisocial personality to r/o cocaine abuse r/o substance induced mood disorder Medication Change: Yes (seroquel increased) Medical Record Reviewed: Yes Mental Status Examination - Cognitive Function Orientation: Person, Place, Situation, Time Memory: Impaired Attention: Poor (improving) Concentration: Poor Association: WNL Fund of Knowledge: WNL - Mood Mood: Depressed (better) - Affect Affect: Other (labile) - Speech Speech: Appropriate - Formal Thought Process Formal Thought Process: Other (circumstantial and tangential improving) - Suicidal Ideation Suicidal Ideation: No - Homicidal Ideation Homicidal Ideation: No Goal/Treatment Plan - Goal/Treatment Plan Need for Continued Stay: Remain at risks for inpatient hospitalization, Severe depression anxiety, Discharge may exacerbated symptoms, Severe functional im pairment Progress Toward Problem(s) and Goals/Treatment Plan: * c/w current tx and plan * Appreciate f/u by Dr. Echavarria on 08/17/18~continue present treatment, repeat labs * Seroquel increased to 50 MG am, 25 MG pm AND 100 mg po HS on 08/17/18 for intermittent reports of hallucinations and off-label to help patient with sleep. * No new weekend lab results noted thus far * Vitals reviewed and noted below: Selected Entries 08/16/18 08/16/18 08/17/18 06:00 22:00 16:14 Temperature 97.9 F 97.6 F Pulse Rate 66 66 91 H Respiratory 18 Rate Blood Pressure 96/60 L 95/66 L Estimated Date of D/C: 08/20/18
[2018-08-18 15:59] VITALS: BP 97/61; PULSE 55
--- NOTE | 2018-08-19 00:41 | CON ---
This case was discussed with Dr. Echavarria she is inagreement with treatment plan. DATE: 08/18/2018 HISTORY OF PRESENT ILLNESS: The patient is a 42-year-old who came in to the emergency room with depression and chest pain. He has a past medical history of opioid dependence, alcohol dependence, cocaine dependence, bipolar disorder, hypertension, hyperlipidemia and COPD. I saw the patient today in the Inpatient Psychiatry Unit. The patient is alert. Denying shortness of breath. He reports having intermittent chest pain, better than when admitted. He has nonproductive cough. He reports feeling better with inhalers that he was taking. The patient denied abdominal pain, hematuria, hematochezia, fevers or chills. PHYSICAL EXAMINATION: VITAL SIGNS: Temperature 97.7, pulse is 88, blood pressure 126/80 and respiratory rate 18. GENERAL: The patient appears in no acute distress. HEENT: Normocephalic and atraumatic. PERRLA. Mucous membrane is moist. NECK: Supple. No thyromegaly. RESPIRATORY: Wheezing, clears with cough. No rhonchi. CARDIOVASCULAR: S1 and S2. No JVD. ABDOMEN: Soft and nontender. No organomegaly. EXTREMITIES: The patient is moving all extremities. SKIN: Intact. No edema. No cyanosis. NEUROLOGIC: The patient is alert and oriented x3. MEDICATIONS: The patient remains on Brovana, Pulmicort, Benadryl, Haldol, Ativan, Protonix, Lyrica, Seroquel and Sonata. LABORATORY DATA: Reviewed LFTs from 08/15/2018. ASSESSMENT AND PLAN: This is a 42-year-old male who came in with depression and chest pain. The patient has hypertension, chronic obstructive pulmonary disease, has cocaine dependence, nicotine dependence, bipolar disorder and depression. The patient is having a lot of social issues that bring on depression episodes. The patient had a hard time with his substance abuse and relapsing. The patient is feeling that he is ready for discharge back to [facility]. Reviewed labs. Reviewed Pulmonology note. Medically, the patient is stable. We will monitor medications and we will follow up the patient. all ABOVE NOTED , AGREED WITH MEDICAL EXAMINER , EDUCATION DONE , D/D WITH MEDICAL EXAMINER , PSYCHE IS ON THE CASE , WILL F/U Pierre Holden APN Kait Echavarria MD [facility] # [id number] LULU
[2018-08-19] MEDS: Pantoprazole 20 mg EC Tab PO SCH (05:26)
[2018-08-19] MEDS: Multivitamin Therapeutic Tab PO SCH (09:32)
--- NOTE | 2018-08-19 09:36 | PN ---
DATE: 08/16/2018 The patient is a 42-year-old male. The patient was seen and examined at bedside at 08/16/2018. SUBJECTIVE: Looking comfortable, having lunch. No fever. No chills. No headache or dizziness. No chest pain. No palpitation. PHYSICAL EXAMINATION VITAL SIGNS: Temperature 97.9, pulse 69, blood pressure 98/61, and respiratory rate 18. HEENT: Head; normocephalic and atraumatic. Eyes; PERRLA. Extraocular muscles intact. Conjunctiva clear. Nose patent. Mucous membranes moist. NECK: Supple. No carotid bruits. No JVD. No thyromegaly. CHEST: Bilaterally symmetrical. HEART: S1 and S2, positive. LUNGS: Clear to auscultation. ABDOMEN: Soft. Bowel sounds present. No organomegaly. EXTREMITIES: No edema. No cyanosis. NEUROLOGIC: The patient is awake and alert. Moving all four extremities. No focal deficit. MEDICATIONS: Ativan, Benadryl, Brovana, Haldol, Lyrica, Maalox, milk of magnesia, Protonix, Pulmicort, Seroquel, Sonata, Tylenol, and Wellbutrin. LABORATORY DATA: RPR is nonreactive. TSH 0.32. We do not have recent labs, but reviewed old lab. ASSESSMENT AND PLAN: Mr. Neal is a 42-year-old male with a past medical history of alcoholism, opioid dependence, major depression, came with chest pain, cleared by the Super[employer]; transferred to Psychiatry; hypertension. The patient has history of epilepsy, gastroesophageal reflux disease, chronic obstructive pulmonary disease. The patient has nicotine dependency. Gastrointestinal and deep venous thrombosis prophylaxis. Repeat labs. Psychiatry is on the case. We will continue present treatment. Kait Echavarria MD [facility]
[2018-08-19] MEDS: Budesonide 0.5 mg/2 ml Inhal Susp UD IH SCH (09:40)
[2018-08-19] MEDS: Arformoterol 15 mcg/2 ml Inh Sol IH SCH (09:40)
--- NOTE | 2018-08-19 17:04 | PCM.PYCHDC ---
Mental Status Examination - Mental Status Examination Orientation: Person, Place, Situation, Time Memory: Intact Mood: Neutral Affect: Broad (Mood congruent) Speech: Appropriate Attention: WNL Concentration: WNL Association: WNL Fund of Knowledge: WNL Formal Thought Process: No Impairment Description of patient's judgement and insight: Patient has fair insight into his mental illness, as well as substance abuse. Psychotic Thoughts and Behaviors: Patient denied any psychotic symptoms, does not appear to be psychotic, denied hearing voices, denied seeing things, denied paranoid ideations. Suicidal Ideation: No Current Homicidal Ideation?: No Plan: Patient adamantly denies thoughts of harming himself or others, denied intent or plan Discharge Plan - Discharge Note Reason for Hospitalization: pt was transferred from the medical floor for evaluation of depression, possible SI Psychiatric History (includes Medical, Family, Personal Hx): see HPI Laboratory Data: Lab Results 08/15/18 08:00: Triglycerides 44, Cholesterol 144, LDL Cholesterol Direct 65, HDL Cholesterol 60 08/15/18 08:00: Free T4 0.80, TSH 3rd Generation 0.32 L 08/15/18 08:00: RPR Nonreactive Vital Signs Temp Pulse Resp BP 08/18/18 15:58 55 L 97/61 L 08/18/18 07:00 97.7 F 88 18 126/80 08/17/18 16:14 91 H 95/66 L 08/16/18 22:00 97.6 F 66 08/16/18 16:31 69 98/61 L 08/16/18 06:00 97.9 F 66 18 96/60 L 08/15/18 22:00 67 96/58 L 08/15/18 16:00 66 95/58 L 08/15/18 07:28 97.2 F L 52 L 18 94/64 L 08/14/18 16:00 98.0 F 68 18 101/66 Consultations:: List each consultation separately and include: 1. Reason for request. 2. Findings. 3. Follow-up Consultations: Medical follow-up appreciated Summary of Hospital Course include:: 1. Description of specific treatment plan utilized for patients during their course of treatmen. 2. Summarize the time- course for resolution of acute symptoms and/or regressed behaviors. 3. Describe issues identified and worked on during hospitalization. 4. Describe medication utilized. 5. Describe medical problems identified and treated. 6. Reassessment of suicide risk Summary of Hospital Course: Patient is a 42 year old single male with history of bipolar disorder, cocaine use disorder, alcohol abuse, numerous psychiatric admissions-most recently was discharged from [facility] ago, pt was accepted to [facility] for inpatient rehab, but pt did not get to the place for unknown reason. Pt had history of suicidal attempts, history of chronic noncompliance with the medications and follow-up appointments who was transferred from the medical floor where he was admitted for the chest pain in context of cocaine use (the same case scenario last admission), this telegraphic typewriter operator was involved as a oracle adf consultant, pt verbalized thoughts of harming self with the plan to CO poisoning, pt said that he attempted to turn the stove on and he was stopped, pt was medically stable for transfer, patient was admitted to the psychiatric inpatient unit for further ev aluation and stabilization/observation. This telegraphic typewriter operator is very familiar with this patient from multiple admissions to the psychiatric inpatient unit here in [facility], patient has chronic noncompliance with her medications and follow-up appointments. last admission pt was accepted to [facility], but pt never get there, previously pt also was accepted to [facility] Inpatient rehab, but was terminated because pt was late after pass to his family. As per report pt was taking psychotropic medications sporadically despite the fact that this telegraphic typewriter operator gave one month supply for his psychotropic medications. At the time of admission patient presented to be in hypomanic stage, obviously has racing thoughts, had difficulty to stay concentrated and focused, patient had pressured/overproductive speech, patient obviously irritable and annoyed as well as impulsive. Patient has poor personal hygiene, has long/dirty fingernails, messy hair, acceptable ADLs. pt also c/o hearing male voice "you are idiot, you are idiot..." pt cannot exclude that it is his own thoughts. Please see admission note for more detailed information. Patient was stabilized on the following medications: Wellbutrin 75 mg daily multivitamins daily Protonix Lyrica 25 mg twice a day and Seroquel 100 mg twice a day for psychosis and mood stabilization Patient tolerated medications well, no side effects observed or reported, pain 0, no EPS. As per report, over the weekend patient was in good behavioral control, no agitation, no aggression, compliant with medications, patient had good appetite and sleep. Overall patient was visible in the unit, was attending groups, no signs of psychosis/agitation/depression. Patient was accepted to [facility], patient agreed for transfer. At the time of the discharge patient was considered to pose no imminent danger to self or others, will be following up at [facility], (see note for more detailed information). It is a patient responsibility to follow up with outpatient clinic, PMD as well as specialists In case patient will need to obtain results of studies pending at discharge, patient was provided with contact information of Psychiatric Inpatient unit [phone] as well as Medical Record Department [phone], as well as [facility] team [phone]. Patient refused nicotine patch Naltrexone treatment is not indicated for cocaine abuse Counseling about smoking and cocaine cessation provided AA meetings as well as [facility] smoking cessation treatment program information was provided by the pt was provided with prescriptions see medication reconciliation form Pt was educated about safety plan in case of worsening of symptoms or in case of suicidal or homicidal ideation call 911 or go to the nearest ER, also was educated to take meds as prescribed and stay away from drugs, pt verbalized understanding. Lab Results 08/15/18 08:00: Triglycerides 44, Cholesterol 144, LDL Cholesterol Direct 65, HDL Cholesterol 60 Vital Signs Temp Pulse Resp BP 08/15/18 07:28 97.2 F L 52 L 18 94/64 L 08/14/18 16:00 98.0 F 68 18 101/66 - Diagnosis (1) Bipolar disorder Status: Chronic Priority: High (2) Cocaine abuse Status: Chronic Priority: High - Final Diagnosis (DSM 5) Condition upon Discharge: GOOD Disposition: HOME/ ROUTINE Follow-up Treatment Plan: At the time of the discharge patient was considered to pose no imminent danger to self or others, will be following up at [facility], (see SW note for more detailed information). It is a patient responsibility to follow up with outpatient clinic, PMD as well as specialists In case patient will need to obtain results of studies pending at discharge, patient was provided with contact information of Psychiatric Inpatient unit [phone] as well as Medical Record Department [phone], as well as [facility] team [phone]. Patient refused nicotine patch Naltrexone treatment is not indicated for cocaine abuse Counseling about smoking and cocaine cessation provided AA meetings as well as [facility] smoking cessation treatment program information was provided by the [facility] pt was provided with prescriptions see medication reconciliation form Pt was educated about safety plan in case of worsening of symptoms or in case of suicidal or homicidal ideation call 911 or go to the nearest ER, also was educated to take meds as prescribed and stay away from drugs, pt verbalized understanding. Prescriptions/Medication Reconciliation: buPROPion [Wellbutrin] 75 mg PO DAILY #30 tab Multivitamin Therapeutic Tab [Thera Tab] 1 tab PO 0800 #30 tab Pantoprazole [Protonix EC Tab] 20 mg PO 0600 #30 ect Pregabalin [Lyrica] 25 mg PO BID #60 cap QUEtiapine [Seroquel] 100 mg PO AMHS #60 tab - Tobacco Cessation Tobacco Use Status for the last 30 days: Light User(<=4 cigs daily, cigar/pipes not daily,or smokeless tobacco) Tobacco Use Treatment Practical Counseling Provided: Yes Tobacco Use Treatment FDA-Approved Cessation Medication Provided: No Reason for not providing: Patient refused tobacco cessation medication Smoking Cessation Prescription was given: No If no, reason for not providing: Patient refused - Alcohol or Substance Abuse Does the patient have an Alcohol or Substance Abuse Disorder: Yes - Antipsychotic Medications Pt discharged on 2 or more routine antipsychotic medications: No
--- NOTE | 2018-08-19 19:33 | PN ---
DATE: 08/19/2018 SUBJECTIVE: This 42-year-old male came in with shortness of breath, chest pain. Has a past medical history of hypertension, COPD, cocaine abuse, nicotine dependence. I saw the patient today at the bedside. Reporting no chest pain, no shortness of breath. Just reporting an occasional nonproductive cough. Denies abdominal pain, hematuria, hematochezia, fevers or chills. PHYSICAL EXAMINATION: GENERAL: The patient appeared in no acute distress. VITAL SIGNS: Temperature 97.7, heart rate 88, blood pressure 126/80, respiratory rate 18. HEENT: Normocephalic, atraumatic. PERRLA. Mucous membranes moist. NECK: Supple. No thyromegaly. RESPIRATORY: Clear to auscultation. CARDIOVASCULAR: S1 and S2. No JVD.. ABDOMEN: Soft. No organomegaly. EXTREMITIES: The patient is moving all extremities. No edema. No cyanosis. SKIN: Intact.. NEUROLOGIC: The patient is alert and oriented x3. MEDICATIONS: Tylenol, Brovana, Pulmicort, Wellbutrin, Benadryl, Haldol, Ativan, Protonix, Lyrica, Seroquel, Sonata. LABORATORY DATA: No current laboratories. Reviewed liver function tests for 08/15/2018. ASSESSMENT AND PLAN: A 42-year-old male who came in with chest pain, shortness of breath, had chronic obstructive pulmonary disease, hypertension, nicotine dependence, cocaine dependence. The patient is medically cleared. Consult the patient was seen by Psych and made it to inpatient psych. The patient is ready for discharge. The patient is ready for discharge. The patient reported being discharged today. We will follow the patient in office. all ABOVE NOTED , AGREED WITH INDUSTRIAL MECHANIC , EDUCATION DONE , D/D WITH INDUSTRIAL MECHANIC , PSYCHE IS ON THE CASE , WILL F/U Pierre Holden APN Kait Echavarria MD [facility] # [id number] [facility]
== END 2018-08-19 15:32 | disposition home or self-care (01) | DRG 885 ==
LOC: PSYC 11:14
PROVIDERS: ADMIT Psychiatry & Neurology Psychiatry; ATTEND Psychiatry & Neurology Psychiatry
DX: F31.63 Bipolar disorder, current episode mixed, severe, without psychotic features (principal); F14.20 Cocaine dependence, uncomplicated; F11.20 Opioid dependence, uncomplicated; F60.2 Antisocial personality disorder; F41.9 Anxiety disorder, unspecified; F90.9 Attention-deficit hyperactivity disorder, unspecified type; F17.200 Nicotine dependence, unspecified, uncomplicated; I10 Essential (primary) hypertension; J44.9 Chronic obstructive pulmonary disease, unspecified; E78.5 Hyperlipidemia, unspecified; G40.909 Epilepsy, unspecified, not intractable, without status epilepticus; K21.9 Gastro-esophageal reflux disease without esophagitis; Z91.14 Patient's other noncompliance with medication regimen; Z91.19 Patient's noncompliance with other medical treatment and regimen

== ENCOUNTER 2018-08-23 16:02 | Observation (INO) | payer MEDICARE, OTHER ==
[2018-08-23 16:02] VITALS: BMI 20.3
--- NOTE | 2018-08-23 17:08 | ED PDOC ---
Arrival/HPI - General Chief Complaint: Chest Pain Time Seen by Provider: 08/23/18 16:10 - History of Present Illness Narrative History of Present Illness (Text): 08/23/18 17:05 Patient is a 42 y/o M with bipolar, with prior psych admissions, presenting with suicidal ideation. He reports that he feels like killing himself. He reports that he became upset while thinking about his life stressors when he developed midsternal chest pain. Normal stress test on 11/2017. He reports using cocaine without relief of the chest pain. He was given aspirin and SL nitro by EMS. He denies current chest pain. Denies homicidal ideation. Denies any current jayden atic complaints. He is requesting psych admission. 08/23/18 19:42 Past Medical History - Past History Past History: No Previous - Infectious Disease Hx of Infectious Diseases: None - Cardiac Hx Cardiac Arrhythmia: Yes Hx Hypertension: No - Pulmonary Hx Bronchitis: Yes - Neurological Hx Seizures: Yes (as a baby) - HEENT Hx HEENT Disorder: No - Renal Hx Renal Disorder: No - Endocrine/Metabolic Hx Endocrine Disorders: No - Hematological/Oncological Hx Blood Disorders: No - Integumentary Hx Dermatological Disorder: No - Musculoskeletal/Rheumatological Hx Musculoskeletal Disorders: No Hx Falls: Yes - Gastrointestinal Hx Gastrointestinal Disorders: Yes (HIATAL HERNIA) - Genitourinary/Gynecological Hx Sexually Transmitted Diseases: No - Psychiatric Hx Anxiety: Yes Hx Bipolar Disorder: Yes Hx Depression: Yes Hx Substance Use: No - Anesthesia Hx Anesthesia: No Hx Anesthesia Reactions: No Hx Malignant Hyperthermia: No Family/Social History Family/Social History: No Known Family HX Smoking Status: Heavy Smoker > 10 Cigarettes Daily Hx Alcohol Use: No Hx Substance Use: No Substance used: Cocaine Allergies/Home Meds Allergies/Adverse Reactions: Allergies mushroom Allergy (Verified 08/21/18 16:23) SHORTNESS OF BREATH Review of Systems - Review of Systems Constitutional: absent: Fatigue, Weight Change, Fevers ENT: absent: Hearing Changes Respiratory: absent: SOB, Cough, Sputum, Wheezing Cardiovascular: Chest Pain (now resolved). absent: Palpitations, Edema, Calf Pain, ALLEN, Orthopnea, Syncope Gastrointestinal: absent: Abdominal Pain, Constipation, Diarrhea, Nausea, Vomiting Genitourinary Male: absent: Dysuria Neurological: absent: Headache, Dizziness, Focal Weakness, Gait Changes, Speech Changes, Facial Droop, Disequilibrium Psychiatric: Depression, Suicidal Ideation Physical Exam Temperature: Afebrile Blood Pressure: Normal Pulse: Regular Respiratory Rate: Normal Appearance: Positive for: Non-Toxic, Unkept Pain Distress: None Mental Status: Positive for: Agitated (agitated and tearful) - Systems Exam Head: Present: Atraumatic, Normocephalic Pupils: Present: PERRL Extroacular Muscles: Present: EOMI Conjunctiva: Present: Normal Mouth: Present: Moist Mucous Membranes Neck: Present: Normal Range of Motion Respiratory/Chest: Present: Clear to Auscultation, Good Air Exchange. No: Respiratory Distress, Accessory Muscle Use Cardiovascular: Present: Regular Rate and Rhythm, Normal S1, S2. No: Murmurs Abdomen: No: Tenderness, Distention, Rebound, Guarding Upper Extremity: Present: Normal ROM, NORMAL PULSES Skin: Present: Warm, Dry. No: Rashes Psychiatric: Present: Alert, Oriented x 3, Anxious, Agitated, Depressed Mood, Suicidal Ideation. No: Homicidal Ideation, Hallucinations Medical Decision Making ED Course and Treatment: 08/23/18 17:09 EKG shows NSR at 85bpm with LVH. Cxray negative. On 1:1 monitoring for safety 08/23/18 19:28 Labs grossly normal. Heart score:2. UA reviewed. 08/23/18 20:[address] Grant as pending PES eval - RAD Interpretation Radiology Orders: 08/23/18 16:10 CHEST PORTABLE [RAD] Stat Disposition/Present on Arrival - Present on Arrival Any Indicators Present on Arrival: No History of DVT/PE: No History of Uncontrolled Diabetes: No Urinary Catheter: No History of Decub. Ulcer: No History Surgical Site Infection Following: None - Disposition Have Diagnosis and Disposition been Completed?: Yes Diagnosis: Depression Disposition Time: 20:00 Patient Problems: Current Active Problems Problem Status Onset Depression Acute Condition: FAIR Forms: [place] (Citizen [place])
[2018-08-23 17:23] LABS: BASO # 0.04 K/mm3 (0.0-2.0); BASO % 0.5 % (0.0-3.0); EOS # 0.1 (0.0-0.7); EOS % 0.8 % (1.5-5.0); HEMOGLOBIN 14.3 g/dL (14.0-18.0); LYMPH # 2.7 (1.2-3.4); LYMPH % 31.4 % (22.0-35.0); MEAN CELL VOLUME 91.9 fl (80.0-105.0); MEAN CORPUSCULAR HEMOGLOBIN 31.4 pg (25.0-35.0); MEAN CORPUSCULAR HGB CONC 34.1 g/dl (31.0-37.0); MEAN PLATELET VOLUME 9.9 fl (7.0-11.0); MONO # 0.8 (0.1-0.6); MONO % 9.3 % (1.0-6.0); RBC 4.56 10^6/uL (3.5-6.1); RED CELL DISTRIBUTION WIDTH 13.9 % (11.5-14.5); WHITE BLOOD COUNT 8.6 10^3/uL (4.5-11.0)
[2018-08-23 17:33] LABS: ALB/GLOB RATIO 1.3 (1.1-1.8); ALBUMIN 4.6 g/dL (3.0-4.8); ALT/SGPT 38 U/L (7-56); AST/SGOT 33 U/L (17-59); BLOOD UREA NITROGEN 15 mg/dL (7-21); CALCIUM 9.2 mg/dL (8.4-10.5); GFR NON-AFRICAN AMERICAN > 60; HDL CHOLESTEROL 81 mg/dL (29-60)
[2018-08-23 17:41] LABS: LDL CHOLESTEROL 66 mg/dL (0-129)
[2018-08-23 17:43] LABS: TROPONIN I < 0.01 ng/mL
--- NOTE | 2018-08-23 18:07 | RAD ---
Date of service: 08/23/2018 HISTORY: chest pain COMPARISON: 08/13/2018. FINDINGS: LUNGS: No active pulmonary disease. PLEURA: No significant pleural effusion identified, no pneumothorax apparent. CARDIOVASCULAR: No atherosclerotic calcification present Normal. OSSEOUS STRUCTURES: No significant abnormalities. VISUALIZED UPPER ABDOMEN: Normal. OTHER FINDINGS: None. IMPRESSION: No active disease. No significant interval change compared to the prior examination(s). Concordant results with the preliminary interpretation rendered by the emergency department physician procedure.
[2018-08-23 19:26] LABS: URINE BILIRUBIN NEGATIVE (NEGATIVE); URINE BLOOD NEGATIVE (NEGATIVE); URINE GLUCOSE (UA) NEGATIVE (NEGATIVE); URINE LEUKOCYTE ESTERASE NEGATIVE Leu/uL (NEGATIVE); URINE PROTEIN 30 mg/dL (<30 mg/dL)
--- NOTE | 2018-08-23 19:29 | CARD ---
APPROVED REPORT Date of service: 08/23/2018 EKG Measurement Heart [id number] <Conclusion> Poor data quality, interpretation may be adversely affected Normal sinus rhythm Minimal voltage criteria for LVH, may be normal variant Borderline ECG
[2018-08-23 19:41] LABS: URINE APPEARANCE CLEAR (CLEAR); URINE COLOR YELLOW (YELLOW)
[2018-08-23 20:00] LABS: BARBITURATES, UR NEGATIVE (NEGATIVE); BENZODIAZEPINES, UR NEGATIVE (NEGATIVE); OPIATES, UR NEGATIVE (NEGATIVE); PHENCYCLIDINE, UR NEGATIVE (NEGATIVE)
[2018-08-23 20:12] LABS: URINE BACTERIA FEW /hpf; URINE EPITHELIAL CELLS 0 - 2 /hpf (0-5); URINE RBC 0 - 2 /hpf (0-2)
--- NOTE | 2018-08-23 20:26 | ED PDOC ---
Physical Exam Vital Signs Reviewed: Yes Vital Signs Temp Pulse Resp BP Pulse Ox 08/23/18 17:33 98.3 F 74 15 106/63 99 Temperature: Afebrile Blood Pressure: Normal Pulse: Regular Respiratory Rate: Normal Appearance: Positive for: Well-Appearing, Non-Toxic, Comfortable Pain Distress: None Mental Status: Positive for: Alert and Oriented X 3 Medical Decision Making ED Course and Treatment: 08/23/18 20:00 Case endorsed to me by Dr. Wade. Patient was brought in for chest pain after doing cocaine. Currently pending PES screener, reassessment, and disposition. Patient reports a persistent left sided chest pain, felt lightheaded with single episode of vomiting earlier today at approx 1pm. Patient exacerbated with exertion. Will get repeat cardiac enzyme, repeat ekg and admit to rule out acs. 08/23/18 20:[address] flores, consult to dr. morton and dr. roldan - Lab Interpretations Lab Results: Troponin I < 0.01 ng/mL 08/23/18 17:14 Total Bilirubin 1.1 mg/dL (0.2-1.3) 08/23/18 17:14 AST 33 U/L (17-59) 08/23/18 17:14 ALT 38 U/L (7-56) 08/23/18 17:14 Alkaline Phosphatase 79 U/L (38-126) 08/23/18 17:14 Total Protein 8.0 g/dL (5.8-8.3) 08/23/18 17:14 Albumin 4.6 g/dL (3.0-4.8) 08/23/18 17:14 Globulin 3.4 gm/dL 08/23/18 17:14 Albumin/Globulin Ratio 1.3 (1.1-1.8) 08/23/18 17:14 Urine Color Yellow (YELLOW) 08/23/18 19:00 Urine Appearance Clear (CLEAR) 08/23/18 19:00 Urine pH 7.0 (4.7-8.0) 08/23/18 19:00 Ur Specific [place] 1.020 (1.005-1.035) 08/23/18 19:00 Urine Protein 30 mg/dL (<30 mg/dL) H 08/23/18 19:00 Urine Glucose (UA) Negative mg/dL (NEGATIVE) 08/23/18 19:00 Urine Ketones Negative mg/dL (NEGATIVE) 08/23/18 19:00 Urine Blood Negative (NEGATIVE) 08/23/18 19:00 Urine Nitrate Negative (NEGATIVE) 08/23/18 19:00 Urine Bilirubin Negative (NEGATIVE) 08/23/18 19:00 Urine Urobilinogen 1.0 E.U./dL (<1 E.U./dL) H 08/23/18 19:00 Ur Leukocyte Esterase Negative Lalit/uL (NEGATIVE) 08/23/18 19:00 Urine RBC 0 - 2 /hpf (0-2) 08/23/18 19:00 Urine WBC None /hpf (0-6) 08/23/18 19:00 Ur Epithelial Cells 0 - 2 /hpf (0-5) 08/23/18 19:00 Urine Bacteria Few /hpf (NONE) 08/23/18 19:00 Urine Other Mucus /hpf 08/23/18 19:00 - RAD Interpretation Radiology Orders: 08/23/18 16:10 CHEST PORTABLE [RAD] Stat - EKG Interpretation EKG Interpretation (Text): 08/23/18 20:55 ekg #2: nsr at 71 bpm, nml qrs, nml axis, early repol Interpreted by ED Physician: Yes - Scribe Statement The provider has reviewed the documentation as recorded by the Scribe Zain Pereira All medical record entries made by the Scribe were at my direction and personally dictated by me. I have reviewed the chart and agree that the record accurately reflects my personal performance of the history, physical exam, medical decision making, and the department course for this patient. I have also personally directed, reviewed, and agree with the discharge instructions and disposition. Disposition/Present on Arrival - Present on Arrival Any Indicators Present on Arrival: No History of DVT/PE: No History of Uncontrolled Diabetes: No Urinary Catheter: No History of Decub. Ulcer: No History Surgical Site Infection Following: None - Disposition Have Diagnosis and Disposition been Completed?: Yes Diagnosis: Depression, Angina at rest Disposition: HOSPITALIZED Disposition Time: 20:00 Patient Plan: Admission Patient Problems: Current Active Problems Problem Status Onset Depression Acute Angina at rest Acute Condition: GUARDED Discharge Instructions (ExitCare): Chest Pain (ED) Forms: [employer] (Cameroonian)
[2018-08-23] MEDS ORDERED: Nitroglycerin 2% Ointment Foilpak UD TOP STA (20:53)
--- NOTE | 2018-08-24 10:21 | CON ---
DATE OF CONSULTATION: 08/24/2018 CARDIOLOGY CONSULTATION HISTORY: The patient is a 42-year-old male, who presents with malaise and atypical chest pain. He has had the chest pain symptoms for quite a long time where he underwent a stress test here within the past 12 months, which was unremarkable. His echocardiogram was unremarkable. In addition, the patient states he had a catheterization done at [facility], which he said no stents were placed, and there were no blockages noted. He was admitted and was found to have cocaine in his urine SOCIAL HISTORY: He does admit to smoking. MEDICATIONS: His medications at home include Wellbutrin and Protonix, as well as Lyrica REVIEW OF SYSTEMS: Fourteen-point review of systems is reviewed. No cardiac symptoms are noted. PHYSICAL EXAMINATION: VITAL SIGNS: Blood pressure is 110/61, heart rate is in the 60s. NECK: Negative JVD. LUNGS: Without rales. CARDIAC: Heart rate S1, S2. EXTREMITIES: Without edema. EKG is within normal limits. LABORATORY DATA: Chemistries, troponins are negative x2. Hemoglobin is 14.3. IMPRESSION: 1. Recurrent chest discomfort with no cardiac basis with a normal stress test within 12 months, as well as a reported normal catheterization at [facility] recently. 2. Drug abuse. 3. Diffuse body aches. PLAN: Given these findings, there is no evidence for acute coronary syndrome. There is no evidence for a cardiac cause of his symptoms. We will DC telemetry today. There is no further cardiac workup necessary at this time. I have discussed with the patient about his need to stop his drug abuse. Rl Erazo MD
--- NOTE | 2018-08-24 15:49 | CARD ---
APPROVED REPORT Date of service: 08/23/2018 EKG Measurement Heart [id number] MD [id number] <Conclusion> Normal sinus rhythm ST elevation, consider early repolarization, pericarditis, or injury Abnormal ECG
[2018-08-24 17:18] LABS: TROPONIN I < 0.01 ng/mL
--- NOTE | 2018-08-24 22:04 | HP ---
DATE OF EXAM: 08/24/2018 The patient was seen and examined at bedside on 08/24/2018. This history and physical is for 08/24/2018, CHIEF COMPLAINT: Chest pain and depression. HISTORY OF PRESENT ILLNESS: Mr. Mahamed Dewey is a 42-year-old male with history of bipolar, has drug abuse, has multiple admissions for suicidal and homicidal ideations. The patient reports that he feels like killing himself. He reports that he became upset with thinking about his life stressors when developed mid sternal chest pain. Stress test was done on 11/26/2017 there was normal. He reports using cocaine without relief of the chest pain. He was given aspirin and sublingual nitro by EMS. He denies current chest pain when I saw the patient, sometimes feeling shortness of breath. No fever. No chills. No hematuria. No hematochezia. Because of suicidal ideation, the patient is on one-to-one. PAST MEDICAL HISTORY: History of bronchitis, history of seizures as baby, hiatal hernia, bipolar and depression. FAMILY HISTORY: Father and mother noncontributory. HABITS: Heavy smoking more than 10 cigarettes per day. Alcohol, no as per the patient. Substance abuse, yes cocaine. ALLERGIES: THE PATIENT IS ALLERGIC WITH MUSHROOMS. REVIEW OF SYSTEMS: The patient was in his room in the telemetry. At that moment, no chest pain, but looks little bit sad. He is one-to-one. No fever. No chills. No hematuria or hematochezia. No headache. No dizziness. PHYSICAL EXAMINATION: VITAL SIGNS: Temperature 98.5, pulse 65, blood pressure 111/71 and respiratory rate 20. HEENT: Head is normocephalic and atraumatic. Eyes, PERRLA. Extraocular muscles intact. Conjunctivae clear. Nose patent. Mucous membrane moist. NECK: Supple. No carotid bruits. No JVD or thyromegaly. CHEST: Bilaterally symmetrical. HEART: S1 and S2, positive. LUNGS: Clear to auscultation. ABDOMEN: Soft. Bowel sounds present. No organomegaly. EXTREMITIES: No edema. No cyanosis. NEUROLOGIC: The patient is awake and alert. Moving all four extremities. No focal deficit. LABORATORY DATA: White blood cell is 8.6, hemoglobin 14.3, hematocrit 41.9 and platelets 212. Sodium 142, potassium 4.0, BUN 15 and creatinine 0.7. ASSESSMENT AND PLAN: Mr. Mahamed Dewey is a 42-year-old male with history of multiple medical problems, came with chest pain, suicidal ideation, has proteinuria. Drug screening positive for cocaine and he accepted that he used cocaine, history of seizures as childhood, depression and bipolar. According to Cardiology, the patient has atypical chest pain, stress test was negative within the year, which was unremarkable. Echocardiogram was unremarkable. Currently, the patient's catheterization was done in [facility], where he has had no stent placed and there was no blockage noted. I think he is using cocaine, that is giving the patient spasm of the blood vessels and chest pain. The patient had multiple admissions, has diffuse body aches. According to email developer, given the findings, there is no evidence of acute coronary syndrome. There is no evidence of cardiac cause for his symptoms. They discontinued telemetry. There is no further cardiac workup necessary at this time as per email developer. Urged to quit smoking and drugs. We called consult with psychiatry, Dr. Jamison Pereyra, he knows this patient very well because of multiple admissions. Repeat labs. We will follow up. Kait Echavarria MD [facility]
--- NOTE | 2018-08-24 23:33 | CON ---
DATE: 08/23/2018 HISTORY OF PRESENT ILLNESS: The patient is a 42-year-old single male with a history of bipolar disorder, cocaine use disorder, alcohol abuse, numerous psychiatric admissions, most recently at [facility] psychiatric unit just this month. History of suicide attempts, chronic noncompliance with medications and followup, who was seen on the medical floor by this provider while he is being ruled out for myocardial, presents after he presented to our ER with chest pain as well as in context of cocaine use as well as depression and suicidal thoughts. I met with the patient at bedside this morning. He is tired; however, he is alert and oriented to circumstances and superficially engaged. The patient continues to report chest pain and the reports of cocaine use prior to admission indicates that [facility] turned him away when he was discharged, was never taking medications. He started self-mediating with cocaine as well as some alcohol, though denies any excessive alcohol use. He is still depressed; however, denies any acute suicidal thoughts, would like to be stabilized in the psychiatric unit. Denies any hallucinations and does not appear to be responding to internal stimuli, and there have been on behavioral issues on the unit thus far. PSYCHIATRIC HISTORY: Numerous prior admissions, most recently the patient was admitted to [facility] from 08/14/2018 to 08/19/2018, seen in [facility] on 08/21/2018. He was discharged on medication regimen that included Wellbutrin 75 mg daily, Seroquel 100 a.m. and at bedtime. The patient was supposed to follow up at [facility]. Labs and vitals were reviewed. Relevant psychiatric medications only include Wellbutrin 75 mg daily and Seroquel 100 p.o. a.m. and at bedtime. IMPRESSION: Mood disorder, not otherwise specified, rule out bipolar disorder by history; severe cocaine use disorder; alcohol abuse; substance abuse mood disorder; rule out antisocial personality disorder. RECOMMENDATIONS: At this time, we will continue with Wellbutrin and Seroquel as prescribed in medical floor and Psychiatry will continue to follow up. The patient reports that he is interested in signing into the psychiatric unit once he is medically cleared and that is the plan at this time. Maximo Rubio MD [facility] # [id number]
[2018-08-25] MEDS: Pantoprazole 20 mg EC Tab PO SCH (05:53)
[2018-08-25 07:23] LABS: HEMOGLOBIN 13.7 g/dL (14.0-18.0); MEAN CELL VOLUME 93.2 fl (80.0-105.0); MEAN CORPUSCULAR HEMOGLOBIN 31.1 pg (25.0-35.0); MEAN CORPUSCULAR HGB CONC 33.3 g/dl (31.0-37.0); RBC 4.41 10^6/uL (3.5-6.1); RED CELL DISTRIBUTION WIDTH 13.9 % (11.5-14.5); WHITE BLOOD COUNT 4.8 10^3/uL (4.5-11.0)
[2018-08-25 07:43] LABS: BLOOD UREA NITROGEN 18 mg/dL (7-21); CALCIUM 8.8 mg/dL (8.4-10.5); GFR NON-AFRICAN AMERICAN > 60
[2018-08-25] MEDS: Multivitamin Therapeutic Tab PO SCH (10:27)
--- NOTE | 2018-08-25 17:08 | CON ---
DATE: 08/25/2018 HISTORY OF PRESENT ILLNESS: The patient is a 42-year-old single male, with a history of bipolar disorder, cocaine use disorder, alcohol abuse, numerous psychiatric admissions, most recently at [facility] just this month, history of suicide attempts, chronic noncompliance with medications and followup, who is being seen by Psychiatry on the medical floor while he is being ruled out for acute coronary syndrome. The patient was initially presented to the ER complaining of depression and suicidal thoughts; however, also complained of chest pain and required medical stabilization prior to ultimate transfer to the psychiatric unit. I met him at bedside yesterday and again today, and the patient continues to be depressed and he is willing to be transferred to the psychiatric unit. He presents as coherent without any hallucinations. He has been cooperative on the medical floor, motivated to improve and reports gratefulness for her help thus far. He is tolerating the medications that were restarted. The psychiatric medications restarted for him, does note some sedation, but this is tolerable. The patient is also unable to eat and slept well last night. His insight and judgment are fair, and he committed to transfer to the psychiatric unit once medically cleared. Relevant psychiatric medications include Wellbutrin 75 and Seroquel in a.m. and at bedtime. IMPRESSION: Mood disorder, not otherwise specified, rule out bipolar disorder by history; severe cocaine use disorder; alcohol abuse; and substance abuse mood disorder. RECOMMENDATIONS: We will continue with Wellbutrin and Seroquel as prescribed. Psychiatry will continue to the patient is medically cleared. Once the patient is medically cleared, the patient is agreeable to signing in voluntarily to . Maximo Rubio MD
[2018-08-26] MEDS: Pantoprazole 20 mg EC Tab PO SCH (06:20)
[2018-08-26 06:59] VITALS: O2SAT 98
[2018-08-26] MEDS: Multivitamin Therapeutic Tab PO SCH (09:38)
--- NOTE | 2018-08-26 11:23 | CP.PCM.PCO ---
Physician Communication Note - Physician Communication Note Physician Communication Note: spoke tp 5b re: pt pending transfer
[2018-08-26 17:34] VITALS: BP 95/62; PULSE 76; RESP 19; TEMP 98.2
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
--- NOTE | 2018-08-26 21:25 | PN ---
DATE: 08/26/2018 SUBJECTIVE: The patient was seen and examined today. The patient reported that after he was discharged from the hospital, he went to [facility] inpatient rehab, but he was rejected there. Since that time, the patient was going to [facility] rehab, after that [place] inpatient rehab [facility], but the patient always was rejected. The patient was suggested to go to [facility] for detox, but the patient was rejected there because the patient was using cocaine only. As a result, the patient became depressed even more. The patient reported that he was feeling suicidal. The day prior to medical admission here in [place], on 08/22/2018, the patient attempted to walk into the traffic, but was found his friend. At present moment, the patient is not able to contract for safety. The patient wants to be admitted to the psychiatric inpatient unit and wants to be stabilized and referred to inpatient rehab as well. Collaterals were obtained from the nursing staff. As per nursing staff, the patient was verbalizing thoughts of killing himself at the morning time that is why he was continued on one-to-one observation. Vital signs reviewed. Temperature 97.4, pulse 68, blood pressure 95/70, respirations 20 and oxygen saturation is 98. MEDICATIONS: Reviewed. The patient was resumed on Seroquel and Wellbutrin. LABORATORY DATA: The patient's labs reviewed. Toxicology was positive for cocaine only. The patient was minimizing his cocaine abuse and reported that he uses "a little bit." MENTAL STATUS EXAMINATION: The patient presented to be alert, talkative at times. Circumstantial and tangential thought process. Mood described as depressed and hopeless. Thought content, the patient denied visual, auditory or tactile hallucinations. Denied paranoid ideation. The patient does not present to be psychotic, but the patient reported that he has suicidal ideation with a plan to walk into the traffic. Insight and judgment seems to be limited. Impulses are unpredictable. IMPRESSION: As per history, bipolar disorder and a history of cocaine use disorder. PLAN: The patient will be offered admission to the psychiatric inpatient unit. The patient will be continued on medication. Inpatient rehab will be offered to the patient. Meanwhile, the patient requires further evaluation and stabilization and medication management. Thank you very much. Hafsa Swift MD
--- NOTE | 2018-08-27 03:27 | DS ---
This case was discussed with Dr. Echavarria she is inagreement with treatment plan. HISTORY OF PRESENT ILLNESS: This is a 42-year-old male with chief complaint of chest pain. PAST MEDICAL HISTORY: Mr. Dewey has numerous admissions with chest pain related to cocain dependence nicotine dependent. This admission, the patient had chest pain after doing cocaine. He reports he relapsed due to personal stressors that he is dealing with. The patient was also having suicidal ideation. Last admission, the patient had similiar complaints. He was cleared by Cardiology and transferred to inpatient Psychiatry The patient was discharged with medications at bedside. I saw the patient today at bedside. SOCIAL HISTORY: The patient lives at the [facility]. He has a history of nicotine dependence, half a pack to a pack a day for approximately 20 years. The patient has substance abuse history particularly cocaine, has been using for 10 plus years. 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 HOME MEDICATIONS: Reviewed by myself and were reconciled. REVIEW OF SYSTEMS: The patient appears in no acute distress, appears lethargic reports sedation from medications Complaining of headache. Reports intermittent chest pain with activities. Denies palpitation, denies cough, hemoptysis, heartburn, abdominal pain, hematochezia, hematuria, denies joint pain or deformity, denies skin lesions or edema. ALLERGIES: THE PATIENT IS ALLERGIC TO MUSHROOM, DEVELOPS HIVES. PHYSICAL EXAMINATION: GENERAL: The patient appeared in no acute distress, lethargic. VITAL SIGNS: Temperature 97.8, pulse of 74, blood pressure 112/66, pulse of 81, respiratory rate of 18, saturating at 98% on room air. HEENT: Normocephalic, atraumatic. PERRLA. Mucous membranes dry. NECK: Supple. No thyromegaly. RESPIRATIONS: Clear to auscultation. No wheeze, no rhonchi. CARDIOVASCULAR: S1 and S2. No JVD. GASTROINTESTINAL: Abdomen soft, nontender. No organomegaly. EXTREMITIES: The patient is moving all extremities. SKIN: Intact. No cyanosis, no edema. NEUROLOGIC: The patient is alert and oriented x3. PSYCHIATRIC: The patient reports feeling depressed. Having some thoughts of suicidal ideations with no plan. MEDICATIONS: He is taking aspirin 81 mg daily, Wellbutrin 75 mg daily, multivitamin tab, a nicotine patch, Protonix 40 mg, Seroquel 100 mg b.i.d., and Geodon 20 mg every 6 hours. LABORATORY DATA: Hematology; white blood cells 4.8, hemoglobin 13.7, hematocrit 41.1, platelet count 195. Sodium 141, potassium 3.9, BUN 18, creatinine 0.7, A1c is 5.8, BNP 82.2, troponin negative at 0.01, CK MB 2.2, cholesterol 153, triglycerides 44, TSH 0.32. ASSESSMENT AND PLAN: This is a 42-year-old male with multiple admissions. The patient was discharged on 08/19/2018. At that time he came in with chest pain after cocaine abuse, depression. The patient was seen by Cardiology. He was cleared and he was transferred to inpatient Psychiatry. The patient was having some suicidal thoughts, he denied a plan. He reports feeling depressed, has a lot of personal stressors. The patient reports he was not able to get into the [facility] because he tested positive for cocaine this may add to relapse of cocaine abuse he was not able to refill medications once discharged. The patient admitted on Telemetry floor, seen by Cardiology,cleared by Cardiology. The patient continues on aspirin, Wellbutrin, gastric prophylaxis, Seroquel, and Geodon. We will discharge the patient today to Psychiatry for inpatient treatment. We will follow up. Pierre Holden APN Kait Echavarria MD [facility]
--- NOTE | 2018-08-27 10:46 | PN ---
DATE: 08/25/2018 SUBJECTIVE: The patient was seen and examined at the bedside on 08/25/2018. The patient is looking comfortable. No fever, no chills. No hematuria, no hematochezia. No headache. No dizziness. No chest pain, no palpitation. Still on one-to-one. PHYSICAL EXAMINATION: VITAL SIGNS: Temperature 98.2, pulse 70, blood pressure 97/55, respiratory rate 21. HEENT: Head: Normocephalic, atraumatic. Eyes: PERRLA. Extraocular muscles intact. Conjunctivae clear. Nose patent. Mucous membranes moist. NECK: Supple. No carotid bruits. No JVD or thyromegaly. CHEST: Bilaterally symmetrical. HEART: S1 and S2, positive. LUNGS: Clear to auscultation. ABDOMEN: Soft. Bowel sounds present. No organomegaly. EXTREMITIES: No edema. No cyanosis. NEUROLOGIC: The patient is awake and alert. Moving all four extremities. No focal deficits. MEDICATIONS: Ecotrin, , Nicoderm, Protonix, Wellbutrin. LABORATORY DATA: White blood cells 4.8, hemoglobin 13.7, hematocrit 41.9, platelets 195. Sodium 141, potassium 3.9, BUN 18, creatinine 0.7, glucose 91. ASSESSMENT AND PLAN: The patient is with anemia, proteinuria. Drug screening positive for cocaine. Came with chest pain, cocaine overdose. Seen by the psychiatrist. Has mood disorder, not otherwise specified. Rule out bipolar disorder. By history, severe cocaine use disorder, alcohol abuse and substance abuse, mood disorder. The psychiatrist is here. I reviewed with Dr. Rl Erazo the notes. According to him, the patient is cardiology marlow clear. He telemetry. We will discharge the patient to Psychiatry for psychiatry evaluation. Kait Echavarria MD
== END 2018-08-26 19:56 ==
LOC: ED 16:02 → ERH 20:52 → 2RNO 08-24 00:15
PROVIDERS: ADMIT Internal Medicine; ATTEND Internal Medicine
DX: R07.89 Other chest pain (principal); I25.10 Atherosclerotic heart disease of native coronary artery without angina pectoris; F31.9 Bipolar disorder, unspecified; F14.20 Cocaine dependence, uncomplicated; F10.10 Alcohol abuse, uncomplicated; R45.851 Suicidal ideations; D64.9 Anemia, unspecified; F17.210 Nicotine dependence, cigarettes, uncomplicated; Z91.14 Patient's other noncompliance with medication regimen; Z91.5 Personal history of self-harm; Z91.410 Personal history of adult physical and sexual abuse
CPT/HCPCS: 36415; 71045; 80048; 80053; 80061; 81001; 82550; 83615; 84484; 85025; 85027; 93005; 99285; G0378; G0480

== ENCOUNTER 2018-08-26 19:49 | Inpatient (IN) | payer MEDICARE, OTHER ==
[2018-08-26 20:12] VITALS: BMI 19.5
[2018-08-26 20:29] VITALS: O2SAT 98
--- NOTE | 2018-08-26 21:44 | PCM.BM ---
<Devora Sanchez - Last Filed: 08/26/18 21:41> Treatment Plan Problems - Problems identified on initial assessmt Hopelessness/Helplessness Date Initiated: 08/26/18 Time Initiated: 21:41 Assessment reference: NA Status: Active Ineffective Coping Date Initiated: 08/26/18 Time Initiated: 21:41 Assessment reference: NA Status: Active Medication nonadherence Date Initiated: 08/26/18 Time Initiated: 21:42 Assessment reference: NA Status: Active Altered Sleep Patterns Date Initiated: 08/26/18 Time Initiated: 21:42 Assessment reference: NA Status: Active Treatment assets and liabiliti Patient Assests: adapts well, cooperative, motivated, resourceful, self-reliant, ADL independent, physically healthy, negotiates basic needs, cognitively intact Patient Liabilities: live alone, financial problems, poor support system, r elationship conflicts, substance abuse - Milieu Protocol Maintain good personal hygiene: daily Encourage regular showers, daily Remind patient to perform daily oral care, daily Assist patient to perform ADL's Conduct patient checks and document Observation sheet: Q15 minutes Maintain personal safety: every shift Educate patient to report safety concerns to staff, every shift Monitor environment for contraband/sharps Medication safety: Monitor for expected outcome, potential side effects: every shift, Assess barriers to learning: every shift, Assess readiness for medication education: every shift Discharge/Continuing Care - Education Needs Education Needs: Patient Medication, Patient Diagnosis/Disease Process, Patient Coping Skills, Patient Placement options, Patient Community resources, Patient Health Practices/Safety, Patient Aftercare Safety Plan - Discharge Discharge Criteria: Tolerates medication w/o severe side effects, Free of Suicidal thoughts, Normal sleep pattern, Ability to care for self, No longer exhibiting s/s of withdrawal, Reduction of target symptoms <Hafsa Swift - Last Filed: 08/27/18 13:26> - Diagnosis (1) Bipolar 1 disorder Status: Chronic Interventions: 08/27/18 13:26 Psychoeducation Psychopharmacology/adjustment of medications as needed/ monitoring possible side effects Monitor blood level of mood stabilizers Evaluate pt on daily basis Compliance with medications and follow up appointments Suicide and homicide risk assessment and prevention, coping strategies, safety plan Relapse prevention Reduction of symptoms Improve functional status Family involvement As outpatient: cognitive behavioral therapy (2) Cocaine abuse Status: Chronic Interventions: 08/27/18 13:26 Maintaining sobriety Relapse prevention Possible rehabilitation Motivational interviewing 12-step programs: AA meetings Possible inpatient rehab <Yary Atwood - Last Filed: 08/28/18 16:22>
[2018-08-27] MEDS: Pantoprazole 40 mg EC Tab PO SCH (06:45)
[2018-08-27 08:12] LABS: GLUCOSE,FASTING 96 mg/dL (65-110); HDL CHOLESTEROL 48 mg/dL (29-60)
[2018-08-27 08:23] LABS: LDL CHOLESTEROL 64 mg/dL (0-129)
[2018-08-27] MEDS: Multivitamin Therapeutic Tab PO SCH (09:27)
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
[2018-08-28] MEDS: Pantoprazole 40 mg EC Tab PO SCH (06:21)
[2018-08-28] MEDS: Multivitamin Therapeutic Tab PO SCH (09:20)
[2018-08-28 14:16] LABS: BARBITURATES, UR NEGATIVE (NEGATIVE); BENZODIAZEPINES, UR NEGATIVE (NEGATIVE); OPIATES, UR NEGATIVE (NEGATIVE); PHENCYCLIDINE, UR NEGATIVE (NEGATIVE)
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
[2018-08-29] MEDS: Pantoprazole 40 mg EC Tab PO SCH (05:22)
[2018-08-29] MEDS: Multivitamin Therapeutic Tab PO SCH (09:23)
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
[2018-08-30] MEDS: Pantoprazole 40 mg EC Tab PO SCH (06:55)
[2018-08-30] MEDS: Multivitamin Therapeutic Tab PO SCH (09:53)
[2018-08-30 10:51] LABS: BARBITURATES, UR NEGATIVE (NEGATIVE); BENZODIAZEPINES, UR NEGATIVE (NEGATIVE); OPIATES, UR NEGATIVE (NEGATIVE); PHENCYCLIDINE, UR NEGATIVE (NEGATIVE)
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
[2018-08-31] MEDS: Pantoprazole 40 mg EC Tab PO SCH (06:07)
[2018-08-31 07:07] VITALS: RESP 20
[2018-08-31] MEDS: Multivitamin Therapeutic Tab PO SCH (08:40)
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
[2018-08-31 12:34] LABS: TROPONIN I < 0.01 ng/mL
[2018-08-31 12:35] LABS: BASO # 0.03 K/mm3 (0.0-2.0); BASO % 0.4 % (0.0-3.0); EOS # 0.3 (0.0-0.7); EOS % 4.3 % (1.5-5.0); HEMOGLOBIN 13.9 g/dL (14.0-18.0); LYMPH # 2.6 (1.2-3.4); LYMPH % 36.6 % (22.0-35.0); MEAN CELL VOLUME 93.5 fl (80.0-105.0); MEAN CORPUSCULAR HEMOGLOBIN 31.2 pg (25.0-35.0); MEAN CORPUSCULAR HGB CONC 33.4 g/dl (31.0-37.0); MEAN PLATELET VOLUME 9.8 fl (7.0-11.0); MONO # 0.9 (0.1-0.6); MONO % 12.2 % (1.0-6.0); RBC 4.45 10^6/uL (3.5-6.1); RED CELL DISTRIBUTION WIDTH 13.9 % (11.5-14.5)
[2018-08-31 12:45] LABS: ALB/GLOB RATIO 1.3 (1.1-1.8); ALBUMIN 4.2 g/dL (3.0-4.8); ALT/SGPT 58 U/L (7-56); AST/SGOT 51 U/L (17-59); BLOOD UREA NITROGEN 15 mg/dL (7-21); CALCIUM 9.3 mg/dL (8.4-10.5); GFR NON-AFRICAN AMERICAN > 60
--- NOTE | 2018-08-31 12:47 | PCM.RRT ---
<Zackary Newman - Last Filed: 08/31/18 12:51> MARKETING FINANCE SPECIALIST Nurse Assessment - Situation Date: 08/31/18 Time MARKETING FINANCE SPECIALIST was called: 11:01 MARKETING FINANCE SPECIALIST Responder Arrival Time: 11:04 MARKETING FINANCE SPECIALIST Location:: Psychiatry Unit Room Number: [id number] MARKETING FINANCE SPECIALIST Reason for Call: Chest Pain MARKETING FINANCE SPECIALIST Called By: RN - IV IV Inserted during MARKETING FINANCE SPECIALIST?: No - Respiratory Oxygen Delivery Method: Room Air Oxygen Flow Rate: 98 Received Nebulizer Treatments:: No Was the Patient Ventilated with Bag/Mask 100% O2?: No Secretions Suctioned?: No Was the Patient Intubated?: No Was the Patient Placed on a Ventilator?: No - Medication Medications Administered During MARKETING FINANCE SPECIALIST: NONE - Diagnostic Test Ordered EKG: Yes Chest X-Ray: No CT Scan: No - Stat Labs Ordered MARKETING FINANCE SPECIALIST Stat Labs Ordered: CBC, BMP, TROPONIN MARKETING FINANCE SPECIALIST Other Labs Ordered: Mag CPR started during MARKETING FINANCE SPECIALIST?: No - Vital Signs Vital Sign: Rapid Response Vital Sign Blood Pressure 99/64 Pulse Rate 64 Respiratory Rate 18 Temperature 98.1 F Oxygen Saturation 98 - Finger Stick Blood Glucose Finger Stick Blood Glucose: 170 - Time MARKETING FINANCE SPECIALIST Ended Time MARKETING FINANCE SPECIALIST Ended: 11:30 - Vital Signs at end of MARKETING FINANCE SPECIALIST Vital Signs at end of MARKETING FINANCE SPECIALIST: Rapid Response End Vital Sign Blood Pressure 107/67 Pulse Rate 72 Respiratory Rate 18 Temperature 98.1 F O2 Sat by Pulse Oximetry 98 - Recommendations Notifications: Attending Physician I.Reason for MARKETING FINANCE SPECIALIST - A) Acute Change in Patient: (Select all that apply): Staff member or family is worried about patient Subjective: Patient is a 42 M with a history of chest pain associated with cocaine abuse and depression. Rapid Response was called due to patient having chest pain. Patient states his pain started suddenly while he was asleep and woke him out of bed. Patient denied fevers ,chills, nausea, vomiting, diarrhea, dizziness, headache. - Neurological Status (Select all that apply): Alert, Responsive, Oriented, Verbal, Follows Commands - Respiratory Oxygen Delivery Method: Room Air Oxygen Flow Rate: 98 - Head Head Exam: ATRAUMATIC, NORMAL INSPECTION, NORMOCEPHALIC - Eyes Eye Exam: EOMI, Normal appearance - Respiratory Exam Respiratory Exam: Clear to Ausculation Bilateral, NORMAL BREATHING PATTERN - Cardiovascular Exam Cardiovascular Exam: REGULAR RHYTHM, +S1, +S2 - GI/Abdominal Exam GI & Abdominal Exam: Soft, Normal Bowel Sounds - Neurological Exam Neurological Exam: Alert, Awake, Oriented x3 - Extremities Exam Extremities Exam: Normal Inspection Plan - Assessment of Findings&Treatment Plan Plan -Attending Dr. Echavarria and Plastic Tool Maker made aware -CBC, CMP, Trop (serial, negative x 1) -EKG: minimal change in comparison to previous EKG -Patient already received aspirin By end of rapid response patient's pain had resolved. he also stated he has been under a lot of stress as of late. <Francine Villeda - Last Filed: 08/31/18 14:20> MARKETING FINANCE SPECIALIST Nurse Assessment - Vital Signs Vital Sign: Rapid Response Vital Sign Blood Pressure 99/64 Pulse Rate 64 Respiratory Rate 18 Temperature 98.1 F Oxygen Saturation 98 - Vital Signs at end of MARKETING FINANCE SPECIALIST Vital Signs at end of MARKETING FINANCE SPECIALIST: Rapid Response End Vital Sign Blood Pressure 107/67 Pulse Rate 72 Respiratory Rate 18 Temperature 98.1 F O2 Sat by Pulse Oximetry 98 Attending/Attestation - Attestation I have personally seen and examined this patient.: Yes I have fully participated in the care of the patient.: Yes I have reviewed all pertinent clinical information, including history, physical exam and plan: Yes Notes (Text): 08/31/18 14:17 MARKETING FINANCE SPECIALIST called for chest pain. Patient with history of recent cocaine use. Chest pain is now resolved. He is on aspirin. EKG shows no acute changes. Repeat labs including cardiac enzymes. PMD/cardiology notified. Counselled on risks of continued cocaine use.
[2018-09-01] MEDS: Pantoprazole 40 mg EC Tab PO SCH (07:03)
[2018-09-01] MEDS: Multivitamin Therapeutic Tab PO SCH (09:00)
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
--- NOTE | 2018-09-01 10:50 | CARD ---
APPROVED REPORT Date of service: 08/31/2018 EKG Measurement Heart [id number] <Conclusion> Normal sinus rhythm Early repolarization Normal ECG
[2018-09-01] MEDS: Albuterol HFA 90 mcg/actuation (8 g) IH SCH ×2 (19:05→21:15)
--- NOTE | 2018-09-01 22:29 | PN ---
This case was discussed with Dr. Echavarria she is inagreement with treatment plan. DATE: 09/01/2018 SUBJECTIVE: This is a 42-year-old male, who came in with chest pain and depression. Has multiple admissions, inpatient and Psychiatric admissions. The patient also has a history of polysubstance abuse, bipolar, major depression, and suicidal ideation. Saw the patient today at the bedside. The patient was alert. Looking comfortable. Looking in good spirits. Denies chest pain, shortness of breath, abdominal pain, hematuria, hematochezia, fevers, or chills. Reporting some cough and requested to have inhaler that he had at home. Reviewed the patient's medications. PHYSICAL EXAMINATION: VITAL SIGNS: Stable. Temperature 97.3, pulse rate 69, blood pressure 98/65, respiratory rate 20, and O2 sat 98% on room air. GENERAL: The patient appeared in no acute distress. HEENT: Normocephalic and atraumatic. PERRLA. Mucous membranes moist. NECK: Supple. Normal inspection. No thyromegaly. RESPIRATORY: Clear to auscultation. No wheeze. No rhonchi. Occasional nonproductive cough. CARDIOVASCULAR: S1 and S2. No JVD. ABDOMEN: Soft and nondistended. No organomegaly. EXTREMITIES: The patient is moving all extremities. No edema. NEUROLOGIC: The patient is alert and oriented x3. MEDICATIONS: He states that he is on Tylenol p.r.n., Ventolin two puffs every 8 hours, aspirin chewable 81 mg, Wellbutrin 75 mg b.i.d., multivitamin, Nicoderm patch, Protonix, Seroquel, and Geodon tablet. LABORATORY DATA: From 08/31/2018, white blood cell 7, hemoglobin 13.9, hematocrit 41.6, and platelet count 205. Chemistries, sodium 139, potassium 4.2, BUN 15, creatinine 0.7, and GFR is over 60. Fasting glucose this morning was 99. Cholesterol 135 and triglycerides 94. TSH 0.35. ASSESSMENT AND PLAN: Mr. Dewey is a 42-year-old male with polysubstance abuse, bipolar, major depression disorder, chest pain, and chronic obstructive pulmonary disease. Ventolin two puffs every 8 hours was continued today on the patient's medication list. The patient continues on aspirin 81 mg and nicotine patch. Suggest smoking cessation, also cocaine cessation. Recommend the patient go to inpatient detoxification treatment. The patient continues on Geodon, Seroquel, and Protonix 40 mg. We will follow up. ALL ABOVE NOTED , AGREED WITH BIGHT MAKER TREATMENT PLAN , LABS ,MEDS AND CHART NOTED , EDUCATION DONE. CONT. PSYCHE TREATMENT Pierre Holden APN Kait Echavarria MD [facility]
--- NOTE | 2018-09-01 22:51 | PN ---
DATE: 08/31/2018 SUBJECTIVE: The patient is 42-year-old male. The patient was seen and examined at the bedside on 08/31/2018. Looking comfortable. No fevers. No chills. No hematuria. No hematochezia. No headache or dizziness. Has episodes of chest pain. Seen by the house physician. Cardiac enzymes were done. Cardiology consult called. PHYSICAL EXAMINATION: VITAL SIGNS: Temperature 97.3, pulse 59, blood pressure 98/55 and respiratory rate 20. HEENT: Head; normocephalic and atraumatic. Eyes; PERRLA, extraocular muscles intact, conjunctivae clear. Nose patent. Mucous membranes moist. NECK: Supple. No carotid bruits. No JVD. No thyromegaly. CHEST: Bilaterally symmetrical. HEART: S1 and S2 positive. LUNGS: Clear to auscultation. ABDOMEN: Soft. Bowel sounds positive. No organomegaly. EXTREMITIES: No edema. No cyanosis. NEUROLOGIC: The patient is awake and alert. Moving all four extremities. No focal deficits. LABORATORY DATA: White blood cells 7.0, hemoglobin 13.9, hematocrit 41.6 and platelet count 205. Sodium 139, potassium 4.2, BUN 15, creatinine 0.7 and glucose 170. MEDICATIONS: Aspirin, Geodon, Nicoderm, Protonix, Seroquel, Tylenol, Ventolin and Wellbutrin. ASSESSMENT AND PLAN: Mr. Mahamed Dewey, 42-year-old male with anemia, hyperglycemia, remote hyperthyroidism, drug screen is positive for cocaine. RPR negative. Has chest pain. Seen by the Pulley Mortiser Operator. Cardiac enzymes ordered. History of cocaine abuse. Psychiatrist is on the case. Gastrointestinal and deep venous thrombosis prophylaxis. Repeat labs. We will follow up. Kait Echavarria MD [facility]
[2018-09-02] MEDS: Pantoprazole 40 mg EC Tab PO SCH (06:48)
[2018-09-02] MEDS: Albuterol HFA 90 mcg/actuation (8 g) IH SCH ×3 (06:53→21:05)
[2018-09-02] MEDS: Multivitamin Therapeutic Tab PO SCH (08:48)
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
--- NOTE | 2018-09-02 23:20 | PN ---
This case is discussed with Dr. Echavarria she in agreement with treatment plan. DATE: 09/02/2018 SUBJECTIVE: This is a 42-year-old male with multiple admissions for both inpatient and psychiatric inpatient hospitalizations, came in this time with chest pain, polysubstance abuse. The patient has history of COPD, hypertension. Currently on inpatient psych unit. Denies chest pain, shortness of breath, abdominal pain, hematuria, hematochezia, fevers, or chills. PHYSICAL EXAMINATION: VITAL SIGNS: Temperature 98.1, pulse 82, blood pressure 103/68, respiratory rate 18, and sating 98% on room air. GENERAL APPEARANCE: The patient is in no acute distress, looking comfortable. HEENT: Normocephalic, atraumatic. PERRLA. Mucous membranes moist. NECK: Supple. Normal inspection. No thyromegaly. RESPIRATORY: Clear to auscultation. No wheeze. No rhonchi. CARDIOVASCULAR: S1 and S2. No JVD. ABDOMEN: Soft, nontender. No organomegaly. EXTREMITIES: The patient is moving all extremities. NEUROLOGIC: The patient is alert and oriented x3. MEDICATIONS: He is on multivitamin, Nicoderm patch daily, Protonix, Seroquel, Geodon, albuterol inhaler. LABORATORY DATA: Labs reviewed from 08/31/2018. ASSESSMENT AND PLAN: This is a 42-year-old male, admitted to inpatient psychiatric on 08/30/2018. The patient has polysubstance abuse, chest pain, chronic obstructive pulmonary disease. He is on Ventolin, aspirin, Wellbutrin, Geodon, gastric prophylactic tonic. We will follow up. ALL ABOVE NOTED , AGREED WITH NURSING INFORMATION SYSTEMS COORDINATOR TREATMENT PLAN , LABS ,MEDS AND CHART NOTED , EDUCATION DONE Pierre Holden APN Kait Echavarria MD [facility]
[2018-09-03] MEDS: Pantoprazole 40 mg EC Tab PO SCH (06:36)
[2018-09-03] MEDS: Albuterol HFA 90 mcg/actuation (8 g) IH SCH (06:37)
[2018-09-03 07:34] VITALS: BP 88/52; PULSE 71; TEMP 97.7
[2018-09-03] MEDS: Multivitamin Therapeutic Tab PO SCH (09:06)
[2018-09-03 09:48] LABS: BARBITURATES, UR NEGATIVE (NEGATIVE); BENZODIAZEPINES, UR NEGATIVE (NEGATIVE); OPIATES, UR NEGATIVE (NEGATIVE); PHENCYCLIDINE, UR NEGATIVE (NEGATIVE)
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
--- NOTE | 2018-09-03 21:08 | PN ---
DATE: 09/03/2018 SUBJECTIVE: The patient is 42-year-old male. The patient was seen and examined at the bedside on 09/03/2018, seen early in the morning, looking comfortable. No fevers. No chills. No hematuria. No hematochezia. No headache or dizziness. No chest pain. No palpitations. Bowel movement is okay. PHYSICAL EXAMINATION: VITAL SIGNS: Temperature 97.7, pulse 71, respiratory rate 20, and blood pressure 88/52. HEENT: Head; normocephalic and atraumatic. Eyes; PERRLA. Extraocular muscles are intact. Conjunctivae clear. Nose patent. Mucous membranes moist. NECK: Supple. No carotid bruit, JVD, or thyromegaly. CHEST: Bilaterally symmetrical. HEART: S1 and S2 positive. LUNGS: Clear to auscultation. ABDOMEN: Soft. Bowel sounds present. No organomegaly. EXTREMITIES: No edema. No cyanosis. NEUROLOGIC: The patient is awake and alert. Moving all four extremities. No focal deficits. LABORATORY DATA: White blood cells 7, hemoglobin 13.9, hematocrit 41.6, and platelets 205. Sodium 139, potassium 4.2, BUN 16, creatinine 0.7, and glucose 99. MEDICATIONS: Reviewed by me. ASSESSMENT AND PLAN: Mr. Mahamed Dewey is a 42-year-old male with anemia, history of cocaine abuse, depression, suicidal ideations, history of bipolar disorder. Drug screen positive for cocaine. Rule out hyperthyroidism. Has multiple admissions of chest pain after cocaine abuse. He was admitted on the medical floor, then transferred to the Psych. History of alcohol abuse. Numerous psych admissions, most recently was [place] [facility] [place]. The patient is getting Wellbutrin, multivitamins, Protonix, and Seroquel. Psych is on the case. Continue present treatment. Repeat labs. He is very happy to go home. We will follow up as outpatient. Kait Echavarria MD [facility]
== END 2018-09-03 14:48 | disposition home or self-care (01) | DRG 885 ==
LOC: PSYC 19:49
PROVIDERS: ADMIT Psychiatry & Neurology Psychiatry; ATTEND Psychiatry & Neurology Psychiatry
PROC: GZ3ZZZZ Medication Management (ICD-10-PCS; principal; 2018-08-26)
DX: F31.9 Bipolar disorder, unspecified (principal); F14.10 Cocaine abuse, uncomplicated; F10.10 Alcohol abuse, uncomplicated; F60.2 Antisocial personality disorder; J44.9 Chronic obstructive pulmonary disease, unspecified; I10 Essential (primary) hypertension; D64.9 Anemia, unspecified; R73.9 Hyperglycemia, unspecified; R07.9 Chest pain, unspecified; Z91.19 Patient's noncompliance with other medical treatment and regimen